=== PATIENT | male | born 1950 | race Caucasian/White ===

== ENCOUNTER 2022-02-13 08:52 | Outpatient (CLI) | payer MEDICARE, BC, SELFPAY | END 2022-02-13 08:53 | disposition home or self-care (01) | LOC: AMB 02-24 11:06 | PROVIDERS: PCP Family Medicine; Visit Provider Family Medicine | DX: R41.82 Altered mental status, unspecified (principal); M54.9 Dorsalgia, unspecified | CPT/HCPCS: A0425; A0429 ==

== ENCOUNTER 2022-02-13 09:06 | Emergency (ER) | payer MEDICARE, BC, SELFPAY ==
[2022-02-13] VITALS (11 sets, daily range): BP systolic 119–158; BP diastolic 59–94; PULSE 72–82; RESP 16; TEMP 37; O2SAT 97–100; BMI 25.1
--- NOTE | 2022-02-13 09:38 | ED_ITS ---
HPI - General Adult General Time Seen by Provider: 09:38 Date Seen: 02/13/22 Chief complaint: Fall/Minor Trauma Stated complaint: Fall Time Seen by Provider: 02/13/22 09:37 Source: patient, EMS and RN notes reviewed Mode of arrival: EMS Limitations: no limitations (Phonation difficult for patient at this time) History of Present Illness HPI narrative: Ho is a 71-year-old male brought in by ambulance from [facility] for decreased mentation and complaint of low back pain. He had a fall unwitnessed at 3:30 a.m. yesterday afternoon. He does have underlying Parkinson's disease and dementia with Lewy body disorder. He fell unwitnessed but after that was up around to doing things. This morning they found him to be altered in his mentation, not himself and was complaining of low back pain. When asked him if he remembers the fall he states yes but then will not give me further details. His phonation is quite weak, he keeps his eyes closed the whole time while talking to me. He is alert however and answering questions basically in yes or no statements. He is following commands when I ask him such things as to wiggle his feet. He is localizing his pain to his low back. He has a a neurostimulator and is unable to tell us how to turn it off so that we can get an EKG. There is no noted fevers, denies any numbness tingling, denies pain elsewhere but he is not very conversive or forthcoming with his own information. He basically is answering yes or no whenever I ask him something. Again, I note his phonation is quite weak. He does not appear to be on any blood thinners. At 9:53 a.m., nursing staff did report to me that they talk to [facility] nursing staff. This actually is patient's portion of his baseline mental stat us. They report that he will wax and wane to being responsive with yes and no, slumped over in a chair. To being conversive. This is not new for him to changes mental status. He reportedly will go in and out of times like this. Their main issue was his complaint of low back pain. They are also concerned about his inability to transfer but that has not been new when he enters into 1 of these periods of diminished mental status. complaint: Low back pain after fall yesterday, staff noticed change in mentation Related Data Home Medications Medication Instructions Recorded Confirmed acetaminophen 500 mg tablet mg PO PRN 01/02/22 01/29/22 carbidopa 25 mg-levodopa 100 mg 0.5 tab PO PRN 01/02/22 01/29/22 tablet donepezil 10 mg tablet 10 mg PO DAILY 01/02/22 01/29/22 polyvinyl alcohol 1.4 % eye drops 2 drp ophthalmic (eye) BID 01/02/22 01/29/22 ropinirole 2 mg tablet 2 mg PO .Bedtime 01/02/22 01/29/22 sennosides 8.6 mg tablet 1 mg PO DAILY 01/02/22 01/29/22 Previous Rx's Medication Instructions Recorded cefdinir 300 mg capsule 300 mg PO Q12H #14 caps 02/13/22 Allergies Allergy/AdvReac Type Severity Reaction Status Date / Time amantadine Allergy Severe Anxiety Verified 01/29/22 10:59 and tightness in throat pramipexole Allergy Mild Hives Verified 01/29/22 10:59 Review of Systems Status of ROS: Reports: 10 or more systems reviewed and unremarkable except as noted in History and below [facility] Medical History (Updated 02/13/22 @ 12:21 by Zohreh Quezada MD) Colon polyp Encounter for counseling regarding advance directives (02/26/19) Surgical History (Updated 01/29/22 @ 11:02 by Trena Dowell CMA) History of colonoscopy S/P deep brain stimulator placement (~2006) Status post tonsillectomy and adenoidectomy Social History (Updated 01/29/22 @ 11:02 by Trena Dowell CMA) Smoking Status: Never smoker Do you use any of these nicotine containing products: None Second hand tobacco smoke exposure: No How often do you have a drink containing alcohol: never How often do you have six or more drinks on one occasion: Never AUDIT-C Alcohol total score: 0 Non-prescribed substance use: denies use service: No Exam Const: Vital Signs, click to edit/add: Vital Signs - 24 hr 02/13/22 09:13 02/13/22 09:09 02/13/22 09:12 Temperature 98.6 F Pulse Rate 76 72 Pulse Rate [Left P ulse Oximeter] 73 Respiratory Rate 16 Blood Pressure 158/71 H Blood Pressure [Ri ght Upper Arm] 158/71 H Pulse Oximetry 98 97 100 Oxygen Delivery Me thod Room Air 02/13/22 09:32 02/13/22 10:02 02/13/22 10:31 Temperature Pulse Rate Pulse Rate [Left P ulse Oximeter] Respiratory Rate Blood Pressure 139/73 138/74 119/94 H Blood Pressure [Ri ght Upper Arm] Pulse Oximetry Oxygen Delivery Mi thod 02/13/22 11:02 02/13/22 11:32 02/13/22 11:38 Temperature Pulse Rate 82 Pulse Rate [Left P ulse Oximeter] Respiratory Rate Blood Pressure 130/70 139/75 Blood Pressure [Ri ght Upper Arm] Pulse Oximetry 99 Oxygen Delivery Mi thod 02/13/22 12:07 Temperature Pulse Rate Pulse Rate [Left P ulse Oximeter] Respiratory Rate Blood Pressure 142/73 H Blood Pressure [Ri ght Upper Arm] Pulse Oximetry Oxygen Delivery Mi thod Documenting provider has reviewed patient's vital signs: yes Common normals: no apparent distress General appearance: cooperative, disheveled (Shirt is dirty, food stains), frail appearing and other (Keeps eyes closed during the whole interaction) Nutritional appearance: cachectic Orientation/consciousness: Yes awake HENMT: Common normals: normocephalic, head/scalp atraumatic, hearing grossly normal bilaterally, external ears normal and nasal mucous membranes and turbinates normal Head and scalp: normocephalic and atraumatic Nose: nasal mucous membranes and turbinates normal External ear: external ears normal Mouth: moist mucous membranes abnormal (Dry mucous membranes, teeth look dry as well) and dysphonia (Very soft phonation) Eye: Common normals: PERRL, EOMs intact bilaterally, conjunctivae normal and no scleral icterus Conjunctiva: conjunctiva(e) normal Pupil: PERRL Neck & C-Spine: Common normals: no lymphadenopathy, supple (Can turn his head a bit, no midline or paraspinal tenderness of his neck), no meningeal signs, no JVD and thyroid normal General: normal visual inspection, trachea midline and JVD Thyroid: thyroid normal Chest: Common normals: inspection of chest normal and palpation of chest normal Resp: Common normals: normal respiratory effort, no retractions, no use of accessory muscles and clear to auscultation bilaterally Auscultation: clear to auscultation bilaterally Cardio: Common normals: no JVD, regular rate, regular rhythm (With occasional ectopy), S1 normal heart sound, S2 normal heart sound, no gallops, no clicks and no murmurs Jugular venous distention: JVD Rate: regular rate Rhythm: regular rhythm (With occasional ectopy) Heart sounds: S1 normal and S2 normal GI: Common normals: Normal to inspection, nondistended, normoactive bowel sounds present, soft to palpation, non-tender, no hepatosplenomegaly and no masses Palpation: soft and no hepatosplenomegaly : Common normals: no CVA tenderness Bladder/kidney exam: no CVA tenderness Back & Pelvis: Common normals: no CVA tenderness, thoracic and lumbar spine normal to inspection and no thoracic nor lumbar tenderness Neuro: Kashif Coma Scale: document GCS findings Sensorium/orientation: awake Meningeal signs: no meningeal signs Other: Keeps eyes closed but will open them with prompting. Has significant rigidity. Is able to move extremities with prompting, can wiggle toes and ankles, can feel his feet. When I lift leg sirs negative straight leg raising. Course Course Hospital Course: We will obtain portable chest x-ray, head CT, lumbar CT is patient is not going to be able to position himself for any x-rays. He has not had any of his morning medicines and thus his Parkinson's obviously may be causing more rigidity, decreased mental status changes with that. We will get some baseline labs attempt to get a urinalysis if we can not rule out any infectious etiology. Reevaluation(s) Reevaluation #1: Have reviewed his labs, imaging. It would. He has a UTI. He is requesting to go home at this time. He is widely awake, alert at this time. Did review his prior urine culture in October of 2021. IA have chosen to use Rocephin and higher level cephalosporin as the urine culture from October looked to be responsive to these medications. Time: 12:15 Vital Signs Vital signs: Initial Vital Signs Pulse Rate 76 02/13/22 09:09 Pulse Oximetry 97 02/13/22 09:09 Vital Signs Pulse Rate 76 02/13/22 09:09 Pulse Oximetry 97 02/13/22 09:09 Temperature 98.6 F 02/13/22 09:13 Pulse Rate 82 02/13/22 11:38 Respiratory Rate 16 02/13/22 09:13 Blood Pressure 142/73 H 02/13/22 12:07 Pulse Oximetry 99 02/13/22 11:38 Oxygen Delivery Method 02/13/22 09:13 Medical Decision Making Lab Data Lab results reviewed: Yes I reviewed the patient's lab results Labs: Lab Results 02/13/22 02/13/22 02/13/22 Range/Units 10:48 10:48 11:05 WBC 15.20 H (4.50-11.00) K/uL RBC 4.44 (4.30-5.90) m/uL Hgb 13.6 (13.5-17.5) gm/dL Hct 40.4 (37.0-53.0) % MCV 91 (80-100) fL MCH 31 (26-34) pg MCHC 34 (32-36) gm/dL RDW Coeff of Lasha 13.2 (11.5-15.5) % Plt Count 166 (140-440) K/uL Neut % (Auto) 81.8 H (42.0-72.0) % Lymph % (Auto) 10.4 L (20-44) % Stanton % (Auto) 6.6 (0.0-11.0) % Eos % (Auto) 0.3 (0.0-7.0) % Baso % (Auto) 0.1 (0.0-3.0) % Neut # (Auto) 12.40 H (1.7-7.0) K/uL Lymph # (Auto) 1.60 (0.90-2.90) K/uL Stanton # (Auto) 1.00 H (0.00-0.90) K/UL Eos # (Auto) 0.00 (0.00-0.50) K/uL Baso # (Auto) 0.00 (0.00-0.30) K/uL Abs Immat Gran (auto) 0.12 (0.00-0.30) K/uL Sodium 141 (135-149) mmol/L Potassium 3.9 (3.6-5.1) mmol/L Chloride 105 (96-114) mmol/L Carbon Dioxide 26 (20-32) mmol/L BUN 30 (7-30) mg/dL Creatinine 0.6 (0.5-1.5) mg/dL Estimated Creat Clear 68.94 Estimated GFR 103 ml/min Glucose 106 (60-115) mg/dL Calcium 8.8 (8.4-10.6) mg/dL Total Bilirubin 0.7 (0.1-1.5) mg/dL AST 67 H (12-35) U/L ALT 87 H (4-50) U/L Alkaline Phosphatase 128 (40-150) U/L Total Protein 7.4 (6.0-8.3) g/dL Albumin 4.0 (3.3-5.0) g/dL Urine Color (Yellow) Urine Appearance (Clear) Urine pH (5.0-8.5) Ur Specific [place] (1.000-1.030) Urine Protein (Negative) Urine Glucose (UA) (Negative) Urine Ketones (Negative) Urine Blood (Negative) Urine Nitrite (Negative) Urine Bilirubin (Negative) Urine Urobilinogen (0.2-1.0) Ur Leukocyte Esterase (Negative) Urine RBC (0-2) Urine WBC (0-5) Ur Squamous Epith Cells (None-Few) Urine Bacteria (None) SARS-CoV-2 (PCR) Negative SARS-CoV-2 (Negative) 02/13/22 Range/Units 11:47 WBC (4.50-11.00) K/uL RBC (4.30-5.90) m/uL Hgb (13.5-17.5) gm/dL Hct (37.0-53.0) % MCV (80-100) fL MCH (26-34) pg MCHC (32-36) gm/dL RDW Coeff of Lasha (11.5-15.5) % Plt Count (140-440) K/uL Neut % (Auto) (42.0-72.0) % Lymph % (Auto) (20-44) % Stanton % (Auto) (0.0-11.0) % Eos % (Auto) (0.0-7.0) % Baso % (Auto) (0.0-3.0) % Neut # (Auto) (1.7-7.0) K/uL Lymph # (Auto) (0.90-2.90) K/uL Stanton # (Auto) (0.00-0.90) K/UL Eos # (Auto) (0.00-0.50) K/uL Baso # (Auto) (0.00-0.30) K/uL Abs Immat Gran (auto) (0.00-0.30) K/uL Sodium (135-149) mmol/L Potassium (3.6-5.1) mmol/L Chloride (96-114) mmol/L Carbon Dioxide (20-32) mmol/L BUN (7-30) mg/dL Creatinine (0.5-1.5) mg/dL Estimated Creat Clear Estimated GFR ml/min Glucose (60-115) mg/dL Calcium (8.4-10.6) mg/dL Total Bilirubin (0.1-1.5) mg/dL AST (12-35) U/L ALT (4-50) U/L Alkaline Phosphatase (40-150) U/L Total Protein (6.0-8.3) g/dL Albumin (3.3-5.0) g/dL Urine Color Yellow (Yellow) Urine Appearance Cloudy A (Clear) Urine pH 7.0 (5.0-8.5) Ur Specific [place] 1.025 (1.000-1.030) Urine Protein Negative (Negative) Urine Glucose (UA) Negative (Negative) Urine Ketones Negative (Negative) Urine Blood Negative (Negative) Urine Nitrite Positive A (Negative) Urine Bilirubin Negative (Negative) Urine Urobilinogen 1.0 (0.2-1.0) Ur Leukocyte Esterase Trace A (Negative) Urine RBC 0-2 (0-2) Urine WBC 10-25 A (0-5) Ur Squamous Epith Cells Few (None-Few) Urine Bacteria Many A (None) SARS-CoV-2 (PCR) (Negative) Imaging Data CT scan - head: Attestation: I have reviewed the pertinent imaging results. Radiologist's impression: [facility] Patient ID:?[id number] Site Patient ID:?[id number]. Site :?1950 Study:?CT Head W/O-02/13/2022 10:53:09 AM Ordering Physician:?Pilar Bruner Final Report: INDICATION: Fall. TECHNIQUE: CT head without contrast. COMPARISON: None. FINDINGS: CSF spaces: Stable size and configuration of the ventricles. Brain parenchyma and extra-axial spaces: No change in the appearance of the bilateral deep brain stimulators. The kinney-white differentiation is normal. No change in nonspecific hypodensity in the subcortical and deep white matter unchanged compared to prior exam. No sign of mass, hemorrhage, or midline shift. No extra-axial fluid collection. Skull base and calvarium: Paranasal sinus mucosal disease with polyp or mucous retention cyst in right maxillary sinus print. No air-fluid levels. The visualized orbits are grossly unremarkable. No skull fractures. Debris in the external auditory canal spread IMPRESSION: 1. No intracranial hemorrhage or evidence of other acute intracranial abnormality. 2. No change in the position of the bilateral deep brain stimulator leads. 3. Cerebral atrophy with stable nonspecific hypodensity in the subcortical and deep white matter likely chronic microvascular ischemic change. Please note that all CT scans at this facility use dose modulation, iterative reconstruction, and/or weight-based dosing when appropriate to reduce radiation dose to as low as reasonably achievable. Dictated by Bhaskar Loza MD @ 02/13/2022 11:11:43 AM (Electronic Signature) CT- Other: Attestation: I have reviewed the pertinent imaging results. Radiologist's impression: [facility]:?[facility] Patient ID:?[id number] Site Patient ID:?[id number]. Site :?1950 Study:?CT Spine Lumbar W/O-02/13/2022 10:54:23 AM Ordering Physician:?Pilar Bruner Final Report: INDICATION: Fall. TECHNIQUE: CT lumbar spine without contrast. COMPARISON: None. FINDINGS: Vertebrae: Mild S shaped lumbar scoliotic curvature. Grade 1 anterolisthesis of L5 on S1. Bilateral chronic L5 pars defects. Mild retrolisthesis of L2 on L3. No evidence of acute fracture. Discs and facet joints: Degenerative disc disease at L2-L3. Mild disc height loss at L5-S1 and L3-L4. Mild degenerative change in the lower lumbar facets. Bone islands in the L1 and L2 vertebral bodies. Extraspinal findings: Prevertebral soft tissues and visualized retroperitoneum are unremarkable. IMPRESSION: 1. No evidence of acute fracture or traumatic malalignment. 2. Grade 1 anterolisthesis of L5 on S1 due to bilateral chronic pars defects. Minimal retrolisthesis of L2 on L3 due to degenerative disc disease. 3. Mild degenerative disc and facet disease. Please note that all CT scans at this facility use dose modulation, iterative reconstruction, and/or weight-based dosing when appropriate to reduce radiation dose to as low as reasonably achievable. Dictated by Bhaskar Loza MD @ 02/13/2022 11:17:47 AM (Electronic Signature) Chest x-ray: Attestation: I have reviewed the pertinent imaging results. Radiologist's impression: Patient: [facility] Facility:?[facility] Patient ID:?[id number] Site Patient ID:?[id number]. Site :?1950 Study:?XRay Chest PORTABLEa-02/13/2022 11:01:30 AM Ordering Physician:Letty Bruner Final Report: INDICATION: Fall. TECHNIQUE: Chest 1 views. COMPARISON: 11/04/2021. FINDINGS: Cardiovascular and mediastinum: Heart size and vasculature are normal in caliber and appearance. Lungs and pleural spaces: Lungs are clear. No sign of infiltrate or mass. No sign of pleural effusion. No pneumothorax. Bones and soft tissues: No significant findings. IMPRESSION: No acute or significant findings. Dictated by Bhaskar Loza MD @ 02/13/2022 11:12:52 AM (Electronic Signature) Discharge Plan Discharge Clinical Impression: Fall, Urinary tract infection, Low back pain Condition: Stable Instructions: Urinary Tract Infection in Men (ED), Fall Prevention for Older Adults (ED) Additional Instructions: Start oral antibiotics tomorrow morning and take as prescribed. If you are unable to take the oral antibiotic, have progressive symptoms despite taking oral antibiotic, please seek re-evaluation. Urine culture will be done, we will contact to after 48 hours if there is any need for antibiotic change. Prescriptions: New cefdinir 300 mg capsule 300 mg PO Q12H Qty: 14 0RF No Action carbidopa-levodopa 25-100 mg tablet 0.5 tab PO PRN acetaminophen 500 mg tablet PO PRN polyvinyl alcohol 1.4 % drops 2 drp ophthalmic (eye) BID Rx Instructions: AND NEEDED ropinirole 2 mg tablet 2 mg PO .Bedtime donepezil 10 mg tablet 10 mg PO DAILY sennosides 8.6 mg tablet 1 mg PO DAILY Rx Instructions: AND NEEDED Follow Up/Referrals: Bayron Aquino MD [Primary Care Provider] - Stand Alone Forms: [employer] Info Instructions
--- NOTE | 2022-02-13 09:56 | CRLHL7_ITS ---
For Patients: As a result of the Century Cures Act, medical imaging exams and procedure reports are released immediately into your electronic medical record. You may view this report before your referring provider. If you have questions, please contact your health care provider. INDICATION: Fall. TECHNIQUE: CT head without contrast. COMPARISON: None. FINDINGS: CSF spaces: Stable size and configuration of the ventricles. Brain parenchyma and extra-axial spaces: No change in the appearance of the bilateral deep brain stimulators. The kinney-white differentiation is normal. No change in nonspecific hypodensity in the subcortical and deep white matter unchanged compared to prior exam. No sign of mass, hemorrhage, or midline shift. No extra-axial fluid collection. Skull base and calvarium: Paranasal sinus mucosal disease with polyp or mucous retention cyst in right maxillary sinus print. No air-fluid levels. The visualized orbits are grossly unremarkable. No skull fractures. Debris in the external auditory canal spread IMPRESSION: 1. No intracranial hemorrhage or evidence of other acute intracranial abnormality. 2. No change in the position of the bilateral deep brain stimulator leads. 3. Cerebral atrophy with stable nonspecific hypodensity in the subcortical and deep white matter likely chronic microvascular ischemic change. Please note that all CT scans at this facility use dose modulation, iterative reconstruction, and/or weight-based dosing when appropriate to reduce radiation dose to as low as reasonably achievable. Dictated by Bhaskar Loza MD @ 02/13/2022 11:11:43 AM (Electronically Signed)
--- NOTE | 2022-02-13 09:56 | CRLHL7_ITS ---
For Patients: As a result of the Century Cures Act, medical imaging exams and procedure reports are released immediately into your electronic medical record. You may view this report before your referring provider. If you have questions, please contact your health care provider. INDICATION: Fall. TECHNIQUE: CT lumbar spine without contrast. COMPARISON: None. FINDINGS: Vertebrae: Mild S shaped lumbar scoliotic curvature. Grade 1 anterolisthesis of L5 on S1. Bilateral chronic L5 pars defects. Mild retrolisthesis of L2 on L3. No evidence of acute fracture. Discs and facet joints: Degenerative disc disease at L2-L3. Mild disc height loss at L5-S1 and L3-L4. Mild degenerative change in the lower lumbar facets. Bone islands in the L1 and L2 vertebral bodies. Extraspinal findings: Prevertebral soft tissues and visualized retroperitoneum are unremarkable. IMPRESSION: 1. No evidence of acute fracture or traumatic malalignment. 2. Grade 1 anterolisthesis of L5 on S1 due to bilateral chronic pars defects. Minimal retrolisthesis of L2 on L3 due to degenerative disc disease. 3. Mild degenerative disc and facet disease. Please note that all CT scans at this facility use dose modulation, iterative reconstruction, and/or weight-based dosing when appropriate to reduce radiation dose to as low as reasonably achievable. Dictated by Bhaskar Loza MD @ 02/13/2022 11:17:47 AM (Electronically Signed)
--- NOTE | 2022-02-13 09:57 | CRLHL7_ITS ---
For Patients: As a result of the Cures Act, medical imaging exams and procedure reports are released immediately into your electronic medical record. You may view this report before your referring provider. If you have questions, please contact your health care provider. INDICATION: Fall. TECHNIQUE: Chest 1 views. COMPARISON: 11/04/2021. FINDINGS: Cardiovascular and mediastinum: Heart size and vasculature are normal in caliber and appearance. Lungs and pleural spaces: Lungs are clear. No sign of infiltrate or mass. No sign of pleural effusion. No pneumothorax. Bones and soft tissues: No significant findings. IMPRESSION: No acute or significant findings. Dictated by Bhaskar Loza MD @ 02/13/2022 11:12:52 AM (Electronically Signed)
[2022-02-13 10:43] LABS: Basophils Percent Auto 0.1 % (0.0-3.0); Eosinophils Percent Auto 0.3 % (0.0-7.0); Hematocrit 40.4 % (37.0-53.0); Hemoglobin* 13.6 gm/dL (13.5-17.5); Immature Granulocytes Abs Auto 0.12 K/uL (0.00-0.30); Lymphocytes Percent Auto 10.4 % (20-44); Mean Corpuscular HGB Conc 34 gm/dL (32-36); Mean Corpuscular Hemoglobin 31 pg (26-34); Mean Corpuscular Volume 91 fL (80-100); Monocytes Percent Auto 6.6 % (0.0-11.0); Neutrophils Percent Auto 81.8 % (42.0-72.0); Platelet Count* 166 K/uL (140-440); RDW Coefficient of Variation % 13.2 % (11.5-15.5); Red Blood Count 4.44 m/uL (4.30-5.90)
[2022-02-13 10:52] LABS: Slide Review Reflex No
[2022-02-13 10:54] LABS: Chloride* 105 mmol/L (96-114)
[2022-02-13 10:55] LABS: Potassium* 3.9 mmol/L (3.6-5.1); Sodium* 141 mmol/L (135-149)
[2022-02-13 10:57] LABS: Aspartate Amino Transferase* 67 U/L (12-35); Bilirubin Total* 0.7 mg/dL (0.1-1.5); Carbon Dioxide* 26 mmol/L (20-32); Creatinine* 0.6 mg/dL (0.5-1.5); Est. Creatinine Clearance* 68.94; Estimated Glomerular Filt Rate 103 ml/min
[2022-02-13 10:58] LABS: Alanine Aminotransferase* 87 U/L (4-50); Alkaline Phosphatase* 128 U/L (40-150); Blood Urea Nitrogen* 30 mg/dL (7-30); Calcium* 8.8 mg/dL (8.4-10.6); Glucose* 106 mg/dL (60-115); Total Protein* 7.4 g/dL (6.0-8.3)
[2022-02-13 11:49] LABS: Appearance Urine Cloudy (Clear); Bilirubin Urine Negative (Negative); Blood Urine Negative (Negative); Glucose Urine Negative (Negative); Ketones Urine Negative (Negative); Leukocyte Esterase Urine Trace (Negative); Nitrite Urine Positive (Negative); Protein Urine Negative (Negative); Specific Gravity Urine 1.025 (1.000-1.030)
[2022-02-13 11:59] LABS: Bacteria Urine Many; RBC Urine 0-2 (0-2); Squamous Epithelial Cell Urine Few (None-Few)
[2022-02-13 12:02] LABS: SARS PCR* Negative SARS-CoV-2 (Negative)
[2022-02-13] MEDS: cefTRIAXone 1 GM VIAL IM (12:41)
[2022-02-13] MEDS: LIDOCAINE 1% 5 ml (pf) 5 ML VIAL 2.1 ML IM (12:42)
--- NOTE | 2022-02-13 12:58 | ED.NURSE ---
Report given to RN at facility.
[2022-02-13 13:10] LABS: Color Urine Yellow (Yellow)
== END 2022-02-13 12:58 | disposition home or self-care (01) ==
PROVIDERS: Emergency Provider Family Medicine; PCP Family Medicine
DX: N39.0 Urinary tract infection, site not specified (principal); M54.50 Low back pain, unspecified; Z91.81 History of falling
CPT/HCPCS: 36415; 70450; 71045; 72131; 80053; 81001; 85025; 87086; 87186; 87635; 96372; 99284; J0696

== ENCOUNTER 2022-02-13 12:49 | Outpatient (CLI) | payer MEDICARE, BC, SELFPAY | END 2022-02-13 12:50 | disposition home or self-care (01) | LOC: AMB 02-24 12:04 | PROVIDERS: PCP Family Medicine; Visit Provider Family Medicine | DX: R53.1 Weakness (principal) | CPT/HCPCS: A0425; A0428; A0429 ==

== ENCOUNTER 2022-02-17 14:18 | Inpatient (IN) | payer MEDICARE, BC, SELFPAY ==
[2022-02-17 14:24] VITALS: BP 143/83; PULSE 71; RESP 16; TEMP 37.3; O2SAT 96
--- NOTE | 2022-02-17 14:44 | CRLHL7_ITS ---
For Patients: As a result of the Cures Act, medical imaging exams and procedure reports are released immediately into your electronic medical record. You may view this report before your referring provider. If you have questions, please contact your health care provider. Indication: Somnolent Technique: Portable chest Comparison: No comparison Findings: Normal cardiac mediastinal silhouette. Lungs are clear. No effusion. No pneumothorax. Left chest wall device. Dictated by Elizabet Pearce MD @ 02/17/2022 4:35:58 PM (Electronically Signed)
--- NOTE | 2022-02-17 14:45 | CRLHL7_ITS ---
For Patients: As a result of the Cures Act, medical imaging exams and procedure reports are released immediately into your electronic medical record. You may view this report before your referring provider. If you have questions, please contact your health care provider. INDICATION: Somnolence. TECHNIQUE: Axial images. Sagittal and coronal reconstructions. COMPARISON: 02/13/2022. FINDINGS: Stable position of bilateral deep brain stimulators. No abnormal intracranial mass effect or midline shift. No acute endocrine hemorrhage. Periventricular white matter changes are again noted, likely related to chronic small vessel disease. Stable prominence of the lateral ventricle. Overall, no new findings. IMPRESSION: No CT evidence of an acute intracranial abnormality. Please note that all CT scans at this facility use dose modulation, iterative reconstruction, and/or weight-based dosing when appropriate to reduce radiation dose to as low as reasonably achievable. Dictated by Byron Chiang MD @ 02/17/2022 5:27:54 PM (Electronically Signed)
--- NOTE | 2022-02-17 14:47 | CRLHL7_ITS ---
For Patients: As a result of the Century Cures Act, medical imaging exams and procedure reports are released immediately into your electronic medical record. You may view this report before your referring provider. If you have questions, please contact your health care provider. INDICATION: Pain. TECHNIQUE: CT abdomen and pelvis without contrast. COMPARISON: None. FINDINGS: Lower chest: Dependent atelectasis. Mild pericardial fluid. Liver: Liver cysts. Gallbladder and bile ducts: No stones or inflammation. No biliary dilatation. Pancreas: Unremarkable. No mass or inflammation. Spleen: Normal in size. No masses. Adrenal glands: Normal in size. No nodules. Kidneys: Normal in size. No suspicious masses, stones, or hydronephrosis. GI tract: Unremarkable. Normal in caliber. No sign of mass or inflammation. Normal appendix. Vasculature: Unremarkable. Lymph nodes: No lymphadenopathy. Abdominal wall/Omentum/Peritoneum: Unremarkable. No sign of mass or infiltration. No free air or significant free fluid. Pelvis: Unremarkable. No pelvic masses. Bones: Grade 1 anterolisthesis of L5 on S1 due to chronic bilateral pars defects. Acute to subacute appearing T9 compression fracture which involves primarily the anterior column. No significant retropulsion of posterosuperior endplate of there is some sclerosis in the vertebral body. Subacute healing fracture of the right 11th rib at the costovertebral junction. Comminuted moderately displaced impacted fracture of the left femoral neck. No other fractures identified. IMPRESSION: 1. Acute mildly displaced impacted left femoral neck fracture. 2. Age-indeterminate T9 fracture possibly subacute. Fracture appears to be single column compression fracture. 3. Subacute right 11th rib fracture at the costovertebral junction. Finding was conveyed to Dr. Dasilva at 5:40 p.m. on 02/17/2022. Please note that all CT scans at this facility use dose modulation, iterative reconstruction, and/or weight-based dosing when appropriate to reduce radiation dose to as low as reasonably achievable. Dictated by Bhaskar Loza MD @ 02/17/2022 5:43:34 PM (Electronically Signed)
--- NOTE | 2022-02-17 14:51 | ED.GENADULT ---
HPI - General Adult General Time Seen by Provider: 14:50 Date Seen: 02/17/22 Chief complaint: Weakness Stated complaint: Pain Time Seen by Provider: 02/17/22 14:20 Source: EMS Mode of arrival: other Limitations: altered mental status and physical limitation History of Present Illness HPI narrative: Patient is a 69 year white male with significant Parkinson's disease, currently residing at the [facility], has had a recent urinary tract infection. The patient has been somnolent today, responding only to deep stimulation and pain, the staff at the [place] [phone] think he is in pain and sent him to the hospital. Family has wanted does some diagnostic studies done and treatment there of, he is apparently full code at this point. He is unable to really say what is bothering him, but he does smile and hold his eyes shut lie tried open his eyes. He does not respond to questioning. He is flexed in a type position. No obvious skin rashes or traumatic issues noted Related Data Home Medications Medication Instructions Recorded Confirmed carbidopa 25 mg-levodopa 100 mg 2 tab PO DAILY PRN 01/02/22 02/17/22 tablet donepezil 10 mg tablet 10 mg PO DAILY 01/02/22 02/17/22 polyvinyl alcohol 1.4 % eye drops 2 drp ophthalmic (eye) BID PRN dry 01/02/22 02/17/22 eyes ropinirole 2 mg tablet 2 mg PO HS 01/02/22 02/17/22 sennosides 8.6 mg tablet 1 mg PO DAILY 01/02/22 02/17/22 Previous Rx's Medication Instructions Recorded cefdinir 300 mg capsule 300 mg PO Q12H #14 caps 02/13/22 Allergies Allergy/AdvReac Type Severity Reaction Status Date / Time amantadine Allergy Severe Anxiety Verified 02/17/22 14:33 and tightness in throat pramipexole Allergy Mild Hives Verified 02/17/22 14:33 Review of Systems Status of ROS: Reports: unobtainable due to medical condition [facility] Medical History Colon polyp Encounter for counseling regarding advance directives (02/26/19) Surgical History History of colonoscopy S/P deep brain stimulator placement (~2006) Status post tonsillectomy and adenoidectomy Social History Smoking Status: Never smoker Do you use any of these nicotine containing products: None Second hand tobacco smoke exposure: No How often do you have a drink containing alcohol: never How often do you have six or more drinks on one occasion: Never AUDIT-C Alcohol total score: 0 Non-prescribed substance use: denies use service: No Exam Narrative: Exam Narrative: Objective: The patient is in a type position flexed hips and knees, he keeps his eyes shot, but will let me open his eyes, when I do ask him how he is doing or if he has pain he will move his mouth slightly but does not respond. He has no other specific findings his vital signs show to be afebrile otherwise unremarkable O2 sat is 96% on room air. Staff reports that he has not had any urinary symptoms or cough. HEENT patient hold his eyes closed when I try an open them open them even manually, his mouth is dry neck nontender lungs diminished air exchange bilaterally but no obvious rales or wheezing Heart rate and rhythm regular 2/6 systolic murmur Abdomen benign soft nontender no CVA apparent tenderness Extremities show good peripheral perfusion no swelling of the legs The patient does withdraw to discomfort. Const: Vital Signs, click to edit/add: Vital Signs - 24 hr 02/17/22 14:24 Temperature 99.2 F Pulse Rate [Left P ulse Oximeter] 71 Respiratory Rate 16 Blood Pressure [Ri ght Upper Arm] 143/83 H Pulse Oximetry 96 Oxygen Delivery Me thod Room Air Course Vital Signs Vital signs: Initial Vital Signs Temperature 99.2 F 02/17/22 14:24 Temperature Source Temporal Artery Scan 02/17/22 14:24 Pulse Rate 71 02/17/22 14:24 Respiratory Rate 16 02/17/22 14:24 Blood Pressure 143/83 H 02/17/22 14:24 Blood Pressure Mean 103 02/17/22 14:24 Blood Pressure Position Left Lateral 02/17/22 14:24 Pulse Oximetry 96 02/17/22 14:24 Oxygen Delivery Method 02/17/22 14:24 Vital Signs Temperature 99.2 F 02/17/22 14:24 Pulse Rate 71 02/17/22 14:24 Respiratory Rate 16 02/17/22 14:24 Blood Pressure 143/83 H 02/17/22 14:24 Pulse Oximetry 96 02/17/22 14:24 Oxygen Delivery Method 02/17/22 14:24 Temperature 99.2 F 02/17/22 14:24 Pulse Rate 71 02/17/22 14:24 Respiratory Rate 16 02/17/22 14:24 Blood Pressure 143/83 H 02/17/22 14:24 Pulse Oximetry 96 02/17/22 14:24 Oxygen Delivery Method 02/17/22 14:24 Medical Decision Making MDM Narrative Medical decision making narrative: The patient has a very significant Parkinson's issue, as well as general debility. Think at this point we can do fairly complete workup with a head CT, abdominal pelvic CT, chest x-ray, urinalysis from a in and out cath specimen, blood cultures, laboratory electrolytes. Patient I believe should not go back to assisted living and will admit to the hospital for disposition planning and further assessment and possibly workup. Maybe were social service consultation as well to discuss hospice or service as needed. Addendum: I had a discussion with daughter lives was the power of bankruptcy attorney [phone] who lives in [facility]. Discussed Ho situation, at this point I would wish to try IV fluids IV antibiotics, but would also like a hospice consultation through social service and we can arrange this through inpatient care. I do not think the patient can safely go back to assisted living at this point. Dr. Onofre kindly will follow in hospital. Addendum: Radiology called back with his CT reports, his head CT looks unremarkable, but his abdomen pelvis CT show a impacted femoral neck fracture on the left, and subacute T9 compression fracture and a right I believe 11th rib fracture. Patient will be assessed in the hospital I think admitting him makes sense will discuss with Dr. Onofre. Lab Data Labs: Lab Results 02/17/22 02/17/22 02/17/22 Range/Units 14:27 14:46 15:12 WBC 12.33 H (4.50-11.00) K/uL RBC 5.02 (4.30-5.90) m/uL Hgb 15.2 (13.5-17.5) gm/dL Hct 46.0 (37.0-53.0) % MCV 92 (80-100) fL MCH 30 (26-34) pg MCHC 33 (32-36) gm/dL RDW Coeff of Lasha 13.1 (11.5-15.5) % Plt Count 244 (140-440) K/uL Neut % (Auto) 78.3 H (42.0-72.0) % Lymph % (Auto) 13.0 L (20-44) % [place] % (Auto) 7.5 (0.0-11.0) % Eos % (Auto) 0.8 (0.0-7.0) % Baso % (Auto) 0.2 (0.0-3.0) % Neut # (Auto) 9.70 H (1.7-7.0) K/uL Lymph # (Auto) 1.60 (0.90-2.90) K/uL [place] # (Auto) 0.90 (0.00-0.90) K/UL Eos # (Auto) 0.10 (0.00-0.50) K/uL Baso # (Auto) 0.00 (0.00-0.30) K/uL Abs Immat Gran (auto) 0.03 (0.00-0.30) K/uL INR (0.91-1.10) Sodium (135-149) mmol/L Potassium (3.6-5.1) mmol/L Chloride (96-114) mmol/L Carbon Dioxide (20-32) mmol/L BUN (7-30) mg/dL Creatinine (0.5-1.5) mg/dL Estimated GFR ml/min Glucose (60-115) mg/dL Venous Lactic Acid (Serial Order) Calcium (8.4-10.6) mg/dL Troponin I (0.01-0.04) ng/mL C-Reactive Protein (0.5-1.0) mg/dL NT-Pro-B Natriuret Pep (0-125) PG/mL Amylase (18-89) U/L Urine Color Yellow (Yellow) Urine Appearance Clear (Clear) Urine pH 5.0 (5.0-8.5) Ur Specific [place] >= 1.030 (1.000-1.030) Urine Protein 1+ A (Negative) Urine Glucose (UA) Negative (Negative) Urine Ketones 1+ A (Negative) Urine Blood Trace-intact A (Negative) Urine Nitrite Negative (Negative) Urine Bilirubin 1+ A (Negative) Urine Urobilinogen 0.2 (0.2-1.0) Ur Leukocyte Esterase Negative (Negative) Urine RBC 0-2 (0-2) Urine WBC 2-5 (0-5) Ur Squamous Epith Cells None (None-Few) Urine Bacteria Moderate A (None) SARS-CoV-2 (PCR) Negative SARS-CoV-2 (Negative) 02/17/22 02/17/22 02/17/22 Range/Units 15:12 15:12 15:12 WBC (4.50-11.00) K/uL RBC (4.30-5.90) m/uL Hgb (13.5-17.5) gm/dL Hct (37.0-53.0) % MCV (80-100) fL MCH (26-34) pg MCHC (32-36) gm/dL RDW Coeff of Lasha (11.5-15.5) % Plt Count (140-440) K/uL Neut % (Auto) (42.0-72.0) % Lymph % (Auto) (20-44) % [place] % (Auto) (0.0-11.0) % Eos % (Auto) (0.0-7.0) % Baso % (Auto) (0.0-3.0) % Neut # (Auto) (1.7-7.0) K/uL Lymph # (Auto) (0.90-2.90) K/uL [place] # (Auto) (0.00-0.90) K/UL Eos # (Auto) (0.00-0.50) K/uL Baso # (Auto) (0.00-0.30) K/uL Abs Immat Gran (auto) (0.00-0.30) K/uL INR 1.11 H (0.91-1.10) Sodium 143 (135-149) mmol/L Potassium 3.6 (3.6-5.1) mmol/L Chloride 102 (96-114) mmol/L Carbon Dioxide 30 (20-32) mmol/L BUN 44 H (7-30) mg/dL Creatinine 0.8 (0.5-1.5) mg/dL Estimated GFR 94 ml/min Glucose 122 H (60-115) mg/dL Venous Lactic Acid (Serial Order) Calcium 9.4 (8.4-10.6) mg/dL Troponin I < 0.01 L (0.01-0.04) ng/mL C-Reactive Protein 16.3 H (0.5-1.0) mg/dL NT-Pro-B Natriuret Pep 98 (0-125) PG/mL Amylase 85 (18-89) U/L Urine Color (Yellow) Urine Appearance (Clear) Urine pH (5.0-8.5) Ur Specific [place] (1.000-1.030) Urine Protein (Negative) Urine Glucose (UA) (Negative) Urine Ketones (Negative) Urine Blood (Negative) Urine Nitrite (Negative) Urine Bilirubin (Negative) Urine Urobilinogen (0.2-1.0) Ur Leukocyte Esterase (Negative) Urine RBC (0-2) Urine WBC (0-5) Ur Squamous Epith Cells (None-Few) Urine Bacteria (None) SARS-CoV-2 (PCR) (Negative) Discharge Plan Discharge Clinical Impression: Altered mental status Patient Disposition: Admitted As Inpatient
[2022-02-17 15:44] LABS: SARS PCR* Negative SARS-CoV-2 (Negative)
[2022-02-17 15:46] LABS: Basophils Percent Auto 0.2 % (0.0-3.0); Eosinophils Percent Auto 0.8 % (0.0-7.0); Hemoglobin* 15.2 gm/dL (13.5-17.5); Immature Granulocytes Abs Auto 0.03 K/uL (0.00-0.30); Mean Corpuscular HGB Conc 33 gm/dL (32-36); Mean Corpuscular Hemoglobin 30 pg (26-34); Mean Corpuscular Volume 92 fL (80-100); Monocytes Percent Auto 7.5 % (0.0-11.0); Neutrophils Percent Auto 78.3 % (42.0-72.0); Platelet Count* 244 K/uL (140-440); RDW Coefficient of Variation % 13.1 % (11.5-15.5); Red Blood Count 5.02 m/uL (4.30-5.90); White Blood Count* 12.33 K/uL (4.50-11.00)
[2022-02-17 15:54] LABS: Slide Review Reflex No
[2022-02-17 15:58] LABS: Chloride* 102 mmol/L (96-114); Potassium* 3.6 mmol/L (3.6-5.1); Sodium* 143 mmol/L (135-149)
[2022-02-17 16:00] LABS: INR 1.11 (0.91-1.10); Prothrombin Time 14.7 Seconds
[2022-02-17 16:01] LABS: Amylase* 85 U/L (18-89); Creatinine* 0.8 mg/dL (0.5-1.5); Estimated Glomerular Filt Rate 94 ml/min
[2022-02-17 16:02] LABS: Blood Urea Nitrogen* 44 mg/dL (7-30); Calcium* 9.4 mg/dL (8.4-10.6); Carbon Dioxide* 30 mmol/L (20-32); Glucose* 122 mg/dL (60-115)
[2022-02-17 16:09] LABS: NT Pro B Type NatriureticPept* 98 PG/mL (0-125)
[2022-02-17 16:13] LABS: Troponin I* < 0.01 ng/mL (0.01-0.04)
[2022-02-17 16:17] LABS: C Reactive Protein* 16.3 mg/dL (0.5-1.0)
[2022-02-17 16:30] LABS: Appearance Urine Clear (Clear); Bilirubin Urine 1+ (Negative); Blood Urine Trace-intact (Negative); Color Urine Yellow (Yellow); Glucose Urine Negative (Negative); Ketones Urine 1+ (Negative); Leukocyte Esterase Urine Negative (Negative); Nitrite Urine Negative (Negative); Protein Urine 1+ (Negative); Specific Gravity Urine >= 1.030 (1.000-1.030); Urobilinogen Urine 0.2 (0.2-1.0)
[2022-02-17] MEDS: 0.9 % SODIUM CHLORIDE 500 ML 500 ML IV (16:30)
[2022-02-17 16:41] LABS: Bacteria Urine Moderate; RBC Urine 0-2 (0-2)
[2022-02-17 16:50] VITALS: BP 150/111; PULSE 74; RESP 14; O2SAT 97
--- NOTE | 2022-02-17 17:02 | W.PC.EDHO ---
Primary Language: Preferred Language: Orientation Status: alert to pain [] Alert & Oriented [] Slight Confusion [] Known Dx Dementia Transfers By: [] Assist of 1 [] Assist of 2 [x] Lift Description of Symptoms ED Triage Present Problem Pt from [facility]. was here for Description uti earlier in the week. is full code. [facility] RN reports pt only responsive to painful stimuli, appears in excruciating pain, has deep brain stimulator, parkinsons, low oral intake, pt family wants all diagnostics possible for current condition. [facility] requests rx for pain if he is to return in this condition. Female History Patient Oxygen Administration Pulse Oximetry 96 Oxygen Delivery Method Room Air
--- NOTE | 2022-02-17 17:38 | ED.NURSE ---
Call to Mack and pt's daughter, Marian, to give update.
[2022-02-17 17:56] VITALS: BP 126/66; PULSE 72; RESP 16; TEMP 36.5; O2SAT 97; BMI 19.0
--- NOTE | 2022-02-17 20:14 | CRLHL7_ITS ---
For Patients: As a result of the Cures Act, medical imaging exams and procedure reports are released immediately into your electronic medical record. You may view this report before your referring provider. If you have questions, please contact your health care provider. Indication: Fracture Technique: AP pelvis Comparison: CT 02/17/2022 Findings: Displaced left femoral neck fracture with some impaction and rotation. Intact pubic rami and sacrum. Impression: Displaced fracture of the mid left femoral neck. Dictated by Manuel Mckeon MD @ 02/18/2022 8:20:43 AM (Electronically Signed)
--- NOTE | 2022-02-17 20:14 | CRLHL7_ITS ---
For Patients: As a result of the Cures Act, medical imaging exams and procedure reports are released immediately into your electronic medical record. You may view this report before your referring provider. If you have questions, please contact your health care provider. Indication: Fracture Technique: Lateral view left hip views Comparison: CT 02/17/2022 Findings: Displaced left femoral neck fracture. Impression: Left femoral neck fracture. Dictated by Manuel Mckeon MD @ 02/18/2022 8:21:38 AM (Electronically Signed)
[2022-02-17] MEDS: MORPHINE 2 MG/ML inj IVP (20:51)
--- NOTE | 2022-02-17 21:08 | PC.NURSE ---
He wouldn't speak but would nod yes and no
--- NOTE | 2022-02-17 22:45 | P.IMHP_ITS ---
Hospitalist- H&P: HPI History of Present Illness Time Seen by Provider: 17:50 Date Seen: 02/17/22 Chief complaint: Pain Narrative: Wai Araya is a 71 year old male with significant Parkinson's disease and Lewy body dementia who has had a change in behavior today. At [facility] where he resides, he was somnolent, responding only to deep stimulation and pain, and staff their believed that he was very painful. His family was made aware and wanted diagnostic studies for which he was sent to the hospital. On 02/13/2022 he had an unwitnessed fall and then was noted to be up and doing things, then later having altered mentation and complaining of low back pain. He was sent to the emergency department where he had a CT head and a CT lumbar spine and was found having urinary tract infection and started on cefdinir. I spoke to his daughter, Nohemi who is POA, who told me that he has not been eating much or moving around much since then. Before that he was ambulatory on his own. She also mentioned that she and her family had recently been thinking about hospice for him because of the advanced dementia and parkinsonism. In the ER today he was found to have a left mildly displaced impacted femoral neck fracture. I spoke with his daughter about the hip fracture. We discussed surgery in the option of not doing surgery in just going to hospice. She had questions about surgery and wished to speak with the orthopedic surgeon tomorrow. We discussed his risk for cardiopulmonary events in the perioperative period as well as his risk for wound infections or other problems healing. She was going to talk with the rest of her family and then also speak with the orthopedic surgeon tomorrow before making decision. Review of Systems Status of ROS: Reports: unobtainable due to mental status [facility] Medical History (Updated 02/17/22 @ 23:22 by Shira Onofre MD) Closed fracture of multiple sites of metacarpal bone of left hand Colon polyp Constipation Dementia Encounter for counseling regarding advance directives (02/26/19) Fracture of metacarpal bone Health care directive on file (02/26/19) Lewy body dementia without behavioral disturbance Low back pain Orthostatic hypotension Osteopenia (03/03/13) Parkinson's disease with use of electrical brain stimulation (07/31/10) Scoliosis Seborrhea of face Tubular adenoma of colon Vitamin D deficiency Surgical History (Updated 02/17/22 @ 23:10 by Shira Onofre MD) History of colonoscopy S/P deep brain stimulator placement (~2006) Status post tonsillectomy and adenoidectomy Family History Father High blood pressure Hyperlipidemia Alcoholism Mother Leukemia Brother Parkinson disease Social History (Updated 02/17/22 @ 23:13 by Shira Onofre MD) Narrative: , had stroke. He lives in memory care at [facility], lifelong nonsmoker, no alcohol use or recreational drug use. He has been full code, although I spoke with his daughter today at length about it and she wishes him to be DNR/DNI. Highest level of school completed/degree received: don't know Smoking Status: Never smoker Do you use any of these nicotine containing products: None Second hand tobacco smoke exposure: No How often do you have a drink containing alcohol: never How often do you have six or more drinks on one occasion: Never AUDIT-C Alcohol total score: 0 Non-prescribed substance use: denies use service: No Meds Home Medications and Allergies Home Medications Medication Instructions Recorded Confirmed Type carbidopa 25 mg-levodopa 100 mg 2 tab PO DAILY PRN 01/02/22 02/17/22 History tablet donepezil 10 mg tablet 10 mg PO DAILY 01/02/22 02/17/22 History polyvinyl alcohol 1.4 % eye drops 2 drp ophthalmic (eye) BID PRN dry 01/02/22 02/17/22 History eyes ropinirole 2 mg tablet 2 mg PO HS 01/02/22 02/17/22 History sennosides 8.6 mg tablet 1 mg PO DAILY 01/02/22 02/17/22 History Allergies Allergy/AdvReac Type Severity Reaction Status Date / Time amantadine Allergy Severe Anxiety Verified 02/17/22 14:33 and tightness in throat pramipexole Allergy Mild Hives Verified 02/17/22 14:33 Exam Narrative: Exam Narrative: General: Contracted, laying in bed with legs and arms bent, leaning to the left. Awake, sleepy, oriented to self. He whispers so quietly that I cannot stand him, and is more that he is trying to mouth words. He does nod yes or no appropriately. Denies pain at this time. HEENT: Normocephalic atraumatic, pupils equally round and reactive to light and accommodation. Oropharynx clear. Mucous membranes are moist. No cervical lymphadenopathy, thyromegaly or carotid bruits. No JVD. Cardiovascular: Regular rate and rhythm. No murmurs, gallops, or rubs. Chest: No increased work of breathing. Clear to auscultation bilaterally. No crackles or wheezes. Abdomen: Bowel sounds present. Soft, nondistended, nontender. No hepatosplenomegaly or masses. Extremities: No edema, no cyanosis or clubbing. Left forearm and hand is in a splint. Skin: No jaundice, no pallor, no rashes. No erythema or ulcers noted. Neuro: As above, contractures of arms and legs. Const: Vital Signs, click to edit/add: Vital Signs - 24 hr 02/17/22 14:24 02/17/22 17:56 02/17/22 16:50 Temperature 99.2 F 97.7 F Pulse Rate [Left P ulse Oximeter] 71 74 Pulse Rate [Pulse Oximeter] 72 Respiratory Rate 16 16 14 Blood Pressure [Ri ght Arm] 126/66 Blood Pressure [Ri ght Upper Arm] 143/83 H 150/111 H Pulse Oximetry 96 97 97 Oxygen Delivery Me thod Room Air Room Air Room Air Documenting provider has reviewed patient's vital signs: yes Hospitalist - H&P: Result Labs Labs: Short CBC 02/17/22 Range/Units 15:12 WBC 12.33 H (4.50-11.00) K/uL Hgb 15.2 (13.5-17.5) gm/dL Hct 46.0 (37.0-53.0) % Plt Count 244 (140-440) K/uL BMP 02/17/22 15:12 Sodium 143 Potassium 3.6 Chloride 102 Carbon Dioxide 30 BUN 44 H Creatinine 0.8 Glucose 122 H Calcium 9.4 Cardiac Enzymes 02/17/22 Range/Units 15:12 Troponin I < 0.01 L (0.01-0.04) ng/mL Urine 02/17/22 Range/Units 14:46 Urine Color Yellow (Yellow) Urine Appearance Clear (Clear) Urine pH 5.0 (5.0-8.5) Ur Specific [place] >= 1.030 (1.000-1.030) Urine Protein 1+ A (Negative) Urine Glucose (UA) Negative (Negative) Ordering Physician: John Dasilva M.D. Date of Service: 02/17/22 Procedure(s): XR chest 1V Accession Number(s): [id number] cc: John Dasilva M.D.; Bayron Aquino M.D.~ For Patients: As a result of the Cures Act, medical imaging exams and procedure reports are released immediately into your electronic medical record. You may view this report before your referring provider. If you have questions, please contact your health care provider. Indication: Somnolent Technique: Portable chest Comparison: No comparison Findings: Normal cardiac mediastinal silhouette. Lungs are clear. No effusion. No pneumothorax. Left chest wall device. Dictated by Elizabet Pearce MD @ 02/17/2022 4:35:58 PM (Electronically Signed) Ordering Physician: John Dasilva M.D. Date of Service: 02/17/22 Procedure(s): CT head/brain wo con Accession Number(s): [id number] cc: John Dasilva M.D.; Bayron Aquino M.D.~ For Patients: As a result of the Cures Act, medical imaging exams and procedure reports are released immediately into your electronic medical record. You may view this report before your referring provider. If you have questions, please contact your health care provider. INDICATION: Somnolence. TECHNIQUE: Axial images. Sagittal and coronal reconstructions. COMPARISON: 02/13/2022. FINDINGS: Stable position of bilateral deep brain stimulators. No abnormal intracranial mass effect or midline shift. No acute endocrine hemorrhage. Periventricular white matter changes are again noted, likely related to chronic small vessel disease. Stable prominence of the lateral ventricle. Overall, no new findings. IMPRESSION: No CT evidence of an acute intracranial abnormality. Please note that all CT scans at this facility use dose modulation, iterative reconstruction, and/or weight-based dosing when appropriate to reduce radiation dose to as low as reasonably achievable. Dictated by Byron Chiang MD @ 02/17/2022 5:27:54 PM (Electronically Signed) Ordering Physician: John Dasilva M.D. Date of Service: 02/17/22 Procedure(s): CT abdomen pelvis wo con Accession Number(s): [id number] cc: John Dasilva M.D.; Bayron Aquino M.D.~ For Patients: As a result of the Century Cures Act, medical imaging exams and procedure reports are released immediately into your electronic medical record. You may view this report before your referring provider. If you have questions, please contact your health care provider. INDICATION: Pain. TECHNIQUE: CT abdomen and pelvis without contrast. COMPARISON: None. FINDINGS: Lower chest: Dependent atelectasis. Mild pericardial fluid. Liver: Liver cysts. Gallbladder and bile ducts: No stones or inflammation. No biliary dilatation. Pancreas: Unremarkable. No mass or inflammation. Spleen: Normal in size. No masses. Adrenal glands: Normal in size. No nodules. Kidneys: Normal in size. No suspicious masses, stones, or hydronephrosis. GI tract: Unremarkable. Normal in caliber. No sign of mass or inflammation. Normal appendix. Vasculature: Unremarkable. Lymph nodes: No lymphadenopathy. Abdominal wall/Omentum/Peritoneum: Unremarkable. No sign of mass or infiltration. No free air or significant free fluid. Pelvis: Unremarkable. No pelvic masses. Bones: Grade 1 anterolisthesis of L5 on S1 due to chronic bilateral pars defects. Acute to subacute appearing T9 compression fracture which involves primarily the anterior column. No significant retropulsion of posterosuperior endplate of there is some sclerosis in the vertebral body. Subacute healing fracture of the right 11th rib at the costovertebral junction. Comminuted moderately displaced impacted fracture of the left femoral neck. No other fractures identified. IMPRESSION: 1. Acute mildly displaced impacted left femoral neck fracture. 2. Age-indeterminate T9 fracture possibly subacute. Fracture appears to be single column compression fracture. 3. Subacute right 11th rib fracture at the costovertebral junction. Finding was conveyed to Dr. Dasilva at 5:40 p.m. on 02/17/2022. Please note that all CT scans at this facility use dose modulation, iterative reconstruction, and/or weight-based dosing when appropriate to reduce radiation dose to as low as reasonably achievable. Dictated by Bhaskar Loza MD @ 02/17/2022 5:43:34 PM (Electronically Signed) Assessment and Plan Assessment and plan (1) Left displaced femoral neck fracture: Status: Acute Assessment and Plan: I spoke with Yeyo from Ortho and Dr. Dean will consult on this patient tomorrow. Have ordered an EKG for preop evaluation. If this is okay, then he needs no further workup prior to surgery. Family is still deciding whether not they want him to have surgery. Will admit for cares and treatment of this. Oral oxycodone for pain control. Bed rest. (2) Right rib fracture: Problem comment: Status: Acute Assessment and Plan: Oxycodone for pain. (3) Compression fracture of T9 vertebra: Status: Acute Assessment and Plan: Oxycodone for pain. (4) Urinary tract infection: Status: Acute Assessment and Plan: Continue 3rd generation cephalosporin for 2 and half more days. (5) Dementia: Problem comment: presumed Lewy body type verses Alzheimer's. He has had intermittent visual hallucinations interspersed with episodes of acute confusion and clear cognition. Status: Acute Assessment and Plan: Continue home medication. (6) Parkinson's disease with use of electrical brain stimulation: Problem comment: diagnosed about 23 years ago. Treated with medications and an implantable electrical brain stimulation. Status: Acute Assessment and Plan: Continue home medication. (7) Altered mental status: Status: Acute Assessment and Plan: Likely secondary to pain. Patient has spells like this sometimes. Monitor (8) Fall: Problem comment: frequent falls, most recent was 02/13/22 Status: Acute (9) Lewy body dementia without behavioral disturbance: Status: Acute (10) Osteopenia: Status: Acute Assessment and Plan: He is not currently on any treatment for this. May need to discuss with patien t's family if he does not go to hospice. (11) Dehydration: Status: Acute Assessment and Plan: He was given IV saline bolus in the ER. Encourage oral fluids, NPO after midnight in case he goes to surgery.
[2022-02-17] MEDS: ACETAMINOPHEN 500 MG TABLET PO (22:53)
[2022-02-17] MEDS: CARBIDOPA-LEVODOPA 25-100 TABLET 0.5 TAB PO (22:53)
[2022-02-17] MEDS: OXYCODONE 5 MG TABLET PO (22:53)
[2022-02-17] MEDS: DONEPEZIL 10 MG TABLET PO (22:54)
[2022-02-17] MEDS: CEFPODOXIME PROXETIL 200 MG TABLET PO (22:55)
[2022-02-17 23:15] VITALS: BP 149/79; PULSE 79; RESP 16; TEMP 36.6; O2SAT 98
[2022-02-17 23:17] VITALS: PULSE 79; RESP 16
[2022-02-17 23:33] VITALS: RESP 16; O2SAT 98
--- NOTE | 2022-02-17 23:35 | PC.NURSE ---
Patient on bedrest this shift. Pt turned and repositioned in bed frequently - tolerated poorly. Pt in an almost like position on his left side - winces in pain when turned on his back or right side. Staff from [facility] stated that the patient has been stuck in this position for the last couple days and doesn't move. Staff also stated that the patient takes pills crushed with food and has been eating poorly overall.
[2022-02-18] VITALS (25 sets, daily range): BP systolic 107–137; BP diastolic 57–90; PULSE 53–85; RESP 12–20; TEMP 36.1–37; O2SAT 93–100
--- NOTE | 2022-02-18 03:50 | PC.NURSE ---
Pt rested comfortably this night. Only pain with movement. Unable to communicate. Incontinent.
[2022-02-18] MEDS: MORPHINE 2 MG/ML inj IVP ×2 (09:01→11:40)
[2022-02-18] MEDS: LACTATED RINGERS 1000 ML 1,000 ML 125 ML IV (09:02)
--- NOTE | 2022-02-18 14:00 | CRLHL7_ITS ---
For Patients: As a result of the Cures Act, medical imaging exams and procedure reports are released immediately into your electronic medical record. You may view this report before your referring provider. If you have questions, please contact your health care provider. Indication: Hip replacement surgery Technique: AP hip fluoroscopic image. Fluoroscopy time 27.1 seconds. Findings/Impression: Hardware from a left total hip arthroplasty is in satisfactory position. Dictated by Manuel Mckeon MD @ 02/18/2022 3:57:29 PM (Electronically Signed)
--- NOTE | 2022-02-18 14:20 | P.NB_ITS ---
Nerve Block Nerve Block Time Seen by Provider: 14:05 Date Seen: 02/18/22 Type of block requested by surgeon for post-operative analgesia: JONATHON/LFCN Side: left Time out performed: Yes Verification of patient name: Yes Verification of date of : Yes Site marking: site marked Name of person performing procedure: Codey Continuous monitoring Was continuous monitoring of O2 sat, B/P, outside salesperson, recorded every 15 minutes?: Yes Procedure Checklist: sterile prep, needles and gloves Ultrasound guided. Images saved: Yes Medications given in 5ml increments after negative aspiration: Ropivicaine %: 0.5 mL: 30 Needle gauge: 20 Decadron (mg): 10 Precedex (mcg): 25 Patient tolerated procedure well: Yes Additional comments: Needle noted adjacent to nerve Block Charges Block Charge (with Pro Fee): Other Periph Nerve Block Use of Ultrasound Machine for Block: Yes- US Guidance/pain block
--- NOTE | 2022-02-18 14:20 | PC.NURSE ---
Pt NPO for surgery this shift for Left hip fracture with Dr. Dean. Permit signed by pt's dtr Marian. Sister in law Pablo Head is present in room with pt. Pt's Mildred Head came to visit from [facility] in her wheelchair. Morphine 2mg IV given twice for discomfort. Repositioned q2 hours and pt had 3 wet diapers. Strict bedrest, non wt bearing on left hip pre-op. Pt has Parkinson's disease and is non-verbal. Preop check list and SBAR completed per protocol. Pre-0p teaching with family at bedside. IV site #22 to left f/a, #20 gauge site on right forearm was leaking. Maintenance fluid LR @ 125 cc/hr. Pt taken via hospital bed to OR just prior to 2PM this afternoon.
[2022-02-18] MEDS: LACTATED RINGERS 1000 ML 1,000 ML 200 ML IV (14:25)
--- NOTE | 2022-02-18 15:43 | CRLHL7_ITS ---
For Patients: As a result of the Cures Act, medical imaging exams and procedure reports are released immediately into your electronic medical record. You may view this report before your referring provider. If you have questions, please contact your health care provider. Indication: POST-OP LEFT HIP Technique: AP hip centered pelvis and lateral view left hip Findings/Impression: Hardware from a left bipolar arthroplasty is in satisfactory position. Bone alignment is normal. No sign of acute fracture. Postop changes are within normal limits. Dictated by Manuel Mckeon MD @ 02/19/2022 10:45:49 AM (Electronically Signed)
--- NOTE | 2022-02-18 15:50 | PM.ORPRC ---
Procedure Note Date of procedure: 02/18/22 Procedure: SURGEON: Joaquin Dean MD RAG SORTER AND CUTTER: Christianne Hallman PA-C, ANSELMO Lopez PREOPERATIVE DIAGNOSIS: Displaced Left femoral neck fracture POSTOPERATIVE DIAGNOSIS: Displaced Left femoral neck fracture NAME OF OPERATION: Cemented Left hip bipolar hemiarthroplasty IMPLANTS: 1. J&J cemented # 3 standard collared stem 2. 28 + 5 cobalt chrome femoral head 3. 47 mm bipolar component ANESTHESIA: General ESTIMATED BLOOD LOSS: 100 cc COMPLICATIONS: None SPECIMENS: None DRAINS: None PREOPERATIVE ANTIBIOTICS: Ancef 1 g INDICATIONS: The patient is a 71-year-old male who fell recently sustaining a left hip femoral neck fracture. They were admitted for workup and management. They have been medically cleared for surgery. Operative intervention was recommended. The risks, benefits and expected outcomes were discussed with his daughter by phone in detail. These included but were not limited to: Infection, bleeding, injury to blood vessel or nerve, venous thromboembolism. All questions were answered to their satisfaction. Use of an executive personal assistant was necessary throughout the case for patient positioning and safety, soft tissue retraction and closure. PROCEDURE: The patient was placed supine on the [place] table. General anesthesia was administered. The executive personal assistant made sure the patient was properly positioned. The left hip was prepped and draped in the usual sterile fashion. The image intensifier was brought in for a perfect AP pelvis and a perfect double tear drop AP view of each hip which were used for intraoperative templating with our fluoroscopic guide. An oblique incision was made 3 cm distal and 3 cm lateral to the anterior superior iliac spine. The executive personal assistant retracted the soft tissues to protect them. Subcutaneous dissection was taken with electrocautery to the superficial fascia. The fascia was divided in line with the incision. Blunt dissection was carried medially to the tensor fascia minerva and sartorius interval. Deep dissection was carried with electrocautery. The circumflex vessels were cauterized and divided. The capsule was exposed and then divided in a T-fashion, tagged with #1 Ethibond sutures. Retractors were placed in the joint, held by the executive personal assistant. The corkscrew was placed in the femoral head. The neck cut was made in the subcapital region. We made a second neck cut more distal. The napkin ring of bone was removed. The femoral head was removed intact and measured 47 mm in diameter. The acetabulum was inspected and was found to be normal. Attention was then turned to the proximal femur. The limb was placed in 140 degrees of external rotation, maximum extension and adduction. Retractors were held by the executive personal assistant throughout the femoral preparation. The icebox man and canal finder were used. Broaches were used to a stable size. The calcar reamer was used. Trial components were placed. The hip was reduced and was found to be stable with appropriate soft tissue tension. Length and offset had been nicely restored using the image intensifier and our fluoroscopic guide. The cement restrictor was placed. The canal was irrigated with pulse lavage then thoroughly dried. Cement was placed with the gun and hand pressurized. The stem was placed in the cement mantle in an appropriate amount of anteversion and held in place until the cement hardened. We placed the femoral head and bipolar component. Again, the hip was reduced and was found to be stable with appropriate soft tissue tension. Length and offset had been nicely restored. The executive personal assistant irrigated the wound with 3 liters of normal saline via pulse lavage. The executive personal assistant repaired the anterior capsule with a #1 Vicryl and our previously placed Ethibond sutures. The executive personal assistant closed the fascia over the tensor fascia minerva with a #1 PDO Stratafix, subcutaneous tissues with 2-0 Vicryl, skin with a running 3-0 Stratafix and glue. A dry dressing was applied by the executive personal assistant. Sponge and needle counts were correct x 2. The patient tolerated the procedure well; there were no apparent complications. They were awakened and extubated in the operating room, sent to the Post-Anesthesia Care Unit in satisfactory condition. PLAN: 1. The patient will be mobilized with physical therapy, weight-bearing as tolerates 2. Xarelto x 5 days then aspirin x 30 days will be used for DVT prophylaxis 3. The patient will be discharged once medically appropriate
--- NOTE | 2022-02-18 15:51 | PM.ORCN ---
History of Present Illness HPI Date Seen: 02/18/22 Requesting physician: Shira Onofre Chief complaint: Pain Narrative: The patient is a community ambulator. He is demented, but was noted to have a change in behavior. He was worked up and was diagnosed with a left hip fracture. He has never injured this hip or had surgery on it previously. I spoke with his daughter lives by phone and explained the situation to her. [facility] Medical History (Updated 02/17/22 @ 23:22 by Shira Onofre MD) Closed fracture of multiple sites of metacarpal bone of left hand Colon polyp Constipation Dementia Encounter for counseling regarding advance directives (02/26/19) Fracture of metacarpal bone Health care directive on file (02/26/19) Lewy body dementia without behavioral disturbance Low back pain Orthostatic hypotension Osteopenia (03/03/13) Parkinson's disease with use of electrical brain stimulation (07/31/10) Scoliosis Seborrhea of face Tubular adenoma of colon Vitamin D deficiency Surgical History (Updated 02/17/22 @ 23:10 by Shira Onofre MD) History of colonoscopy S/P deep brain stimulator placement (~2006) Status post tonsillectomy and adenoidectomy Family History Father High blood pressure Hyperlipidemia Alcoholism Mother Leukemia Brother Parkinson disease Social History (Updated 02/17/22 @ 23:13 by Shira Onofre MD) Narrative: , had stroke. He lives in memory care at [facility], lifelong nonsmoker, no alcohol use or recreational drug use. He has been full code, although I spoke with his daughter today at length about it and she wishes him to be DNR/DNI. Highest level of school completed/degree received: don't know Smoking Status: Never smoker Do you use any of these nicotine containing products: None Second hand tobacco smoke exposure: No How often do you have a drink containing alcohol: never How often do you have six or more drinks on one occasion: Never AUDIT-C Alcohol total score: 0 Non-prescribed substance use: denies use service: No Meds Home Medications and Allergies Home Medications Medication Instructions Recorded Confirmed Type carbidopa 25 mg-levodopa 100 mg 2 tab PO DAILY PRN 01/02/22 02/17/22 History tablet donepezil 10 mg tablet 10 mg PO DAILY 01/02/22 02/17/22 History polyvinyl alcohol 1.4 % eye drops 2 drp ophthalmic (eye) BID PRN dry 01/02/22 02/17/22 History eyes ropinirole 2 mg tablet 2 mg PO HS 01/02/22 02/17/22 History sennosides 8.6 mg tablet 1 mg PO DAILY 01/02/22 02/17/22 History Allergies Allergy/AdvReac Type Severity Reaction Status Date / Time amantadine Allergy Severe Anxiety Verified 02/17/22 14:33 and tightness in throat pramipexole Allergy Mild Hives Verified 02/17/22 14:33 Ortho Exam Narrative Exam Narrative: Somnolent in the hospital bed, not interactive. Lying in the position on the right side. The skin about the left hip is intact, without surgical scars. Const Vital Signs, click to edit/add: Vital Signs - 24 hr 02/17/22 17:56 02/17/22 16:50 02/17/22 23:15 Temperature 97.7 F 98 F Pulse Rate [Left Pulse Oximeter] 74 Pulse Rate [Pulse Oximeter] 72 79 Respiratory Rate 16 14 16 Blood Pressure [Right Arm] 126/66 149/79 H Blood Pressure [Right Upper Arm] 150/111 H Pulse Oximetry 97 97 98 Oxygen Delivery Method Room Air Room Air Room Air 02/17/22 23:17 02/17/22 23:33 02/18/22 02:33 Temperature 98.5 F Pulse Rate [Left Pulse Oximeter] Pulse Rate [Pulse Oximeter] 79 74 Respiratory Rate 16 16 16 Blood Pressure [Right Arm] 125/59 L Blood Pressure [Right Upper Arm] Pulse Oximetry 98 94 Oxygen Delivery Method Room Air Room Air 02/18/22 07:45 02/18/22 12:22 Temperature 97.1 F L 98.6 F Pulse Rate [Left Pulse Oximeter] Pulse Rate [Pulse Oximeter] 85 72 Respiratory Rate 18 20 Blood Pressure [Right Arm] 135/74 133/90 H Blood Pressure [Right Upper Arm] Pulse Oximetry 96 95 Oxygen Delivery Method Room Air Room Air Results Labs Labs: Laboratory Results - last 48 hr 02/17/22 02/17/22 02/17/22 14:27 14:46 15:12 WBC 12.33 H RBC 5.02 Hgb 15.2 Hct 46.0 MCV 92 MCH 30 MCHC 33 RDW Coeff of Lasha 13.1 Plt Count 244 Neut % (Auto) 78.3 H Lymph % (Auto) 13.0 L [place] % (Auto) 7.5 Eos % (Auto) 0.8 Baso % (Auto) 0.2 Neut # (Auto) 9.70 H Lymph # (Auto) 1.60 [place] # (Auto) 0.90 Eos # (Auto) 0.10 Baso # (Auto) 0.00 Abs Immat Gran (auto) 0.03 INR Sodium Potassium Chloride Carbon Dioxide BUN Creatinine Estimated GFR Glucose Venous Lactic Acid (Serial Order) Calcium Troponin I C-Reactive Protein NT-Pro-B Natriuret Pep Amylase Urine Color Yellow Urine Appearance Clear Urine pH 5.0 Ur Specific [place] >= 1.030 Urine Protein 1+ A Urine Glucose (UA) Negative Urine Ketones 1+ A Urine Blood Trace-intact A Urine Nitrite Negative Urine Bilirubin 1+ A Urine Urobilinogen 0.2 Ur Leukocyte Esterase Negative Urine RBC 0-2 Urine WBC 2-5 Ur Squamous Epith Cells None Urine Bacteria Moderate A SARS-CoV-2 (PCR) Negative SARS-CoV-2 02/17/22 02/17/22 02/17/22 15:12 15:12 15:12 WBC RBC Hgb Hct MCV MCH MCHC RDW Coeff of Lasha Plt Count Neut % (Auto) Lymph % (Auto) [place] % (Auto) Eos % (Auto) Baso % (Auto) Neut # (Auto) Lymph # (Auto) [place] # (Auto) Eos # (Auto) Baso # (Auto) Abs Immat Gran (auto) INR 1.11 H Sodium 143 Potassium 3.6 Chloride 102 Carbon Dioxide 30 BUN 44 H Creatinine 0.8 Estimated GFR 94 Glucose 122 H Venous Lactic Acid (Serial Order) Calcium 9.4 Troponin I < 0.01 L C-Reactive Protein 16.3 H NT-Pro-B Natriuret Pep 98 Amylase 85 Urine Color Urine Appearance Urine pH Ur Specific [place] Urine Protein Urine Glucose (UA) Urine Ketones Urine Blood Urine Nitrite Urine Bilirubin Urine Urobilinogen Ur Leukocyte Esterase Urine RBC Urine WBC Ur Squamous Epith Cells Urine Bacteria SARS-CoV-2 (PCR) Diagnostic results Additional Comments: AP pelvis and cross-table lateral views of the left hip as well as a CT scan of the pelvis show a displaced left femoral neck fracture. There is no pre-existing left hip joint osteoarthritis. There is no obvious pathologic lesion. Assessment and Plan Assessment and plan (1) Left displaced femoral neck fracture: Status: Acute Total time spent: Total time spent is greater than 50% in coordination of care (as documented) at patient's floor/unit and/or counseling patient: (2) Right rib fracture: Problem comment: 11th Status: Acute Total time spent: Total time spent is greater than 50% in coordination of care (as documented) at patient's floor/unit and/or counseling patient: (3) Compression fracture of T9 vertebra: Status: Acute Total time spent: Total time spent is greater than 50% in coordination of care (as documented) at patient's floor/unit and/or counseling patient: (4) Urinary tract infection: Status: Acute Total time spent: Total time spent is greater than 50% in coordination of care (as documented) at patient's floor/unit and/or counseling patient: (5) Dementia: Problem comment: presumed Lewy body type verses Alzheimer's. He has had intermittent visual hallucinations interspersed with episodes of acute confusion and clear cognition. Status: Acute Total time spent: Total time spent is greater than 50% in coordination of care (as documented) at patient's floor/unit and/or counseling patient: (6) Parkinson's disease with use of electrical brain stimulation: Problem comment: diagnosed about 23 years ago. Treated with medications and an implantable electrical brain stimulation. Status: Acute Total time spent: Total time spent is greater than 50% in coordination of care (as documented) at patient's floor/unit and/or counseling patient: (7) Altered mental status: Status: Acute Total time spent: Total time spent is greater than 50% in coordination of care (as documented) at patient's floor/unit and/or counseling patient: (8) Fall: Problem comment: frequent falls, most recent was 02/13/22 Status: Acute Total time spent: Total time spent is greater than 50% in coordination of care (as documented) at patient's floor/unit and/or counseling patient: (9) Lewy body dementia without behavioral disturbance: Status: Acute Total time spent: Total time spent is greater than 50% in coordination of care (as documented) at patient's floor/unit and/or counseling patient: (10) Osteopenia: Status: Acute Total time spent: Total time spent is greater than 50% in coordination of care (as documented) at patient's floor/unit and/or counseling patient: (11) Dehydration: Status: Acute Total time spent: Total time spent is greater than 50% in coordination of care (as documented) at patient's floor/unit and/or counseling patient: Plan I discussed the patient's hip fracture and treatment options with his wroau-pm-iolcvoxu Marian by phone. She wishes to have his hip fixed to make him more comfortable. He has been medically cleared for surgery, therefore we will plan to take him to the operating room today for left hip cemented bipolar hemiarthroplasty. For
--- NOTE | 2022-02-18 16:56 | PM.IMPN1 ---
Progress Note: A&P Assessment and plan (1) Left displaced femoral neck fracture: Status: Acute (2) Compression fracture of T9 vertebra: Status: Acute (3) Lewy body dementia without behavioral disturbance: Problem details: Likely to cause postoperative problems, delirium, difficulty to arouse and feed. Status: Acute (4) Parkinson's disease with use of electrical brain stimulation: Problem details: diagnosed about 23 years ago. Treated with medications and an implantable electrical brain stimulation. Status: Acute (5) Fall: Problem details: frequent falls, most recent was 02/13/22. Likely to struggle to return to independent ambulation. Probable need for a lot of assistance, long-term placement. Status: Acute Plan Admit for surgery and postop management of expected complications and slow recovery Time Spent With Patient Total time spent: Total time spent today is 50 minutes, 40 minutes in coordination of care and discussing with family and other providers decisions about surgery Subjective Date Seen: 02/18/22 Interval history: 71-year-old male seen in followup of hip fracture. Patient fell at home about 6 days ago. He was seen in our emergency room with left hip pain about 5 days ago. X-rays at that time did not show an obvious fracture. Pain got much worse over the weekend any came back and was identified with a displaced femoral neck fracture. He is admitted for pain control and decision about surgery. This morning I go to see him and he is difficult to arouse. Any attempt at moving him however causes quite a bit of discomfort. He is here with his rhnkvf-cp-nho who is the primary family member for communication today. I speak with her and his daughter Marian on the phone about decisions around surgery. The [id number] and daughter both feel that he would like to proceed to surgery. I noted that we could provide pain relief with or without surgery. If they elected not to do surgery it would be in anticipation that he would fairly soon from complications of his hip fracture, Parkinson's and dementia. If he did undergo surgery his pain would get better and his hip would heal. Given his unsteady gait and poor mobility prior to surgery it is unclear that he will ever ambulate independently again after surgery. He likely will need long-term placement possibly long-term. After discussion of these options potential complications and probable outcomes his daughter and nuhbiz-lo-prn both feel that he would want have the surgery. Exam Narrative: Exam Narrative: He is sleeping and difficult to arouse. When I do arouse him he is in obvious pain. Respirations are unlabored. Breathing is clear to auscultation except for a few basilar crackles. Cardiovascular: S1, S2, regular rate and rhythm. Abdomen is soft without tenderness or mass. He poorly tolerates any repositioning in bed. He has intact peripheral pulses. No significant edema Const: Vital Signs, click to edit/add: Vital Signs - 24 hr 02/17/22 17:56 02/17/22 23:15 02/17/22 23:17 Temperature 97.7 F 98 F Pulse Rate [Pulse Oximeter] 72 79 79 Respiratory Rate 16 16 16 Blood Pressure [Ri ght Arm] 126/66 149/79 H Pulse Oximetry 97 98 Oxygen Delivery Me thod Room Air Room Air 02/17/22 23:33 02/18/22 02:33 02/18/22 07:45 Temperature 98.5 F 97.1 F L Pulse Rate [Pulse Oximeter] 74 85 Respiratory Rate 16 16 18 Blood Pressure [Ri ght Arm] 125/59 L 135/74 Pulse Oximetry 98 94 96 Oxygen Delivery Me thod Room Air Room Air Room Air 02/18/22 12:22 02/18/22 16:42 Temperature 98.6 F 97.4 F L Pulse Rate [Pulse Oximeter] 72 Respiratory Rate 20 Blood Pressure [Ri ght Arm] 133/90 H Pulse Oximetry 95 Oxygen Delivery Me thod Room Air Documenting provider has reviewed patient's vital signs: yes
--- NOTE | 2022-02-18 17:03 | W.ANESCHARGE ---
Anesthesia Charges Start Date/Time Anesthesia Start Date: 02/18/22 Anesthesia Start Time: 13:54 Stop Date/Time Anesthesia Stop Date: 02/18/22 Anesthesia Stop Time: 16:30 Summary Emergency: Yes Extremes of Age: Over 69-CPT 22985
--- NOTE | 2022-02-18 17:23 | W.ANESCHARGE ---
Anesthesia Charges Start Date/Time Anesthesia Start Date: 02/18/22 Anesthesia Start Time: 13:54 Stop Date/Time Anesthesia Stop Date: 02/18/22 Anesthesia Stop Time: 16:30 Summary Emergency: Yes Extremes of Age: Over 69-CPT 01928
--- NOTE | 2022-02-18 17:30 | SUR.PHASEI ---
PATIENT MEETS PACU DISCHARGE CRITERIA. PATIENT BASELINE NON-RESPONSIVE TO COMMANDS D/T EXISTING HEALTH CONDITIONS. VITAL SIGNS STABLE
[2022-02-18] MEDS: LACTATED RINGERS 1000 ML 1,000 ML 75 ML IV (19:05)
[2022-02-18] MEDS: CEFAZOLIN 1 GM in 0.9 % SODIUM CHLORIDE Mini-bag 100 ML IVPB (19:31)
[2022-02-18] MEDS: ROPINIROLE HCL 1 MG TABLET 2 MG PO (20:43)
[2022-02-18] MEDS: CARBIDOPA-LEVODOPA 25-100 TABLET 0.5 TAB PO (20:43)
[2022-02-18] MEDS: SENNOSIDES 1 TAB TABLET 2 TAB PO (20:43)
[2022-02-18] MEDS: OXYCODONE 5 MG TABLET PO (20:44)
[2022-02-18] MEDS: DONEPEZIL 10 MG TABLET PO (20:45)
[2022-02-18] MEDS: POLYVINYL ALCOHOL DROPS 2 DROP EYE-BOTH (21:34)
[2022-02-18] MEDS: ACETAMINOPHEN 325 MG TABLET 650 MG PO (23:40)
[2022-02-19] MEDS: HYDROmorphone 0.5 mg/0.5 ml inj IVP (02:11)
[2022-02-19 02:26] VITALS: BP 121/80; PULSE 72; RESP 16; TEMP 36.4; O2SAT 96
[2022-02-19] MEDS: CEFAZOLIN 1 GM in 0.9 % SODIUM CHLORIDE Mini-bag 100 ML IVPB ×2 (03:30→11:27)
--- NOTE | 2022-02-19 04:12 | PC.NURSE ---
Pt rested well after surgery. Opens eyes but has remained non-verbal. VSS. Wound CDI. Difficulty taking in pills even if crushed and given with apple sauce. Would not swallow or open mouth for this RN. IV Dilaudid given for pain control. Appears to be comfortable.
[2022-02-19] MEDS: ACETAMINOPHEN 325 MG TABLET 650 MG PO ×3 (05:52→17:26)
[2022-02-19 06:57] LABS: Hematocrit 37.1 % (37.0-53.0); Hemoglobin* 12.6 gm/dL (13.5-17.5); Mean Corpuscular HGB Conc 34 gm/dL (32-36); Mean Corpuscular Hemoglobin 31 pg (26-34); Mean Corpuscular Volume 92 fL (80-100); Platelet Count* 290 K/uL (140-440); Red Blood Count 4.03 m/uL (4.30-5.90); White Blood Count* 13.39 K/uL (4.50-11.00)
[2022-02-19 06:59] LABS: Slide Review Reflex No
[2022-02-19 07:01] LABS: Sodium* 138 mmol/L (135-149)
[2022-02-19 07:02] LABS: Potassium* 4.2 mmol/L (3.6-5.1)
[2022-02-19 07:05] LABS: Blood Urea Nitrogen* 35 mg/dL (7-30); Creatinine* 0.7 mg/dL (0.5-1.5); Est. Creatinine Clearance* 56.85; Estimated Glomerular Filt Rate 98 ml/min
[2022-02-19 07:25] VITALS: BP 146/74; PULSE 77; RESP 18; TEMP 36.6; O2SAT 95
[2022-02-19] MEDS: RIVAROXABAN 10 MG TABLET PO ×2 (08:48→08:51)
[2022-02-19] MEDS: CARBIDOPA-LEVODOPA 25-100 TABLET 0.5 TAB PO ×4 (08:48→20:58)
[2022-02-19] MEDS: SENNOSIDES 1 TAB TABLET 2 TAB PO ×2 (08:50→20:58)
[2022-02-19] MEDS: OXYCODONE 5 MG TABLET PO ×3 (08:52→19:39)
--- NOTE | 2022-02-19 09:59 | PM.ORPN ---
Subjective Subjective Time Seen by Provider: 07:15 Date Seen: 02/19/22 Principal diagnosis: Status post left femoral neck fracture and bipolar prosthesis. Interval history: Wai appears comfortable this morning. No family members are with him this morning. He is curled up in a position. Ortho Exam Narrative Exam Narrative: Wai is difficult to arouse. He does follow commands when I ask him to flex his ankle and his big toe on the left he is able to do this, however slightly. Bilateral calves are soft. Does not flinch in pain with squeezing his calves. Dressing is intact. Const Vital Signs, click to edit/add: Vital Signs - 24 hr 02/18/22 12:22 02/18/22 16:28 02/18/22 16:55 Temperature 98.6 F 97.4 F L Pulse Rate 56 L 61 Pulse Rate [Pulse Oximeter] 72 Respiratory Rate 20 14 12 Blood Pressure 112/71 136/73 Blood Pressure [Right Arm] 133/90 H Pulse Oximetry 95 94 97 Oxygen Delivery Method Room Air Non Rebreather Mask Oxygen Flow Rate 10 02/18/22 16:35 02/18/22 16:40 02/18/22 16:45 Temperature 97.6 F Pulse Rate 53 L 54 L 55 L Pulse Rate [Pulse Oximeter] Respiratory Rate 12 12 12 Blood Pressure 134/78 137/78 133/83 Blood Pressure [Right Arm] Pulse Oximetry 100 97 96 Oxygen Delivery Method Room Air Oxygen Flow Rate 02/18/22 16:50 02/18/22 17:00 02/18/22 17:05 Temperature Pulse Rate 59 L 62 61 Pulse Rate [Pulse Oximeter] Respiratory Rate 12 12 13 Blood Pressure 137/79 126/76 133/80 Blood Pressure [Right Arm] Pulse Oximetry 98 96 98 Oxygen Delivery Method Oxygen Flow Rate 02/18/22 17:10 02/18/22 15:00 02/18/22 19:13 Temperature 97 F L Pulse Rate 64 Pulse Rate [Pulse Oximeter] 60 Respiratory Rate 12 16 16 Blood Pressure 119/71 Blood Pressure [Right Arm] 108/61 Pulse Oximetry 96 97 Oxygen Delivery Method Room Air Oxygen Flow Rate 02/18/22 17:20 02/18/22 17:30 02/18/22 17:45 Temperature 97 F L 97 F L Pulse Rate Pulse Rate [Pulse Oximeter] 57 L 58 L 55 L Respiratory Rate 14 16 16 Blood Pressure Blood Pressure [Right Arm] 136/78 122/63 111/66 Pulse Oximetry 95 95 93 Oxygen Delivery Method Room Air Room Air Room Air Oxygen Flow Rate 02/18/22 18:00 02/18/22 18:15 02/18/22 18:30 Temperature 97 F L 97 F L 97 F L Pulse Rate Pulse Rate [Pulse Oximeter] 57 L 58 L 57 L Respiratory Rate 16 16 16 Blood Pressure Blood Pressure [Right Arm] 110/62 111/57 L 107/58 L Pulse Oximetry 96 94 95 Oxygen Delivery Method Room Air Room Air Room Air Oxygen Flow Rate 02/18/22 19:47 02/18/22 20:31 02/18/22 21:54 Temperature 97 F L 97 F L 97.8 F Pulse Rate Pulse Rate [Pulse Oximeter] 60 62 62 Respiratory Rate 16 16 16 Blood Pressure Blood Pressure [Right Arm] 108/61 116/62 123/65 Pulse Oximetry 97 96 96 Oxygen Delivery Method Room Air Room Air Room Air Oxygen Flow Rate 10 02/18/22 23:00 02/18/22 23:16 02/19/22 02:26 Temperature 98 F 97.5 F L Pulse Rate Pulse Rate [Pulse Oximeter] 68 68 72 Respiratory Rate 16 16 16 Blood Pressure Blood Pressure [Right Arm] 125/68 121/80 Pulse Oximetry 95 96 Oxygen Delivery Method Room Air Room Air Oxygen Flow Rate Assessment and Plan Assessment and plan (1) Left displaced femoral neck fracture: Problem details: Wai underwent bipolar prosthesis of the left hip yesterday via anterior approach. Surgery went well. He is able to weightbear as tolerated left lower extremity. Plan for discharge is to a snf facility when appropriate. DVT prophylaxis includes Xarelto 10 mg daily for total of 5 days, then aspirin 81 mg twice daily for 30 days, Eber stockings x1 month may remove for 1 hr per day, frequent ambulation if he is able. I briefly discussed DVT prophylaxis with Dr. Zhang. The patient will be here for couple days, DVT prophylaxis may change. Remove dressing 2 weeks. Observe wound and phone Orthopedics with any questions or concerns Use Ice on operative hip unrestricted. Return to clinic in [address] Dean Minimize narcotic use. Wean off and discontinue soon as possible. Attend OT and PT at snf facility. Status: Acute (2) Compression fracture of T9 vertebra: Status: Acute (3) Lewy body dementia without behavioral disturbance: Problem details: Likely to cause postoperative problems, delirium, difficulty to arouse and feed. Status: Acute (4) Parkinson's disease with use of electrical brain stimulation: Problem details: diagnosed about 23 years ago. Treated with medications and an implantable electrical brain stimulation. Status: Acute (5) Fall: Problem details: frequent falls, most recent was 02/13/22. Likely to struggle to return to independent ambulation. Probable need for a lot of assistance, group home placement. Status: Acute
[2022-02-19 11:16] VITALS: BP 121/71; PULSE 63; RESP 18; TEMP 36.8; O2SAT 94
--- NOTE | 2022-02-19 12:02 | PC.SOCIAL ---
Spoke with pt.'s daughter Marian via email and she prefers her dad be placed at the [facility], [facility], or with [facility] at [phone], as pt. and his have beeon on a waiting list to both move there when there is an opening. A message was left with [facility] on avialability and the [facility] has a bed and is assessing.
--- NOTE | 2022-02-19 12:55 | P.IMPN_ITS ---
Progress Note: A&P Assessment and plan (1) Left displaced femoral neck fracture: Problem details: Wai underwent bipolar prosthesis of the left hip yesterday via anterior approach. Surgery went well. He is able to weightbear as tolerated left lower extremity. Plan for discharge is to a senior care facility when appropriate. DVT prophylaxis includes Xarelto 10 mg daily for total of 5 days, then aspirin 81 mg twice daily for 30 days, Eber stockings x1 month may remove for 1 hr per d ay, frequent ambulation if he is able. I briefly discussed DVT prophylaxis with Dr. Zhang. The patient will be here for couple days, DVT prophylaxis may change. Remove dressing 2 weeks. Observe wound and phone Orthopedics with any questions or concerns Use Ice on operative hip unrestricted. Return to clinic in [address] Dean Minimize narcotic use. Wean off and discontinue soon as possible. Attend OT and PT at senior care facility. Status: Acute (2) Compression fracture of T9 vertebra: Status: Acute (3) Lewy body dementia without behavioral disturbance: Problem details: Likely to cause postoperative problems, delirium, difficulty to arouse and feed. Status: Acute (4) Parkinson's disease with use of electrical brain stimulation: Problem details: diagnosed about 23 years ago. Treated with medications and an implantable electrical brain stimulation. Status: Acute (5) Fall: Problem details: frequent falls, most recent was 02/13/22. Likely to struggle to return to independent ambulation. Probable need for a lot of assistance, detention placement. Status: Acute Plan Continue IV fluids until taking p.o. well. Anticipate slow progress with therapy and eating. At risk for delirium. Time Spent With Patient Total time spent: Total time spent today is 35 minutes, 20 minutes in coordination of care and discussing with other providers management of postoperative care Subjective Date Seen: 02/19/22 Interval history: 71-year-old male seen in followup of hip fracture and hip fracture surgery yesterday. He has been fairly stable overnight. Mostly sleeping. Exam Narrative: Exam Narrative: This morning he arouses to voice. I am unable to understand his speech due to a combination of his speech being very soft and possibly confused. Respirations are clear to auscultation except for a rare basilar crackle. Cardiovascular: S1, S2, regular rate and rhythm. Abdomen: Bowel sounds active. Abdomen is soft without tenderness or mass. Hip incision without obvious bleeding or bruising. He is unable to follow any simple commands for movement of his extremities. He does have a intact sensation and good capillary refill in all 4 extremities. 1+ edema in his ankles. Const: Vital Signs, click to edit/add: Vital Signs - 24 hr 02/18/22 16:28 02/18/22 16:55 02/18/22 16:35 Temperature 97.4 F L Pulse Rate 56 L 61 53 L Pulse Rate [Pulse Oximeter] Respiratory Rate 14 12 12 Blood Pressure 112/71 136/73 134/78 Blood Pressure [Ri ght Arm] Pulse Oximetry 94 97 100 Oxygen Delivery Me thod Non Rebreather Mas k Oxygen Flow Rate 10 02/18/22 16:40 02/18/22 16:45 02/18/22 16:50 Temperature 97.6 F Pulse Rate 54 L 55 L 59 L Pulse Rate [Pulse Oximeter] Respiratory Rate 12 12 12 Blood Pressure 137/78 133/83 137/79 Blood Pressure [Ri ght Arm] Pulse Oximetry 97 96 98 Oxygen Delivery Me thod Room Air Oxygen Flow Rate 02/18/22 17:00 02/18/22 17:05 02/18/22 17:10 Temperature Pulse Rate 62 61 64 Pulse Rate [Pulse Oximeter] Respiratory Rate 12 13 12 Blood Pressure 126/76 133/80 119/71 Blood Pressure [Ri ght Arm] Pulse Oximetry 96 98 96 Oxygen Delivery Me thod Oxygen Flow Rate 02/18/22 15:00 02/18/22 19:13 02/18/22 17:20 Temperature 97 F L 97 F L Pulse Rate Pulse Rate [Pulse Oximeter] 60 57 L Respiratory Rate 16 16 14 Blood Pressure Blood Pressure [Ri ght Arm] 108/61 136/78 Pulse Oximetry 97 95 Oxygen Delivery Me thod Room Air Room Air Oxygen Flow Rate 02/18/22 17:30 02/18/22 17:45 02/18/22 18:00 Temperature 97 F L 97 F L Pulse Rate Pulse Rate [Pulse Oximeter] 58 L 55 L 57 L Respiratory Rate 16 16 16 Blood Pressure Blood Pressure [Ri ght Arm] 122/63 111/66 110/62 Pulse Oximetry 95 93 96 Oxygen Delivery Me thod Room Air Room Air Room Air Oxygen Flow Rate 02/18/22 18:15 02/18/22 18:30 02/18/22 19:47 Temperature 97 F L 97 F L 97 F L Pulse Rate Pulse Rate [Pulse Oximeter] 58 L 57 L 60 Respiratory Rate 16 16 16 Blood Pressure Blood Pressure [Ri ght Arm] 111/57 L 107/58 L 108/61 Pulse Oximetry 94 95 97 Oxygen Delivery Me thod Room Air Room Air Room Air Oxygen Flow Rate 10 02/18/22 20:31 02/18/22 21:54 02/18/22 23:00 Temperature 97 F L 97.8 F 98 F Pulse Rate Pulse Rate [Pulse Oximeter] 62 62 68 Respiratory Rate 16 16 16 Blood Pressure Blood Pressure [Ri ght Arm] 116/62 123/65 125/68 Pulse Oximetry 96 96 95 Oxygen Delivery Me thod Room Air Room Air Room Air Oxygen Flow Rate 02/18/22 23:16 02/19/22 02:26 02/19/22 07:25 Temperature 97.5 F L 97.9 F Pulse Rate Pulse Rate [Pulse Oximeter] 68 72 77 Respiratory Rate 16 16 18 Blood Pressure Blood Pressure [Ri ght Arm] 121/80 146/74 H Pulse Oximetry 96 95 Oxygen Delivery Me thod Room Air Room Air Oxygen Flow Rate 02/19/22 11:16 Temperature 98.2 F Pulse Rate Pulse Rate [Pulse Oximeter] 63 Respiratory Rate 18 Blood Pressure Blood Pressure [Ri ght Arm] 121/71 Pulse Oximetry 94 Oxygen Delivery Me thod Room Air Oxygen Flow Rate Documenting provider has reviewed patient's vital signs: yes Labs Labs: Laboratory Results - last 24 hr 02/19/22 02/19/22 05:54 05:54 WBC 13.39 H RBC 4.03 L Hgb 12.6 L Hct 37.1 MCV 92 MCH 31 MCHC 34 Plt Count 290 Sodium 138 Potassium 4.2 BUN 35 H Creatinine 0.7 Estimated Creat Clear 56.85 Estimated GFR 98
--- NOTE | 2022-02-19 12:56 | PC.SOCIAL ---
Spoke with Jared at [facility] admissions at [phone], fax# [phone] requested pt.'s information be sent to assess. They are not sure they will have availability immediately for pt. but are willing to assess.
[2022-02-19 15:00] VITALS: BP 120/65; PULSE 76; RESP 12; TEMP 36.6; O2SAT 97
--- NOTE | 2022-02-19 15:34 | PC.NURSE ---
Pt eval by Dr. Zhang and Christianne dodson PA. Pt sat on edge of bed with assist of PT & OT. He was leaning backwards during this procedure and unable to stand, ceiling lift to recliner with assist of 3. Final dose of IV ATB completed. Pt advanced from soft diet to regular diet for lunch. Up to recliner for meals, needs assist with feeding. Pt had a visitor Jamie this morning. Pt awake for majority of nursing interventions, slept at intervals. Pt is mostly non verbal, he can respond yes, no or thumbs up. Incontinent of urine twice and pericares provided. Bed and chair alarms engaged per fall prevention protocol. Report to Yolanda ROGERS for evening shift.
[2022-02-19 19:00] VITALS: BP 121/71; PULSE 71; RESP 15; O2SAT 97
[2022-02-19] MEDS: DONEPEZIL 10 MG TABLET PO (20:59)
[2022-02-19] MEDS: CEFPODOXIME PROXETIL 200 MG TABLET PO (20:59)
[2022-02-19] MEDS: ROPINIROLE HCL 1 MG TABLET 2 MG PO (20:59)
[2022-02-19 23:00] VITALS: BP 103/56; PULSE 67; RESP 16; TEMP 36.3; O2SAT 94
--- NOTE | 2022-02-19 23:20 | PC.NURSE ---
Addendum entered by Nely Villagomez RN 02/19/22 23:45: cont. moderate amount of drooling of pudding out of mouth. Next medication administration, pills crushed, mixed with small amount of Ensure and taken through a straw successfully. 50% of dinner eaten with total assist. SL order put in, IV fluids dc'd. Oxycodone 5mg for pain. Original Note: shift [id number] Pt this shift in bed upon arrival, responding with one to two word answers. Began crying during the beginning of a brief change. Unable to determine the cause but began crying more when daughter was mentioned. Bulk Plant Agent consoled pt at bedside and pt calm and content after brief change. no redness or open areas noted. Yomi lift into chair for meals and medications. Attempt to crush pills and add to pudding. Pt took first spoonful but the rest were met resistence d/t pt keeping mouth closed even after swallowing. Moderate amount of
[2022-02-20] VITALS (22 sets, daily range): BP systolic 66–125; BP diastolic 34–99; PULSE 63–147; RESP 12–18; TEMP 36.3–36.9; O2SAT 93–100
[2022-02-20] MEDS: ACETAMINOPHEN 325 MG TABLET 650 MG PO ×3 (00:10→18:05)
[2022-02-20] MEDS: OXYCODONE 5 MG TABLET PO ×2 (06:05→11:12)
[2022-02-20 07:26] LABS: Hematocrit 34.8 % (37.0-53.0); Hemoglobin* 11.6 gm/dL (13.5-17.5); Mean Corpuscular HGB Conc 33 gm/dL (32-36); Mean Corpuscular Hemoglobin 31 pg (26-34); Mean Corpuscular Volume 92 fL (80-100); Platelet Count* 294 K/uL (140-440); Red Blood Count 3.77 m/uL (4.30-5.90); White Blood Count* 11.78 K/uL (4.50-11.00)
--- NOTE | 2022-02-20 07:30 | PC.NURSE ---
[id number]: Patient cooperative with cares. Mostly non-verbal. Somewhat able to answer yes-no questions. Lays with eyes closed. Incontinent. T&R frequently. Remained on bedrest during shift. Dressing to L. hip C/D/I. Active ice applied to L. hip.
[2022-02-20 07:31] LABS: Slide Review Reflex No
[2022-02-20 07:46] LABS: Potassium* 3.8 mmol/L (3.6-5.1); Sodium* 139 mmol/L (135-149)
[2022-02-20 07:49] LABS: Blood Urea Nitrogen* 38 mg/dL (7-30); Creatinine* 0.6 mg/dL (0.5-1.5); Est. Creatinine Clearance* 56.85; Estimated Glomerular Filt Rate 103 ml/min
[2022-02-20] MEDS: LACTATED RINGERS 1000 ML 500 ML IV (08:27)
--- NOTE | 2022-02-20 08:32 | PC.NURSE ---
Bed weight obtained. Included sheets/blankets/dandy, 4 pillows.
--- NOTE | 2022-02-20 10:04 | PM.ORPN ---
Subjective Subjective Time Seen by Provider: 10:00 Date Seen: 02/20/22 Principal diagnosis: Status post left femoral neck fracture and bipolar prosthesis. Interval history: 71-year-old male seen in followup of hip fracture and hip fracture surgery Thursday. Ortho Exam Narrative Exam Narrative: Wai follows commands when I asked him to flex his ankles. He is curled up in position. Const Vital Signs, click to edit/add: Vital Signs - 24 hr 02/19/22 11:16 02/19/22 15:00 02/19/22 15:00 Temperature 98.2 F 97.8 F Pulse Rate [Pulse Oximeter] 63 76 76 Respiratory Rate 18 12 12 Blood Pressure [Right Arm] 121/71 120/65 Pulse Oximetry 94 97 Oxygen Delivery Method Room Air Room Air 02/19/22 19:00 02/19/22 23:00 02/20/22 03:00 Temperature 97.3 F L 98.1 F Pulse Rate [Pulse Oximeter] 71 67 65 Respiratory Rate 15 16 14 Blood Pressure [Right Arm] 121/71 103/56 L 102/53 L Pulse Oximetry 97 94 93 Oxygen Delivery Method Room Air Room Air Room Air 02/20/22 08:11 Temperature 97.6 F Pulse Rate [Pulse Oximeter] 63 Respiratory Rate 12 Blood Pressure [Right Arm] 87/44 L Pulse Oximetry 98 Oxygen Delivery Method Room Air Documenting provider has reviewed patient's vital signs: yes Assessment and Plan Assessment and plan (1) Left displaced femoral neck fracture: Problem details: Wai underwent bipolar prosthesis of the left hip Thursday via anterior approach. Surgery went well. He is able to weightbear as tolerated left lower extremity. Plan for discharge is to a senior living facility when appropriate. DVT prophylaxis includes Xarelto 10 mg daily for total of 5 days, then aspirin 81 mg twice daily for 30 days, Eber stockings x1 month may remove for 1 hr per day, frequent ambulation if he is able. Remove dressing 2 weeks. Observe wound and phone Orthopedics with any questions or concerns Use Ice on operative hip unrestricted. Return to clinic in [address] Dean Minimize narcotic use. Wean off and discontinue soon as possible. Attend OT and PT at senior living facility. Status: Acute (2) Compression fracture of T9 vertebra: Status: Acute (3) Lewy body dementia without behavioral disturbance: Problem details: Likely to cause postoperative problems, delirium, difficulty to arouse and feed. Status: Acute (4) Parkinson's disease with use of electrical brain stimulation: Problem details: diagnosed about 23 years ago. Treated with medications and an implantable electrical brain stimulation. Status: Acute (5) Fall: Problem details: frequent falls, most recent was 02/13/22. Likely to struggle to return to independent ambulation. Probable need for a lot of assistance, [facility] placement. Status: Acute
--- NOTE | 2022-02-20 10:34 | PC.SOCIAL ---
Provided an update to Carie NOLAND, on Pt potentially admitting to [facility] tomorrow or Thursday.
[2022-02-20] MEDS: SENNOSIDES 1 TAB TABLET 2 TAB PO ×2 (11:11→22:05)
[2022-02-20] MEDS: CEFPODOXIME PROXETIL 200 MG TABLET PO ×2 (11:12→22:08)
[2022-02-20] MEDS: CARBIDOPA-LEVODOPA 25-100 TABLET 0.5 TAB PO ×4 (11:14→22:06)
[2022-02-20] MEDS: LACTATED RINGERS 1000 ML 1,000 ML 125 ML IV (11:24)
--- NOTE | 2022-02-20 11:49 | CRLHL7_ITS ---
For Patients: As a result of the Century Cures Act, medical imaging exams and procedure reports are released immediately into your electronic medical record. You may view this report before your referring provider. If you have questions, please contact your health care provider. INDICATION: Hypotension, postop AFib. TECHNIQUE: CT chest PE was acquired with 95 cc Isovue 370 IV contrast. COMPARISON: Chest CT October 2021 FINDINGS: Pulmonary Arteries: No CT evidence of pulmonary thromboembolic disease. No pulmonary hypertension or right ventricular strain. Heart and Mediastinum: Atrophic thyroid. No axillary or supraclavicular lymphadenopathy. No mediastinal, hilar or retrocrural lymphadenopathy. Borderline cardiomegaly. Normal caliber aorta. Left pectoral ICD/pacer. Lungs and Airways: Respiratory motion degrades fine detail evaluation throughout the lungs. Bibasilar subsegmental atelectasis. No mass or consolidation. No endoluminal lesion. Pleura: The pleural spaces are normal. Abdomen: Simple fluid attenuation hypodensity is an segment 8 and 4A, statistically represent cysts. Bones and soft tissues: Old posterior right-sided rib fracture. Old left-sided rib fractures. Old midthoracic vertebral body compression fracture with approximately 20 percent height loss. IMPRESSION: 1. No CT evidence of pulmonary thromboembolic disease. 2. No intrathoracic mass or consolidation. Please note that all CT scans at this facility use dose modulation, iterative reconstruction, and/or weight-based dosing when appropriate to reduce radiation dose to as low as reasonably achievable. Dictated by Manuel Berry MD @ 02/20/2022 2:34:00 PM (Electronically Signed)
[2022-02-20] MEDS: LACTATED RINGERS 1000 ML 500 ML 250 ML IV (12:16)
[2022-02-20] MEDS: DIGOXIN 250 MCG/ML inj 500 MCG IV (12:37)
[2022-02-20] MEDS: METOPROLOL TARTRATE 1 MG/ML inj 5 MG IVP ×2 (12:59→16:37)
[2022-02-20] MEDS: METOPROLOL TARTRATE 1 MG/ML inj 2.5 MG IVP (14:45)
[2022-02-20] MEDS: RIVAROXABAN 10 MG TABLET PO (14:45)
--- NOTE | 2022-02-20 15:12 | PC.NURSE ---
07 shift: Pt. minimally responsive periodically through shift. Moved [id number] w/ceiling lift. Notes pain, but unable to rate w/number. Dressing to left hip c/d/i. HR in 60s, noted regular. Pressures 80s/40s this morning, Resp. rate 12/min. Updated Dr. Zhang. 500ml LR bolus administered, maintenance fluids initiated. Pressures largely unchanged after bolus, second bolus ordered as well as EKG d/t new irregular HR. Verified a-fib w/RVR, HR 140s-150s. Tele placed, orders received. IV digoxin and metoprolol administered. New IV placed to R upper arm near AC, for PE study. Transferred to CCU1, unit status. Report given to KEN Loera. Pt. to have ECHO this afternoon.
[2022-02-20 15:22] LABS: Troponin I* < 0.01 ng/mL (0.01-0.04)
--- NOTE | 2022-02-20 15:35 | PM.IMPN1 ---
Progress Note: A&P Assessment and plan (1) Atrial fibrillation with rapid ventricular response: Problem details: New AFib. Will increase anticoagulation to full dose. Initiate rate control. Will use beta-juliann and digoxin as his blood pressure is relatively low. Echocardiogram pending. If he becomes unstable consider cardioversion. I did leave a message for [facility] to call me about his deep brain stimulator regarding cardioversion. Status: Acute (2) Left displaced femoral neck fracture: Problem details: Wai underwent bipolar prosthesis of the left hip Rissa via anterior approach. Surgery went well. He is able to weightbear as tolerated left lower extremity. Plan for [facility] is to a [facility] when appropriate. DVT prophylaxis includes Xarelto 10 mg daily for total of 5 days, then aspirin 81 mg twice daily for 30 days, Eber stockings x1 month may remove for 1 hr per day, frequent ambulation if he is able. Remove dressing 2 weeks. Observe wound and phone Orthopedics with any questions or concerns Use Ice on operative hip unrestricted. Return to clinic in [address] Dean Minimize narcotic use. Wean off and discontinue soon as possible. Attend OT and PT at [facility] facility. Status: Acute (3) Compression fracture of T9 vertebra: Status: Acute (4) Lewy body dementia without behavioral disturbance: Problem details: Now appears to have postoperative delirium. This appears to be more apathetic delirium. Poorly arousable and poor feeding. Status: Acute (5) Parkinson's disease with use of electrical brain stimulation: Problem details: diagnosed about 23 years ago. Treated with medications and an implantable electrical brain stimulation. Status: Acute (6) Fall: Problem details: frequent falls, most recent was 02/13/22. Likely to struggle to return to independent ambulation. Probable need for a lot of assistance, group home placement. Status: Acute Plan Patient is moved CCU for management of cardiac complications, AFib with RVR, hypotension. Continue IV fluids as he is taking in poor p.o. fluids. Anticipate difficult recovery from hip fracture surgery due to Parkinson's and dementia and now delirium Time Spent With Patient Total time spent: Total critical care time spent today is 70 minutes Subjective Date Seen: 02/20/22 Interval history: 71-year-old male seen in followup of hip fracture with arthroplasty 2 days ago, dementia, delirium, Parkinson's. Patient has been taking poor p.o. food and fluid. He has had relatively low blood pressure today. It sounds like urine output might be somewhat marginal. He is mostly sleeping. Weeks up a little bit to eat. Attempts to talk but voice is quite weak and communication is quite difficult. After I saw him initially he went into atrial fibrillation with rapid ventricular response. No previous history of atrial fibrillation. Blood pressures has been subsequently relatively low. He was moved to the CCU for closer monitoring and more careful management of his atrial fibrillation with RVR and hypotension. Exam Narrative: Exam Narrative: He is initially sleeping but arouses to touch. He appears in no obvious distress initially but then later is exhibiting somewhat increased work of breathing, appears somewhat anxious with his atrial fibrillation. He attempts to speak but his voice is quite weak and I am unable to make out words. Respirations are clear to auscultation. Cardiovascular: S1, S2, irregular tachycardia. No murmur gallop or rub. Abdomen is soft without tenderness or mass. Lower extremities without significant edema. He minimally cooperates with examination by wiggling his toes. Const: Vital Signs, click to edit/add: Vital Signs - 24 hr 02/19/22 19:00 02/19/22 23:00 02/20/22 03:00 Temperature 97.3 F L 98.1 F Pulse Rate Pulse Rate [Pulse Oximeter] 71 67 65 Respiratory Rate 15 16 14 Blood Pressure [Le ft Arm] Blood Pressure [Ri ght Arm] 121/71 103/56 L 102/53 L Blood Pressure [Ri ght forearm] Pulse Oximetry 97 [address] [facility] Room [facility] 02/20/22 08:11 02/20/22 12:00 02/20/22 12:37 Temperature 97.6 F 97.4 F L Pulse Rate 108 H Pulse Rate [Pulse Oximeter] 63 102 H Respiratory Rate 12 18 Blood Pressure [Le ft Arm] Blood Pressure [Ri ght Arm] 87/44 L 81/63 L Blood Pressure [Ri ght forearm] Pulse Oximetry [address] [facility] 02/20/22 12:48 02/20/22 13:53 02/20/22 14:38 Temperature 97.9 F Pulse Rate Pulse Rate [Pulse Oximeter] 108 H 134 H 128 H Respiratory Rate 12 Blood Pressure [Le ft Arm] 106/43 L Blood Pressure [Ri ght Arm] 95/74 97/68 Blood Pressure [Ri ght forearm] Pulse Oximetry 96 Oxygen Delivery Me thod Room Air 02/20/22 11:26 02/20/22 08:05 02/20/22 12:02 Temperature Pulse Rate Pulse Rate [Pulse Oximeter] 145 H 63 129 H Respiratory Rate 14 12 Blood Pressure [Le ft Arm] 96/64 Blood Pressure [Ri ght Arm] 66/58 L Blood Pressure [Ri ght forearm] Pulse Oximetry 95 Oxygen Delivery Me thod Room Air 02/20/22 12:20 02/20/22 13:05 02/20/22 11:06 Temperature Pulse Rate 147 H Pulse Rate [Pulse Oximeter] 101 H 133 H Respiratory Rate 12 Blood Pressure [Le ft Arm] 95/46 L Blood Pressure [Ri ght Arm] Blood Pressure [Ri ght forearm] 101/70 Pulse Oximetry 96 Oxygen Delivery Me thod Room Air 02/20/22 15:16 Temperature 97.8 F Pulse Rate Pulse Rate [Pulse Oximeter] 115 H Respiratory Rate 18 Blood Pressure [Le ft Arm] 125/84 Blood Pressure [Ri ght Arm] Blood Pressure [Ri ght forearm] Pulse Oximetry 98 Oxygen Delivery Me thod Room Air Documenting provider has reviewed patient's vital signs: yes Labs Labs: Laboratory Results - last 24 hr 02/17/22 02/20/22 02/20/22 15:12 05:36 05:36 WBC 11.78 H RBC 3.77 L Hgb 11.6 L Hct 34.8 L MCV 92 MCH 31 MCHC 33 Plt Count 294 Sodium 139 Potassium 3.8 BUN 38 H Creatinine 0.6 Estimated Creat Clear 56.85 Estimated GFR 103 Venous Lactic Acid (Serial Order) Cancelled Troponin I 02/20/22 14:22 WBC RBC Hgb Hct MCV MCH MCHC Plt Count Sodium Potassium BUN Creatinine Estimated Creat Clear Estimated GFR Venous Lactic Acid (Serial Order) Troponin I < 0.[address] scan - chest: Radiologist's impression: Chest CT shows no PE. ECG Attestation: I personally reviewed and interpreted this ECG as follows: (Electrocardiogram shows atrial fibrillation. Large amount of artifact due to Parkinson's.)
[2022-02-20 17:46] LABS: Magnesium* 2.3 mg/dL (1.5-2.6)
--- NOTE | 2022-02-20 18:17 | PC.NURSE ---
Pt. had PE Study completed and was then moved to CCU room, at approximately 1330. HR 110s-150s. BP 90s-100s.40s-60s. Metoprolol administered x 1. At approximately 1715 pt's HR decreased to 60s-70s. BP 110s-120s/70s-90s. EKG obtained and given to Dr. Zhang.
[2022-02-20] MEDS: ROPINIROLE HCL 1 MG TABLET 2 MG PO (22:04)
[2022-02-20] MEDS: DONEPEZIL 10 MG TABLET PO (22:05)
[2022-02-20] MEDS: LACTATED RINGERS 1000 ML 1,000 ML 75 ML IV (22:53)
--- NOTE | 2022-02-20 23:09 | PC.NURSE ---
Pt nonverbal will moan to some questioning. T&R q2hrs. VSS BP on the lower side. HR 74. Metoprolol that was ordered for 2030 was held per . IV patent. Luzma with 100cc . MD notified. 500cc bolus started at 250cc/hr per MD order.
[2022-02-21] VITALS (11 sets, daily range): BP systolic 96–131; BP diastolic 52–94; PULSE 62–76; RESP 12–16; TEMP 36.1–36.8; O2SAT 97–100
[2022-02-21] MEDS: ACETAMINOPHEN 325 MG TABLET 650 MG PO ×4 (00:11→17:53)
--- NOTE | 2022-02-21 03:38 | PC.NURSE ---
Addendum entered by Ángel Cook RN 02/21/22 05:09: 20beat spontaneous run of SVT at 0504 and then back to SR 73 strip to chart Addendum entered by Ángel Cook RN 02/21/22 04:17: BP 101/52 MAP 66 0430 Lopressor IVP held. Original Note: BP at 0330 91/44. Manual Recheck 96/60. HR 67 Tele irregular sinus rhythm best seen in lead III and possible brain stimulator interference noted when pacemaker sensing is turned on so that was left off and strip to chart. 0030 Lopressor was held d/t VS parameters. UOP at 0330 was 150mls via Segal catheter draining marvin urine. Has tolerated very limited water intake and holds it in his mouth. 500mls LR bolus finished up about 0100 w/maintenance IVF of LR at 75mls/hr. Scheduled Tylenol given crushed and liquified w/oral syringe. Pt does not seem to be having pain. Surgical dressing CDI. T+R w/A2. Patient is non-verbal and a little resistive w/cares.
[2022-02-21] MEDS: LACTATED RINGERS 1000 ML 1,000 ML 75 ML IV ×2 (06:26→20:22)
[2022-02-21 07:34] LABS: Chloride* 102 mmol/L (96-114)
[2022-02-21 07:35] LABS: Potassium* 3.6 mmol/L (3.6-5.1); Sodium* 136 mmol/L (135-149)
[2022-02-21 07:37] LABS: Carbon Dioxide* 30 mmol/L (20-32); Creatinine* 0.6 mg/dL (0.5-1.5); Est. Creatinine Clearance* 50.68; Estimated Glomerular Filt Rate 103 ml/min
[2022-02-21 07:38] LABS: Blood Urea Nitrogen* 24 mg/dL (7-30); Calcium* 7.9 mg/dL (8.4-10.6); Glucose* 101 mg/dL (60-115)
[2022-02-21] MEDS: CARBIDOPA-LEVODOPA 25-100 TABLET 0.5 TAB PO ×4 (09:12→20:23)
[2022-02-21] MEDS: METOPROLOL SUCCINATE (XL) 25 MG TAB PO (09:13)
[2022-02-21] MEDS: OXYCODONE 5 MG TABLET 2.5 MG PO (09:14)
[2022-02-21] MEDS: RIVAROXABAN 10 MG TABLET PO (09:14)
[2022-02-21] MEDS: SENNOSIDES 1 TAB TABLET 2 TAB PO ×2 (09:14→20:23)
--- NOTE | 2022-02-21 11:33 | P.IMPN_ITS ---
Progress Note: A&P Assessment and plan (1) Atrial fibrillation with rapid ventricular response: Problem details: New AFib, now resolved. Relatively normal echo. Continue to monitor heart rhythm for now. If he goes back into atrial fibrillation and becomes unstable consider cardioversion. In an emergency this can be done without dealing with the deep brain stimulator. I did speak with a physician at [place] regarding his deep brain stimulator and cardioversion. Optimally it is recommended that the control for his deep brain stimulator be interrogated to find the settings that he is currently on. These are to be written down than the deep stimulator can be shut off. Cardioversion can occur and then the deep brain stimulator can be turned on again. Once it is turned on the settings should be re-entered if they are not correct. The primary risk for cardioversion with a deep brain stimulator is damage to the generator. If that occurs it would need to be replaced. Status: Acute (2) Left displaced femoral neck fracture: Problem details: Wai underwent bipolar prosthesis of the left hip Rissa via anterior approach. Surgery went well. He is able to weightbear as tolerated left lower extremity. Plan for discharge is to a custodial facility when appropriate. DVT prophylaxis includes Xarelto 10 mg daily for total of 5 days, then aspirin 81 mg twice daily for 30 days, Eber stockings x1 month may remove for 1 hr per day, frequent ambulation if he is able. Remove dressing 2 weeks. Observe wound and phone Orthopedics with any questions or concerns Use Ice on operative hip unrestricted. Return to clinic in [address] Dean Minimize narcotic use. Wean off and discontinue soon as possible. Attend OT and PT at custodial facility. Status: Acute (3) Compression fracture of T9 vertebra: Status: Acute (4) Lewy body dementia without behavioral disturbance: Problem details: Now appears to have postoperative delirium. This appears to be more apathetic delirium. Poorly arousable and poor feeding continues. Status: Acute (5) Parkinson's disease with use of electrical brain stimulation: Problem details: diagnosed about 23 years ago. Treated with medications and an implantable electrical brain stimulation. See notes above about deep brain stimulator and cardioversion Status: Acute (6) Fall: Problem details: frequent falls, most recent was 02/13/22. Likely to struggle to return to independent ambulation. Probable need for a lot of assistance, senior care placement. Status: Acute Plan Continue in-hospital to manage his altered mental status with Parkinson's and dementia and monitor his cardiovascular status. For now he still needing IV fluids as his oral intake is poor. Anticipate transitioning to oral food and fluid over the next couple days and discharged to a custodial facility in 2-3 days. Time Spent With Patient Total time spent: Total time spent today is 40 minutes, 30 minutes in coordination of care and discussing with other providers management of fracture, disability, disposition Subjective Date Seen: 02/21/22 Interval history: 71-year-old male seen in followup of hip fracture surgery day 3, altered mental status, AFib with RVR and associated hypotension. Yesterday he went into AFib with RVR. Heart rate was around 140. The this was relatively difficult to control initially in particular because of hypotension. He was transferred to the CCU for evaluation and treatment. Last evening he converted back into a sinus rhythm. Heart rhythm and vital signs been relatively stable overnight. Patient continues to be relatively sleepy. Requires total printing assistant with all cares including feedings. Exam Narrative: Exam Narrative: He is lying in bed with hips and knees tightly flexed. He arouses to voice. He does not attempt to respond to questions are speak to me today. Respirations are clear to auscultation. Cardiovascular: S1, S2, regular rate and rhythm. Abdomen is soft without tenderness. Hip without obvious deformity swelling or redness or bruising. Distal extremities with intact pulses and sensation. He does not cooperate with movement and strength testing Const: Vital Signs, click to edit/add: Vital Signs - 24 hr 02/20/22 12:00 02/20/22 12:37 02/20/22 12:48 Temperature 97.4 F L 97.9 F Pulse Rate 108 H Pulse Rate [Pulse Oximeter] 102 H 108 H Respiratory Rate 18 12 Blood Pressure [Le ft Arm] Blood Pressure [Ri ght Arm] 81/63 L 95/74 Blood Pressure [Ri ght forearm] Pulse Oximetry 97 96 Oxygen Delivery Me thod Room Air 02/20/22 13:53 02/20/22 14:38 02/20/22 12:02 Temperature Pulse Rate Pulse Rate [Pulse Oximeter] 134 H 128 H 129 H Respiratory Rate Blood Pressure [Le ft Arm] 106/43 L Blood Pressure [Ri ght Arm] 97/68 66/58 L Blood Pressure [Ri ght forearm] Pulse Oximetry Oxygen Delivery Me thod 02/20/22 12:20 02/20/22 13:05 02/20/22 15:16 Temperature 97.8 F Pulse Rate Pulse Rate [Pulse Oximeter] 101 H 133 H 115 H Respiratory Rate 12 18 Blood Pressure [Le ft Arm] 95/46 L 125/84 Blood Pressure [Ri ght Arm] Blood Pressure [Ri ght forearm] 101/70 Pulse Oximetry 96 98 [facility] Room Air 02/20/22 15:48 02/20/22 16:53 02/20/22 17:18 Temperature Pulse Rate 133 H Pulse Rate [Pulse Oximeter] 126 H 69 Respiratory Rate Blood Pressure [Le ft Arm] 104/90 H 119/74 Blood Pressure [Ri ght Arm] Blood Pressure [Ri ght forearm] Pulse Oximetry [facility] 02/20/22 18:04 02/20/22 21:47 02/20/22 22:03 Temperature 98 F 98 F Pulse Rate Pulse Rate [Pulse Oximeter] 77 74 Respiratory Rate Blood Pressure [Le ft Arm] 123/99 H 111/97 H Blood Pressure [Ri ght Arm] Blood Pressure [Ri ght forearm] 111/97 H Pulse Oximetry 100 [facility]xygen Delivery [facility] Room Air 02/20/22 23:42 02/20/22 23:55 02/21/22 03:37 Temperature 98.4 F 98.0 F Pulse Rate 67 Pulse Rate [Pulse Oximeter] 68 65 Respiratory Rate 12 12 Blood Pressure [Le ft Arm] 106/34 L 96/60 Blood Pressure [Ri ght Arm] Blood Pressure [Ri ght forearm] Pulse Oximetry 99 99 Oxygen Delivery [facility] Room Air Room Air 02/21/22 04:15 02/21/22 07:00 02/21/22 08:00 Temperature 98.3 F Pulse Rate Pulse Rate [Pulse Oximeter] 76 64 64 Respiratory Rate 16 16 Blood Pressure [Le ft Arm] 101/52 L 117/66 Blood Pressure [Ri ght Arm] Blood Pressure [Ri ght forearm] Pulse Oximetry 99 99 Oxygen Delivery [facility] Room Air Room Air Documenting provider has reviewed patient's vital signs: yes Labs Labs: Laboratory Results - last 24 hr 02/20/22 02/20/22 02/20/22 05:36 14:22 14:22 Sodium Potassium Chloride Carbon Dioxide BUN Creatinine Estimated Creat Clear Estimated GFR Glucose Calcium Magnesium 2.3 Troponin I < 0.01 L TSH 2.590 02/21/22 06:48 Sodium 136 Potassium 3.6 Chloride 102 Carbon Dioxide 30 BUN 24 Creatinine 0.6 Estimated Creat Clear 50.68 Estimated GFR 103 Glucose 101 Calcium 7.9 L Magnesium Troponin I TSH
--- NOTE | 2022-02-21 12:04 | PC.SOCIAL ---
Discharge plans: Spoke with in room regarding d/c plans. is pleased with plan for pt to go to LTCC if he requires halfway care at discharge. brought up that she is also considering hospice care and is planning to talk with the nurse at [facility] about whether he could return there with hospice if he does not qualify for a stay in the LTCC and needs hospice care. lives at [facility] with and would like to have him there if hospice is needed. requested social service liaison call dtr with an update on the LTCC plan. Called dtr, Marian, who is pleased with discharge plan to LTCC when able. Dtr asked about Medicare coverage of LTCC. Shared that pt will meet initial criteria for Medicare coverage and be re-evaluated as needed. She is aware there is not a guarantee of how long pt will be covered under Medicare for LTCC stay. Answered dtr's questions about [place] coverage if pt runs out of money to pay privately if this is needed in the future. Dtr was appreciative of information provided. beet worker to update dtr and on Thursday with discharge plans.
--- NOTE | 2022-02-21 18:51 | PC.NURSE ---
Shift Note [id number]: Pt very somnolent today, waking very briefly with repositioning/cares before again falling asleep. Appears comfortable and VS WNL. LS COA. Afebrile. Tele= NSR. Pt has had little interest in PO intake most of the day and would occasionally sip water but let it sit in his mouth rather than swallowing. Pills crushed in applesauce, pt also seemed to let sit in his mouth with a good portion dribbling out of the corner of his mouth. Pt was up to chair via ceiling lift this morning and again late afternoon. He became much more alert during the dinner hour and per MICHELLE he ate 100% of his meal tray. He is a total assist with all cares. No BM. Segal patent and draining. Surgical dressing C,D,&I with active ice in place. updated this morning at bedside.
[2022-02-21] MEDS: ROPINIROLE HCL 1 MG TABLET 2 MG PO (20:23)
[2022-02-21] MEDS: DONEPEZIL 10 MG TABLET PO (20:23)
[2022-02-22] VITALS (11 sets, daily range): BP systolic 112–141; BP diastolic 55–87; PULSE 58–81; RESP 16–18; TEMP 36.4–36.9; O2SAT 97–100
--- NOTE | 2022-02-22 05:55 | PC.NURSE ---
[id number] Pt in recliner at beginning of shift, back to bed with ceiling lift, tolerated transfer. pt then slept remainder of shift, repo q2h, tightly flexed but able to straighten out his extremities once pt asleep. Segal intact and patent, dressing to L hip C/D/I, ice to site throughout shift.
[2022-02-22] MEDS: ACETAMINOPHEN 325 MG TABLET 650 MG PO ×4 (05:59→23:24)
[2022-02-22 07:25] LABS: Chloride* 103 mmol/L (96-114); Potassium* 3.6 mmol/L (3.6-5.1); Sodium* 137 mmol/L (135-149)
[2022-02-22 07:28] LABS: Blood Urea Nitrogen* 19 mg/dL (7-30); Carbon Dioxide* 29 mmol/L (20-32); Creatinine* 0.6 mg/dL (0.5-1.5); Est. Creatinine Clearance* 51.01; Estimated Glomerular Filt Rate 103 ml/min
[2022-02-22 07:29] LABS: Calcium* 8.4 mg/dL (8.4-10.6); Glucose* 99 mg/dL (60-115)
[2022-02-22] MEDS: RIVAROXABAN 10 MG TABLET PO (08:57)
[2022-02-22] MEDS: SENNOSIDES 1 TAB TABLET 2 TAB PO ×2 (08:57→21:11)
[2022-02-22] MEDS: METOPROLOL SUCCINATE (XL) 25 MG TAB PO (08:57)
[2022-02-22] MEDS: CARBIDOPA-LEVODOPA 25-100 TABLET 0.5 TAB PO ×4 (08:57→20:52)
[2022-02-22] MEDS: OXYCODONE 5 MG TABLET 2.5 MG PO (08:59)
[2022-02-22] MEDS: LACTATED RINGERS 1000 ML 1,000 ML 75 ML IV (11:03)
--- NOTE | 2022-02-22 13:13 | PM.IMPN1 ---
Progress Note: A&P Assessment and plan (1) History of hemiarthroplasty of left hip: Problem details: cemented after fall/fracture. 02/18/22. Dr. Dean. Status: Acute Assessment and Plan: Stable from an orthopedic standpoint. Will need placement in halfway. (2) Lewy body dementia without behavioral disturbance: Status: Acute Assessment and Plan: Improving postop delirium. Baseline dementia. Nonverbal. But he is feeding himself and smiled today. (3) Parkinson's disease with use of electrical brain stimulation: Problem details: diagnosed about 23 years ago. Treated with medications and an implantable electrical brain stimulation. See notes above about deep brain stimulator and cardioversion Status: Acute (4) Atrial fibrillation: Status: Acute Assessment and Plan: Rate stable. On Xarelto and metoprolol. Subjective Date Seen: 02/22/22 Interval history: Daily Progress Note - Hospital Medicine Day #: 6 s/p Cemented Left hip bipolar hemiarthroplasty; POD #4 CC: left hip fracture; dementia, afib OVERNIGHT UPDATES FROM STAFF & MED, LAB, IMAGING UPDATES overnight; stable from a HR perspective. Actually aware I was in the room and smiled today. Starting to feed himself with help from NA. Vital signs reviewed. All unremarkable including a pulse of 76. CBC, stable. Slow drift on hemoglobin 11.6 today. Electrolytes and renal functional normal today. EKG is difficult to interpret with all of the background noise. Likely from his deep brain stimulator. Rate control today. Review of Systems: See subjective Cardiac: No new chest pain/pressure/palpitations. Respiratory: no new dyspnea. GI: No abdominal bloating Objective: Lying on his left side curled up. Minimally interactive. He does look at me when asked and does smile. Does not answer any questions. Vitals: see above Lungs: Clear. Cardiac: S1S2. Disposition/Potential discharge - as soon as a bed is available in halfway. No stable postoperatively, looking for halfway placement. Total time is 35 minutes with greater than 50% spent in counseling and coordination of care. Exam Const: Vital Signs, click to edit/add: Vital Signs - 24 hr 02/21/22 15:00 02/21/22 15:00 02/21/22 16:00 Temperature 97.8 F Pulse Rate 65 Pulse Rate [Pulse Oximeter] 64 64 Respiratory Rate 16 16 Blood Pressure [Le ft Arm] 115/60 Pulse Oximetry 97 Oxygen Delivery Me thod Room Air Oxygen Flow Rate 02/21/22 19:49 02/21/22 22:47 02/21/22 22:47 Temperature 98.2 F Pulse Rate 62 Pulse Rate [Pulse Oximeter] 70 62 Respiratory Rate 16 16 Blood Pressure [Le ft Arm] 131/94 H Pulse Oximetry 100 Oxygen Delivery Me thod Room Air Oxygen Flow Rate 02/21/22 22:54 02/22/22 03:23 02/22/22 03:22 Temperature 97.5 F L 97.7 F 97.7 F Pulse Rate Pulse Rate [Pulse Oximeter] 62 61 61 Respiratory Rate 16 16 16 Blood Pressure [Le ft Arm] 122/68 112/55 L 112/55 L Pulse Oximetry 99 97 97 Oxygen Delivery Me thod Room Air Room Air Room Air Oxygen Flow Rate 02/22/22 07:00 02/22/22 08:00 02/22/22 07:00 Temperature 97.7 F Pulse Rate 58 L Pulse Rate [Pulse Oximeter] 69 69 Respiratory Rate 16 16 Blood Pressure [Le ft Arm] 141/62 H Pulse Oximetry 99 Oxygen Delivery Me thod Room Air Oxygen Flow Rate 02/22/22 11:33 Temperature 97.6 F Pulse Rate Pulse Rate [Pulse Oximeter] 76 Respiratory Rate 18 Blood Pressure [Le ft Arm] 136/76 Pulse Oximetry 100 Oxygen Delivery Me thod Room Air Oxygen Flow Rate Labs Labs: Laboratory Results - last 24 hr 02/22/22 06:37 Sodium 137 Potassium 3.6 Chloride 103 Carbon Dioxide 29 BUN 19 Creatinine 0.6 Estimated Creat Clear 51.01 Estimated GFR 103 Glucose 99 Calcium 8.4
--- NOTE | 2022-02-22 18:53 | PC.NURSE ---
End of shift-- Pt has been pleasant and cooperative. Primarily non-verbal, but occasionally speaks a few words softly. VSS and pt is afebrile. SPO2 >90% on RA. Pain appears well managed with scheduled Tylenol. Dressing to left hip is C/D/I. Difficult to adequately assess CMS, but cap refill <3sec. Telemetry shows NSR. LS CTA. BS+ x4. Pt ate 50-100% of 3 meals with assistance. He was able to feed himself finger foods with minimal assistance. Pt had a large, formed BM x1. Segal is patent and drained adequate amounts of clear, straw colored urine. was at bedside this evening and appears loving and supportive. Report to oncoming shift.
[2022-02-22] MEDS: DONEPEZIL 10 MG TABLET PO (20:52)
[2022-02-22] MEDS: ROPINIROLE HCL 1 MG TABLET 2 MG PO (20:54)
[2022-02-23 03:00] VITALS: BP 121/60; PULSE 64; RESP 16; TEMP 36.7; O2SAT 98
[2022-02-23] MEDS: ACETAMINOPHEN 325 MG TABLET 650 MG PO ×3 (05:06→17:47)
[2022-02-23 07:00] VITALS: BP 108/68; PULSE 71; RESP 16; TEMP 36.6; O2SAT 99
[2022-02-23] MEDS: CARBIDOPA-LEVODOPA 25-100 TABLET 0.5 TAB PO ×4 (08:13→20:14)
[2022-02-23] MEDS: OXYCODONE 5 MG TABLET 2.5 MG PO (08:14)
[2022-02-23] MEDS: RIVAROXABAN 10 MG TABLET PO (08:14)
[2022-02-23] MEDS: METOPROLOL SUCCINATE (XL) 25 MG TAB PO (08:16)
[2022-02-23 11:00] VITALS: BP 107/57; PULSE 82; RESP 16; TEMP 36.6; O2SAT 98
--- NOTE | 2022-02-23 11:23 | PM.IMPN1 ---
Progress Note: A&P Assessment and plan (1) History of hemiarthroplasty of left hip: Problem details: cemented after fall/fracture. 02/18/22. Dr. Dean. Status: Acute (2) Lewy body dementia without behavioral disturbance: Status: Acute (3) Parkinson's disease with use of electrical brain stimulation: Problem details: diagnosed about 23 years ago. Treated with medications and an implantable electrical brain stimulation. See notes above about deep brain stimulator and cardioversion Status: Acute (4) Atrial fibrillation: Status: Acute Subjective Date Seen: 02/23/22 Interval history: Daily Progress Note - Hospital Medicine Day #: 7 s/p Cemented Left hip bipolar hemiarthroplasty; POD #5 CC: left hip fracture; dementia, afib OVERNIGHT UPDATES FROM STAFF & MED, LAB, IMAGING UPDATES overnight; stable from a HR perspective. seems more alert today; says yes, no and nods when I ask if he likes to hear the news on. Vital signs reviewed. All unremarkable including a pulse of 64. CBC, stable. Slow drift on hemoglobin 11.6 today. Electrolytes and renal functional normal today. EKG is difficult to interpret with all of the background noise. Likely from his deep brain stimulator. Rate control today. Review of Systems: See subjective Cardiac: No new chest pain/pressure/palpitations. Respiratory: no new dyspnea. GI: No abdominal bloating Objective: in the chair. Minimally interactive. He does look at me when asked and does smile. Vitals: see above Lungs: Clear. Cardiac: S1S2. no edema. Disposition/Potential discharge - as soon as a bed is available in long term. Stable postoperatively, looking for long term placement. Total time is 35 minutes with greater than 50% spent in counseling and coordination of care. Exam Const: Vital Signs, click to edit/add: Vital Signs - 24 hr 02/22/22 11:33 02/22/22 15:05 02/22/22 15:18 Temperature 97.6 F 97.8 F Pulse Rate 76 Pulse Rate [Pulse Oximeter] 76 70 Respiratory Rate 18 16 Blood Pressure [Le ft Arm] 136/76 139/87 Pulse Oximetry 100 97 Oxygen Delivery Me thod Room Air Room Air 02/22/22 15:00 02/22/22 19:00 02/22/22 22:36 Temperature 98.4 F Pulse Rate Pulse Rate [Pulse Oximeter] 70 81 67 Respiratory Rate 16 16 16 Blood Pressure [Le ft Arm] 137/63 Pulse Oximetry 98 Oxygen Delivery Me thod Room Air 02/22/22 23:00 02/22/22 23:00 02/23/22 03:00 Temperature 97.9 F 98.1 F Pulse Rate 66 Pulse Rate [Pulse Oximeter] 67 64 Respiratory Rate 16 16 Blood Pressure [Le ft Arm] 123/68 121/60 Pulse Oximetry 99 98 Oxygen Delivery Me thod Room Air Room Air
[2022-02-23 15:00] VITALS: BP 127/70; PULSE 54; PULSE 71; RESP 16; TEMP 36.8; O2SAT 97
[2022-02-23 19:00] VITALS: BP 133/64; PULSE 74; RESP 16; TEMP 36.7; O2SAT 98
--- NOTE | 2022-02-23 20:09 | PC.NURSE ---
Shift Note [id number]: Shift unremarkable. VS WNL and LS COA. Pt appears comfortable, up to chair via ceiling lift for meals. Good appetite with total assistance. Active ice to surgical site. Surgical dressing C,D,&I.
[2022-02-23] MEDS: SENNOSIDES 1 TAB TABLET 2 TAB PO (20:14)
[2022-02-23] MEDS: ROPINIROLE HCL 1 MG TABLET 2 MG PO (20:14)
[2022-02-23] MEDS: DONEPEZIL 10 MG TABLET PO (20:14)
[2022-02-23 22:39] VITALS: BP 128/74; PULSE 69; RESP 16; TEMP 36.8; O2SAT 97
[2022-02-24 02:56] VITALS: BP 158/108; PULSE 67; RESP 16; TEMP 36.8; O2SAT 98
[2022-02-24] MEDS: ACETAMINOPHEN 325 MG TABLET 650 MG PO (05:11)
--- NOTE | 2022-02-24 05:25 | PC.NURSE ---
Shift 7p-7a: Pt. non-verbal, not following simple commands, but responds to verbal stimuli by opening eyes and tracking. VSS on RA, pt. resistive to cares during the night, attempting to pull IV and BP cuff off during vital sign check. Pt. had 1 small, formed BM, Segal catheter patent and draining adequate urine. LT hip dressing C/D/I. Plan for SNF or LTCC placement
[2022-02-24] MEDS: OXYCODONE 5 MG TABLET 2.5 MG PO (06:23)
[2022-02-24 07:00] VITALS: BP 116/65; PULSE 74; PULSE 82; RESP 16; TEMP 36.6; O2SAT 96
[2022-02-24] MEDS: RIVAROXABAN 10 MG TABLET PO (09:39)
[2022-02-24] MEDS: CARBIDOPA-LEVODOPA 25-100 TABLET 0.5 TAB PO (09:39)
[2022-02-24] MEDS: SENNOSIDES 1 TAB TABLET 2 TAB PO (09:39)
[2022-02-24] MEDS: METOPROLOL SUCCINATE (XL) 25 MG TAB PO (09:40)
--- NOTE | 2022-02-24 11:16 | PC.NURSE ---
PATIENT ALERT TO SELF, ATE 100% OF BREAKFAST BEING FED, APPEARED COMFORTABLE IN BED, UP TO CHAIR WITH CEILING LIFT TOLERATED WELL, ROMERO PATENT AND DRAINING, TELE SHOWING NSR, DRESSING CDI, REPORT GIVEN TO MERRICK IN LTCC ALL QUESTIONS ANSWERED, PATIENTS IV REMOVED, ALL BELONGINGS SENT WITH PATIENT,
--- NOTE | 2022-02-24 12:57 | P.DS_ITS ---
DS: Providers Provider Date Seen: 02/24/22 Date of admission: 02/17/22 18:59 Primary care physician: Bayron Aquino MD Admitting Clinician: Shira Onofre MD Consults: 02/18/22 17:45 Consult to Occupational Therapy [CONS] Routine Comment: Reason(s) for OT Consult:: Evaluate and Treat Any Restrictions?:: See Comment Comment: evaluate and treat Consult to Physical Therapy [CONS] Routine Comment: Reason(s) for PT Consult:: Evaluate and Treat Any Restrictions?:: See Comment Consult to Blood Bank Assistant [CONS] Routine Comment: Reason for Consult:: Discharge Planning Needs 02/19/22 07:16 Consult to Physician [CONS] Routine Comment: Consulting Provider: Joaquin Dean Has provider been notified: Yes Attending Physician on discharge: Shira Onofre MD Date of Discharge: 02/24/22 DS: Diagnosis Discharge Diagnosis (1) History of hemiarthroplasty of left hip: Status: Acute Problem details: cemented after fall/fracture. 02/18/22. Dr. Dean. (2) Atrial fibrillation with rapid ventricular response: Status: Acute Problem details: New AFib, now resolved. Relatively normal echo. Continue to monitor heart rhythm for now. If he goes back into atrial fibrillation and becomes unstable consider cardioversion. In an emergency this can be done without dealing with the deep brain stimulator. I did speak with a physician at [facility] regarding his deep brain stimulator and cardioversion. Optimally it is recommended that the control for his deep brain stimulator be interrogated to find the settings that he is currently on. These are to be written down than the deep stimulator can be shut off. Cardioversion can occur and then the deep brain stimulator can be turned on again. Once it is turned on the settings should be re-entered if they are not correct. The primary risk for cardioversion with a deep brain stimulator is damage to the generator. If that occurs it would need to be replaced. (3) Compression fracture of T9 vertebra: Status: Acute (4) Lewy body dementia without behavioral disturbance: Status: Acute (5) Parkinson's disease with use of electrical brain stimulation: Status: Acute Problem details: diagnosed about 23 years ago. Treated with medications and an implantable electrical brain stimulation. See notes above about deep brain stimulator and cardioversion (6) Altered mental status: Status: Acute DS: Summary Hospital Course Hospital Course: HOSPITALIST DISCHARGE SUMMARY ATTENDING PHYSICIAN: Carolin Crooks MD FINAL DIAGNOSIS: Fall with left hip fracture Status post left hemiarthroplasty Lewy body dementia, severe Parkinson's, severe HOSPITAL FOLLOWUP ISSUES: Continue chronic care as previous before fall REFERRALS WHILE ADMITTED: PT, OT, orthopedic REFERRALS AFTER DISCHARGE: OT and PT per senior care protocol BRIEF HOSPITAL COURSE: VITAL SIGN, MEDICATION, LAB/MICRO, IMAGING SUMMARY (full details available in account tabs or by records request) DISCHARGE MEDICATIONS: See Reconciled list REVIEW OF SYSTEMS No new chest pain or dyspnea Pain controlled No voiding difficulties Tolerating diet challenge PHYSICAL EXAM: CONSTITUTIONAL: VITAL SIGNS: see record. HEENT: Normocephalic, atraumatic. PERRL, EOMI, conjunctivae pink, no scleral icterus. Ears and nose externally normal. Pharynx normal. NECK: No JVD. No carotid bruit, no thyromegaly, no adenopathy. CHEST: Clear to auscultation bilaterally. HEART: S1 and S2 normal. Edema ABDOMEN: Soft, nontender. Normal bowel sounds. MUSCULOSKELETAL: No gross joint deformity or swelling. NEURO: Cranial nerves intact. Grossly intact. No asymmetric findings. SKIN: No rashes, petechiae, concerning changes PSYCHIATRIC: Mood euthymic. DISPOSITION: Time spent on discharge 37 minutes. Time Spent with Patient Time attestation: Total time spent providing and/or coordinating discharge services: Exam Const: Vital Signs, click to edit/add: Vital Signs - 24 hr 02/23/22 15:00 02/23/22 15:00 02/23/22 15:00 Temperature 98.2 F Pulse Rate 54 L Pulse Rate [Pulse Oximeter] 71 71 Respiratory Rate 16 16 Blood Pressure [Le ft Arm] 127/70 Pulse Oximetry 97 Oxygen Delivery Me thod Room Air 02/23/22 19:00 02/23/22 22:39 02/23/22 22:39 Temperature 98.1 F Pulse Rate 69 Pulse Rate [Pulse Oximeter] 74 69 Respiratory Rate 16 16 Blood Pressure [Le ft Arm] 133/64 Pulse Oximetry 98 Oxygen Delivery Me thod Room Air 02/23/22 22:39 02/24/22 02:56 02/24/22 07:00 Temperature 98.3 F 98.2 F Pulse Rate 74 Pulse Rate [Pulse Oximeter] 69 67 Respiratory Rate 16 16 Blood Pressure [Le ft Arm] 128/74 158/108 H Pulse Oximetry 97 98 Oxygen Delivery Me thod Room Air Room Air 02/24/22 07:00 Temperature 97.9 F Pulse Rate Pulse Rate [Pulse Oximeter] 82 Respiratory Rate 16 Blood Pressure [Le ft Arm] 116/65 Pulse Oximetry 96 Oxygen Delivery Me thod Room Air Discharge Plan Discharge Disposition: [facility] Date of Admission: 02/17/22 18:59 Attending Provider on Discharge: Carolin Crooks Consulting Providers: Joaquin Dean Primary Care Provider: Bayron Aquino Discharge Medications: New sennosides [Senna Lax] 8.6 mg Tablet 17.2 mg PO BID PRN (Reason: constipation) Qty: 100 0RF acetaminophen 325 mg Tablet 325 - 650 mg PO Q6H MDD 4000 mg per day PRN (Reason: pain) Qty: 100 0RF aspirin [Aspirin Childrens] 81 mg tablet,chewable 81 mg PO BID 30 Days Qty: 60 0RF bisacodyl 10 mg Suppository 10 mg UT DAILY PRN (Reason: Constipation) Qty: 12 0RF donepezil 10 mg Tablet 10 mg PO HS Qty: 30 0RF alum-mag hydroxide-simeth [Mag-Al Plus] 200-200-20 mg/5 mL Suspension 15 - 30 ml PO Q2H PRN (Reason: Indigestion) Qty: 1000 0RF carbidopa-levodopa 25-100 mg Tablet 0.5 tab PO QID Qty: 60 0RF metoprolol succinate 25 mg Tablet Extended Release 24 Hr 25 mg PO DAILY Qty: 30 0RF oxycodone 5 mg Tablet 2.5 mg PO Q2H PRN (Reason: Pain) Qty: 60 0RF Systane (propylene glycol) 0.4-0.3 % Drops 1 drp ophthalmic (eye) BID Qty: 15 0RF ropinirole 1 mg Tablet 2 mg PO HS Qty: 60 0RF Xarelto 10 mg Tablet 10 mg PO DAILY Qty: 30 0RF Discontinued carbidopa-levodopa 25-100 mg tablet 0.5 tab PO QID Rx Instructions: PLUS, 0.5 TABLET Q2H PRN ropinirole 2 mg tablet 2 mg PO HS donepezil 10 mg tablet 10 mg PO HS sennosides 8.6 mg tablet 8.6 mg PO DAILY Rx Instructions: AND NEEDED acetaminophen [Tylenol Extra Strength] 500 mg tablet 1,000 mg PO HS Label Comments: PLUS BID PRN Artificial Tears([id number]) Drops 2 drp ophthalmic (eye) BID Label Comments: PLUS, BID PRN oxycodone 5 mg tablet 5 mg PO Q6H PRN cefdinir 300 mg capsule 300 mg PO Q12H Qty: 14 0RF Discharge Orders: Discharge Order (Routine); Ordered 02/24/22 Ordered By: Carolin Crooks Activity Level: Weight Bearing as Tolerated and Use Walker Activity Detail: Keep dressing on for 2 weeks. Dressing is waterproof. Change if dressing becomes soiled. May shower. Surgical glue covers the wound. Attend physical therapy and occupational therapy at senior care facility. Weightbear as tolerated left lower extremity. Use assistive device, walker, wheelchair. Ice operative extremity without restriction. Wear compression stockings for 1 month post surgery. May remove for 1 hour per day. Notify Orthopedics with any questions or concerns. ([phone]) Follow Up Appointments: Bayron Aquino MD [Primary Care Provider] - Discharge Comments: Return appointment with Dr. Dean in 6 weeks at [facility] OT and PT at [facility]. Weightbear as tolerated left lower extremity.
== END 2022-02-24 11:00 | DRG 522 ==
LOC: ED 14:55 → MEDSURG 16:23
PROVIDERS: Family Medicine; Orthopaedic Surgery; Admitting Provider Family Medicine; Emergency Provider Family Medicine; PCP Family Medicine; Visit Provider Family Medicine
PROC: 0SRS0J9 Replacement of Left Hip Joint, Femoral Surface with Synthetic Substitute, Cemented, Open Approach (ICD-10-PCS; principal; 2022-02-18 14:00)
DX: S72.002A Fracture of unspecified part of neck of left femur, initial encounter for closed fracture (principal); S22.31XA Fracture of one rib, right side, initial encounter for closed fracture; S22.070A Wedge compression fracture of T9-T10 vertebra, initial encounter for closed fracture; N39.0 Urinary tract infection, site not specified; I48.91 Unspecified atrial fibrillation; E86.0 Dehydration; G31.83 Neurocognitive disorder with Lewy bodies; F02.80 Dementia in other diseases classified elsewhere, unspecified severity, without behavioral disturbance, psychotic disturbance, mood disturbance, and anxiety; W19.XXXA Unspecified fall, initial encounter; Y92.129 Unspecified place in nursing home as the place of occurrence of the external cause; M85.80 Other specified disorders of bone density and structure, unspecified site
CPT/HCPCS: 1210; 1214; 36415; 64450; 70450; 71045; 71260; 72170; 73501; 74176; 76942; 80048; 81001; 82150; 82565; 83735; 83880; 84132; 84295; 84443; 84484; 84520; 85025; 85027; 85610; 86140; 87040; 87086; 87635; 93005; 93306; 97110; 97162; 97165; 97530; 97535; 99100; 99140; 99285; A9270; C1776; J0330; J0690; J1160; J1170; J2270; J2370; J2704; J3010; J3475; J3490; J7120; Q9967

== ENCOUNTER 2022-02-24 10:43 | Inpatient (IN) | payer MEDICARE, SELFPAY, BC ==
[2022-02-24 11:08] VITALS: BP 96/58; PULSE 65; RESP 20; TEMP 36.9; O2SAT 99
--- NOTE | 2022-02-24 11:15 | PC.NURSE ---
MEDICARE ADMISSION: Resident admitted from [facility] with diagnosis of L hip fracture. Resident underwent hemiarthroplasty of fx hip on 02/18/22. Resident was brought down to LTCC via wheelchair. Resident had a 4+ night qualifying stay 02/17/22-02/24/22. Resident admission orders include PT/OT to evaluate and treat. Today will be his first day of Medicare coverage. Resident/family updated on coverage.
[2022-02-24] MEDS: CARBIDOPA-LEVODOPA 25-100 TABLET 0.5 TAB PO ×2 (14:02→20:04)
[2022-02-24 15:08] VITALS: BP 138/76; PULSE 77; RESP 18; TEMP 36.6; O2SAT 93
[2022-02-24 16:08] LABS: SARS PCR* Negative SARS-CoV-2 (Negative)
[2022-02-24 19:08] VITALS: BP 131/76; PULSE 78; RESP 18; TEMP 36.6; O2SAT 94
[2022-02-24] MEDS: ROPINIROLE HCL 1 MG TABLET 2 MG PO (20:04)
[2022-02-24] MEDS: DONEPEZIL 10 MG TABLET PO (20:04)
[2022-02-24 23:00] VITALS: BP 130/60; PULSE 61; RESP 16; TEMP 36.4; O2SAT 97
--- NOTE | 2022-02-24 23:00 | PC.NURSE ---
Admit f/u 2300: Resident in bed watching TV, was repositioned onto right side and, an ice pack placed to the left hip. VS within normal limits. No complaints of pain.
[2022-02-25] MEDS: OXYCODONE 5 MG TABLET 2.5 MG PO (02:52)
[2022-02-25 03:08] VITALS: BP 130/55; PULSE 63; RESP 16; TEMP 36.5; O2SAT 95
--- NOTE | 2022-02-25 03:25 | PC.NURSE ---
Addendum entered by Georgie Salgado 02/25/22 04:09: Resident refusing to turn onto right side, skin looks good so allowed to stay on left side. Original Note: Admit f/u: Resident in bed sleeping. Woke up for vital signs and repositioning. Showed non-verbal signs of pain, was given an Oxycodone 2.5mg PRN at 0252.
[2022-02-25] MEDS: ACETAMINOPHEN 500 MG TABLET PO (06:49)
[2022-02-25] MEDS: METOPROLOL SUCCINATE (XL) 25 MG TAB PO (07:06)
[2022-02-25] MEDS: CARBIDOPA-LEVODOPA 25-100 TABLET 0.5 TAB PO ×4 (07:06→19:31)
[2022-02-25] MEDS: ASPIRIN 81 MG TAB.CHEW PO ×2 (07:06→16:48)
[2022-02-25 07:08] VITALS: BP 135/65; PULSE 96; RESP 14; TEMP 36.7; O2SAT 96
[2022-02-25 08:00] VITALS: RESP 12; O2SAT 96
[2022-02-25 09:33] VITALS: TEMP 36.7; O2SAT 96
--- NOTE | 2022-02-25 13:11 | PC.NURSE ---
Order: Rohit PRICE here. Tylenol 325-650mg Q6H PRN discontinued, Tylenol 1000mg TID.
--- NOTE | 2022-02-25 13:45 | PC.NURSE ---
Medicare charting. 1. Admit diagnosis: Fracture of L hip 2. Daily vital signs: BP-135/65, HR-67, RR-14, T-98.0, O-96 3. Pain management - scheduled tylenol, PRN oxycodone, pain assessment using FLACC scale, CMS assessment 4. Incision site assessment (signs and sx of infection), dressing change if applicable - Site covered by mepilex - instructions not to change dressing for 14 days. 5. Skilled therapy - OT and PT 6. Transfers, bed mobility, and ambulation - total assistance, randy lift 7. Goals for discharge - no plans for discharge currently
[2022-02-25 13:52] VITALS: BP 130/50; PULSE 70; RESP 12; TEMP 37.1; O2SAT 98
[2022-02-25 15:14] VITALS: BMI 19.5
[2022-02-25] MEDS: ACETAMINOPHEN 500 MG TABLET 1000 MG PO (19:30)
[2022-02-25] MEDS: DONEPEZIL 10 MG TABLET PO (19:31)
[2022-02-25] MEDS: ROPINIROLE HCL 1 MG TABLET 2 MG PO (19:31)
[2022-02-25] MEDS: OXYCODONE 5 MG TABLET PO (19:32)
[2022-02-26 01:07] VITALS: TEMP 36.6; O2SAT 99
[2022-02-26] MEDS: OXYCODONE 5 MG TABLET PO ×4 (03:09→13:49)
[2022-02-26 07:00] VITALS: BMI 19.6
[2022-02-26 08:00] VITALS: RESP 12; O2SAT 99
[2022-02-26] MEDS: METOPROLOL SUCCINATE (XL) 25 MG TAB PO (08:15)
[2022-02-26] MEDS: ACETAMINOPHEN 500 MG TABLET 1000 MG PO ×3 (08:15→19:18)
[2022-02-26] MEDS: ASPIRIN 81 MG TAB.CHEW PO ×2 (08:15→16:50)
[2022-02-26] MEDS: CARBIDOPA-LEVODOPA 25-100 TABLET 0.5 TAB PO ×4 (08:15→19:18)
[2022-02-26 09:46] VITALS: TEMP 36.3; O2SAT 99
--- NOTE | 2022-02-26 13:59 | PC.NURSE ---
Medicare charting. 1. Admit diagnosis: Fracture of L hip 2. Daily vital signs: BP-140/80, HR-72, RR-12, T-97.4, O-99 3. Pain management - scheduled tylenol, PRN oxycodone, pain assessment using FLACC scale, CMS assessment 4. Incision site assessment (signs and sx of infection), dressing change if applicable - Site covered by mepilex - instructions not to change dressing for 14 days. 5. Skilled therapy - OT and PT 6. Transfers, bed mobility, and ambulation - total assistance, randy lift 7. Goals for discharge - no plans for discharge currently
--- NOTE | 2022-02-26 14:54 | PC.SOCIAL ---
Emailed resident's daughter, Marian, about the initial care conference. Marian stated 03/05/22 at 1:00 pm works for her. Marian asked that this worker call resident's and let her know also. Phone call to Resident's , Mildred Head. Discussed initial care conference date for next Thursday03/05/22 at 1:00 pm. Pat stated the date/time works for her. Informed Pat that social work will send an invitation with a call in phone number if she prefers to call into the meeting. Completed MDS Mood and routine & daily preference questionnaires with Pat for resident. Informed Pat that Resident is in need of more pants. Pat stated she has pants at her place and she will bring some over for resident when she visits tomorrow. Sent an email to resident's daughter, Marian, and informed her about resident needing pants. Informed Marian that this worker relayed the information to Pat also.
--- NOTE | 2022-02-26 16:27 | PC.NURSE ---
DBS CHECK: Spoke to daughter regarding implanted deep brain stimulation (DBS) which is located behind residents L ear. This is to be checked Q30 days. Will be performed by DIRECTOR WHOLESALE each month on the first. This nurse performed check per manual instructions, stim therapy was turned on and the battery life said that it was good (less than 8mo left). Updated daughter via email. Per daughter, this DBS does not have a rechargeable battery, so when the battery is low it would have to be surgically replaced. She notes that [facility] manages this machine and can answer any questions and let us know when the battery needs to be replaced. The phone number we call to reach the [facility] nurses is [phone].?
[2022-02-26] MEDS: DONEPEZIL 10 MG TABLET PO (19:18)
[2022-02-26] MEDS: ROPINIROLE HCL 1 MG TABLET 2 MG PO (19:18)
[2022-02-27 06:42] VITALS: BMI 19.6
[2022-02-27] MEDS: ASPIRIN 81 MG TAB.CHEW PO (08:41)
[2022-02-27] MEDS: ACETAMINOPHEN 500 MG TABLET 1000 MG PO ×3 (08:41→19:36)
[2022-02-27] MEDS: METOPROLOL SUCCINATE (XL) 25 MG TAB PO (08:41)
[2022-02-27] MEDS: CARBIDOPA-LEVODOPA 25-100 TABLET 0.5 TAB PO ×4 (08:41→19:37)
[2022-02-27 10:26] VITALS: TEMP 36.3; O2SAT 97
--- NOTE | 2022-02-27 10:33 | PC.NURSE ---
1. Admit diagnosis: Fracture of L hip 2. Daily vital signs: Within normal limits 3. Pain management, CMS assessment: Pain tolerable with scheduled tylenol and PRN oxy. CMS within normal limits 4. Incision site assessment (signs and sx of infection), dressing change if applicable: Dressing clean dry and intact. 5. Skilled therapy: PT/OT 6. Transfers, bed mobility, and ambulation: [facility] 7. Goals for discharge: return to baseline
[2022-02-27] MEDS: bisacodyL 10 MG SUPP.RECT PR (11:10)
--- NOTE | 2022-02-27 11:10 | PC.NURSE ---
Right Arm Mass: Notified CAT SCAN TECHNOLOGIST Renetta Bee of right arm lump. CAT SCAN TECHNOLOGIST reassured that this is something resident has had for a long time and it is just a lipoma. No concerns at this time and does not seem to bother resident./
--- NOTE | 2022-02-27 11:40 | PC.NURSE ---
Addendum entered by Niki Edwards RN 02/27/22 13:23: Order: Discontinue Aspirin 81mg BID. Addendum entered by Niki Edwards RN 02/27/22 12:21: Order: Check BP QD X 1 week, Acetaminophen liquid 160mg/5ml - give 15ml (480mg) PO TID , D/C Tylenol tablets when liquid supply arrives, Patient to remain on isolation precautions until up-to-date with Covid vaccinations or 10 days from admission. On Thursday03/03/22 okay to discontinue catheter. Begin QS PVR bladder scans x 3 days. If 350+ urinary retention, okay to straight cath. If straight cath x 3, okay to reinset michel catheter. Original Note: Order: Rohit PRICE here. Decrease Metoprolol 25mg t0 12.5mg daily.
[2022-02-27 18:41] VITALS: BP 118/62
[2022-02-27] MEDS: DONEPEZIL 10 MG TABLET PO (19:37)
[2022-02-27] MEDS: ROPINIROLE HCL 1 MG TABLET 2 MG PO (19:37)
[2022-02-28] MEDS: ACETAMINOPHEN 160 MG/5 ML CUP PO ×2 (09:30→11:16)
[2022-02-28] MEDS: METOPROLOL SUCCINATE (XL) 25 MG TAB 12.5 MG PO (09:31)
[2022-02-28] MEDS: CARBIDOPA-LEVODOPA 25-100 TABLET 0.5 TAB PO ×4 (09:31→20:24)
[2022-02-28] MEDS: OXYCODONE 5 MG TABLET PO (10:19)
[2022-02-28 12:52] VITALS: TEMP 36.2; O2SAT 95
[2022-02-28 12:53] VITALS: BMI 19.5
[2022-02-28] MEDS: ROPINIROLE HCL 1 MG TABLET 2 MG PO (20:24)
[2022-02-28] MEDS: DONEPEZIL 10 MG TABLET PO (20:24)
[2022-02-28] MEDS: ACETAMINOPHEN 160 MG/5 ML CUP 480 MG PO (20:24)
[2022-02-28 21:56] VITALS: BP 128/52
--- NOTE | 2022-02-28 21:58 | PC.NURSE ---
1600 Carbidopa/Levodopa and Systane given on time at 1545. Charted late.
--- NOTE | 2022-02-28 22:33 | PC.NURSE ---
1. Admit diagnosis: Fracture of L hip 2. Daily vital signs: Within normal limits 3. Pain management, CMS assessment: Pain tolerable with scheduled tylenol and PRN oxy. CMS within normal limits 4. Incision site assessment (signs and sx of infection), dressing change if applicable: Dressing clean dry and intact. 5. Skilled therapy: PT/OT 6. Transfers, bed mobility, and ambulation: Yomi lift 7. Goals for discharge: return to baseline
[2022-03-01] MEDS: OXYCODONE 5 MG TABLET PO (03:37)
[2022-03-01] MEDS: ACETAMINOPHEN 160 MG/5 ML CUP 480 MG PO ×3 (08:41→19:41)
[2022-03-01] MEDS: METOPROLOL SUCCINATE (XL) 25 MG TAB 12.5 MG PO (08:42)
[2022-03-01] MEDS: CARBIDOPA-LEVODOPA 25-100 TABLET 0.5 TAB PO ×4 (08:42→19:41)
[2022-03-01 10:00] VITALS: TEMP 36.6; O2SAT 98
[2022-03-01 10:27] LABS: SARS PCR* Negative SARS-CoV-2 (Negative)
--- NOTE | 2022-03-01 13:48 | PC.NURSE ---
SARS-CoV-2 (PCR) status. Specimen sent to [facility] approximately, 0930. Result is negative at this time.
[2022-03-01] MEDS: DONEPEZIL 10 MG TABLET PO (19:41)
[2022-03-01] MEDS: ROPINIROLE HCL 1 MG TABLET 2 MG PO (19:41)
[2022-03-01 21:33] VITALS: BP 134/68
[2022-03-02] MEDS: CARBIDOPA-LEVODOPA 25-100 TABLET 0.5 TAB PO ×4 (07:14→19:09)
[2022-03-02] MEDS: ACETAMINOPHEN 160 MG/5 ML CUP 480 MG PO ×3 (07:14→19:09)
[2022-03-02] MEDS: METOPROLOL SUCCINATE (XL) 25 MG TAB 12.5 MG PO (07:14)
[2022-03-02] MEDS: OXYCODONE 5 MG TABLET PO (07:15)
[2022-03-02] MEDS: bisacodyL 10 MG SUPP.RECT PR (07:20)
[2022-03-02 09:25] VITALS: TEMP 36.8; O2SAT 94
--- NOTE | 2022-03-02 14:16 | PC.NURSE ---
Bowel Status: PRN bisacodyl suppository administered for constipation at 0720. Intervention was effective - a large size bowel movement.
--- NOTE | 2022-03-02 14:27 | PC.NURSE ---
Pain: Resident complained of pain to L-hip - rated on FLACC scale at 9/10. Positioning performed as tolerated, ice pack applied, and received Oxycodone 5 mg at 0720. Intervention was effective.
[2022-03-02] MEDS: DONEPEZIL 10 MG TABLET PO (19:09)
[2022-03-02] MEDS: ROPINIROLE HCL 1 MG TABLET 2 MG PO (19:09)
[2022-03-02 21:09] VITALS: BP 130/65
--- NOTE | 2022-03-03 02:06 | PC.NURSE ---
Week #3: Skin: Has incisions on the left hip from surgery, are covered by mepilex. Temporary care plan reviewed, no change. Care plan reviewed, no change. Bathroom: Resident has a catheter that is to be removed today. Is incontinent of bowel, wears brief.
[2022-03-03] MEDS: ACETAMINOPHEN 160 MG/5 ML CUP 480 MG PO ×3 (07:12→19:22)
[2022-03-03] MEDS: CARBIDOPA-LEVODOPA 25-100 TABLET 0.5 TAB PO ×4 (07:13→19:22)
[2022-03-03] MEDS: METOPROLOL SUCCINATE (XL) 25 MG TAB 12.5 MG PO (07:13)
[2022-03-03 09:33] VITALS: TEMP 37.2; O2SAT 99
[2022-03-03 09:35] VITALS: BP 112/71; PULSE 68; RESP 12; TEMP 37.2; O2SAT 99
--- NOTE | 2022-03-03 11:30 | PC.NURSE ---
MICHEL REMOVAL: michel catheter was removed, intact. Brief changed. Resident to be bladder scanned Qshift x 3 days to check for urinary retention.
[2022-03-03 16:00] VITALS: BP 121/78
[2022-03-03] MEDS: ROPINIROLE HCL 1 MG TABLET 2 MG PO (19:22)
[2022-03-03] MEDS: DONEPEZIL 10 MG TABLET PO (19:22)
[2022-03-04] MEDS: OXYCODONE 5 MG TABLET PO ×3 (02:26→15:44)
[2022-03-04] MEDS: CARBIDOPA-LEVODOPA 25-100 TABLET 0.5 TAB PO ×4 (07:00→19:03)
[2022-03-04] MEDS: ACETAMINOPHEN 160 MG/5 ML CUP 480 MG PO ×3 (07:00→19:05)
[2022-03-04] MEDS: METOPROLOL SUCCINATE (XL) 25 MG TAB 12.5 MG PO (07:00)
[2022-03-04 09:41] VITALS: TEMP 36.4; O2SAT 95
--- NOTE | 2022-03-04 14:14 | PC.NURSE ---
Week 3 charting - No noted skin issues. L hip surgical incision covered by mepilex. Pt does not complain of pain at site. No changes to temporary care plan. Resident currently has catheter, will be removed 03/03. Residual urine bladder scans ordered for three days post cath removal. If urine is more than 300 mL order to straight cath. If 3 straight caths required in a row then insert new michel catheter. Incontinent of bowel. Resident wears brief. Brief change/check Q2.
--- NOTE | 2022-03-04 14:19 | PC.NURSE ---
Medicare charting - 1. Admit diagnosis: Fracture of L hip 2. Daily vital signs: T: 97.6, O: 97 3. Pain management, [facility] assessment - pt experiences pain some mornings - PRN pain medications available. Acetaminophen ordered TID scheduled. 4. Incision site assessment (signs and sx of infection), dressing change if applicable - mepilex dressing still in place, no visual 5. Skilled therapy - OT and PT 6. Transfers, bed mobility, and ambulation - Yomi lift 7. 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
[2022-03-04] MEDS: DONEPEZIL 10 MG TABLET PO (19:03)
[2022-03-04] MEDS: ROPINIROLE HCL 1 MG TABLET 2 MG PO (19:03)
[2022-03-04 21:03] VITALS: TEMP 37.2; O2SAT 99
[2022-03-05 00:24] VITALS: TEMP 36.7; O2SAT 98
[2022-03-05] MEDS: OXYCODONE 5 MG TABLET PO (00:28)
[2022-03-05 07:00] VITALS: TEMP 36.9; O2SAT 96
[2022-03-05] MEDS: ACETAMINOPHEN 160 MG/5 ML CUP 480 MG PO ×3 (07:04→19:15)
[2022-03-05] MEDS: METOPROLOL SUCCINATE (XL) 25 MG TAB 12.5 MG PO (07:04)
[2022-03-05] MEDS: CARBIDOPA-LEVODOPA 25-100 TABLET 0.5 TAB PO ×4 (07:04→19:15)
--- NOTE | 2022-03-05 09:53 | PC.NURSE ---
Medicare Charting - 1. Admit diagnosis: Fracture of L hip 2. Daily vital signs: BP-102/60, HR-66, RR-12, T-98.5, O-96 3. Pain management, [facility] assessment - Daily tylenol scheduled. No pt complaints of pain. 4. Incision site assessment (signs and sx of infection), dressing change if applicable - dressing still clean and intact, orders to keep in place for 14 days 5. Skilled therapy - OT, PT 6. Transfers, bed mobility, and ambulation- lift 7. 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
--- NOTE | 2022-03-05 11:58 | REH.OT ---
Addendum entered by Consuelo Henry RN 04/18/22 10:17: Added: needs to use adaptive cup. Original Note: Patient requires having a hot liquid at a table with staff assist due to both cognitive and physical deficits.
[2022-03-05 13:06] VITALS: BP 102/60
[2022-03-05 15:00] VITALS: TEMP 36.9; O2SAT 96
--- NOTE | 2022-03-05 15:31 | PC.NURSE ---
Addendum entered by Carie Mendoza RN 05/01/22 10:00: 2 half side rails up to assist with repositioning. Original Note: CARE CONFERENCE: Care conference meeting held with all members of care team present as well as . Nursing reviewed that resident continues to need 1-2 assist with ADLs, transfers, and mobility. Resident is able to use EZstand if he is following commands and keeping his feet on the ground. Does still need Yomi lift when he is weak, unable to tolerate standing, or unable to follow directions. Therapy comments that they will continue to work with him on standing tolerance. Resident is able to participate in ROM and seated exercises with staff assistance. Is currently unable to self-propel himself in wheelchair, but therapy continues to work on this. He is a high fall risk and uses a bed alarm. Has been using call light appropriately during the day per staff report. Has episodes of intermittent confusion. Is very soft spoken, therapy may seek out ST suggestions for improving communication. Care plan reviewed and updated. POLST reviewed. DNR/DNI. Uses no restraints. Does use 2 side rails up to assist with positioning. Resident is given medications by staff. Vulnerable due to mobility limitations and ability to be understood/understand. Resident needs total staff assistance with meals, is very shaky. Family would like him to be in the dining room for all meals if possible. Activities was unable to attend CC, but daughter speaks on residents likes which includes music/dancing, popcorn, and anything that has to do with going outside, and animals. SALES DEPARTMENT MANAGER to perform brain stim check on the 1st of each month. Resident will be [facility] care.?His mood is stable. No further questions/concerns.
--- NOTE | 2022-03-05 15:44 | PC.SOCIAL ---
Resident's care conference was held today. Resident's daughter Marian attended via Webex and all members of the team were present. Resident continues to make progress with therapy and they plan to continue for the time being. Marian was pleased he is making some progress and that he is eating. Resident responds to simple yes/no questions or thumbs up or down. There is no discharge planned as resident would need to be a stable 1 assist for all transfers to return to [facility] with his spouse. Family is supportive and resident's mood appears stable from staff interactions and observations.
--- NOTE | 2022-03-05 15:54 | PC.SPIRITC ---
Creative Perfumer provided visit for support and connection.
[2022-03-05 16:00] VITALS: BP 102/60
--- NOTE | 2022-03-05 16:00 | PC.NURSE ---
Left hip incision healed. TX no longer needed.
[2022-03-05] MEDS: DONEPEZIL 10 MG TABLET PO (19:15)
[2022-03-05] MEDS: ROPINIROLE HCL 1 MG TABLET 2 MG PO (19:15)
[2022-03-06] VITALS (8 sets, daily range): BP systolic 110–139; BP diastolic 66–70; PULSE 54–84; RESP 16–18; TEMP 36.2–36.9; O2SAT 92–99
--- NOTE | 2022-03-06 06:44 | PC.NURSE ---
Week #3: Care plan problems 30-39 and temporary care plan reviewed. No changes made. Nothing added to temporary care plan. Resident has a michel catheter, bag emptied q shift by staff. Is check & change in bed for BM's. Refuses bedpan. Portia cares, pads, clothing adjustment managed by staff. Skin: No issues at this time. Skin is checked during cares and on bath days.
--- NOTE | 2022-03-06 07:19 | LTC.FALL ---
[facility] Fall Note: o Fall Date: 03/06/22 o Fall Time: 0610 o What happened? Fall from bed o Who found the resident and who responded? RECRUITING AND SELECTION CONSULTANT's & RN o What was the resident doing? Trying to get out of bed. o How the resident was found (knees, left side, arm under them), any hazards (cords, objects, nonskid slippers) brakes on? Proper equipment? Bed alarm sounded. Staff found him with his (R) knee on the floor, rest of body in bed. o Did you assess for head trauma, spinal injuries, skeletal injuries, neurological changes and status, and head and neck pain? What did you find? Yes. No injuries noted. o Did you assess ROM in shoulders, elbows, hips, knees, any other affected areas, unless there is suspected spinal injury. Yes. ROM within his range. o Did you Assess for pain or discomfort? Yes. None noted. o What are the injuries and how are they being treated? Check VS Q4H X 48H o How was the resident transferred from the floor? Lifted with 2 assists back to bed. o Did you call the MD or put a note in the [facility] MAGISTRATE book? Note on [facility] MAGISTRATE book. o Enter vital signs. T-97.9 P-54 RR-16 BP-136/69 02 SAT 99% o Did you notify family? Will notify o What was the root cause of the fall? Why did it happen? Trying to get out of bed. o Create an IMMEDIATE INTERVENTION to ensure that this won't immediately happen again. (Put in temporary care plan too) Hourly checks. o Complete Safety report and huddle (now one form) o If resident is seen in ED or fractured something, note that you started a [facility] Report process. Instructions are at the East nurse's desk in a red binder labeled [facility] report.
[2022-03-06] MEDS: METOPROLOL SUCCINATE (XL) 25 MG TAB 12.5 MG PO (08:39)
[2022-03-06] MEDS: ACETAMINOPHEN 160 MG/5 ML CUP 480 MG PO ×3 (08:43→19:01)
[2022-03-06] MEDS: CARBIDOPA-LEVODOPA 25-100 TABLET 0.5 TAB PO ×4 (08:43→19:01)
--- NOTE | 2022-03-06 09:12 | PC.NURSE ---
Family Update: DaughterNohemi updated of fall.
--- NOTE | 2022-03-06 09:34 | PC.NURSE ---
COVID OUTBREAK TESTING: Residents daughter provided verbal consent for outbreak COVID testing. Resident is currently asymptomatic. Resident/family will be notified only if resident is positive.
[2022-03-06 14:15] LABS: SARS PCR* Negative SARS-CoV-2 (Negative)
--- NOTE | 2022-03-06 16:00 | PC.NURSE ---
TX DC'd: Surgical wound to left hip healed. TX of Mepilex no longer needed. Left STANTON.
[2022-03-06] MEDS: DONEPEZIL 10 MG TABLET PO (19:01)
[2022-03-06] MEDS: ROPINIROLE HCL 1 MG TABLET 2 MG PO (19:01)
--- NOTE | 2022-03-06 21:55 | PC.NURSE ---
Fall F/U : Resident is alert, able to understand simple instruction.Vitals and Neuro check stable Temp 97.2,P 78,B/P 110/70, O2 96% (RA) No c/o pain
--- NOTE | 2022-03-06 22:10 | PC.NURSE ---
Fall f/u: Resident in bed, wakes up for vital signs and Neuro checks. Denies pain.
[2022-03-07] VITALS (8 sets, daily range): BP systolic 96–125; BP diastolic 58–77; PULSE 60–89; RESP 14–18; TEMP 36.1–37; O2SAT 93–98
--- NOTE | 2022-03-07 02:10 | PC.NURSE ---
Fall f/u: Resident sleeping in bed, vital signs and Neuro checks okay. Denies pain.
[2022-03-07] MEDS: ACETAMINOPHEN 160 MG/5 ML CUP 480 MG PO ×3 (07:37→19:02)
[2022-03-07] MEDS: METOPROLOL SUCCINATE (XL) 25 MG TAB 12.5 MG PO (07:37)
[2022-03-07] MEDS: CARBIDOPA-LEVODOPA 25-100 TABLET 0.5 TAB PO ×4 (07:37→19:02)
[2022-03-07] MEDS: bisacodyL 10 MG SUPP.RECT PR (13:23)
--- NOTE | 2022-03-07 16:00 | PC.NURSE ---
Fall F/u: Resident sitting up in wheelchair. Denies pain. Neuro at residents baseline. VSS.
[2022-03-07] MEDS: DONEPEZIL 10 MG TABLET PO (19:02)
[2022-03-07] MEDS: ROPINIROLE HCL 1 MG TABLET 2 MG PO (19:02)
--- NOTE | 2022-03-07 21:52 | PC.NURSE ---
Fall F/U: Resident resting in bed. VSS and neuro at baseline. Denies pain. No bruising noted.
[2022-03-08 01:20] VITALS: TEMP 36.4; O2SAT 96
[2022-03-08 01:22] VITALS: BP 120/70; PULSE 76; RESP 20; TEMP 36.4; O2SAT 96
--- NOTE | 2022-03-08 04:17 | PC.NURSE ---
Fall F/U : Vital and neuro sign at baseline. Resident is alert, pupils are reactive, hand medication care manager good No c/o pain. Vital as follows : T97.6, P 76, O2 96 and B/P 120/70
[2022-03-08 05:00] VITALS: BP 112/66; PULSE 64; RESP 24; TEMP 36.8; O2SAT 98
[2022-03-08 07:00] VITALS: TEMP 36.8; O2SAT 98
[2022-03-08] MEDS: ACETAMINOPHEN 160 MG/5 ML CUP 480 MG PO ×3 (07:11→19:12)
[2022-03-08] MEDS: METOPROLOL SUCCINATE (XL) 25 MG TAB 12.5 MG PO (07:12)
[2022-03-08] MEDS: CARBIDOPA-LEVODOPA 25-100 TABLET 0.5 TAB PO ×4 (07:12→19:12)
--- NOTE | 2022-03-08 09:50 | PC.NURSE ---
Medicare Charting 1. Admit diagnosis: Fracture of L hip 2. Daily vital signs: BP-112/66, HR-64, RR-24, T-98.3, O-98 3. Pain management, [facility] assessment - Scheduled tylenol, PRN oxycodone. No complaints of pt pain during shift. 4. Incision site assessment (signs and sx of infection), dressing change if applicable - covered with mepilex, mepilex changed 03/06 5. Skilled therapy - OT, PT 6. Transfers, bed mobility, and ambulation - Ax1 with Medistand 7. Goals for discharge - prison care
--- NOTE | 2022-03-08 10:48 | PC.NURSE ---
Medistand incident - MICHELLE transferring pt into wheelchair using medistand with assist of 1. Pt fully strapped into medistand and MICHELLE using equipment properly. While transfer pt curled (pulled feet up and tucked chin to chest). This is common behavior for this pt and is a side effect of his Lewey Body dementia diagnosis. MICHELLE positioned herself behind pt to support pt from the bottom. MICHELLE prevented pt from experiencing shoulder/arm strain. Pt unable to uncurl legs. MICHELLE called for help. Nurse and 2 other MICHELLE came to room. Nurse positioned wheelchair behind/underneath pt. Michelle moved from behind pt. Pt successfully lowered into wheelchair. Pt assessed. Pt denied pain/discomfort. Incident was passed along in report. Staff informed that pt is a medistand with assist of 2. Addendum: PT/OT notified on 03/11/22. Therapies changed pt transfer status changed to EZlift with assist of 2.
[2022-03-08 16:41] VITALS: TEMP 36.6; O2SAT 96
[2022-03-08] MEDS: ROPINIROLE HCL 1 MG TABLET 2 MG PO (19:12)
[2022-03-08] MEDS: DONEPEZIL 10 MG TABLET PO (19:12)
[2022-03-09 02:40] VITALS: TEMP 36.4; O2SAT 97
[2022-03-09 07:00] VITALS: TEMP 36.6; O2SAT 92
[2022-03-09] MEDS: METOPROLOL SUCCINATE (XL) 25 MG TAB 12.5 MG PO (08:02)
[2022-03-09] MEDS: ACETAMINOPHEN 160 MG/5 ML CUP 480 MG PO ×3 (08:02→19:15)
[2022-03-09] MEDS: CARBIDOPA-LEVODOPA 25-100 TABLET 0.5 TAB PO ×4 (08:02→19:15)
--- NOTE | 2022-03-09 09:51 | PC.NURSE ---
Medicare Charting 1. Admit diagnosis: Fracture of L hip 2. Daily vital signs: BP-71/43, HR-58, RR-22, T-97.8, O-92 3. Pain management, CMS assessment - Scheduled tylenol, PRN oxycodone, pt able to use call light for medication 4. Incision site assessment (signs and sx of infection), dressing change if applicable - meilex in place 5. Skilled therapy - OT, PT 6. Transfers, bed mobility, and ambulation - Lift w/ Ax2 OR Medistand w/ Ax2 7. Goals for discharge - LTC
[2022-03-09 16:55] VITALS: TEMP 36.6; O2SAT 96
[2022-03-09 16:56] VITALS: BP 112/68
[2022-03-09] MEDS: ROPINIROLE HCL 1 MG TABLET 2 MG PO (19:16)
[2022-03-09] MEDS: DONEPEZIL 10 MG TABLET PO (19:16)
[2022-03-09 23:00] VITALS: TEMP 36.6; O2SAT 96
[2022-03-09] MEDS: OXYCODONE 5 MG TABLET PO (23:41)
--- NOTE | 2022-03-10 01:27 | PC.NURSE ---
Week #4: Care Plan problems #40-119, Temporary Care Plan, and vital signs reviewed - no changes made, and nothing added.? Vital signs are within resident's normal ranges. No changes in hearing, vision, and orientation noted at this time.?Overnight staff anticipates resident's needs and provide them accordingly. Resident is unable to self administer his medications, staff performs this task. Resident's Metoprolol has been decreased from 25 mg to 12.5 mg. Mood/behavior. Resident is habitual of self transferring out of bed during nights. Not on psychotropics, currently.
[2022-03-10 07:00] VITALS: TEMP 36.3; O2SAT 99
[2022-03-10] MEDS: METOPROLOL SUCCINATE (XL) 25 MG TAB 12.5 MG PO (08:21)
[2022-03-10] MEDS: ACETAMINOPHEN 160 MG/5 ML CUP 480 MG PO ×3 (08:21→19:24)
[2022-03-10] MEDS: CARBIDOPA-LEVODOPA 25-100 TABLET 0.5 TAB PO ×4 (08:21→19:24)
--- NOTE | 2022-03-10 10:26 | PC.NURSE ---
COVID OUTBREAK TESTING: Residents daughter provided verbal consent for outbreak COVID testing. Resident is currently asymptomatic. Resident/family will be notified only if resident is positive.
--- NOTE | 2022-03-10 12:28 | PC.NURSE ---
Medicare Charting - 1. Admit diagnosis: Fracture of L hip 2. Daily vital signs: BP-95/67, HR-50, RR-16, T-97.5, O-99 3. Pain management, [facility] assessment - Scheduled tylenol, PRN oxycodone. No complaints of pt pain within last 3 days. 4. Incision site assessment (signs and sx of infection), dressing change if applicable - Wound covered by mepilex 5. Skilled therapy - PT, OT 6. Transfers, bed mobility, and ambulation - Medistand w/ Ax2 or Lift w/ Ax2 7. Goals for discharge - LTC
[2022-03-10 13:04] LABS: SARS PCR* Negative SARS-CoV-2 (Negative)
[2022-03-10 15:00] VITALS: TEMP 36.6; O2SAT 98
[2022-03-10 16:00] VITALS: BP 112/68; PULSE 64; RESP 24; TEMP 36.6; O2SAT 98
[2022-03-10] MEDS: DONEPEZIL 10 MG TABLET PO (19:24)
[2022-03-10] MEDS: ROPINIROLE HCL 1 MG TABLET 2 MG PO (19:24)
[2022-03-11 03:46] VITALS: TEMP 36.6; O2SAT 98
[2022-03-11 07:00] VITALS: TEMP 36.6; O2SAT 98
[2022-03-11] MEDS: METOPROLOL SUCCINATE (XL) 25 MG TAB 12.5 MG PO (08:03)
[2022-03-11] MEDS: ACETAMINOPHEN 160 MG/5 ML CUP 480 MG PO ×3 (08:03→19:02)
[2022-03-11] MEDS: CARBIDOPA-LEVODOPA 25-100 TABLET 0.5 TAB PO ×4 (08:03→19:02)
--- NOTE | 2022-03-11 09:54 | PC.NURSE ---
Medicare Charting 1. Admit diagnosis: Fracture of L hip 2. Daily vital signs: BP-102/67, HR-63, RR-24, T-97.8, O-98 3. Pain management, CMS assessment - No reports of pt pain. Tylenol POLO TID, Oxy PRN 4. Incision site assessment (signs and sx of infection), dressing change if applicable - mepilex in place 5. Skilled therapy - PT, OT 6. Transfers, bed mobility, and ambulation - Medistand w/ Ax2 OR Yomi w/ Ax2 7. Goals for discharge - LTC
[2022-03-11 17:01] VITALS: TEMP 36.6; O2SAT 97
[2022-03-11] MEDS: DONEPEZIL 10 MG TABLET PO (19:02)
[2022-03-11] MEDS: ROPINIROLE HCL 1 MG TABLET 2 MG PO (19:02)
[2022-03-11 22:40] VITALS: BP 113/70; PULSE 85; RESP 16; TEMP 36.2; O2SAT 98
--- NOTE | 2022-03-11 22:40 | LTC.FALL ---
Addendum entered by Georgie Salgado 03/12/22 03:58: Immediate intervention: Have gripper socks on while in bed. Original Note: [facility] Fall Note: o Fall Date: 03/11/22 o Fall Time:2239 o What happened? resident found on knees next to bed o Who found the resident and who responded? Sherry ross What was the resident doing? attempting to self transfer o How the resident was found (knees, left side, arm under them), any hazards (cords, objects, nonskid slippers) brakes on? Proper equipment? found on knees facing bed o Did you assess for head trauma, spinal injuries, skeletal injuries, neurological changes and status, and head and neck pain? What did you find? in injury/ denies pain o Did you assess ROM in shoulders, elbows, hips, knees, any other affected areas, unless there is suspected spinal injury. ROM within normal limits o Did you Assess for pain or discomfort? denies pain o What are the injuries and how are they being treated? no injury noted o How was the resident transferred from the floor? two assist o Did you call the MD or put a note in the CELLOPHANER book? no o Enter vital signs. T:97.1, 113/70, R:16, 98%, HR 85 o Did you notify family? no, due to time of fall family not notified at this time. o What was the root cause of the fall? Why did it happen? Resident attempting to self transfer. o Create an IMMEDIATE INTERVENTION to ensure that this won't immediately happen again. (Put in temporary care plan too) o Complete Safety report and huddle (now one form) o If resident is seen in ED or fractured something, note that you started a [facility] Report process. Instructions are at the East nurse's desk in a red binder labeled [facility] report.
[2022-03-12] VITALS (10 sets, daily range): BP systolic 87–181; BP diastolic 52–64; PULSE 59–74; RESP 14–20; TEMP 36.3–37; O2SAT 97–99
--- NOTE | 2022-03-12 02:40 | PC.NURSE ---
Fall f/u: Resident sleeping in bed, VS and neuro checks okay. Resident denies pain. Slip proof socks on, bed alarm on, and doing hourly checks. Resident denies pain.
--- NOTE | 2022-03-12 06:00 | PC.NURSE ---
Neuro/Vital - A&Ox4 - self, place, time, situation, PERRLA, [facility], BLLE at baseline Vitals - BP-87/52, HR-64, RR-20, T-98.6, O-99
[2022-03-12] MEDS: ACETAMINOPHEN 160 MG/5 ML CUP 480 MG PO ×3 (08:45→19:21)
[2022-03-12] MEDS: CARBIDOPA-LEVODOPA 25-100 TABLET 0.5 TAB PO ×4 (08:45→19:21)
[2022-03-12] MEDS: METOPROLOL SUCCINATE (XL) 25 MG TAB 12.5 MG PO (08:45)
--- NOTE | 2022-03-12 09:58 | PC.NURSE ---
Medicare Charting. - 1. Admit diagnosis: Fracture of L hip 2. Daily vital signs: BP-87/52, HR-64, RR-20, T-98.6, O-99 3. Pain management, [facility] assessment - Tylenol POLO TID, Oxy PRN - no complaints of pt pain 4. Incision site assessment (signs and sx of infection), dressing change if applicable - site covered with mepilex. mepilex clean 5. Skilled therapy - PT, OT 6. Transfers, bed mobility, and ambulation - Lift w/ Ax2 7. Goals for discharge - LTC
--- NOTE | 2022-03-12 12:58 | PC.NURSE ---
Family Update - Spoke with daughter Nohemi Araya on phone. Informed her of pt being found kneeling beside bed during the night of 03/11. Told her we are doing Q4 Neuro/Vital checks. All checks have been normal. Daughter said she had no further questions or concerns.
--- NOTE | 2022-03-12 13:42 | PC.NURSE ---
Neuro check - A&Ox4, PERRLA, BLUE strength/ROM at baseline, BLLE strength/ROM at baseline.
--- NOTE | 2022-03-12 16:06 | PC.NURSE ---
NOMNC: Resident was admitted from [facility] with fracture to left hip, hemiarthroplasty, lewy body dementia, parkinsons. Resident on readmission had orders for OT/PT. Resident did receive these skilled inpatient services. It was determined by the IDT that therapies will end 03/14/22. Explained to resident that the residents last day of coverage will 03/14/22. Starting on 03/15/22 residents coverage at this facility will be private pay. Spoke to mason Fonseca over the phone daughter Marian disagrees with this determination and will have until noon on 03/12/22 to call [employer] [facility] to appeal this decision. Updated UR department and Therapy. Emailed daughter advertising copywriter and original was placed in paper chart. Resident has used 19 days of coverage.
[2022-03-12] MEDS: ROPINIROLE HCL 1 MG TABLET 2 MG PO (19:21)
[2022-03-12] MEDS: DONEPEZIL 10 MG TABLET PO (19:21)
--- NOTE | 2022-03-12 21:49 | PC.NURSE ---
Fall follow-up: Resident unable to participate in PERRLA assessment due to disease; thus, cognition status remains at baseline. All vital signs are within resident's normal ranges - no new concerns as related to fall incident. Will continue to monitor.
--- NOTE | 2022-03-12 22:40 | PC.NURSE ---
Fall f/u: Resident sleeping in bed, wakes for VS and Neuro checks, denies pain.
[2022-03-13] VITALS (9 sets, daily range): BP systolic 102–127; BP diastolic 58–73; PULSE 64–74; RESP 16; TEMP 36.2–37.2; O2SAT 96–100
--- NOTE | 2022-03-13 02:40 | PC.NURSE ---
Fall f/u: Resident sleeping in bed VS and neuro checks within normal limits. Denies pain.
--- NOTE | 2022-03-13 06:45 | PC.NURSE ---
Fall f/u: Resident resting in bed. VS and neuro checks within normal limits for resident. Resident denies pain. Slip proof socks on, bed alarm on, and doing hourly checks.
[2022-03-13] MEDS: ACETAMINOPHEN 160 MG/5 ML CUP 480 MG PO ×3 (08:41→19:02)
[2022-03-13] MEDS: METOPROLOL SUCCINATE (XL) 25 MG TAB 12.5 MG PO (08:42)
[2022-03-13] MEDS: CARBIDOPA-LEVODOPA 25-100 TABLET 0.5 TAB PO ×4 (08:42→19:03)
[2022-03-13] MEDS: bisacodyL 10 MG SUPP.RECT PR (10:12)
--- NOTE | 2022-03-13 10:25 | PC.NURSE ---
1. Admit diagnosis: Fracture of L hip 2. Daily vital signs: within normal limits 3. Pain management, CMS assessment: Denies pain, CWMS within normal limits 4. 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 Skilled therapy - PT/OT 6. Transfers, bed mobility, and ambulation- Yomi lift 7. Goals for discharge- Stand and pivot for transfers
--- NOTE | 2022-03-13 10:39 | PC.NURSE ---
Fall f/u: Resident resting in recliner chair. VS and neuro checks within normal limits for resident. Resident denies pain. Slip proof socks on, chair alarm on, and doing hourly checks.
--- NOTE | 2022-03-13 15:00 | PC.NURSE ---
Fall F/U: Resident resting in bed watching TV. Denies pain. Neuro at baseline and VSS.
--- NOTE | 2022-03-13 18:20 | PC.NURSE ---
Fall F/U: Resident up in . Ate well for dinner. Denies pain. Neuro at baseline and VSS.
[2022-03-13] MEDS: ROPINIROLE HCL 1 MG TABLET 2 MG PO (19:03)
[2022-03-13] MEDS: DONEPEZIL 10 MG TABLET PO (19:03)
--- NOTE | 2022-03-13 22:38 | PC.NURSE ---
Fall follow-up: Resident is fast asleep at this time. Vitals signs are WNL. Will continue to monitor.
[2022-03-14 02:00] VITALS: BP 113/63; PULSE 64; RESP 16; TEMP 36.8; O2SAT 99
--- NOTE | 2022-03-14 02:00 | PC.NURSE ---
Fall follow-up: Resident has been sleeping comfortable through the night. Vital signs are within WNL. No new concerns as related to fall incident noted at this time. Will continue to monitor.
[2022-03-14 07:00] VITALS: TEMP 36.8; BMI 19.2
[2022-03-14] MEDS: ACETAMINOPHEN 160 MG/5 ML CUP 480 MG PO ×2 (08:14→11:54)
[2022-03-14] MEDS: METOPROLOL SUCCINATE (XL) 25 MG TAB 12.5 MG PO (08:14)
[2022-03-14] MEDS: CARBIDOPA-LEVODOPA 25-100 TABLET 0.5 TAB PO ×4 (08:14→19:47)
--- NOTE | 2022-03-14 12:54 | PC.NURSE ---
Addendum entered by Awa Wick RN 03/14/22 13:16: Initial Intake MD TCU visit. Original Note: Order change - Tylenol 400mg TID discontinued. Tylenol 1000mg TID ordered. Order changed in orders.
--- NOTE | 2022-03-14 12:55 | PC.NURSE ---
Skin check - No skin issues noted. Skin dry, intact, no areas of redness, appropriate color.
--- NOTE | 2022-03-14 12:56 | PC.NURSE ---
Medicare Charting 1. Admit diagnosis: Fracture of L hip 2. Daily vital signs: BP-97/64, HR-68, RR-20, T-98.2, O-97 3. Pain management, CMS assessment - Tylenol order changed from 400mg TID to 1,000mg TID. Oxy ordered PRN. 4. Incision site assessment (signs and sx of infection), dressing change if applicable - mepilex in clean, dry, intact, and in place. 5. Skilled therapy - OT, PT 6. Transfers, bed mobility, and ambulation - Yomi lift w/ Ax2 7. Goals for discharge - LTC
[2022-03-14 16:53] VITALS: TEMP 36.8; O2SAT 99
[2022-03-14] MEDS: DONEPEZIL 10 MG TABLET PO (19:47)
[2022-03-14] MEDS: ACETAMINOPHEN 500 MG TABLET 1000 MG PO (19:47)
[2022-03-14] MEDS: ROPINIROLE HCL 1 MG TABLET 2 MG PO (19:47)
--- NOTE | 2022-03-14 19:59 | PC.NURSE ---
MDS clarification: Reviewed MDS ADL charting for FRANCIA 03/03, noted to have inconsistent charting. Interviewed NARs and determined that errors were made. Reviewed with staff. Resident uses randy lift for transfers. Resident attempted EZ stand with thearpy department during FRANCIA. Bed mobility total 2 assist. Transfers randy with 2 assist. Resident does not ambulate. Resident needing total assist of 1 with w/c locomotion. W/C is mode of locomtion. Dressing needing 2 assist due to contractures. Eating Extensive assist of 1. Resident does not use toilet. Check and change done be staff in bed with 2 total assist. Resident needing 1 total assist with hygiene. Coded as such in MDS.
--- NOTE | 2022-03-14 20:34 | PC.NURSE ---
Family request: Ho's told one of the MICHELLE's that she wants Ho fed something every hour.
[2022-03-15 03:46] VITALS: TEMP 36.8; O2SAT 95
[2022-03-15 07:00] VITALS: TEMP 36.6; O2SAT 95
[2022-03-15] MEDS: CARBIDOPA-LEVODOPA 25-100 TABLET 0.5 TAB PO ×4 (07:48→19:11)
[2022-03-15] MEDS: ACETAMINOPHEN 500 MG TABLET 1000 MG PO ×3 (07:48→19:11)
[2022-03-15] MEDS: METOPROLOL SUCCINATE (XL) 25 MG TAB 12.5 MG PO (07:48)
[2022-03-15 15:00] VITALS: TEMP 36.8; O2SAT 97
[2022-03-15] MEDS: ROPINIROLE HCL 1 MG TABLET 2 MG PO (19:11)
[2022-03-15] MEDS: DONEPEZIL 10 MG TABLET PO (19:11)
--- NOTE | 2022-03-15 21:24 | PC.NURSE ---
Medicare Charting 1. Admit diagnosis: Left hip fracture. 2. Daily vital signs: BP-118/64, HR-64, RR-18, T-98.3, O-97 3. Pain management, CMS assessment - Receiving scheduled Tylenol 1,000mg TID, and Oxycodone 0.5 to 5 mg Q2H as needed. 4. Incision site assessment (signs and sx of infection), dressing change when applicable. Mepilex dressing is intact. No redness, foul odor, or drainage noted at incision site. 5. Skilled therapy - OT, PT 6. Transfers, bed mobility, and ambulation - Assist of 2 with Yomi Lift when not active, or assist of 2 with Medi-Stand when alert for transfers. Extensive assist of 2 with bed mobility. Resident is non-ambulatory at this time. 7. Goals for discharge - LTC
[2022-03-15 23:00] VITALS: TEMP 36.1; O2SAT 98
[2022-03-16] MEDS: METOPROLOL SUCCINATE (XL) 25 MG TAB 12.5 MG PO (08:22)
[2022-03-16] MEDS: ACETAMINOPHEN 500 MG TABLET 1000 MG PO ×3 (08:22→19:24)
[2022-03-16] MEDS: CARBIDOPA-LEVODOPA 25-100 TABLET 0.5 TAB PO ×4 (08:22→19:25)
[2022-03-16 12:49] VITALS: TEMP 36.8; O2SAT 97
[2022-03-16 17:04] VITALS: TEMP 36.4; O2SAT 98
--- NOTE | 2022-03-16 17:05 | PC.NURSE ---
Medicare Charting 1. Admit diagnosis: Left hip fracture. 2. Daily vital signs: BP-128/68, Pulse 64, RR-20, T-98.2, O-97 3. Pain management, [facility] assessment - Receiving scheduled Tylenol 1,000mg TID, and Oxycodone 0.5 to 5 mg Q2H as needed. 4. Incision site assessment : No signs and sx of infection, wound dry and clean. No redness, foul odor, or drainage noted at incision site. 5. Skilled therapy - OT, PT 6. Transfers, bed mobility, and ambulation - Assist of 2 with Yomi Lift when not active, or assist of 2 with Medi-Stand when alert for transfers. Extensive assist of 2 with bed mobility. Resident is non-ambulatory at this time. He likes to curled up in bed . 7. Goals for discharge - LTC
[2022-03-16] MEDS: ROPINIROLE HCL 1 MG TABLET 2 MG PO (19:25)
[2022-03-16] MEDS: DONEPEZIL 10 MG TABLET PO (19:25)
--- NOTE | 2022-03-17 02:33 | PC.NURSE ---
Week #1: Resident has non-verbal signs of pain, is on Acetaminophen 1000mg PO TID and, Oxycodone 2.5-5mg PO Q2H. Has received the PRN medication six times in the past month with relief. Temporary care plan reviewed, no change. Care plan 1-19 reviewed, no change. Resident needs extensive assistance with all ADLs, No change in nutrition, eats better independently if it is finger food.
[2022-03-17 02:44] VITALS: TEMP 36.3; O2SAT 97
[2022-03-17 07:00] VITALS: TEMP 36.8; O2SAT 99
[2022-03-17] MEDS: CARBIDOPA-LEVODOPA 25-100 TABLET 0.5 TAB PO ×4 (07:05→19:08)
[2022-03-17] MEDS: ACETAMINOPHEN 500 MG TABLET 1000 MG PO ×3 (07:05→19:08)
[2022-03-17] MEDS: OXYCODONE 5 MG TABLET PO (07:06)
[2022-03-17] MEDS: METOPROLOL SUCCINATE (XL) 25 MG TAB 12.5 MG PO (07:06)
--- NOTE | 2022-03-17 11:15 | PC.NURSE ---
Medicare Charting Week #1 - Pt complains of pain through non-verbal cues. Order for Acetaminophen 1000mg PO TID and Oxycodone 2.5-5mg PO Q2H PRN. Pt received PRN pain medication six times within the past 30 days. PRN medications relieved pt pain. No changes to temporary care plan. Care plan #2 - Pt requires extensive Ax1 or Ax2 for all ADLs. Total assistance for bathing, dressing, grooming, oral cares, shaving. Care plan #6 - Pt has own teeth. Extensive Ax1 for oral cares. Staff encourages independence as possible. Care plan #11 - Regular diet. Total staff Ax1 for feeding. Can eat some finger foods independently.
[2022-03-17 14:50] LABS: SARS PCR* Negative SARS-CoV-2 (Negative)
[2022-03-17 15:00] VITALS: TEMP 36.8; O2SAT 98
[2022-03-17] MEDS: DONEPEZIL 10 MG TABLET PO (19:08)
[2022-03-17] MEDS: ROPINIROLE HCL 1 MG TABLET 2 MG PO (19:08)
[2022-03-18 04:10] VITALS: TEMP 36.4; O2SAT 97
[2022-03-18 07:00] VITALS: TEMP 36.6; O2SAT 99
[2022-03-18] MEDS: ACETAMINOPHEN 500 MG TABLET 1000 MG PO ×3 (08:39→19:04)
[2022-03-18] MEDS: METOPROLOL SUCCINATE (XL) 25 MG TAB 12.5 MG PO (08:39)
[2022-03-18] MEDS: CARBIDOPA-LEVODOPA 25-100 TABLET 0.5 TAB PO ×4 (08:39→19:04)
--- NOTE | 2022-03-18 09:57 | PC.NURSE ---
BRAIN STIM CHECK: monthly battery check performed--battery life indicated OK. Therapy turned on. Will continue to check monthly.
--- NOTE | 2022-03-18 11:14 | PC.SPIRITC ---
provided visit for connection and support.
[2022-03-18 18:14] VITALS: TEMP 37.2; O2SAT 96
[2022-03-18] MEDS: ROPINIROLE HCL 1 MG TABLET 2 MG PO (19:04)
[2022-03-18] MEDS: DONEPEZIL 10 MG TABLET PO (19:04)
[2022-03-19 02:20] VITALS: TEMP 36.4; O2SAT 95
[2022-03-19] MEDS: CARBIDOPA-LEVODOPA 25-100 TABLET 0.5 TAB PO ×4 (08:49→19:14)
[2022-03-19] MEDS: ACETAMINOPHEN 500 MG TABLET 1000 MG PO ×3 (08:49→19:14)
[2022-03-19] MEDS: METOPROLOL SUCCINATE (XL) 25 MG TAB 12.5 MG PO (08:49)
[2022-03-19 11:05] VITALS: TEMP 36.4; O2SAT 98
[2022-03-19 14:27] VITALS: BMI 19.2
[2022-03-19 15:00] VITALS: TEMP 36.7; O2SAT 98
[2022-03-19] MEDS: ROPINIROLE HCL 1 MG TABLET 2 MG PO (19:14)
[2022-03-19] MEDS: DONEPEZIL 10 MG TABLET PO (19:14)
[2022-03-20 02:26] VITALS: TEMP 36.6; O2SAT 95
[2022-03-20] MEDS: ACETAMINOPHEN 500 MG TABLET 1000 MG PO ×3 (08:34→19:07)
[2022-03-20] MEDS: CARBIDOPA-LEVODOPA 25-100 TABLET 0.5 TAB PO ×4 (08:34→19:07)
[2022-03-20] MEDS: METOPROLOL SUCCINATE (XL) 25 MG TAB 12.5 MG PO (08:34)
[2022-03-20 10:50] VITALS: TEMP 36.3; O2SAT 98
[2022-03-20 17:19] VITALS: TEMP 36.8; O2SAT 97
[2022-03-20] MEDS: DONEPEZIL 10 MG TABLET PO (19:07)
[2022-03-20] MEDS: ROPINIROLE HCL 1 MG TABLET 2 MG PO (19:07)
[2022-03-21 02:16] VITALS: TEMP 36.6; O2SAT 90
[2022-03-21] MEDS: ACETAMINOPHEN 500 MG TABLET 1000 MG PO ×3 (08:25→19:11)
[2022-03-21] MEDS: CARBIDOPA-LEVODOPA 25-100 TABLET 0.5 TAB PO ×4 (08:25→19:11)
[2022-03-21] MEDS: METOPROLOL SUCCINATE (XL) 25 MG TAB 12.5 MG PO (08:25)
[2022-03-21 15:03] VITALS: TEMP 36.2; O2SAT 98
[2022-03-21 15:04] VITALS: BP 100/60; PULSE 60; RESP 20; TEMP 36.2; O2SAT 98; BMI 19.2
[2022-03-21] MEDS: ROPINIROLE HCL 1 MG TABLET 2 MG PO (19:11)
[2022-03-21] MEDS: DONEPEZIL 10 MG TABLET PO (19:11)
[2022-03-21 21:21] VITALS: TEMP 36.9; O2SAT 94
[2022-03-22 02:07] VITALS: TEMP 36.4; O2SAT 96
[2022-03-22] MEDS: ACETAMINOPHEN 500 MG TABLET 1000 MG PO ×3 (08:43→19:00)
[2022-03-22] MEDS: METOPROLOL SUCCINATE (XL) 25 MG TAB 12.5 MG PO (08:44)
[2022-03-22] MEDS: CARBIDOPA-LEVODOPA 25-100 TABLET 0.5 TAB PO ×4 (08:44→19:01)
[2022-03-22 10:13] VITALS: TEMP 36.2; O2SAT 98
[2022-03-22 16:51] VITALS: TEMP 36.7; O2SAT 98
[2022-03-22] MEDS: DONEPEZIL 10 MG TABLET PO (19:01)
[2022-03-22] MEDS: ROPINIROLE HCL 1 MG TABLET 2 MG PO (19:01)
[2022-03-22 23:00] VITALS: TEMP 36.6; O2SAT 94
[2022-03-23] MEDS: CARBIDOPA-LEVODOPA 25-100 TABLET 0.5 TAB PO ×4 (08:30→19:12)
[2022-03-23] MEDS: METOPROLOL SUCCINATE (XL) 25 MG TAB 12.5 MG PO (08:30)
[2022-03-23] MEDS: ACETAMINOPHEN 500 MG TABLET 1000 MG PO ×3 (08:30→19:12)
[2022-03-23 10:43] VITALS: TEMP 36.6; O2SAT 95
[2022-03-23 16:53] VITALS: TEMP 36.9; O2SAT 97
[2022-03-23] MEDS: DONEPEZIL 10 MG TABLET PO (19:12)
[2022-03-23] MEDS: ROPINIROLE HCL 1 MG TABLET 2 MG PO (19:13)
[2022-03-23 23:00] VITALS: TEMP 36.8; O2SAT 98
--- NOTE | 2022-03-24 03:58 | PC.NURSE ---
Week #2 nurse note: Temporary care plan reviewed. No changes made. Residents needs asst of 1 w/ bed mobility, able to to asst w/ top rails. Stays in bed during night, uses a randy lift. Fall occurred 03/06....interventions of hourly visual checks and bed alarm initiated. Fall risk assessment dated 03/03 rates pt @ a 14, high fall risk.
[2022-03-24] MEDS: ACETAMINOPHEN 500 MG TABLET 1000 MG PO ×3 (09:08→22:44)
[2022-03-24] MEDS: METOPROLOL SUCCINATE (XL) 25 MG TAB 12.5 MG PO (09:08)
[2022-03-24] MEDS: CARBIDOPA-LEVODOPA 25-100 TABLET 0.5 TAB PO ×4 (09:08→22:44)
[2022-03-24 10:36] VITALS: TEMP 36.9; O2SAT 96
[2022-03-24 12:51] LABS: SARS PCR* Negative SARS-CoV-2 (Negative)
[2022-03-24 15:00] VITALS: TEMP 36.7; O2SAT 93
--- NOTE | 2022-03-24 15:58 | PC.NURSE ---
COVID OUTBREAK TESTING: Residents daughter provided verbal consent for outbreak COVID testing. Resident is currently asymptomatic. Resident/family will be notified only if resident is positive.
--- NOTE | 2022-03-24 21:30 | PC.NURSE ---
Week #2: Temporary/Care plan problems #20-29, vital signs reviewed.? Changes made on fall status rating after 03/03/22 assessment.? Resident is total assist of two using Yomi to transfer him in/out of bed, recliner, and wheel chair. Top side rails up. Resident has alarms in wheel chair, bed, and recliner. Extensive assist of two with bed mobility, and repositioning. Resident is non-ambulatory at this time. Fall Status: Resident had a fall on 03/11/22. Remains High Fall Risk based on assessment done on 03/03/22
[2022-03-24] MEDS: DONEPEZIL 10 MG TABLET PO (22:44)
[2022-03-24] MEDS: ROPINIROLE HCL 1 MG TABLET 2 MG PO (22:44)
[2022-03-25 02:13] VITALS: TEMP 36.3; O2SAT 100
[2022-03-25] MEDS: CARBIDOPA-LEVODOPA 25-100 TABLET 0.5 TAB PO ×4 (08:16→19:09)
[2022-03-25] MEDS: ACETAMINOPHEN 500 MG TABLET 1000 MG PO ×3 (08:16→19:09)
[2022-03-25] MEDS: METOPROLOL SUCCINATE (XL) 25 MG TAB 12.5 MG PO (08:16)
[2022-03-25 10:12] VITALS: TEMP 36.6; O2SAT 96
--- NOTE | 2022-03-25 10:18 | PC.NURSE ---
ORTHO F/U appts: Spoke to nurse at ortho clinic. Appt cancelled for 03/26, they are working on getting f/u xray orders sent over so that resident does not have to go to ortho clinic due to limited mobility.
--- NOTE | 2022-03-25 11:12 | PC.SPIRITC ---
provided brief check.
--- NOTE | 2022-03-25 13:20 | PC.NURSE ---
Order: BOILER OPERATOR HELPER, Rohit here. Discontinue Bopygajivk04.5mg daily, Oxycodone 2.5-5mg Q2HPRN. Okay to crush Tylenol and Senna.
[2022-03-25 16:59] VITALS: TEMP 36.6; O2SAT 100
[2022-03-25] MEDS: DONEPEZIL 10 MG TABLET PO (19:09)
[2022-03-25] MEDS: ROPINIROLE HCL 1 MG TABLET 2 MG PO (19:09)
[2022-03-26 02:18] VITALS: TEMP 36.9; O2SAT 97
[2022-03-26] MEDS: ACETAMINOPHEN 500 MG TABLET 1000 MG PO ×3 (08:02→19:28)
[2022-03-26] MEDS: CARBIDOPA-LEVODOPA 25-100 TABLET 0.5 TAB PO ×4 (08:02→19:28)
[2022-03-26 10:45] VITALS: TEMP 36.8; O2SAT 95
[2022-03-26 15:00] VITALS: TEMP 36.4; O2SAT 98
[2022-03-26] MEDS: ROPINIROLE HCL 1 MG TABLET 2 MG PO (19:28)
[2022-03-26] MEDS: DONEPEZIL 10 MG TABLET PO (19:28)
[2022-03-27 02:31] VITALS: TEMP 36.7; O2SAT 98
[2022-03-27] MEDS: ACETAMINOPHEN 500 MG TABLET 1000 MG PO ×3 (07:46→19:03)
[2022-03-27] MEDS: CARBIDOPA-LEVODOPA 25-100 TABLET 0.5 TAB PO ×4 (07:47→19:04)
[2022-03-27 09:58] VITALS: TEMP 36.8; O2SAT 96
[2022-03-27 18:36] VITALS: TEMP 36.6; O2SAT 100
[2022-03-27] MEDS: ROPINIROLE HCL 1 MG TABLET 2 MG PO (19:04)
[2022-03-27] MEDS: DONEPEZIL 10 MG TABLET PO (19:04)
[2022-03-27 23:00] VITALS: TEMP 36.6; O2SAT 99
[2022-03-28] MEDS: ACETAMINOPHEN 500 MG TABLET 1000 MG PO ×3 (08:37→19:21)
[2022-03-28] MEDS: CARBIDOPA-LEVODOPA 25-100 TABLET 0.5 TAB PO ×4 (08:37→19:23)
[2022-03-28 10:25] VITALS: TEMP 36.6; O2SAT 98
[2022-03-28 10:26] VITALS: BP 116/68; PULSE 60; RESP 16; TEMP 36.6; O2SAT 98
[2022-03-28 13:45] VITALS: BMI 19.6
[2022-03-28 18:27] VITALS: TEMP 36.4; O2SAT 94
[2022-03-28] MEDS: DONEPEZIL 10 MG TABLET PO (19:22)
[2022-03-28] MEDS: ROPINIROLE HCL 1 MG TABLET 2 MG PO (19:23)
[2022-03-29 01:21] VITALS: TEMP 36.8; O2SAT 97
[2022-03-29] MEDS: ACETAMINOPHEN 500 MG TABLET 1000 MG PO ×3 (08:29→19:16)
[2022-03-29] MEDS: CARBIDOPA-LEVODOPA 25-100 TABLET 0.5 TAB PO ×4 (08:29→19:16)
[2022-03-29 10:26] VITALS: TEMP 36.3; O2SAT 95
[2022-03-29] MEDS: DONEPEZIL 10 MG TABLET PO (19:16)
[2022-03-29] MEDS: ROPINIROLE HCL 1 MG TABLET 2 MG PO (19:16)
[2022-03-29 21:04] VITALS: TEMP 37.3; O2SAT 98
[2022-03-30 01:12] VITALS: TEMP 36.4; O2SAT 93
[2022-03-30] MEDS: ACETAMINOPHEN 500 MG TABLET 1000 MG PO ×3 (08:04→19:31)
[2022-03-30] MEDS: CARBIDOPA-LEVODOPA 25-100 TABLET 0.5 TAB PO ×4 (08:04→19:31)
[2022-03-30 10:33] VITALS: TEMP 36.3; O2SAT 95
[2022-03-30] MEDS: bisacodyL 10 MG SUPP.RECT PR (14:01)
[2022-03-30] MEDS: ROPINIROLE HCL 1 MG TABLET 2 MG PO (19:32)
[2022-03-30] MEDS: DONEPEZIL 10 MG TABLET PO (19:32)
[2022-03-30 20:44] VITALS: TEMP 36.6; O2SAT 99
[2022-03-30 23:19] VITALS: TEMP 36.6; O2SAT 94
--- NOTE | 2022-03-30 23:55 | PC.NURSE ---
Week #3: No skin concerns at this time. Temporary care plan reviewed, no change. Resident is incontinent of bowel and bladder. Is on a toileting schedule. Wears briefs and, is changed in bed.
[2022-03-31] MEDS: ACETAMINOPHEN 500 MG TABLET 1000 MG PO ×3 (07:18→19:05)
[2022-03-31] MEDS: CARBIDOPA-LEVODOPA 25-100 TABLET 0.5 TAB PO ×4 (08:32→19:05)
--- NOTE | 2022-03-31 09:53 | PC.NURSE ---
Week #3: Baseline care plan reviewed & updated. Resident is incontinent of bowel and bladder. Segal catheter has been discontinued. Is checked and changed in bed every 2 hours in bed. Wears incontinent briefs managed by staff along with juancarlos cares 7 clothing adjustment. Skin: No issues at this time. Skin is checked during cares & on bath day.
[2022-03-31 10:36] VITALS: TEMP 36.6; O2SAT 99
--- NOTE | 2022-03-31 13:47 | PC.NURSE ---
COVID OUTBREAK TESTING: Residents daughter provided verbal consent for outbreak COVID testing. Resident is currently asymptomatic. Resident/family will be notified only if resident is positive.
[2022-03-31 16:43] LABS: SARS PCR* Negative SARS-CoV-2 (Negative)
[2022-03-31] MEDS: ROPINIROLE HCL 1 MG TABLET 2 MG PO (19:05)
[2022-03-31] MEDS: DONEPEZIL 10 MG TABLET PO (19:05)
[2022-04-01 00:06] VITALS: TEMP 36.4; O2SAT 98
[2022-04-01] MEDS: ACETAMINOPHEN 500 MG TABLET 1000 MG PO ×3 (07:02→19:08)
[2022-04-01] MEDS: CARBIDOPA-LEVODOPA 25-100 TABLET 0.5 TAB PO ×4 (07:03→19:09)
--- NOTE | 2022-04-01 09:29 | PC.NURSE ---
POST OP FOLLOW UP IMAGING: Orders placed for imaging per orders from orthopedics. To be done 05/19/22.
[2022-04-01 10:31] VITALS: TEMP 36.8; O2SAT 98
--- NOTE | 2022-04-01 15:00 | PC.NURSE ---
MDS clarification: Reviewed MDS ADL charting for FRANCIA 03/25/22, noted to have inconsistent charting. Interviewed NARs and determined that errors were made. Changes reviewed and coded as such in MDS.
[2022-04-01 18:44] VITALS: TEMP 36.6; O2SAT 97
[2022-04-01] MEDS: DONEPEZIL 10 MG TABLET PO (19:09)
[2022-04-01] MEDS: ROPINIROLE HCL 1 MG TABLET 2 MG PO (19:09)
--- NOTE | 2022-04-01 21:14 | PC.NURSE ---
Status: Resident pocketed and spit out some of HS medication. Appears to only have included crushed Tylenol, no other whole medications noted.
[2022-04-02 05:39] VITALS: TEMP 36.3; O2SAT 95
[2022-04-02] MEDS: ACETAMINOPHEN 500 MG TABLET 1000 MG PO ×3 (07:59→19:18)
[2022-04-02] MEDS: CARBIDOPA-LEVODOPA 25-100 TABLET 0.5 TAB PO ×4 (07:59→19:18)
[2022-04-02 10:46] VITALS: TEMP 36.4; O2SAT 97
--- NOTE | 2022-04-02 12:55 | PC.PHA ---
Pharmacy Review ~ Patient recently admitted with history of parkinson disease. Donepezil for dementia in addition to Sinemet and ropinirole for parkinsons. Metoprolol 12.5 mg daily is keeping vitals stable to low. No prn pain orders just acetaminophen tid scheduled. Renal Dosing of Oseltamivir: Treatment:30 mg po BID for 5 days Prophylaxis:30 mg po daily for 14 days or longer (see policy).
[2022-04-02] MEDS: ROPINIROLE HCL 1 MG TABLET 2 MG PO (19:18)
[2022-04-02] MEDS: DONEPEZIL 10 MG TABLET PO (19:18)
[2022-04-03] MEDS: CARBIDOPA-LEVODOPA 25-100 TABLET 0.5 TAB PO ×4 (08:33→19:10)
[2022-04-03] MEDS: ACETAMINOPHEN 500 MG TABLET 1000 MG PO ×3 (08:33→19:09)
--- NOTE | 2022-04-03 11:05 | PC.SPIRITC ---
Automatic Head Sawyer provided visit for support and connection.
[2022-04-03] MEDS: ROPINIROLE HCL 1 MG TABLET 2 MG PO (19:10)
[2022-04-03] MEDS: DONEPEZIL 10 MG TABLET PO (19:10)
[2022-04-04] MEDS: CARBIDOPA-LEVODOPA 25-100 TABLET 0.5 TAB PO ×4 (08:20→19:04)
[2022-04-04] MEDS: ACETAMINOPHEN 500 MG TABLET 1000 MG PO ×3 (08:20→19:03)
[2022-04-04 10:18] VITALS: BP 100/60; PULSE 60; RESP 20; TEMP 36.2; O2SAT 97; BMI 19.5
--- NOTE | 2022-04-04 10:55 | PC.NURSE ---
Recert Visit: Resident seen by Dr. Calhoun. Orders reviewed and renewed for 45 days with changes. Order: PT, OT to re-evaluate next week & treat if appropriate.
[2022-04-04] MEDS: ROPINIROLE HCL 1 MG TABLET 2 MG PO (19:04)
[2022-04-04] MEDS: DONEPEZIL 10 MG TABLET PO (19:04)
[2022-04-05] MEDS: CARBIDOPA-LEVODOPA 25-100 TABLET 0.5 TAB PO ×4 (08:38→19:19)
[2022-04-05] MEDS: ACETAMINOPHEN 500 MG TABLET 1000 MG PO ×3 (08:38→19:18)
[2022-04-05] MEDS: DONEPEZIL 10 MG TABLET PO (19:19)
[2022-04-05] MEDS: ROPINIROLE HCL 1 MG TABLET 2 MG PO (19:20)
[2022-04-06] MEDS: CARBIDOPA-LEVODOPA 25-100 TABLET 0.5 TAB PO ×4 (08:29→19:01)
[2022-04-06] MEDS: ACETAMINOPHEN 500 MG TABLET 1000 MG PO ×3 (08:29→19:01)
[2022-04-06] MEDS: ROPINIROLE HCL 1 MG TABLET 2 MG PO (19:01)
[2022-04-06] MEDS: DONEPEZIL 10 MG TABLET PO (19:01)
--- NOTE | 2022-04-06 21:03 | PC.NURSE ---
Status: Resident pocketed HS medication and later spit out pudding with crushed Tylenol.
--- NOTE | 2022-04-07 03:01 | PC.NURSE ---
Week #4: Care plan problems #40-119 and temporary care plan reviewed with no changes. Vital signs reviewed with no concerns noted. No changes to hearing, vision, or orientation. Staff anticipate needs as resident is unable to make needs known. No psychotropic medications. No changes to behavior. Sleeps well between toileting/repositioning. Attempts to self-transfer at times. Bed alarm in place.
[2022-04-07] MEDS: CARBIDOPA-LEVODOPA 25-100 TABLET 0.5 TAB PO ×4 (07:09→19:28)
[2022-04-07] MEDS: ACETAMINOPHEN 500 MG TABLET 1000 MG PO ×3 (07:09→19:28)
--- NOTE | 2022-04-07 09:04 | PC.NURSE ---
Week #4: Baseline care plan reviewed. No changes made. Nothing added to temporary care plan. Resident needs are anticipated as he always doesn't communicate his needs. Wears glasses. Hearing is fine. Alert, confused. Has Lowie body dementia. Health condition stable. Is not able to self administer medications. VS reviewed, no concerns. Mood/Behavior: Attempts to get out of bed at times. Is on no psychotropic medications.
[2022-04-07] MEDS: ROPINIROLE HCL 1 MG TABLET 2 MG PO (19:28)
[2022-04-07] MEDS: DONEPEZIL 10 MG TABLET PO (19:28)
[2022-04-08] MEDS: CARBIDOPA-LEVODOPA 25-100 TABLET 0.5 TAB PO ×4 (08:46→19:11)
[2022-04-08] MEDS: ACETAMINOPHEN 500 MG TABLET 1000 MG PO ×2 (08:46→11:23)
--- NOTE | 2022-04-08 11:46 | PC.NURSE ---
Status/Order: Rohit PRICE here. Updated resident pocketing medications then spits out. Order: Change Tylenol 1000mg TID to TID PRN, Oxycodone 2.5mg BID @ 08,16.
[2022-04-08] MEDS: DONEPEZIL 10 MG TABLET PO (19:11)
[2022-04-08] MEDS: ROPINIROLE HCL 1 MG TABLET 2 MG PO (19:11)
[2022-04-08] MEDS: OXYCODONE 5 MG TABLET 2.5 MG PO (19:22)
[2022-04-09] MEDS: CARBIDOPA-LEVODOPA 25-100 TABLET 0.5 TAB PO ×4 (08:52→19:18)
[2022-04-09] MEDS: OXYCODONE 5 MG TABLET 2.5 MG PO ×2 (08:54→16:15)
[2022-04-09] MEDS: DONEPEZIL 10 MG TABLET PO (19:18)
[2022-04-09] MEDS: ROPINIROLE HCL 1 MG TABLET 2 MG PO (19:18)
[2022-04-10] MEDS: CARBIDOPA-LEVODOPA 25-100 TABLET 0.5 TAB PO ×4 (07:35→19:00)
[2022-04-10] MEDS: OXYCODONE 5 MG TABLET 2.5 MG PO ×2 (07:35→15:50)
[2022-04-10] MEDS: ROPINIROLE HCL 1 MG TABLET 2 MG PO (19:03)
[2022-04-10] MEDS: DONEPEZIL 10 MG TABLET PO (19:03)
[2022-04-11] MEDS: OXYCODONE 5 MG TABLET 2.5 MG PO ×2 (08:23→15:22)
[2022-04-11] MEDS: CARBIDOPA-LEVODOPA 25-100 TABLET 0.5 TAB PO ×4 (08:26→19:02)
[2022-04-11 10:29] VITALS: BP 109/62; PULSE 60; RESP 20; TEMP 36.8; O2SAT 98
[2022-04-11] MEDS: ROPINIROLE HCL 1 MG TABLET 2 MG PO (19:02)
[2022-04-11] MEDS: DONEPEZIL 10 MG TABLET PO (19:02)
[2022-04-12] MEDS: CARBIDOPA-LEVODOPA 25-100 TABLET 0.5 TAB PO ×4 (08:34→19:04)
[2022-04-12] MEDS: OXYCODONE 5 MG TABLET 2.5 MG PO ×2 (08:34→16:37)
[2022-04-12] MEDS: ROPINIROLE HCL 1 MG TABLET 2 MG PO (19:04)
[2022-04-12] MEDS: DONEPEZIL 10 MG TABLET PO (19:04)
--- NOTE | 2022-04-12 21:46 | PC.NURSE ---
Status: Resident sleeping/not responding for most of the PM shift. Ate 50% of dinner and, took medication with eyes closed.
[2022-04-13] MEDS: OXYCODONE 5 MG TABLET 2.5 MG PO ×2 (08:26→15:20)
[2022-04-13] MEDS: CARBIDOPA-LEVODOPA 25-100 TABLET 0.5 TAB PO ×4 (08:26→19:06)
[2022-04-13] MEDS: DONEPEZIL 10 MG TABLET PO (19:06)
[2022-04-13] MEDS: ROPINIROLE HCL 1 MG TABLET 2 MG PO (19:06)
[2022-04-14] MEDS: CARBIDOPA-LEVODOPA 25-100 TABLET 0.5 TAB PO ×4 (07:25→19:10)
[2022-04-14] MEDS: OXYCODONE 5 MG TABLET 2.5 MG PO ×2 (07:25→16:03)
--- NOTE | 2022-04-14 12:08 | PC.NURSE ---
Week # 4 Mood/Behavior - No noted concerns with mood/behavior in last 30 days Temporary care plan - no changes No changes in vision/hearing/orientation Dx of lewey body parkinson disease - no plans for discharge.
[2022-04-14] MEDS: DONEPEZIL 10 MG TABLET PO (19:10)
[2022-04-14] MEDS: ROPINIROLE HCL 1 MG TABLET 2 MG PO (19:10)
[2022-04-15] MEDS: CARBIDOPA-LEVODOPA 25-100 TABLET 0.5 TAB PO ×4 (08:23→18:59)
[2022-04-15] MEDS: OXYCODONE 5 MG TABLET 2.5 MG PO ×2 (08:24→15:08)
[2022-04-15] MEDS: bisacodyL 10 MG SUPP.RECT PR (12:40)
[2022-04-15] MEDS: DONEPEZIL 10 MG TABLET PO (18:59)
[2022-04-15] MEDS: ROPINIROLE HCL 1 MG TABLET 2 MG PO (18:59)
[2022-04-16] MEDS: CARBIDOPA-LEVODOPA 25-100 TABLET 0.5 TAB PO ×4 (08:02→19:08)
[2022-04-16] MEDS: OXYCODONE 5 MG TABLET 2.5 MG PO ×2 (08:02→16:13)
--- NOTE | 2022-04-16 12:13 | REH.PT ---
PT note: PT was asked to assess transfers, pt using medium randy sling which appears appropriate at this time. Nsg can try small randy sling if pt is in position, but today medium sling is indicated. Roxana Koroma, PT, DPT [id number]
[2022-04-16] MEDS: DONEPEZIL 10 MG TABLET PO (19:08)
[2022-04-16] MEDS: ROPINIROLE HCL 1 MG TABLET 2 MG PO (19:08)
[2022-04-17] MEDS: CARBIDOPA-LEVODOPA 25-100 TABLET 0.5 TAB PO ×4 (08:53→19:00)
[2022-04-17] MEDS: OXYCODONE 5 MG TABLET 2.5 MG PO ×2 (08:53→16:06)
--- NOTE | 2022-04-17 16:12 | PC.NURSE ---
BRAIN STIM CHECK: monthly battery check performed--battery life indicated OK. Therapy turned on. Will continue to check monthly and update family as needed.
[2022-04-17] MEDS: DONEPEZIL 10 MG TABLET PO (19:00)
[2022-04-17] MEDS: ROPINIROLE HCL 1 MG TABLET 2 MG PO (19:01)
[2022-04-18 07:00] VITALS: BP 110/70; PULSE 77; RESP 18; TEMP 36.4; O2SAT 100
[2022-04-18] MEDS: OXYCODONE 5 MG TABLET 2.5 MG PO ×2 (08:15→15:13)
[2022-04-18] MEDS: CARBIDOPA-LEVODOPA 25-100 TABLET 0.5 TAB PO ×4 (08:15→19:05)
[2022-04-18] MEDS: bisacodyL 10 MG SUPP.RECT PR (08:34)
[2022-04-18] MEDS: ROPINIROLE HCL 1 MG TABLET 2 MG PO (19:05)
[2022-04-18] MEDS: DONEPEZIL 10 MG TABLET PO (19:05)
[2022-04-19] MEDS: CARBIDOPA-LEVODOPA 25-100 TABLET 0.5 TAB PO ×4 (08:27→19:04)
[2022-04-19] MEDS: OXYCODONE 5 MG TABLET 2.5 MG PO ×2 (08:27→15:13)
[2022-04-19] MEDS: ROPINIROLE HCL 1 MG TABLET 2 MG PO (19:04)
[2022-04-19] MEDS: DONEPEZIL 10 MG TABLET PO (19:04)
[2022-04-20] MEDS: OXYCODONE 5 MG TABLET 2.5 MG PO ×2 (08:47→15:16)
[2022-04-20] MEDS: CARBIDOPA-LEVODOPA 25-100 TABLET 0.5 TAB PO ×4 (08:47→19:21)
[2022-04-20] MEDS: ROPINIROLE HCL 1 MG TABLET 2 MG PO (19:21)
[2022-04-20] MEDS: DONEPEZIL 10 MG TABLET PO (19:21)
--- NOTE | 2022-04-20 21:16 | PC.NURSE ---
Week #1:Care plan 1-19 reviewed, no change.Temporary care plan reviewed, no change. Resident is on schedule dose of Oxycodone 2.5-5mg PO BID and Acetaminophen 1000mg PO TID PRN.Resident is able to verbalize the needs of pain medication Resident is on 2 assist with all ADLs and only able to feed himself with finger foods and need assistance with feeding with other foods. Appetite is usually good and usually sleeps well at night.
[2022-04-21] MEDS: OXYCODONE 5 MG TABLET 2.5 MG PO ×2 (08:12→15:14)
[2022-04-21] MEDS: CARBIDOPA-LEVODOPA 25-100 TABLET 0.5 TAB PO ×4 (08:12→19:04)
--- NOTE | 2022-04-21 10:26 | PC.NURSE ---
Week #2: Mobility: Care plan problems & temporary care plan reviewed. No changes made. Nothing added to temporary care plan. Resident is non ambulatory. Transfers with 2 assists using the randy lift. Staff wheel to all destinations. Needs 1-2 assists with turning & repositioning in bed every 2 hours. Top side rails up to aid for positioning. Has a bed exit and chair alarm. Fall: Had a fall on 03/11/22, attempted to self transfer from bed. Immediate intervention: hourly checks, bed exit & chair alarm on. Is a high fall risk according to assessment done on 03/25/22.
[2022-04-21] MEDS: ROPINIROLE HCL 1 MG TABLET 2 MG PO (19:04)
[2022-04-21] MEDS: DONEPEZIL 10 MG TABLET PO (19:04)
[2022-04-22] MEDS: OXYCODONE 5 MG TABLET 2.5 MG PO ×2 (08:49→15:14)
[2022-04-22] MEDS: CARBIDOPA-LEVODOPA 25-100 TABLET 0.5 TAB PO ×4 (08:49→19:14)
[2022-04-22] MEDS: ROPINIROLE HCL 1 MG TABLET 2 MG PO (19:14)
[2022-04-22] MEDS: DONEPEZIL 10 MG TABLET PO (19:14)
[2022-04-23] MEDS: CARBIDOPA-LEVODOPA 25-100 TABLET 0.5 TAB PO ×4 (08:11→19:40)
[2022-04-23] MEDS: OXYCODONE 5 MG TABLET 2.5 MG PO ×2 (08:13→15:32)
[2022-04-23] MEDS: bisacodyL 10 MG SUPP.RECT PR (13:08)
[2022-04-23] MEDS: DONEPEZIL 10 MG TABLET PO (19:40)
[2022-04-23] MEDS: ROPINIROLE HCL 1 MG TABLET 2 MG PO (19:40)
[2022-04-24] MEDS: OXYCODONE 5 MG TABLET 2.5 MG PO ×2 (07:47→15:19)
[2022-04-24] MEDS: CARBIDOPA-LEVODOPA 25-100 TABLET 0.5 TAB PO ×4 (07:47→19:00)
--- NOTE | 2022-04-24 12:18 | PC.NURSE ---
Recert Visit: Resident seen by STAKER SURVEYINGRohit. Orders reviewed and renewed of 75 days with no changes.
--- NOTE | 2022-04-24 16:37 | REH.OT ---
W/C positioning assessed for Ho. He is in his own wheelchair which is new within the last year. The w/c has a standard sli8ng backrest on it which stretches and does not provide sufficient back support. He also lists to his left at time and need improved lateral support. OT will contact DME provider to determine if changes can be made to his chair through them. If not, OT will trial lateral supports on current w/c. F/U next week.
[2022-04-24] MEDS: ROPINIROLE HCL 1 MG TABLET 2 MG PO (19:00)
[2022-04-24] MEDS: DONEPEZIL 10 MG TABLET PO (19:00)
[2022-04-25] MEDS: OXYCODONE 5 MG TABLET 2.5 MG PO ×2 (07:14→15:56)
[2022-04-25] MEDS: CARBIDOPA-LEVODOPA 25-100 TABLET 0.5 TAB PO ×4 (07:14→19:04)
[2022-04-25 09:48] VITALS: BP 136/74; PULSE 55; RESP 16; TEMP 36.4; O2SAT 98
[2022-04-25 10:19] VITALS: BMI 20.4
[2022-04-25] MEDS: DONEPEZIL 10 MG TABLET PO (19:04)
[2022-04-25] MEDS: ROPINIROLE HCL 1 MG TABLET 2 MG PO (19:04)
[2022-04-26] MEDS: CARBIDOPA-LEVODOPA 25-100 TABLET 0.5 TAB PO ×4 (08:24→19:19)
[2022-04-26] MEDS: OXYCODONE 5 MG TABLET 2.5 MG PO ×2 (08:24→15:53)
[2022-04-26] MEDS: DONEPEZIL 10 MG TABLET PO (19:19)
[2022-04-26] MEDS: ROPINIROLE HCL 1 MG TABLET 2 MG PO (19:19)
[2022-04-27] MEDS: CARBIDOPA-LEVODOPA 25-100 TABLET 0.5 TAB PO ×4 (08:27→19:04)
[2022-04-27] MEDS: OXYCODONE 5 MG TABLET 2.5 MG PO ×2 (08:27→16:28)
[2022-04-27] MEDS: ROPINIROLE HCL 1 MG TABLET 2 MG PO (19:04)
[2022-04-27] MEDS: DONEPEZIL 10 MG TABLET PO (19:04)
--- NOTE | 2022-04-28 02:21 | PC.NURSE ---
Addendum entered by Codie Lee RN 09/29/22 21:04: Week #3 - Toileting: Comprehensive care plan reviewed. No changes made. Nothing added to temporary care plan. Resident is incontinent of bowel and bladder. Is checked and changed in bed every 2 hours and PRN. Wears blue wing briefs. Pads, juancarlos cares, clothing management done by staff. Vital signs reviewed, no concerns. Skin: No issues at this time. Skin is checked routinely during cares and on bath day. Weekly Charting - Week 3: Care Plan, and vital signs reviewed. No changes made or nothing added to care plan at this time. Resident has no skin concerns noted or reported at this time. Bowel and Bladder: Resident is incontinent of bladder and bowel. Wears medium Quilted Adult Brief which is managed by staff. Staff anticipates resident toileting needs at night as briefs are changes during rounds (3x). ? Original Note: Weekly Charting - Week 3: Care Plan, and vital signs reviewed. No changes made or nothing added to care plan at this time. Resident has no skin concerns noted or reported at this time. Bowel and Bladder: Resident is incontinent of bladder and bowel. Wears medium Quilted Adult Brief which is managed by staff. Staff anticipates resident toileting needs at night as briefs are changes during rounds (3x).
[2022-04-28] MEDS: CARBIDOPA-LEVODOPA 25-100 TABLET 0.5 TAB PO ×4 (08:10→19:15)
[2022-04-28] MEDS: OXYCODONE 5 MG TABLET 2.5 MG PO ×2 (08:10→15:21)
--- NOTE | 2022-04-28 12:14 | PC.NURSE ---
WEEKLY CHARTING - WEEK 3: VS reviewed - WNL No changes to temporary care plan No skin concerns noted. Mild risk for skin breakdown d/t immobility Incontinent of bowel and bladder. Pt wears brief. Total Ax1or2. Check/change pt Q2hr. Pericare. Keep call light within reach. Monitor for S/S UTI.
--- NOTE | 2022-04-28 13:04 | REH.OT ---
Lateral support trial recommended on w/c. Resident is up in w/c until after lunch. Will install when he is not in w/c since he is unable to lean forward in his w/c to place supports.
[2022-04-28] MEDS: DONEPEZIL 10 MG TABLET PO (19:15)
[2022-04-28] MEDS: ROPINIROLE HCL 1 MG TABLET 2 MG PO (19:15)
[2022-04-29] MEDS: CARBIDOPA-LEVODOPA 25-100 TABLET 0.5 TAB PO ×4 (08:10→19:02)
[2022-04-29] MEDS: OXYCODONE 5 MG TABLET 2.5 MG PO ×2 (08:10→15:58)
[2022-04-29] MEDS: ROPINIROLE HCL 1 MG TABLET 2 MG PO (19:02)
[2022-04-29] MEDS: DONEPEZIL 10 MG TABLET PO (19:02)
[2022-04-30] MEDS: CARBIDOPA-LEVODOPA 25-100 TABLET 0.5 TAB PO ×4 (08:30→20:10)
[2022-04-30] MEDS: OXYCODONE 5 MG TABLET 2.5 MG PO ×2 (08:33→15:59)
--- NOTE | 2022-04-30 09:26 | REH.OT ---
MICHELLE reports that resident has improved upright posture in w/c w/ lateral supports on w/c. MICHELLE was instructed on proper positioning of lateral supports. OT will follow up again next week.
[2022-04-30] MEDS: ROPINIROLE HCL 1 MG TABLET 2 MG PO (20:10)
[2022-04-30] MEDS: DONEPEZIL 10 MG TABLET PO (20:10)
[2022-05-01] MEDS: CARBIDOPA-LEVODOPA 25-100 TABLET 0.5 TAB PO ×4 (07:31→19:52)
[2022-05-01] MEDS: OXYCODONE 5 MG TABLET 2.5 MG PO ×2 (07:31→16:22)
[2022-05-01] MEDS: MAGNESIUM HYDROXIDE 30 ML ORAL.SUSP PO (13:53)
[2022-05-01] MEDS: ROPINIROLE HCL 1 MG TABLET 2 MG PO (19:52)
[2022-05-01] MEDS: DONEPEZIL 10 MG TABLET PO (19:52)
[2022-05-02] MEDS: OXYCODONE 5 MG TABLET 2.5 MG PO ×2 (08:35→15:10)
[2022-05-02] MEDS: CARBIDOPA-LEVODOPA 25-100 TABLET 0.5 TAB PO ×4 (08:35→19:03)
[2022-05-02 09:51] VITALS: BP 105/73; PULSE 62; RESP 16; TEMP 35.9; O2SAT 98
[2022-05-02 10:53] VITALS: BMI 20.7
[2022-05-02] MEDS: bisacodyL 10 MG SUPP.RECT PR (12:56)
[2022-05-02] MEDS: DONEPEZIL 10 MG TABLET PO (19:03)
[2022-05-02] MEDS: ROPINIROLE HCL 1 MG TABLET 2 MG PO (19:03)
[2022-05-03] MEDS: CARBIDOPA-LEVODOPA 25-100 TABLET 0.5 TAB PO ×4 (07:17→19:05)
[2022-05-03] MEDS: OXYCODONE 5 MG TABLET 2.5 MG PO ×2 (07:17→15:02)
[2022-05-03] MEDS: ROPINIROLE HCL 1 MG TABLET 2 MG PO (19:05)
[2022-05-03] MEDS: DONEPEZIL 10 MG TABLET PO (19:05)
[2022-05-04] MEDS: CARBIDOPA-LEVODOPA 25-100 TABLET 0.5 TAB PO ×4 (08:24→19:03)
[2022-05-04] MEDS: OXYCODONE 5 MG TABLET 2.5 MG PO ×2 (08:24→15:09)
[2022-05-04] MEDS: ROPINIROLE HCL 1 MG TABLET 2 MG PO (19:03)
[2022-05-04] MEDS: DONEPEZIL 10 MG TABLET PO (19:03)
--- NOTE | 2022-05-05 03:35 | PC.NURSE ---
WEEKLY CHARTING - WEEK 4: Vital signs reviewed and WNL. Temporary and comprehensive care plan reviewed- no changes. No documented behaviors in the last month. Not currently on any psychotropic medications. Is severely cognitively impaired a/e/b BIMS score of 7. Impaired communication r/t Lewy Body Dementia. Hearing adequate at level of conversation. No medication changes in the last month. All medications administered by licensed nurse.
--- NOTE | 2022-05-05 07:08 | PC.NURSE ---
Week #4: Care plan reviewed. No changes made. Nothing added to temporary care plan. No noted changes in hearing, communication,vision, orientation. He moyer s hear fine without a device. Has a reading glass. Cognition is impaired r/t Lewy body dementia. Staff anticipates needs. Will answer yes/no and at times does talk. Chronic health condition stable. Is not able to self administer medications. Vital signs reviewed, no concerns. Mood/Behavior: No issues . Is on no psychotropic medications.
[2022-05-05] MEDS: CARBIDOPA-LEVODOPA 25-100 TABLET 0.5 TAB PO ×4 (08:54→19:18)
[2022-05-05] MEDS: OXYCODONE 5 MG TABLET 2.5 MG PO ×2 (08:55→15:33)
[2022-05-05] MEDS: ROPINIROLE HCL 1 MG TABLET 2 MG PO (19:18)
[2022-05-05] MEDS: DONEPEZIL 10 MG TABLET PO (19:18)
[2022-05-06] MEDS: CARBIDOPA-LEVODOPA 25-100 TABLET 0.5 TAB PO ×4 (08:04→19:04)
[2022-05-06] MEDS: OXYCODONE 5 MG TABLET 2.5 MG PO ×2 (08:05→15:17)
--- NOTE | 2022-05-06 09:19 | PC.NURSE ---
Order: Change Systane eye drop from BID to BID PRN per MARINE [employer] TECHNICIAN, Rohit.
[2022-05-06] MEDS: ROPINIROLE HCL 1 MG TABLET 2 MG PO (19:04)
[2022-05-06] MEDS: DONEPEZIL 10 MG TABLET PO (19:04)
[2022-05-07] MEDS: CARBIDOPA-LEVODOPA 25-100 TABLET 0.5 TAB PO ×4 (08:25→20:00)
[2022-05-07] MEDS: OXYCODONE 5 MG TABLET 2.5 MG PO ×2 (08:25→15:16)
[2022-05-07] MEDS: ROPINIROLE HCL 1 MG TABLET 2 MG PO (20:00)
[2022-05-07] MEDS: DONEPEZIL 10 MG TABLET PO (20:00)
[2022-05-08] MEDS: CARBIDOPA-LEVODOPA 25-100 TABLET 0.5 TAB PO ×4 (07:48→19:30)
[2022-05-08] MEDS: OXYCODONE 5 MG TABLET 2.5 MG PO ×2 (07:48→15:50)
[2022-05-08] MEDS: DONEPEZIL 10 MG TABLET PO (19:30)
[2022-05-08] MEDS: ROPINIROLE HCL 1 MG TABLET 2 MG PO (19:30)
[2022-05-09] MEDS: CARBIDOPA-LEVODOPA 25-100 TABLET 0.5 TAB PO ×4 (08:02→19:10)
[2022-05-09] MEDS: OXYCODONE 5 MG TABLET 2.5 MG PO ×2 (08:02→15:19)
[2022-05-09 10:14] VITALS: BMI 21.1
[2022-05-09 10:16] VITALS: BP 100/62; PULSE 78; RESP 20; TEMP 36.2; O2SAT 98
[2022-05-09] MEDS: DONEPEZIL 10 MG TABLET PO (19:10)
[2022-05-09] MEDS: ROPINIROLE HCL 1 MG TABLET 2 MG PO (19:10)
[2022-05-10] MEDS: CARBIDOPA-LEVODOPA 25-100 TABLET 0.5 TAB PO ×4 (07:51→19:08)
[2022-05-10] MEDS: OXYCODONE 5 MG TABLET 2.5 MG PO ×2 (07:51→15:33)
[2022-05-10] MEDS: ROPINIROLE HCL 1 MG TABLET 2 MG PO (19:08)
[2022-05-10] MEDS: DONEPEZIL 10 MG TABLET PO (19:08)
[2022-05-11] MEDS: CARBIDOPA-LEVODOPA 25-100 TABLET 0.5 TAB PO ×4 (07:35→19:06)
[2022-05-11] MEDS: OXYCODONE 5 MG TABLET 2.5 MG PO ×2 (07:35→15:30)
[2022-05-11] MEDS: DONEPEZIL 10 MG TABLET PO (19:06)
[2022-05-11] MEDS: ROPINIROLE HCL 1 MG TABLET 2 MG PO (19:06)
[2022-05-12] MEDS: CARBIDOPA-LEVODOPA 25-100 TABLET 0.5 TAB PO ×4 (08:04→19:07)
[2022-05-12] MEDS: OXYCODONE 5 MG TABLET 2.5 MG PO ×2 (08:06→15:25)
--- NOTE | 2022-05-12 10:16 | PC.NURSE ---
WEEKLY CHARTING - WEEK 1: VS reviewed - WNL Temporary care plan: No changes Pain: No pt reports of pain within last 30 days. POLO 0.5mg Oycodone BID. ADLs: Total Ax1 or Ax2 for all ADLs d/t impaired mobility r/t severe Parkinson's. Staff assist oral care. Bed bath only. T&R Q2hr. Check/Change brief Q2hr. Nutrition: Total Ax1 with feeding. Regular diet per MD order. Offer snacks daily at 1500. Hx of difficulty swallowing, pocketing food, drooling.
--- NOTE | 2022-05-12 10:30 | PC.PHA ---
Medication Review~ Medication Monitoring: Sinemet and Requip for Parkinson management Comments/Irregularities: Patient is new to facility and has had to manage Parkinson disease state for past 15 plus years. Suggested Course:Patient doing well, no medication interventions recommended at this time. A GDR of any medications to manage Parkinson disease at this time would be clinically contraindicated.
[2022-05-12] MEDS: DONEPEZIL 10 MG TABLET PO (19:07)
[2022-05-12] MEDS: ROPINIROLE HCL 1 MG TABLET 2 MG PO (19:08)
[2022-05-13] MEDS: CARBIDOPA-LEVODOPA 25-100 TABLET 0.5 TAB PO ×4 (08:05→19:36)
[2022-05-13] MEDS: OXYCODONE 5 MG TABLET 2.5 MG PO ×2 (08:05→16:03)
[2022-05-13] MEDS: ROPINIROLE HCL 1 MG TABLET 2 MG PO (19:36)
[2022-05-13] MEDS: DONEPEZIL 10 MG TABLET PO (19:36)
[2022-05-14] MEDS: OXYCODONE 5 MG TABLET 2.5 MG PO ×2 (08:08→16:13)
[2022-05-14] MEDS: CARBIDOPA-LEVODOPA 25-100 TABLET 0.5 TAB PO ×4 (08:08→19:02)
[2022-05-14] MEDS: DONEPEZIL 10 MG TABLET PO (19:02)
[2022-05-14] MEDS: ROPINIROLE HCL 1 MG TABLET 2 MG PO (19:02)
[2022-05-15] MEDS: OXYCODONE 5 MG TABLET 2.5 MG PO ×2 (07:46→15:57)
[2022-05-15] MEDS: CARBIDOPA-LEVODOPA 25-100 TABLET 0.5 TAB PO ×4 (07:46→19:14)
--- NOTE | 2022-05-15 15:54 | PC.NURSE ---
BRAIN STIM CHECK: monthly battery check performed--battery life indicated OK. Therapy turned on. Will continue to check monthly and update family as needed.
[2022-05-15] MEDS: ROPINIROLE HCL 1 MG TABLET 2 MG PO (19:15)
[2022-05-15] MEDS: DONEPEZIL 10 MG TABLET PO (19:15)
[2022-05-16] MEDS: CARBIDOPA-LEVODOPA 25-100 TABLET 0.5 TAB PO ×4 (07:50→19:05)
[2022-05-16] MEDS: OXYCODONE 5 MG TABLET 2.5 MG PO ×2 (07:50→15:26)
[2022-05-16 10:23] VITALS: BP 117/70; PULSE 62; RESP 20; TEMP 36.4; O2SAT 99; BMI 21.8
[2022-05-16] MEDS: MAGNESIUM HYDROXIDE 30 ML ORAL.SUSP PO (13:12)
[2022-05-16] MEDS: DONEPEZIL 10 MG TABLET PO (19:05)
[2022-05-16] MEDS: ROPINIROLE HCL 1 MG TABLET 2 MG PO (19:05)
[2022-05-17] MEDS: OXYCODONE 5 MG TABLET 2.5 MG PO ×2 (08:00→15:06)
[2022-05-17] MEDS: CARBIDOPA-LEVODOPA 25-100 TABLET 0.5 TAB PO ×4 (08:00→19:19)
[2022-05-17] MEDS: DONEPEZIL 10 MG TABLET PO (19:19)
[2022-05-17] MEDS: ROPINIROLE HCL 1 MG TABLET 2 MG PO (19:19)
[2022-05-18] MEDS: OXYCODONE 5 MG TABLET 2.5 MG PO ×2 (06:44→15:11)
[2022-05-18] MEDS: CARBIDOPA-LEVODOPA 25-100 TABLET 0.5 TAB PO ×4 (06:44→19:03)
[2022-05-18] MEDS: DONEPEZIL 10 MG TABLET PO (19:03)
[2022-05-18] MEDS: ROPINIROLE HCL 1 MG TABLET 2 MG PO (19:03)
--- NOTE | 2022-05-19 03:54 | PC.NURSE ---
WEEKLY CHARTING - WEEK 1: Vital signs reviewed with no concern. Temporary and comprehensive care plan reviewed with no change. Hx of lower back, L hip, R rib, and generalized pain. Currently receives oxycodone 2.5mg BID and acetaminophen 1000mg TID PRN for pain management. Requires total assist of 1 with dressing, grooming, bathing, and oral cares. Receives a regular diet, regular texture with thin liquids. Total assist at meals. Hx of difficulty swallowing with no recent documented concerns. Weight has steadily increased since admission.
[2022-05-19] MEDS: OXYCODONE 5 MG TABLET 2.5 MG PO ×2 (07:13→15:24)
[2022-05-19] MEDS: CARBIDOPA-LEVODOPA 25-100 TABLET 0.5 TAB PO ×4 (07:13→19:06)
--- NOTE | 2022-05-19 10:00 | CRLHL7_ITS ---
For Patients: As a result of the Cures Act, medical imaging exams and procedure reports are released immediately into your electronic medical record. You may view this report before your referring provider. If you have questions, please contact your health care provider. Indication: Joint arthroplasty followup Technique: AP hip centered pelvic film and two views left hip, three views total Comparison: 02/18/2022 Findings/Impression: Hardware from a joint arthroplasty is in satisfactory position without evidence of loosening or infection. Alignment is normal. No sign of acute fracture. Heterotopic ossification adjacent to the lesser trochanter with associated chronic appearing fracture deformity. Stable benign bone island in the right iliac bone. Dictated by Manuel Mckeon MD @ 05/20/2022 9:44:04 AM (Electronically Signed)
--- NOTE | 2022-05-19 10:00 | CRLHL7_ITS ---
For Patients: As a result of the Cures Act, medical imaging exams and procedure reports are released immediately into your electronic medical record. You may view this report before your referring provider. If you have questions, please contact your health care provider. Indication: LEFT HAND METACARPAL FRACTURES Technique: Three views left hand Comparison: 01/02/2022 Findings: Mature callus formation is present about the fracture deformities involving the 2nd, 3rd and 4th metacarpal diaphyses with near anatomic alignment. Severe degenerative joint disease at the 1st carpometacarpal joint. 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 Impression: Mature callus about the metacarpal fracture deformities. Dictated by Manuel Mcekon MD @ 05/20/2022 9:42:31 AM (Electronically Signed)
--- NOTE | 2022-05-19 12:30 | PC.NURSE ---
Week #1; Care plan reviewed, no changes made. Nothing added to temporary care plan. Resident needs 1-2 assists with bathing. Bed bath only. Extensive assist of 1 with dressing, grooming and oral cares. Encourage participation as able. Staff assist with feeding. Able to feed finger foods. Is on regular diet, thin liquids. Diet and thin liquid tolerated well. Vital signs reviewed, no concerns. Pain: Has history of low back pain, (L) hip, (R) rib & generalized pain.Pain is managed with Oxycodone 2.5 mg BID. And also has an order for Tylenol 1000mg TID PRN. Needs anticipated by staff.
[2022-05-19] MEDS: DONEPEZIL 10 MG TABLET PO (19:06)
[2022-05-19] MEDS: ROPINIROLE HCL 1 MG TABLET 2 MG PO (19:06)
[2022-05-20] MEDS: OXYCODONE 5 MG TABLET 2.5 MG PO ×2 (08:26→15:07)
[2022-05-20] MEDS: CARBIDOPA-LEVODOPA 25-100 TABLET 0.5 TAB PO ×4 (08:26→19:08)
--- NOTE | 2022-05-20 13:13 | PC.NURSE ---
Status: Contacted [facility] Nurse to update X-Ray of hip done yesterday, Dr. Dean to review.
[2022-05-20] MEDS: bisacodyL 10 MG SUPP.RECT PR (19:09)
[2022-05-20] MEDS: DONEPEZIL 10 MG TABLET PO (19:09)
[2022-05-20] MEDS: ROPINIROLE HCL 1 MG TABLET 2 MG PO (19:09)
[2022-05-21] MEDS: CARBIDOPA-LEVODOPA 25-100 TABLET 0.5 TAB PO ×3 (08:12→15:11)
[2022-05-21] MEDS: OXYCODONE 5 MG TABLET 2.5 MG PO ×2 (08:12→15:11)
[2022-05-22] MEDS: OXYCODONE 5 MG TABLET 2.5 MG PO ×2 (07:26→15:24)
[2022-05-22] MEDS: ROPINIROLE HCL 1 MG TABLET 2 MG PO ×2 (07:26→19:05)
[2022-05-22] MEDS: DONEPEZIL 10 MG TABLET PO ×2 (07:26→19:05)
[2022-05-22] MEDS: CARBIDOPA-LEVODOPA 25-100 TABLET 0.5 TAB PO ×5 (07:26→19:05)
[2022-05-23] MEDS: CARBIDOPA-LEVODOPA 25-100 TABLET 0.5 TAB PO ×4 (08:04→19:09)
[2022-05-23] MEDS: OXYCODONE 5 MG TABLET 2.5 MG PO ×2 (08:04→19:09)
[2022-05-23 10:04] VITALS: BMI 21.8
[2022-05-23 10:08] VITALS: BP 115/62; PULSE 64; RESP 20; TEMP 36.6; O2SAT 99
--- NOTE | 2022-05-23 10:38 | NUTR.NU ---
RDN with significant weight gain note: Resident with significant weight gain noted within 90 days (11% weight gain). 02/26/22 137 lbs; Current weight 152 lbs. BMI is currently normal at 21.8 kg/m2. BMI on 03/01/22 was normal at 19.6 kg/m2. Suspect weight gain is due to consistent adequate meal and snack intakes. Weight gain is beneficial. Current diet is Regular, No current meal intakes to assess. Per family request, resident is receiving snacks in afternoon which mainly consists of oreos and ice cream recently. RDN has had conversation with resident's family regarding snacks, and they are not concerned about his nutrition due to them feeling he is getting enough nutrients at meals (noted in nutrition assessment 03/19/22). No nutrition interventions at this time. RDN will continue to monitor and follow-up prn.
--- NOTE | 2022-05-23 13:12 | PC.NURSE ---
Recert Visit: Resident seen by Dr. Calhoun. Orders reviewed and renewed of 75 days with changes. Order: D/C Tylenol PRN, Tylenol 1000mg TID, Change Oxycodone to: 2.5mg Q6H PRN & QHS X 6 days then D/C.
[2022-05-23] MEDS: ACETAMINOPHEN 500 MG TABLET 1000 MG PO (19:00)
[2022-05-23] MEDS: DONEPEZIL 10 MG TABLET PO (19:09)
[2022-05-23] MEDS: ROPINIROLE HCL 1 MG TABLET 2 MG PO (19:09)
[2022-05-24] MEDS: ACETAMINOPHEN 500 MG TABLET 1000 MG PO ×3 (07:36→20:40)
[2022-05-24] MEDS: CARBIDOPA-LEVODOPA 25-100 TABLET 0.5 TAB PO ×4 (07:36→20:40)
[2022-05-24] MEDS: DONEPEZIL 10 MG TABLET PO (20:40)
[2022-05-24] MEDS: OXYCODONE 5 MG TABLET 2.5 MG PO (20:40)
[2022-05-24] MEDS: ROPINIROLE HCL 1 MG TABLET 2 MG PO (20:40)
[2022-05-25] MEDS: ACETAMINOPHEN 500 MG TABLET 1000 MG PO ×3 (07:31→20:39)
[2022-05-25] MEDS: CARBIDOPA-LEVODOPA 25-100 TABLET 0.5 TAB PO ×4 (07:31→20:40)
[2022-05-25] MEDS: bisacodyL 10 MG SUPP.RECT PR (13:22)
[2022-05-25] MEDS: ROPINIROLE HCL 1 MG TABLET 2 MG PO (20:40)
[2022-05-25] MEDS: OXYCODONE 5 MG TABLET 2.5 MG PO (20:40)
[2022-05-25] MEDS: DONEPEZIL 10 MG TABLET PO (20:40)
[2022-05-26] MEDS: ACETAMINOPHEN 500 MG TABLET 1000 MG PO ×3 (07:32→19:00)
[2022-05-26] MEDS: CARBIDOPA-LEVODOPA 25-100 TABLET 0.5 TAB PO ×4 (07:32→19:00)
--- NOTE | 2022-05-26 14:56 | PC.NURSE ---
Week #3: Temporary and Comprehensive Care plan reviewed with no changes added at this time.. Resident is check and change in bed every 2 hours and as needed, incontinent of bowel and bladder. Extensive assist of one to managing incontinent product and juancarlos care,Wears t briefs. No skin concerns noted at this time. Skin is checked during bath day on bath day.
[2022-05-26] MEDS: DONEPEZIL 10 MG TABLET PO (19:00)
[2022-05-26] MEDS: OXYCODONE 5 MG TABLET 2.5 MG PO (19:00)
[2022-05-26] MEDS: ROPINIROLE HCL 1 MG TABLET 2 MG PO (19:00)
--- NOTE | 2022-05-27 07:36 | PC.NURSE ---
Week #2: Comprehensive care plan reviewed, no changes made. Nothing added to temporary care plan. Resident is non ambulatory. Is a randy lift with 2 assists for all transfers. Wheel by staff to all destinations. Needs 1-2 assist with turning and repositioning every 2 hours. Top side rails up to aid with bed mobility. Vital signs reviewed, no concerns. Fall: No falls the past month. Remains a high fall risk according to assessment done on03/25/22.
[2022-05-27] MEDS: ACETAMINOPHEN 500 MG TABLET 1000 MG PO ×3 (08:21→19:26)
[2022-05-27] MEDS: CARBIDOPA-LEVODOPA 25-100 TABLET 0.5 TAB PO ×4 (08:21→19:26)
[2022-05-27] MEDS: MAGNESIUM HYDROXIDE 30 ML ORAL.SUSP PO (15:54)
[2022-05-27] MEDS: ROPINIROLE HCL 1 MG TABLET 2 MG PO (19:26)
[2022-05-27] MEDS: OXYCODONE 5 MG TABLET 2.5 MG PO (19:26)
[2022-05-27] MEDS: DONEPEZIL 10 MG TABLET PO (19:26)
[2022-05-28] MEDS: CARBIDOPA-LEVODOPA 25-100 TABLET 0.5 TAB PO ×4 (07:54→19:49)
[2022-05-28] MEDS: ACETAMINOPHEN 500 MG TABLET 1000 MG PO ×3 (07:54→19:49)
--- NOTE | 2022-05-28 15:01 | PC.PHA ---
MEDICATION REVIEW: MEDICATION MONITORING: Current medications of Requip and Sinemet are for neurological indications and not for psychiatric related indications. Donepezil 10 mg po hs appropriate Acetaminophen and oxycodone scheduled for pain with prn oxycodone ordered 05/23/22 and no doses needed thus far. IRREGULARITY OR COMMENTS: Provider reviewed pain medication regimen early May. SUGGESTED COURSE OF ACTION: No medication recommendations for May.
[2022-05-28] MEDS: ROPINIROLE HCL 1 MG TABLET 2 MG PO (19:49)
[2022-05-28] MEDS: OXYCODONE 5 MG TABLET 2.5 MG PO (19:49)
[2022-05-28] MEDS: DONEPEZIL 10 MG TABLET PO (19:49)
[2022-05-29] MEDS: CARBIDOPA-LEVODOPA 25-100 TABLET 0.5 TAB PO ×4 (07:52→19:38)
[2022-05-29] MEDS: ACETAMINOPHEN 500 MG TABLET 1000 MG PO ×3 (07:52→19:38)
--- NOTE | 2022-05-29 14:49 | REH.OT ---
OT assessed w/c positioning today. Staff report that resident extends his trunk so there is no lower back supprt when sitting in w/c. Lateral supports were moved from down by his hips to up near axilla to provide increased trunk support. NARs and NSG were instructed on best positioning for this. Staff will observe positioning and inform OT if there are continued concerns.
[2022-05-29] MEDS: ROPINIROLE HCL 1 MG TABLET 2 MG PO (19:38)
[2022-05-29] MEDS: DONEPEZIL 10 MG TABLET PO (19:38)
[2022-05-29] MEDS: OXYCODONE 5 MG TABLET 2.5 MG PO (19:38)
[2022-05-30] MEDS: CARBIDOPA-LEVODOPA 25-100 TABLET 0.5 TAB PO ×4 (07:49→19:03)
[2022-05-30] MEDS: ACETAMINOPHEN 500 MG TABLET 1000 MG PO ×3 (07:49→19:00)
[2022-05-30 10:34] VITALS: BP 94/51; PULSE 63; RESP 18; TEMP 36.4; O2SAT 100
[2022-05-30 13:28] VITALS: BMI 21.8
--- NOTE | 2022-05-30 16:06 | REH.OT ---
OT was contacted by nursing about w/c positioning and pt seen during meal, noting lateral supports were positioned by pt's hips again with pt having rigidity and leaning into posterior pelvic tilt. Supports and pt's back on w/c were adjusted with pt able to sit more upright in w/c for meal. 2 NARs report pt has difficulty sitting upright in w/c. Also spoke with life enrichment staff who report pt does continue to participate in activities at times and when is positioned upright in w/c, has been able to participate in seated ex groups. Pt fluctuates in level of alertness and active participation in activities, meals and movement. Pt may benefit from trial of adjustable vs solid contoured back with lateral trunk support attached and will talk with interdisicplinary team as to options for a trial of DME. Question of trial of Broda chair came up due to pt's tendency to sit in flexed posture, however trial of adjustable back vs solid contoured back which is taller may accommodate pt's fluctuating status better to encourage upright posture to aid in participation in self cares, meals and activities as well as to reduce aspiration risk during meals. Pt has chair alarm in place. At present, recommending prior to transferring pt into w/c, lateral support be adjusted to appropriate position, pt's hips be positioned back in the chair, legrests be adjusted to keep pt's feet supported to avoid sliding in chair and sling out from under pt's thighs.
[2022-05-30] MEDS: DONEPEZIL 10 MG TABLET PO (19:04)
[2022-05-30] MEDS: ROPINIROLE HCL 1 MG TABLET 2 MG PO (19:04)
[2022-05-31] MEDS: CARBIDOPA-LEVODOPA 25-100 TABLET 0.5 TAB PO ×4 (08:24→19:06)
[2022-05-31] MEDS: ACETAMINOPHEN 500 MG TABLET 1000 MG PO ×3 (08:24→19:06)
[2022-05-31] MEDS: DONEPEZIL 10 MG TABLET PO (19:06)
[2022-05-31] MEDS: ROPINIROLE HCL 1 MG TABLET 2 MG PO (19:06)
[2022-05-31] MEDS: bisacodyL 10 MG SUPP.RECT PR (19:26)
--- NOTE | 2022-05-31 20:50 | PC.NURSE ---
Resident pocketed HS meds. Appears to have split out 1/2 tablet and some of crushed Tylenol.
[2022-06-01] MEDS: CARBIDOPA-LEVODOPA 25-100 TABLET 0.5 TAB PO ×2 (08:45→15:03)
[2022-06-01] MEDS: ACETAMINOPHEN 500 MG TABLET 1000 MG PO (08:45)
--- NOTE | 2022-06-01 21:03 | PC.NURSE ---
Resident pocketed HS meds and spit out. Does not tolerate crushed or whole Tylenol.
[2022-06-02] MEDS: CARBIDOPA-LEVODOPA 25-100 TABLET 0.5 TAB PO ×4 (08:16→19:16)
[2022-06-02] MEDS: ACETAMINOPHEN 500 MG TABLET 1000 MG PO ×2 (08:16→19:16)
--- NOTE | 2022-06-02 10:24 | PC.NURSE ---
Week #3 - Toileting: Comprehensive care plan reviewed. No changes made. Nothing added to temporary care plan. Resident is incontinent of bowel and bladder. Is checked and changed in bed every 2 hours and PRN. Pads, juancarlos cares, clothing management done by staff. Vital signs reviewed, no concerns. Skin: No issues at this time. Skin is checked routinely during cares and on bath day.
[2022-06-02] MEDS: DONEPEZIL 10 MG TABLET PO (19:16)
[2022-06-02] MEDS: ROPINIROLE HCL 1 MG TABLET 2 MG PO (19:16)
[2022-06-03] MEDS: CARBIDOPA-LEVODOPA 25-100 TABLET 0.5 TAB PO ×4 (08:09→19:15)
[2022-06-03] MEDS: ACETAMINOPHEN 500 MG TABLET 1000 MG PO ×2 (08:23→11:46)
[2022-06-03] MEDS: MAGNESIUM HYDROXIDE 30 ML ORAL.SUSP PO (08:41)
[2022-06-03] MEDS: DONEPEZIL 10 MG TABLET PO (19:15)
[2022-06-03] MEDS: ROPINIROLE HCL 1 MG TABLET 2 MG PO (19:15)
[2022-06-04] MEDS: CARBIDOPA-LEVODOPA 25-100 TABLET 0.5 TAB PO ×4 (08:16→19:35)
[2022-06-04] MEDS: ACETAMINOPHEN 500 MG TABLET 1000 MG PO ×3 (08:16→19:35)
--- NOTE | 2022-06-04 12:05 | PC.SPIRITC ---
provided visit for connection and support.
--- NOTE | 2022-06-04 17:07 | REH.OT ---
OT: Pt is trialing solid Homer contour back on w/c. Pt able to sit upright in w/c after modifications made to back, calf support, armrests and additional dycem added to seat. OT posted pic of set up of chair, working with NARs for positioning. Pt was more alert today and had trialed x 1 hour this afternoon and able to sit upright at countertop and feed self snack sitting upright after nsg provided set up. Will continue to monitor as pt's level of alertness and rigidity fluctuates. Will make further modifications as needed. Nsg to contact OT at [phone] with questions and concerns.
[2022-06-04] MEDS: ROPINIROLE HCL 1 MG TABLET 2 MG PO (19:35)
[2022-06-04] MEDS: DONEPEZIL 10 MG TABLET PO (19:35)
[2022-06-05] MEDS: ACETAMINOPHEN 500 MG TABLET 1000 MG PO ×2 (07:42→12:01)
[2022-06-05] MEDS: CARBIDOPA-LEVODOPA 25-100 TABLET 0.5 TAB PO ×4 (07:42→19:00)
--- NOTE | 2022-06-05 08:46 | PC.NURSE ---
Completed side rail utilization assessment that indicated he does not need side rails. Will continue with interventions call light in reach, frequent checks, bed alarm, and bed in low position.
[2022-06-05] MEDS: DONEPEZIL 10 MG TABLET PO (19:00)
[2022-06-05] MEDS: ROPINIROLE HCL 1 MG TABLET 2 MG PO (19:00)
[2022-06-06] MEDS: ACETAMINOPHEN 500 MG TABLET 1000 MG PO ×3 (07:48→19:15)
[2022-06-06] MEDS: CARBIDOPA-LEVODOPA 25-100 TABLET 0.5 TAB PO ×4 (07:48→19:27)
[2022-06-06 10:02] VITALS: BP 117/75; PULSE 64; RESP 16; TEMP 36.3; O2SAT 98; BMI 20.8
[2022-06-06] MEDS: DONEPEZIL 10 MG TABLET PO (19:27)
[2022-06-06] MEDS: ROPINIROLE HCL 1 MG TABLET 2 MG PO (19:27)
[2022-06-07] MEDS: ACETAMINOPHEN 500 MG TABLET 1000 MG PO ×3 (07:11→19:50)
[2022-06-07] MEDS: CARBIDOPA-LEVODOPA 25-100 TABLET 0.5 TAB PO ×4 (07:11→19:50)
--- NOTE | 2022-06-07 10:46 | PC.SPIRITC ---
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 Ho was tearful at times. Rubber Splicer provided visit for grief support and connection.
[2022-06-07] MEDS: bisacodyL 10 MG SUPP.RECT PR (12:58)
[2022-06-07] MEDS: ROPINIROLE HCL 1 MG TABLET 2 MG PO (19:50)
[2022-06-07] MEDS: DONEPEZIL 10 MG TABLET PO (19:50)
[2022-06-08] MEDS: CARBIDOPA-LEVODOPA 25-100 TABLET 0.5 TAB PO ×4 (08:31→19:24)
[2022-06-08] MEDS: ACETAMINOPHEN 500 MG TABLET 1000 MG PO ×3 (08:31→19:24)
[2022-06-08] MEDS: DONEPEZIL 10 MG TABLET PO (19:24)
[2022-06-08] MEDS: ROPINIROLE HCL 1 MG TABLET 2 MG PO (19:24)
[2022-06-09] MEDS: OXYCODONE 5 MG TABLET 2.5 MG PO ×2 (00:21→19:44)
--- NOTE | 2022-06-09 01:04 | PC.NURSE ---
Pain: Resident c/o generalized pain at 0020 and PRN dose of Oxycodone 2.5mg was given with good results.
--- NOTE | 2022-06-09 01:28 | PC.NURSE ---
WEEKLY CHARTING - WEEK 4: Vital signs reviewed and WNL. Temporary and comprehensive care plan reviewed- no changes. No documented behaviors in the last month. Not currently on any psychotropic medications. Is severely cognitively impaired a/e/b BIMS score of 7. Impaired communication r/t Lewy Body Dementia but most of time able to address his needs. Hearing adequate at level of conversation. No medication changes in the last month. All medications administered by licensed nurse.
[2022-06-09] MEDS: CARBIDOPA-LEVODOPA 25-100 TABLET 0.5 TAB PO ×4 (08:12→19:47)
[2022-06-09] MEDS: ACETAMINOPHEN 500 MG TABLET 1000 MG PO ×3 (08:12→19:47)
--- NOTE | 2022-06-09 09:13 | PC.NURSE ---
Week #4: Comprehensive care plan reviewed, no changes made. Nothing added to temporary care plan. No changes noted in communication, hearing, vision or orientation. Speech is sometimes understood. Needs anticipated by staff. Hears fine. Wears reading glasses. 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 Is forgetful. Chronic health condition stable. Is not able to self administer medications. Vital signs reviewed, no concerns. Mood/Behavior: No issues the past month. Is on no psychotropic medications.
[2022-06-09] MEDS: ROPINIROLE HCL 1 MG TABLET 2 MG PO (19:47)
[2022-06-09] MEDS: DONEPEZIL 10 MG TABLET PO (19:47)
--- NOTE | 2022-06-09 21:37 | PC.NURSE ---
Transferring: Resident was difficult to transfer. He was balled up and leaning forward in sling. Resident needed to be held in place while Yomi transferring to be safe.
[2022-06-10] MEDS: CARBIDOPA-LEVODOPA 25-100 TABLET 0.5 TAB PO ×4 (08:40→19:04)
[2022-06-10] MEDS: ACETAMINOPHEN 500 MG TABLET 1000 MG PO ×2 (08:40→11:23)
[2022-06-10] MEDS: bisacodyL 10 MG SUPP.RECT PR (18:46)
[2022-06-10] MEDS: ROPINIROLE HCL 1 MG TABLET 2 MG PO (19:04)
[2022-06-10] MEDS: DONEPEZIL 10 MG TABLET PO (19:04)
[2022-06-11] MEDS: ACETAMINOPHEN 500 MG TABLET 1000 MG PO ×3 (07:57→19:12)
[2022-06-11] MEDS: CARBIDOPA-LEVODOPA 25-100 TABLET 0.5 TAB PO ×4 (07:57→19:12)
[2022-06-11 14:47] VITALS: BMI 20.7
[2022-06-11] MEDS: DONEPEZIL 10 MG TABLET PO (19:12)
[2022-06-11] MEDS: ROPINIROLE HCL 1 MG TABLET 2 MG PO (19:12)
[2022-06-12] MEDS: CARBIDOPA-LEVODOPA 25-100 TABLET 0.5 TAB PO ×4 (07:26→19:03)
[2022-06-12] MEDS: ACETAMINOPHEN 500 MG TABLET 1000 MG PO (07:26)
--- NOTE | 2022-06-12 10:49 | PC.NURSE ---
Order: TABLEMAN here. Change Tylenol 1000mg TID to TID PRN.
[2022-06-12] MEDS: ROPINIROLE HCL 1 MG TABLET 2 MG PO (19:03)
[2022-06-12] MEDS: DONEPEZIL 10 MG TABLET PO (19:03)
[2022-06-13 07:00] VITALS: BP 102/61; RESP 18; TEMP 36.9; O2SAT 98
[2022-06-13] MEDS: CARBIDOPA-LEVODOPA 25-100 TABLET 0.5 TAB PO ×4 (07:16→19:14)
[2022-06-13] MEDS: bisacodyL 10 MG SUPP.RECT PR (13:18)
[2022-06-13] MEDS: ROPINIROLE HCL 1 MG TABLET 2 MG PO (19:14)
[2022-06-13] MEDS: DONEPEZIL 10 MG TABLET PO (19:14)
[2022-06-14] MEDS: CARBIDOPA-LEVODOPA 25-100 TABLET 0.5 TAB PO ×4 (07:34→19:15)
--- NOTE | 2022-06-14 09:15 | PC.NURSE ---
Skin check - Red area on buttocks - workplace intervention in place - provide pericare and barrier cream with each change. No other areas of concern.
[2022-06-14] MEDS: ROPINIROLE HCL 1 MG TABLET 2 MG PO (19:15)
[2022-06-14] MEDS: DONEPEZIL 10 MG TABLET PO (19:15)
[2022-06-15] MEDS: CARBIDOPA-LEVODOPA 25-100 TABLET 0.5 TAB PO ×4 (07:33→19:16)
[2022-06-15] MEDS: ROPINIROLE HCL 1 MG TABLET 2 MG PO (19:16)
[2022-06-15] MEDS: DONEPEZIL 10 MG TABLET PO (19:16)
--- NOTE | 2022-06-16 04:10 | PC.NURSE ---
WEEKLY CHARTING - WEEK 1: Vital signs reviewed. Temporary and comprehensive care plan reviewed - no change. Resident occasionally reports pain. Currently receives oxycodone 2.5mg Q6 hours PRN and acetaminophen 1000mg TID PRN for pain management. Requires total assist of 1 for dressing, grooming, bathing, and oral cares. Total assist for meals. Meal intake adequate. Regular diet with regular texture.
[2022-06-16 07:00] VITALS: TEMP 36.4
[2022-06-16] MEDS: CARBIDOPA-LEVODOPA 25-100 TABLET 0.5 TAB PO ×4 (07:50→19:48)
[2022-06-16 09:24] VITALS: TEMP 36.4; O2SAT 98
--- NOTE | 2022-06-16 10:05 | PC.NURSE ---
BRAIN STIM CHECK: monthly battery check performed--battery life indicated OK. Full battery life. Therapy turned on. Will continue to check monthly. Daughter Marian updated via email.
[2022-06-16] MEDS: ACETAMINOPHEN 500 MG TABLET 1000 MG PO (11:39)
[2022-06-16] MEDS: OXYCODONE 5 MG TABLET 2.5 MG PO (12:18)
--- NOTE | 2022-06-16 13:19 | PC.NURSE ---
Addendum entered by Consuelo Henry RN 06/16/22 19:09: 06/14/22: Residents daughter Marian gave consent for COVID testing until outbreak status is complete. Original Note: COVID OUTBREAK TESTING: Resident provided verbal consent for outbreak COVID testing. Resident is currently asymptomatic. Resident/family will be notified only if resident is positive.
--- NOTE | 2022-06-16 14:24 | PC.NURSE ---
Week #1; Care plan reviewed, no changes made. Nothing added to temporary care plan. Resident needs 1-2 assists with bathing. Bed bath only. Extensive assist of 1 with dressing, grooming and oral cares. Encourage participation as able.? Staff assist with feeding. Able to feed finger foods. Is on regular diet, thin liquids and is tolerated. Vital signs reviewed, no concerns. Pain: Has history of low back pain, (L) hip, (R) rib & generalized pain.Pain is managed with Oxycodone 2.5 mg BID PRN, Tylenol 1000mg TID PRN. 06/12 Tylenol 1000mg TID changed to PRN. Needs anticipated by staff.
[2022-06-16 16:41] VITALS: TEMP 37.1; O2SAT 98
[2022-06-16 16:43] LABS: SARS PCR* Negative SARS-CoV-2 (Negative)
[2022-06-16] MEDS: DONEPEZIL 10 MG TABLET PO (19:48)
[2022-06-16] MEDS: ROPINIROLE HCL 1 MG TABLET 2 MG PO (19:48)
[2022-06-16 23:00] VITALS: TEMP 36.4; O2SAT 98
[2022-06-17 07:00] VITALS: TEMP 36.6; O2SAT 100
[2022-06-17] MEDS: CARBIDOPA-LEVODOPA 25-100 TABLET 0.5 TAB PO ×4 (08:14→19:00)
[2022-06-17] MEDS: OXYCODONE 5 MG TABLET 2.5 MG PO (12:33)
[2022-06-17 17:23] VITALS: TEMP 37.1; O2SAT 96
[2022-06-17] MEDS: ROPINIROLE HCL 1 MG TABLET 2 MG PO (19:00)
[2022-06-17] MEDS: DONEPEZIL 10 MG TABLET PO (19:00)
--- NOTE | 2022-06-17 19:36 | PC.NURSE ---
CARE CONFERENCE: Care conference meeting held with all members of care team present. Daughter Marian over the phone. Nursing reviewed that resident continues to needing 2 assist with ADLs, transfers, and mobility. Resident uses randy for transfers. Resident is able to participate in ROM and seated exercises with staff assistance and goes to exercise regularly. He is a high fall risk and uses a bed alarm. Has been using call light appropriately during the day per staff report. Has episodes of intermittent confusion. Is very soft spoken.. Care plan reviewed and updated. POLST reviewed. DNR/DNI. Uses no restraints. Resident is given medications by staff. Vulnerable due to mobility limitations and ability to be understood/understand. Resident needs total staff assistance with meals, is shaky and weak at times. RIVER BOAT CAPTAIN to perform brain stim check on the 1st of each month. 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 Family asked that resident be reviewed by therapy again due to attempting to get out of bed more frequently and daughter feels he maybe stronger at this time. Will updated therapy for review. Daughter is going to make a neuro appointment and provide staff with information. Will email daughter medication list. No further questions/concerns. 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
[2022-06-17 23:00] VITALS: TEMP 36.5; O2SAT 95
[2022-06-18 07:00] VITALS: TEMP 36.6; O2SAT 99
[2022-06-18] MEDS: CARBIDOPA-LEVODOPA 25-100 TABLET 0.5 TAB PO ×4 (08:25→19:40)
--- NOTE | 2022-06-18 09:53 | PC.SOCIAL ---
Resident's care conference was held yesterday with his daughter Marian via [employer]. Resident has adjusted well to placement here and seems to enjoy staff and 1:1 activities. No s/s of depression noted or observed by staff. Marian asked about a PT eval again for resident as he occasionally wants to stand up. Nursing will discuss this with therapies again and get their feedback. Family is supportive and visits when she can get rides in. Resident will have a follow-up neurology appointment. Family will set this up and meet resident there. Social work will set up transportation once appointment is made.
[2022-06-18] MEDS: OXYCODONE 5 MG TABLET 2.5 MG PO (11:38)
[2022-06-18] MEDS: bisacodyL 10 MG SUPP.RECT PR (13:59)
[2022-06-18 15:00] VITALS: TEMP 36.5; O2SAT 100
[2022-06-18] MEDS: ROPINIROLE HCL 1 MG TABLET 2 MG PO (19:41)
[2022-06-18] MEDS: DONEPEZIL 10 MG TABLET PO (19:41)
[2022-06-18 23:00] VITALS: TEMP 36.3; O2SAT 94
[2022-06-19] VITALS (7 sets, daily range): BP systolic 105–137; BP diastolic 66–70; PULSE 67–80; RESP 16–18; TEMP 36.3–36.7; O2SAT 95–99
[2022-06-19] MEDS: CARBIDOPA-LEVODOPA 25-100 TABLET 0.5 TAB PO ×4 (08:27→19:16)
--- NOTE | 2022-06-19 09:15 | LTC.FALL ---
[facility] Fall Note: o Fall Date: 06/15/2022 o Fall Time:0630 o What happened? Staff found Resident on the floor next to his bed. o Who found the resident and who responded? This content writer ( nurse [facility]) o What was the resident doing? He was moving with his legs on the floor at the time. o How the resident was found (knees, left side, arm under them), any hazards (cords, objects, nonskid slippers) brakes on? Proper equipment? Resident found laying on his left side. o Did you assess for head trauma, spinal injuries, skeletal injuries, neurological changes and status, and head and neck pain? What did you find? Yes. No injury's noted at this time. Neuro intact per base line o Did you assess ROM in shoulders, elbows, hips, knees, any other affected areas, unless there is suspected spinal injury. Resident able to all 4 extremity per base line. o Did you Assess for pain or discomfort? No pain o What are the injuries and how are they being treated? o How was the resident transferred from the floor? Mechanical lift with assist of 2 o Did you call the MD or put a note in the BABBITTER book? Yes o Enter vital signs. BP 137/70, P 67, R 18, 98% on room air, Temp 97.4 o Did you notify family? Will update the family. o What was the root cause of the fall? Why did it happen?Resident rollout of bed. o Create an IMMEDIATE INTERVENTION to ensure that this won't immediately happen again. (Put in temporary care plan too). To making sure that supported with 2 pillow under each arm when he is in bed. o Complete Safety report and huddle (now one form), Crhistianne RN, Jaz- RN, Reg- Nursing assist , Alice-nursing assist. o If resident is seen in ED or fractured something, note that you started a [facility] Report process. Instructions are at the [facility] nurse's desk in a red binder labeled [facility] report.
--- NOTE | 2022-06-19 11:00 | PC.NURSE ---
Family Update: Daughter contacted and updated of fall, no injury.
--- NOTE | 2022-06-19 11:04 | PC.NURSE ---
Fall F/U : Vital and neuro sign at baseline. Resident is alert, pupils are reactive, hand bus or truck garage mechanic good?per his base line. No c/o pain and no nonverbal indication of pain/discomfort noted or reported at this time. Vital as follows : T98, P 80,, O2 98, 18, and B/P 105/66.
--- NOTE | 2022-06-19 12:07 | PC.SPIRITC ---
I provided visit for support and connection.
--- NOTE | 2022-06-19 15:00 | PC.NURSE ---
MDS clarification: Reviewed MDS ADL charting for FRANCIA 06/12/22, noted to have inconsistent charting. Interviewed NARs and determined that errors were made. Changes reviewed and coded as such in MDS.
[2022-06-19] MEDS: ROPINIROLE HCL 1 MG TABLET 2 MG PO (19:16)
[2022-06-19] MEDS: DONEPEZIL 10 MG TABLET PO (19:16)
[2022-06-20] VITALS (8 sets, daily range): BP systolic 101–128; BP diastolic 62–74; PULSE 61–74; RESP 16–20; TEMP 36.4–36.8; O2SAT 95–98; BMI 21.9
--- NOTE | 2022-06-20 01:55 | PC.NURSE ---
FALL FOLLOW-UP: Vital signs obtained and noted WNL. Neuros intact. Hand grasps and ROM at baseline. No noted verbal or non-verbal s/sx of pain. LOC at baseline.
--- NOTE | 2022-06-20 04:50 | PC.NURSE ---
FALL FOLLOW-UP: Neuros intact. Pupils equal and reactive. Hand grasps strong and equal. ROM at baseline with no s/sx of pain. Vital signs WNL.
[2022-06-20] MEDS: CARBIDOPA-LEVODOPA 25-100 TABLET 0.5 TAB PO ×4 (07:30→19:10)
--- NOTE | 2022-06-20 10:18 | PC.NURSE ---
Fall F/U : Resident was alert and responsive . Ate 100% of his breakfast. No vomiting or c/o pain. Vital and neuro sign are WNL. No injury noted
[2022-06-20] MEDS: ROPINIROLE HCL 1 MG TABLET 2 MG PO (19:10)
[2022-06-20] MEDS: DONEPEZIL 10 MG TABLET PO (19:10)
--- NOTE | 2022-06-20 21:11 | PC.NURSE ---
Fall f/u: Resident in wheel chair after dinner is very sleepy. vs and neuro checks are okay, resident does not report pain.
--- NOTE | 2022-06-20 21:13 | PC.NURSE ---
Fall f/u: Resident is in bed sleeping, woke up for fall assessment. Vs and neuro checks are with in normal limits no complaints of pain at this time.
[2022-06-21 02:00] VITALS: BP 130/72; PULSE 97; RESP 18; TEMP 36.8; O2SAT 97
--- NOTE | 2022-06-21 02:41 | PC.NURSE ---
Follow up fall Resident was in bed when vitals were checking, was not too cooperative but was done. Neuro intact, did not try to self transfer. will keep monitoring.
[2022-06-21 05:40] VITALS: BP 108/69; PULSE 70; RESP 16; TEMP 36.2; O2SAT 96
--- NOTE | 2022-06-21 05:41 | PC.NURSE ---
Fall follow up Resident night went fine , vitals are normal,neuro intact, will keep monitoring.
[2022-06-21] MEDS: CARBIDOPA-LEVODOPA 25-100 TABLET 0.5 TAB PO ×4 (08:34→19:00)
[2022-06-21 09:42] VITALS: TEMP 36.6; O2SAT 98
[2022-06-21 10:37] VITALS: BP 110/70; PULSE 72; RESP 20; TEMP 36.3; O2SAT 95
[2022-06-21] MEDS: ROPINIROLE HCL 1 MG TABLET 2 MG PO (19:00)
[2022-06-21] MEDS: DONEPEZIL 10 MG TABLET PO (19:00)
[2022-06-21 20:50] VITALS: TEMP 36.8; O2SAT 98
[2022-06-21 23:00] VITALS: TEMP 36.9; O2SAT 94
[2022-06-22] MEDS: CARBIDOPA-LEVODOPA 25-100 TABLET 0.5 TAB PO ×4 (07:40→19:00)
[2022-06-22 09:53] VITALS: TEMP 36.4; O2SAT 95
[2022-06-22] MEDS: DONEPEZIL 10 MG TABLET PO (19:00)
[2022-06-22] MEDS: ROPINIROLE HCL 1 MG TABLET 2 MG PO (19:00)
[2022-06-22 21:08] VITALS: TEMP 36.6; O2SAT 99
[2022-06-22 23:00] VITALS: TEMP 36.8; O2SAT 94
[2022-06-23] MEDS: CARBIDOPA-LEVODOPA 25-100 TABLET 0.5 TAB PO ×4 (07:36→19:11)
[2022-06-23] MEDS: OXYCODONE 5 MG TABLET 2.5 MG PO (07:38)
[2022-06-23 14:09] VITALS: TEMP 36.4; O2SAT 99
[2022-06-23 15:00] VITALS: TEMP 36.8; O2SAT 99
[2022-06-23] MEDS: DONEPEZIL 10 MG TABLET PO (19:11)
[2022-06-23] MEDS: ROPINIROLE HCL 1 MG TABLET 2 MG PO (19:11)
[2022-06-23 22:02] LABS: SARS PCR* Negative SARS-CoV-2 (Negative)
[2022-06-23 23:00] VITALS: TEMP 36.7; O2SAT 96
--- NOTE | 2022-06-24 03:23 | PC.NURSE ---
WEEKLY CHARTING : WEEK 2 Resident vitals are within normal range, care plan will remains the same. Resident is able to roll left to right with extensive to total 1-2 staff assistance, transfer with Yomi lift. No side rails for repositioning as of 06/11/22, staff assist resident in proper body alignment
[2022-06-24 07:00] VITALS: TEMP 36.8; O2SAT 99
[2022-06-24] MEDS: CARBIDOPA-LEVODOPA 25-100 TABLET 0.5 TAB PO ×4 (08:33→19:17)
[2022-06-24] MEDS: OXYCODONE 5 MG TABLET 2.5 MG PO (08:40)
[2022-06-24] MEDS: MAG HYDROX/ALUMINUM HYD/SIMETH 30 ML ORAL.SUSP PO (09:55)
--- NOTE | 2022-06-24 11:06 | PC.NURSE ---
Order: Oxycodone 2.5mg QAM by INTERVENTION MANAGERRohit. Resident noted having increase pain in the morning, doing AM cares difficult.
[2022-06-24] MEDS: ROPINIROLE HCL 1 MG TABLET 2 MG PO (19:17)
[2022-06-24] MEDS: DONEPEZIL 10 MG TABLET PO (19:17)
[2022-06-24 21:35] VITALS: TEMP 36.6; O2SAT 97
[2022-06-24 23:00] VITALS: TEMP 36.7; O2SAT 93
[2022-06-25] MEDS: CARBIDOPA-LEVODOPA 25-100 TABLET 0.5 TAB PO ×4 (07:31→19:22)
[2022-06-25] MEDS: OXYCODONE 5 MG TABLET 2.5 MG PO (07:31)
[2022-06-25 10:04] VITALS: TEMP 36.6; O2SAT 96
[2022-06-25] MEDS: bisacodyL 10 MG SUPP.RECT PR (13:20)
[2022-06-25 15:00] VITALS: TEMP 36.9; O2SAT 96
[2022-06-25] MEDS: DONEPEZIL 10 MG TABLET PO (19:22)
[2022-06-25] MEDS: ROPINIROLE HCL 1 MG TABLET 2 MG PO (19:22)
[2022-06-25 23:00] VITALS: TEMP 36.4; O2SAT 97
[2022-06-26] MEDS: OXYCODONE 5 MG TABLET 2.5 MG PO (07:38)
[2022-06-26] MEDS: CARBIDOPA-LEVODOPA 25-100 TABLET 0.5 TAB PO ×4 (07:38→18:30)
[2022-06-26 10:21] VITALS: TEMP 36.2; O2SAT 97
[2022-06-26] MEDS: ROPINIROLE HCL 1 MG TABLET 2 MG PO (18:30)
[2022-06-26] MEDS: DONEPEZIL 10 MG TABLET PO (18:30)
[2022-06-26 21:19] VITALS: TEMP 36.4; O2SAT 96
[2022-06-26 23:00] VITALS: TEMP 36.7; O2SAT 95
[2022-06-27] MEDS: OXYCODONE 5 MG TABLET 2.5 MG PO ×2 (02:10→07:21)
[2022-06-27] MEDS: CARBIDOPA-LEVODOPA 25-100 TABLET 0.5 TAB PO ×4 (07:21→19:00)
[2022-06-27 10:28] VITALS: TEMP 36.3; O2SAT 96
[2022-06-27 13:03] VITALS: BP 103/63; PULSE 63; RESP 20; TEMP 36.4; O2SAT 98
[2022-06-27 16:50] VITALS: TEMP 36.9; O2SAT 98
[2022-06-27] MEDS: ROPINIROLE HCL 1 MG TABLET 2 MG PO (19:00)
[2022-06-27] MEDS: DONEPEZIL 10 MG TABLET PO (19:00)
[2022-06-27 23:00] VITALS: TEMP 37.2; O2SAT 96
[2022-06-28 07:00] VITALS: TEMP 36.6; O2SAT 98
[2022-06-28] MEDS: CARBIDOPA-LEVODOPA 25-100 TABLET 0.5 TAB PO ×4 (07:09→19:23)
[2022-06-28] MEDS: OXYCODONE 5 MG TABLET 2.5 MG PO (07:09)
--- NOTE | 2022-06-28 15:23 | PC.SPIRITC ---
Ocean Biologist provided spiritual and emotional support to resident.
[2022-06-28 16:45] VITALS: TEMP 36.6; O2SAT 98
[2022-06-28] MEDS: ROPINIROLE HCL 1 MG TABLET 2 MG PO (19:23)
[2022-06-28] MEDS: DONEPEZIL 10 MG TABLET PO (19:23)
[2022-06-28 23:00] VITALS: TEMP 36.8; O2SAT 95
[2022-06-29] MEDS: OXYCODONE 5 MG TABLET 2.5 MG PO (06:52)
[2022-06-29 07:00] VITALS: TEMP 37; O2SAT 97
[2022-06-29] MEDS: MAG HYDROX/ALUMINUM HYD/SIMETH 30 ML ORAL.SUSP PO (07:00)
[2022-06-29] MEDS: CARBIDOPA-LEVODOPA 25-100 TABLET 0.5 TAB PO ×4 (08:50→19:04)
[2022-06-29 16:47] VITALS: TEMP 37.1; O2SAT 97
[2022-06-29] MEDS: ROPINIROLE HCL 1 MG TABLET 2 MG PO (19:04)
[2022-06-29] MEDS: DONEPEZIL 10 MG TABLET PO (19:04)
[2022-06-29 23:00] VITALS: TEMP 36.9; O2SAT 96
--- NOTE | 2022-06-30 04:26 | PC.NURSE ---
WEEKLY CHARTING - WEEK 3: Vital signs reviewed. Temporary and comprehensive care plan reviewed - no change. No documented skin integrity concerns at this time. Is incontinent of bowel and bladder. Wears brief. Is checked and changed in bed with total assist of 1-2 for pad management, clothing adjustment, and juancarlos-cares.
--- NOTE | 2022-06-30 06:51 | PC.NURSE ---
Week #3 - Toileting: Comprehensive care plan reviewed. No changes made. Nothing added to temporary care plan. Resident is incontinent of bowel and bladder. Is checked and changed in bed every 2 hours and PRN. Wears blue wing briefs. Pads, juancarlos cares, clothing management done by staff. Vital signs reviewed, no concerns. Skin: No issues at this time. Skin is checked routinely during cares and on bath day.
[2022-06-30 07:00] VITALS: TEMP 36.6; O2SAT 100
[2022-06-30] MEDS: OXYCODONE 5 MG TABLET 2.5 MG PO ×2 (07:06→13:27)
[2022-06-30] MEDS: CARBIDOPA-LEVODOPA 25-100 TABLET 0.5 TAB PO ×4 (07:06→19:31)
--- NOTE | 2022-06-30 11:23 | NUTR.NU ---
RDN with significant weight gain note: Resident with significant weight gain noted within 90 days (13.4% weight gain). 03/21/22 134 lbs; Current weight 153 lbs. BMI is currently normal at 22.0 kg/m2. Suspect weight gain is due to consistent adequate meal and snack intakes. Weight gain is beneficial with BMI now higher in normal range. Current diet is Regular, No current meal intakes to assess. Per family request, resident is receiving snacks in afternoon which mainly consists of oreos and ice cream recently. RDN has had conversation with resident's family regarding snacks, and they are not concerned about his nutrition due to them feeling he is getting enough nutrients at meals (noted in nutrition assessment 03/19/22). No nutrition interventions at this time. RDN will continue to monitor and follow-up prn.
--- NOTE | 2022-06-30 11:49 | PC.NURSE ---
COVID OUTBREAK TESTING: Resident provided verbal consent for outbreak COVID testing. Resident is currently asymptomatic. Resident/family will be notified only if resident is positive.
[2022-06-30 12:59] LABS: SARS PCR* Negative SARS-CoV-2 (Negative)
[2022-06-30 15:00] VITALS: TEMP 36.9; O2SAT 97
[2022-06-30] MEDS: DONEPEZIL 10 MG TABLET PO (19:31)
[2022-06-30] MEDS: ROPINIROLE HCL 1 MG TABLET 2 MG PO (19:31)
[2022-06-30 23:00] VITALS: TEMP 37.2; O2SAT 96
[2022-07-01 07:00] VITALS: TEMP 36.7; O2SAT 100
[2022-07-01] MEDS: CARBIDOPA-LEVODOPA 25-100 TABLET 0.5 TAB PO ×4 (07:10→19:06)
[2022-07-01] MEDS: OXYCODONE 5 MG TABLET 2.5 MG PO (07:10)
--- NOTE | 2022-07-01 11:48 | PC.NURSE ---
Medication time change: Oxycodone @ 07 changed to 0500, Sinemet 08,12,16,20 adjusted to 05,11,16,20. Resident noted having increase rigidity/pain with morning cares that is difficult for staff to do cares. TAILING HAND here and okay time adjusted.
[2022-07-01] MEDS: bisacodyL 10 MG SUPP.RECT PR (12:55)
[2022-07-01 17:03] VITALS: TEMP 37.2; O2SAT 99
[2022-07-01] MEDS: ROPINIROLE HCL 1 MG TABLET 2 MG PO (19:06)
[2022-07-01] MEDS: DONEPEZIL 10 MG TABLET PO (19:06)
[2022-07-01 23:00] VITALS: TEMP 36.6; O2SAT 94
[2022-07-02] MEDS: CARBIDOPA-LEVODOPA 25-100 TABLET 0.5 TAB PO ×4 (05:16→19:41)
[2022-07-02] MEDS: OXYCODONE 5 MG TABLET 2.5 MG PO (05:16)
[2022-07-02 07:00] VITALS: TEMP 37; O2SAT 100
--- NOTE | 2022-07-02 13:17 | PC.PHA ---
MEDICATION REVIEW MEDICATION MONITORING: No pharmacotherapeutics to monitor. IRREGULARITY/COMMENTS:Patient had recent time adjustments to Sinemet regimen and pain medication. He will continue to see neurologist per note review from recent care conference. Medication regimen reviewed, need for prn oxycodone 2.5 mg minimal. SUGGESTED COURSE OF ACTION: No medication recommendations for June.
[2022-07-02 15:00] VITALS: TEMP 36.7; O2SAT 98
[2022-07-02] MEDS: ROPINIROLE HCL 1 MG TABLET 2 MG PO (19:41)
[2022-07-02] MEDS: DONEPEZIL 10 MG TABLET PO (19:41)
[2022-07-02 23:00] VITALS: TEMP 36.7; O2SAT 95
[2022-07-03] MEDS: OXYCODONE 5 MG TABLET 2.5 MG PO ×2 (05:07→17:45)
[2022-07-03] MEDS: CARBIDOPA-LEVODOPA 25-100 TABLET 0.5 TAB PO ×4 (05:07→19:19)
[2022-07-03 10:31] VITALS: TEMP 36.8; O2SAT 98
[2022-07-03 16:39] VITALS: TEMP 37.4; O2SAT 98
[2022-07-03] MEDS: ROPINIROLE HCL 1 MG TABLET 2 MG PO (19:19)
[2022-07-03] MEDS: DONEPEZIL 10 MG TABLET PO (19:19)
[2022-07-03 23:00] VITALS: TEMP 36.8; O2SAT 95
[2022-07-04] MEDS: OXYCODONE 5 MG TABLET 2.5 MG PO (04:55)
[2022-07-04] MEDS: CARBIDOPA-LEVODOPA 25-100 TABLET 0.5 TAB PO ×4 (04:55→19:04)
[2022-07-04] MEDS: SENNOSIDES 1 TAB TABLET 2 TAB PO (09:02)
[2022-07-04 09:57] VITALS: BP 123/76; PULSE 65; RESP 20; TEMP 36.8; O2SAT 99; BMI 21.6
--- NOTE | 2022-07-04 10:46 | PC.NURSE ---
Order: Polyethylene 17gm daily by Rohit PRICE.
--- NOTE | 2022-07-04 13:48 | PC.SOCIAL ---
Phone call to resident's daughter, Nohemi Araya, regarding upcoming appointment and transportation. Asked if family would ride along and Nohemi stated family (Lanette) will meet resident at the appointment. Confirmed that Nohemi will make the payment for transportation. Phone call to [facility] in [place] at [phone]. Set transportation to resident's appointment on 07/11/22 at 9:45 am at [facility] in [place] (Dept. of Neurology, [facility]. 8th floor, desk [address] South). Requested larger van for transport. Resident's family (Lanette) will meet resident at appointment. [employer] informed that they drop resident off at [facility] doors and they do not take resident to appointment. [facility] will arrive at [facility] at 8:30 am. Phone call to Resident's daughter, Nohemi Araya, left voicemail informing that [employer] is transporting and will be calling her for payment. Also informed that the family that is meeting resident at the appointment should wait outside the [facility] doors to retrieve resident from [employer]. Informed Nohemi that she can call social work with any questions.
[2022-07-04] MEDS: DONEPEZIL 10 MG TABLET PO (19:04)
[2022-07-04] MEDS: ROPINIROLE HCL 1 MG TABLET 2 MG PO (19:04)
[2022-07-04 20:52] VITALS: TEMP 36.8; O2SAT 96
[2022-07-04 23:00] VITALS: TEMP 36.7; O2SAT 95
[2022-07-05] MEDS: CARBIDOPA-LEVODOPA 25-100 TABLET 0.5 TAB PO ×4 (04:25→19:00)
[2022-07-05] MEDS: OXYCODONE 5 MG TABLET 2.5 MG PO (04:25)
[2022-07-05] MEDS: polyethylene glycoL 3350 17 GM PACK PO (07:58)
[2022-07-05 09:26] VITALS: TEMP 37; O2SAT 97
[2022-07-05] MEDS: DONEPEZIL 10 MG TABLET PO (19:00)
[2022-07-05] MEDS: ROPINIROLE HCL 1 MG TABLET 2 MG PO (19:00)
[2022-07-05 21:10] VITALS: TEMP 36.8; O2SAT 95
--- NOTE | 2022-07-05 21:29 | PC.NURSE ---
Status: Resident puts both feet on the ground and stands multiple times on PM shift. Cobbler Upper repositioned feet back on foot rests, but resident would bring feet off of foot rest and attempt to stand again.
[2022-07-05 23:00] VITALS: TEMP 36.9; O2SAT 100
[2022-07-06] MEDS: OXYCODONE 5 MG TABLET 2.5 MG PO (04:43)
[2022-07-06] MEDS: CARBIDOPA-LEVODOPA 25-100 TABLET 0.5 TAB PO ×4 (04:43→19:02)
[2022-07-06] MEDS: polyethylene glycoL 3350 17 GM PACK PO (08:02)
[2022-07-06 10:21] VITALS: TEMP 36.6; O2SAT 98
[2022-07-06 16:46] VITALS: TEMP 36.8; O2SAT 98
[2022-07-06] MEDS: DONEPEZIL 10 MG TABLET PO (19:02)
[2022-07-06] MEDS: ROPINIROLE HCL 1 MG TABLET 2 MG PO (19:02)
[2022-07-06 23:00] VITALS: TEMP 36.3; O2SAT 96
[2022-07-07] VITALS (7 sets, daily range): BP systolic 100–148; BP diastolic 60–77; PULSE 60–85; RESP 16–20; TEMP 36.6–37; O2SAT 96–100
[2022-07-07] MEDS: CARBIDOPA-LEVODOPA 25-100 TABLET 0.5 TAB PO ×4 (04:52→19:08)
[2022-07-07] MEDS: OXYCODONE 5 MG TABLET 2.5 MG PO (04:52)
--- NOTE | 2022-07-07 05:43 | LTC.FALL ---
[facility] Fall Note: o Fall Date: 07/07/2022 o Fall Time: 0450 o What happened? Resident was found kneeled down near his bed. o Who found the resident and who responded? MICHELLE after the alarm sounded o What was the resident doing? Was out of his bed . o How the resident was found (knees, left side, arm under them), any hazards (cords, objects, nonskid slippers) brakes on? Proper equipment? both knees on the floor, holding on to the bed. o Did you assess for head trauma, spinal injuries, skeletal injuries, neurological changes and status, and head and neck pain? What did you find? yes , no injuries except little scratch between the two last right hand fingers. o Did you assess ROM in shoulders, elbows, hips, knees, any other affected areas, unless there is suspected spinal injury. yes, no injuries. o Did you Assess for pain or discomfort? yes , discomfort on knees, he got his scheduled Oxycodone 2.5 mg after the fall assessment o What are the injuries and how are they being treated? cleaned and left opened to air. o How was the resident transferred from the floor? EZ lift to bed o Did you call the MD or put a note in the TEACHER OF FAMILY AND CONSUMER SCIENCE book? yes o Enter vital signs. 97.9 18 66 130//74 98% RA o Did you notify family? Notify the morning Nurse to call. o What was the root cause of the fall? Why did it happen? was incontinent of bowel . o Create an IMMEDIATE INTERVENTION to ensure that this won't immediately happen again. (Put in temporary care plan too) o Complete Safety report and huddle (now one form) will do. o If resident is seen in ED or fractured something, note that you started a [facility] Report process. Instructions are at the East nurse's desk in a red binder labeled VA report. no fracture.
--- NOTE | 2022-07-07 07:26 | PC.NURSE ---
Week #4: Care plan and Temporary care plan reviewed with no changes. Vital signs reviewed with no concerns noted at this time. No changes to hearing, vision, or orientation. Staff anticipate needs, during NOC, as resident is unable to make needs known. Resident is not on any psychotropic medications at this time. Behaviors: No changes to behavior. Sleeps well between toileting/repositioning. New fall this morning : found resident kneeled down near his bed, no injuries.
[2022-07-07] MEDS: polyethylene glycoL 3350 17 GM PACK PO (07:47)
--- NOTE | 2022-07-07 08:02 | PC.NURSE ---
WEEKLY CHARTING - WEEK 4: VS reviewed - WNL Temporary care plan - no changes Comprehensive care plan - no changes Behavior/mood concerns - pt occasionally attempts to stand up or get out of bed independently - staff reminds pt to use call light. It pt has soiled brief pt does not wait for staff - pt attempts to get up independently. Pt fall 07/07 - Neuro/VS Q4 x 48hrs. No psychotropic medications No changes to vision, hearing, orientation No changes in medication No changes to chronic health conditions
--- NOTE | 2022-07-07 12:12 | PC.NURSE ---
informed: Resident`s was informed about the fall, that he did not have any injury, ate his breakfast 100% and all vitals are WNL. The wants resident to be referred to PT/OT since she notice resident is more active during her previous visits.
[2022-07-07 13:57] LABS: SARS PCR* Negative SARS-CoV-2 (Negative)
[2022-07-07] MEDS: ROPINIROLE HCL 1 MG TABLET 2 MG PO (19:08)
[2022-07-07] MEDS: DONEPEZIL 10 MG TABLET PO (19:08)
[2022-07-08] VITALS (8 sets, daily range): BP systolic 101–121; BP diastolic 65–80; PULSE 66–96; RESP 16–20; TEMP 36.7–37.6; O2SAT 95–99
[2022-07-08] MEDS: OXYCODONE 5 MG TABLET 2.5 MG PO (04:36)
[2022-07-08] MEDS: CARBIDOPA-LEVODOPA 25-100 TABLET 0.5 TAB PO ×4 (04:36→19:29)
--- NOTE | 2022-07-08 05:27 | PC.NURSE ---
FALL FOLLOW UP Resident slept throughout the night, he did not self transfer or tried to move out of the bed. Vitals were normal.
[2022-07-08] MEDS: polyethylene glycoL 3350 17 GM PACK PO (08:07)
--- NOTE | 2022-07-08 09:38 | PC.NURSE ---
Fall F/U - Neuros 07/07 0600 Mark XIE&Ox4, DOMO transporter driver strength 10/17,
--- NOTE | 2022-07-08 11:27 | PC.SPIRITC ---
I provided visit for connection and companionship.
[2022-07-08] MEDS: DONEPEZIL 10 MG TABLET PO (19:29)
[2022-07-08] MEDS: ROPINIROLE HCL 1 MG TABLET 2 MG PO (19:29)
[2022-07-09] VITALS (9 sets, daily range): BP systolic 97–134; BP diastolic 64–73; PULSE 60–78; RESP 16–20; TEMP 36.4–36.9; O2SAT 95–98
[2022-07-09] MEDS: OXYCODONE 5 MG TABLET 2.5 MG PO (04:58)
[2022-07-09] MEDS: CARBIDOPA-LEVODOPA 25-100 TABLET 0.5 TAB PO ×4 (04:58→19:01)
--- NOTE | 2022-07-09 05:38 | PC.NURSE ---
FALL FOLLOW-UP: No latent injuries noted from fall. Vital signs WNL. ROM to all extremities at baseline.
[2022-07-09] MEDS: polyethylene glycoL 3350 17 GM PACK PO (08:04)
--- NOTE | 2022-07-09 09:41 | PC.NURSE ---
FAll F/U - Neuros ROJAS, Mark&Ox4, BUE strength equal 5/5,
--- NOTE | 2022-07-09 13:46 | LTC.FALL ---
[facility] Fall Note: o Fall Date: 07/09/22 o Fall Time: 1330 o What happened? Found on the floor o Who found the resident and who responded? Christianne Edwards & Lawanda Hidalgo o What was the resident doing? Standing o How the resident was found (knees, left side, arm under them), any hazards (cords, objects, nonskid slippers) brakes on? Proper equipment? Found kneeling on the floor on both knees on (L) side of bed. o Did you assess for head trauma, spinal injuries, skeletal injuries, neurological changes and status, and head and neck pain? What did you find? Yes, no injury noted. Alert, wide awake. o Did you assess ROM in shoulders, elbows, hips, knees, any other affected areas, unless there is suspected spinal injury. ROM within his range. o Did you Assess for pain or discomfort? Denies pain nor signs of pain noted. o What are the injuries and how are they being treated? No injury. o How was the resident transferred from the floor? Resident stood up , one assist back to bed. o Did you call the MD or put a note in the DEICER TESTER book? Note in DEICER TESTER book. o Enter vital signs. T-98.2 BP-123/73 P-72 RR-20 Sat 97% o Did you notify family? Will notify o What was the root cause of the fall? Why did it happen? Self transfer/standing o Create an IMMEDIATE INTERVENTION to ensure that this won't immediately happen again. (Put in temporary care plan too) Put in the recliner after lunch. o Complete Safety report and huddle (now one form) o If resident is seen in ED or fractured something, note that you started a VA Report process. Instructions are at the East nurse's desk in a red binder labeled VA report.
--- NOTE | 2022-07-09 14:15 | PC.NURSE ---
Family Update: Daughter contacted and updated of fall.
[2022-07-09] MEDS: ROPINIROLE HCL 1 MG TABLET 2 MG PO (19:01)
[2022-07-09] MEDS: DONEPEZIL 10 MG TABLET PO (19:01)
--- NOTE | 2022-07-09 22:15 | PC.NURSE ---
Fall F/U: Resident VSS and ROM WNL. Denies any pain or discomfort. No signs of injury.
[2022-07-10] VITALS (7 sets, daily range): BP systolic 101–126; BP diastolic 63–73; PULSE 78–95; RESP 16–20; TEMP 36.8–37.2; O2SAT 94–98
--- NOTE | 2022-07-10 04:41 | PC.NURSE ---
FALL FOLLOW-UP: Vital signs WNL. ROM to all extremities a baseline. No noted verbal or non-verbal s/sx of pain. Has been sleeping well throughout the night. Has not activated bed alarm this shift.
[2022-07-10] MEDS: CARBIDOPA-LEVODOPA 25-100 TABLET 0.5 TAB PO ×4 (05:00→19:59)
[2022-07-10] MEDS: OXYCODONE 5 MG TABLET 2.5 MG PO (05:00)
[2022-07-10] MEDS: polyethylene glycoL 3350 17 GM PACK PO (08:02)
[2022-07-10] MEDS: SENNOSIDES 1 TAB TABLET 2 TAB PO (13:17)
[2022-07-10] MEDS: ROPINIROLE HCL 1 MG TABLET 2 MG PO (19:59)
[2022-07-10] MEDS: DONEPEZIL 10 MG TABLET PO (19:59)
[2022-07-11 00:44] VITALS: BP 111/66; PULSE 76; RESP 16; TEMP 37.2; O2SAT 94
[2022-07-11] MEDS: OXYCODONE 5 MG TABLET 2.5 MG PO (05:04)
[2022-07-11 05:53] VITALS: BP 107/72; PULSE 68; RESP 18; TEMP 36.8; O2SAT 94
--- NOTE | 2022-07-11 08:40 | PC.NURSE ---
Appointment: Resident to Neuro Appt in wheelchair via [facility]ivan. Cards of Sinemet sent per [place]'s instruction.
[2022-07-11 11:04] VITALS: BP 90/60; PULSE 86; RESP 20; TEMP 36.8; O2SAT 97; BMI 21.9
--- NOTE | 2022-07-11 13:59 | PC.NURSE ---
Return: Back from Neuro appt with new order. Increase Sinemet 25/100 mg to 1 tablet QID 2 05,11,16,20. Start Quetapine 12.5mg QHS.
--- NOTE | 2022-07-11 14:30 | PC.NURSE ---
Family: Daughter contacted to call for consent to start Quetiapine.
[2022-07-11] MEDS: CARBIDOPA-LEVODOPA 25-100 TABLET 1 TAB PO ×2 (15:20→19:17)
[2022-07-11] MEDS: DONEPEZIL 10 MG TABLET PO (19:17)
[2022-07-11] MEDS: ROPINIROLE HCL 1 MG TABLET 2 MG PO (19:17)
[2022-07-11 21:52] VITALS: TEMP 36.6; O2SAT 9
--- NOTE | 2022-07-11 22:57 | PC.NURSE ---
New med orders from Neurology visit: Ho came back from [place] with an envelope with new medication orders. Increase Sinemet to 1 tab QID 5,11,16,20. It also included an order for Seroquel 12.5mg Po Q HS. This did not include a diagnosis for this anti psychotic. Also the pharmacy could not read the physicians name who prescribed. Called [facility] and requested to find out who prescribed the medications. They were not aware of who would have prescribed them. Sent the physicians orders to them and have not heard back. Did not receive either New Sinemet or Seroquel. Able to give two halves to equal the whole tab at this time on the cards in the cart.
[2022-07-11 23:00] VITALS: TEMP 36.6; O2SAT 96
[2022-07-12] MEDS: ACETAMINOPHEN 500 MG TABLET 1000 MG PO (03:21)
[2022-07-12] MEDS: OXYCODONE 5 MG TABLET 2.5 MG PO (05:13)
[2022-07-12] MEDS: CARBIDOPA-LEVODOPA 25-100 TABLET 1 TAB PO ×4 (05:13→19:02)
[2022-07-12 07:00] VITALS: TEMP 36.9; O2SAT 99
[2022-07-12] MEDS: polyethylene glycoL 3350 17 GM PACK PO (08:08)
[2022-07-12 16:59] VITALS: TEMP 36.7; O2SAT 98
[2022-07-12] MEDS: QUETIAPINE 25 MG TABLET 12.5 MG PO (19:15)
[2022-07-12] MEDS: DONEPEZIL 10 MG TABLET PO (19:15)
[2022-07-12] MEDS: ROPINIROLE HCL 1 MG TABLET 2 MG PO (19:15)
--- NOTE | 2022-07-12 21:55 | PC.NURSE ---
Consent for Psychotropic: Called daughter Nohemi Araya to discuss the new Seroquel order and get the consent to administer. She gave this financial writer 's name and reason for starting the Seroquel. 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
[2022-07-12 23:00] VITALS: TEMP 36.6; O2SAT 94
[2022-07-13] MEDS: CARBIDOPA-LEVODOPA 25-100 TABLET 1 TAB PO ×4 (05:02→19:16)
[2022-07-13] MEDS: OXYCODONE 5 MG TABLET 2.5 MG PO (05:02)
[2022-07-13 07:00] VITALS: TEMP 36.7; O2SAT 99
[2022-07-13] MEDS: polyethylene glycoL 3350 17 GM PACK PO (08:02)
[2022-07-13 17:05] VITALS: TEMP 37.3; O2SAT 94
[2022-07-13] MEDS: ROPINIROLE HCL 1 MG TABLET 2 MG PO (19:16)
[2022-07-13] MEDS: QUETIAPINE 25 MG TABLET 12.5 MG PO (19:16)
[2022-07-13] MEDS: DONEPEZIL 10 MG TABLET PO (19:16)
[2022-07-13 23:00] VITALS: TEMP 37.2; O2SAT 99
[2022-07-13 23:30] VITALS: BP 146/68; PULSE 78; RESP 18; TEMP 37.2; O2SAT 99
[2022-07-14] VITALS (7 sets, daily range): BP systolic 95–131; BP diastolic 60–75; PULSE 56–79; RESP 16–18; TEMP 36.5–36.9; O2SAT 96–98
--- NOTE | 2022-07-14 00:21 | LTC.FALL ---
[facility] Fall Note: o Fall Date:07/13/22 o Fall Time:2330 o What happened?Bed alarm was sounding for <1o seconds. When staff arrived in room, resident was laying on the floor next to the bed. o Who found the resident and who responded? DALLAS Quiñones o What was the resident doing? laying on the floor o How the resident was found (knees, left side, arm under them), any hazards (cords, objects, nonskid slippers) brakes on? Proper equipment? Laying on the floor on left side of body between the bed and sink with back to the bed. o Did you assess for head trauma, spinal injuries, skeletal injuries, neurological changes and status, and head and neck pain? What did you find? No noted s/sx of head/neck trauma. Resident denies hitting head. o Did you assess ROM in shoulders, elbows, hips, knees, any other affected areas, unless there is suspected spinal injury. ROM to all extremities at baseline with no noted increase in pain. o Did you Assess for pain or discomfort? No noted pain at this time. o What are the injuries and how are they being treated? None o How was the resident transferred from the floor? Two assist with full mechanical lift. o Did you call the MD or put a note in the ALODIZE MACHINE OPERATOR book? Note in ALODIZE MACHINE OPERATOR book. o Enter vital signs. 98.9-78-18-146/68-99% on RA. o Did you notify family? Will have AM nurse notify. o What was the root cause of the fall? Why did it happen? Restlessness o Create an IMMEDIATE INTERVENTION to ensure that this won't immediately happen again. (Put in temporary care plan too) Continue with current fall interventions pending IDT review. o Complete Safety report and huddle (now one form) o If resident is seen in ED or fractured something, note that you started a VA Report process. Instructions are at the East nurse's desk in a red binder labeled VA report.
--- NOTE | 2022-07-14 02:57 | PC.NURSE ---
WEEKLY CHARTING - WEEK 1: Vital signs reviewed - no concerns. Temporary and comprehensive care plan reviewed - no change. Resident occasionally reports pain. Currently receives oxycodone 2.5mg Q AM at 0500 & Q6 hours PRN and acetaminophen 1000mg TID PRN for pain management. Requires total assist of 1 for dressing, grooming, bathing, and oral cares. Total assist for meals. Meal intake adequate. Regular diet with regular texture.
[2022-07-14] MEDS: OXYCODONE 5 MG TABLET 2.5 MG PO (05:16)
[2022-07-14] MEDS: CARBIDOPA-LEVODOPA 25-100 TABLET 1 TAB PO ×4 (05:16→19:39)
--- NOTE | 2022-07-14 05:45 | PC.NURSE ---
FALL FOLLOW-UP: Vital signs stable. Neuros intact. ROM and LOC at baseline. Has remained restless throughout the remainder of the night. Denies pain when asked with no noted non-verbal s/sx of pain at this time.
--- NOTE | 2022-07-14 07:28 | PC.NURSE ---
Fall F/U: Resident in room, up in wheelchair. No signs of pain noted. Denies pain. FRANCESCA. Hand grasps fair, equal.
[2022-07-14] MEDS: polyethylene glycoL 3350 17 GM PACK PO (08:22)
--- NOTE | 2022-07-14 10:10 | PC.NURSE ---
COVID OUTBREAK TESTING Residents daughter provided verbal consent for outbreak COVID testing. Resident is currently asymptomatic.? Resident/family will be notified only if resident is positive.
--- NOTE | 2022-07-14 11:18 | PC.NURSE ---
Fall F/U: Resident up in wheelchair, in the dining room. Neuro's stable. Denies pain.
--- NOTE | 2022-07-14 13:11 | PC.NURSE ---
Family Update: Daughter contacted and updated of fall, no injury.
[2022-07-14 13:48] LABS: SARS PCR* Negative SARS-CoV-2 (Negative)
--- NOTE | 2022-07-14 15:00 | PC.NURSE ---
Fall Follow-up: Resident is unable to follow command in response to PERRLA assessment or participate in ROM due to disease. Cognition remains at baseline, and vital signs are normal at this time. Denies headache and blurry vision. No vomiting episode noted or reported.
[2022-07-14] MEDS: DONEPEZIL 10 MG TABLET PO (19:39)
[2022-07-14] MEDS: QUETIAPINE 25 MG TABLET 12.5 MG PO (19:39)
[2022-07-14] MEDS: ROPINIROLE HCL 1 MG TABLET 2 MG PO (19:39)
--- NOTE | 2022-07-14 21:18 | PC.NURSE ---
Fall Follow-up: Resident is unable to follow command in response to PERRLA assessment or participate in ROM due to disease. Vital signs are normal, denies headache and blurry vision. No vomiting episode noted or reported. Level of consciousness remains at baseline. No concerns as related to fall incident reported or noted at this time.
--- NOTE | 2022-07-14 23:57 | PC.NURSE ---
FALL FOLLOW-UP: Vital signs: 98.3-70-16-131/69-96% on RA. Neuros intact. LOC at baseline. Denies pain, headache, blurred vision, nausea.
[2022-07-15] VITALS (8 sets, daily range): BP systolic 75–138; BP diastolic 39–72; PULSE 68–91; RESP 16–18; TEMP 36.4–37; O2SAT 92–99
--- NOTE | 2022-07-15 03:33 | PC.NURSE ---
FALL FOLLOW-UP: Vital signs: 98.4-76-18-138/72-95% on RA. Neuros intact. Restless through the night. Denies pain, headache, blurred vision, nausea.
[2022-07-15] MEDS: CARBIDOPA-LEVODOPA 25-100 TABLET 1 TAB PO ×4 (05:07→18:44)
[2022-07-15] MEDS: OXYCODONE 5 MG TABLET 2.5 MG PO (05:07)
--- NOTE | 2022-07-15 07:00 | PC.NURSE ---
Post fall f/u note 0700: Patient is materials tech is equal on both sides. Pupils are the same size and reactive. Patient unable to follow commands to smile and follow finger due to his diagnosis of parkinsons. Vital signs obtained. BP is low. gender studies professor was updated and will be discussing with DIVISION MANAGER this morning. Patient denies pain and nausea at this time. Did not sleep well and is very jerky and stiff this morning.
[2022-07-15] MEDS: polyethylene glycoL 3350 17 GM PACK PO (07:54)
--- NOTE | 2022-07-15 13:24 | PC.NURSE ---
Fall F/u for 1130: Resident in the dining room. No symptoms of pain noted. Neuro's stable. TOOTH CLERK here, updated since start of Seroquel resident doesn't sleep during the night. Low BP noted.
--- NOTE | 2022-07-15 14:32 | PC.NURSE ---
Order: Rickey Jeffersone Rohit change Seroquel from HS to 1600 due to sleep disturbances.
[2022-07-15] MEDS: QUETIAPINE 25 MG TABLET 12.5 MG PO (15:14)
--- NOTE | 2022-07-15 17:00 | PC.NURSE ---
Fall f/u: resident in wheel chair eating. Denies pain, VS and neuros are okay.
[2022-07-15] MEDS: ROPINIROLE HCL 1 MG TABLET 2 MG PO (18:44)
[2022-07-15] MEDS: DONEPEZIL 10 MG TABLET PO (18:44)
--- NOTE | 2022-07-15 20:00 | PC.NURSE ---
Fall f/u: Resident is in bed sleeping. Woke for fall assessment. VS and neuros are okay, denies pain.
[2022-07-16] MEDS: OXYCODONE 5 MG TABLET 2.5 MG PO (05:17)
[2022-07-16] MEDS: CARBIDOPA-LEVODOPA 25-100 TABLET 1 TAB PO ×4 (05:17→19:09)
[2022-07-16 07:00] VITALS: TEMP 36.4; O2SAT 99
[2022-07-16] MEDS: polyethylene glycoL 3350 17 GM PACK PO (08:02)
--- NOTE | 2022-07-16 14:11 | PC.NURSE ---
Addendum entered by Consuelo Henry RN 07/17/22 14:04: After speaking with DON. Orthostatic BP will be done monthly from lying to sitting. Set up in the interventions at this time. Original Note: Orthostatic BP: unable to obtain monthly ortho BP due to Seroquel medication d/t resident unable to stand safely and use of Yomi lift for transfers. Intervention set up to monitor for s/s of dizziness.
[2022-07-16 15:00] VITALS: TEMP 36.7; O2SAT 97
[2022-07-16] MEDS: QUETIAPINE 25 MG TABLET 12.5 MG PO (15:36)
--- NOTE | 2022-07-16 16:14 | PC.SPIRITC ---
I provided visit for support and connection.
[2022-07-16] MEDS: ROPINIROLE HCL 1 MG TABLET 2 MG PO (19:09)
[2022-07-16] MEDS: DONEPEZIL 10 MG TABLET PO (19:09)
[2022-07-16 23:00] VITALS: TEMP 36.7; O2SAT 98
[2022-07-17] MEDS: OXYCODONE 5 MG TABLET 2.5 MG PO (05:01)
[2022-07-17] MEDS: CARBIDOPA-LEVODOPA 25-100 TABLET 1 TAB PO ×4 (05:01→19:32)
[2022-07-17 07:00] VITALS: TEMP 36.8; O2SAT 97
[2022-07-17] MEDS: polyethylene glycoL 3350 17 GM PACK PO (08:06)
--- NOTE | 2022-07-17 10:57 | PC.NURSE ---
AIMS completed due to initiation of antipsychotic medication Seroguel. Resident was very alert and cooperative with assessment. He was able to follow directions with sticking his tongue out and touching each finger to thumb. Did not have him stand. No abnormal tardive dyskinesia movements noted but he does have Parkinson's hand movements.
--- NOTE | 2022-07-17 14:02 | PC.NURSE ---
BRAIN STIM CHECK: monthly battery check performed--battery life indicated Full. Therapy turned on. Will continue to check monthly and update family as needed.
[2022-07-17 14:07] VITALS: BP 114/74; PULSE 85
[2022-07-17 15:00] VITALS: TEMP 36.9; O2SAT 98
[2022-07-17] MEDS: QUETIAPINE 25 MG TABLET 12.5 MG PO (15:40)
[2022-07-17] MEDS: ROPINIROLE HCL 1 MG TABLET 2 MG PO (19:32)
[2022-07-17] MEDS: DONEPEZIL 10 MG TABLET PO (19:32)
[2022-07-17 23:00] VITALS: TEMP 36.6; O2SAT 96
[2022-07-18] MEDS: CARBIDOPA-LEVODOPA 25-100 TABLET 1 TAB PO ×4 (04:21→19:39)
[2022-07-18] MEDS: OXYCODONE 5 MG TABLET 2.5 MG PO (04:22)
[2022-07-18] MEDS: polyethylene glycoL 3350 17 GM PACK PO (07:47)
[2022-07-18 10:24] VITALS: BP 102/50; PULSE 96; RESP 22; TEMP 36.3; O2SAT 98; BMI 21.8
--- NOTE | 2022-07-18 13:27 | PC.NURSE ---
Behavior: Resident did not have any significant side effect from medication except that he has been attempting to get up by himself .Currently resident is on fall watch and close monitoring.
[2022-07-18 13:45] VITALS: BP 102/50; BP 90/60
[2022-07-18] MEDS: QUETIAPINE 25 MG TABLET 12.5 MG PO (15:05)
[2022-07-18] MEDS: DONEPEZIL 10 MG TABLET PO (19:39)
[2022-07-18] MEDS: ROPINIROLE HCL 1 MG TABLET 2 MG PO (19:39)
[2022-07-18 20:57] VITALS: TEMP 37.1; O2SAT 100
--- NOTE | 2022-07-18 21:15 | PC.NURSE ---
Status: Resident sleeping and would not wake up for dinner. Dinner was saved to be offered later however, resident continued to sleep through the end of the PM shift.
[2022-07-18 23:00] VITALS: TEMP 36.6; O2SAT 95
[2022-07-19] MEDS: CARBIDOPA-LEVODOPA 25-100 TABLET 1 TAB PO ×4 (04:04→18:31)
[2022-07-19] MEDS: OXYCODONE 5 MG TABLET 2.5 MG PO (04:04)
[2022-07-19] MEDS: polyethylene glycoL 3350 17 GM PACK PO (08:22)
[2022-07-19 09:22] VITALS: TEMP 36.8; O2SAT 98
--- NOTE | 2022-07-19 12:53 | PC.NURSE ---
Behavior : Resident did not have any issue except that when staff put him on the bed or recliner to rest , resident attempts to get up after 30 min and when he is sitting at the nurses station, he is falling asleep. Appetite is good and no side effect of the medication. Behavior is at his usual baseline.
--- NOTE | 2022-07-19 13:03 | PC.NURSE ---
Behavior: Resident has a behavior issue for a short while . She came to the counter and complaint about staff taking her gold color calender. She keep on asking for the person and claiming that the person took her calender. Staff redirect resident and informed that the staff is not working and she can ask the person on Thursday. Resident agreed with the suggestion and managed to forget about the issue towards lunch. Resident claims that she is nervous and keep requesting for Xanax. She was given scheduled dose at 1245
[2022-07-19] MEDS: QUETIAPINE 25 MG TABLET 12.5 MG PO (15:05)
[2022-07-19] MEDS: DONEPEZIL 10 MG TABLET PO (18:31)
[2022-07-19] MEDS: ROPINIROLE HCL 1 MG TABLET 2 MG PO (18:31)
[2022-07-19 21:09] VITALS: TEMP 36.3; O2SAT 90
[2022-07-19 23:00] VITALS: TEMP 36.3; O2SAT 98
[2022-07-20] MEDS: OXYCODONE 5 MG TABLET 2.5 MG PO ×3 (02:20→09:03)
[2022-07-20] MEDS: CARBIDOPA-LEVODOPA 25-100 TABLET 1 TAB PO ×4 (05:05→19:39)
[2022-07-20] MEDS: polyethylene glycoL 3350 17 GM PACK PO (09:02)
[2022-07-20 10:19] VITALS: TEMP 36.7; O2SAT 99
[2022-07-20] MEDS: QUETIAPINE 25 MG TABLET 12.5 MG PO (15:04)
[2022-07-20] MEDS: ROPINIROLE HCL 1 MG TABLET 2 MG PO (19:39)
[2022-07-20] MEDS: DONEPEZIL 10 MG TABLET PO (19:39)
[2022-07-20 20:58] VITALS: TEMP 37.2; O2SAT 99
[2022-07-20 23:00] VITALS: TEMP 36.6; O2SAT 97
[2022-07-21] MEDS: CARBIDOPA-LEVODOPA 25-100 TABLET 1 TAB PO ×4 (04:41→19:12)
[2022-07-21] MEDS: OXYCODONE 5 MG TABLET 2.5 MG PO (04:42)
[2022-07-21 07:00] VITALS: TEMP 36.2; O2SAT 97
[2022-07-21] MEDS: polyethylene glycoL 3350 17 GM PACK PO (07:46)
--- NOTE | 2022-07-21 09:40 | PC.NURSE ---
COVID OUTBREAK TESTING Residents daughter gave verbal consent for outbreak COVID testing. Resident is currently asymptomatic.? Resident/family will be notified only if resident is positive.
[2022-07-21 12:24] LABS: SARS PCR* Negative SARS-CoV-2 (Negative)
[2022-07-21 15:00] VITALS: TEMP 36.6; O2SAT 97
[2022-07-21] MEDS: QUETIAPINE 25 MG TABLET 12.5 MG PO (15:36)
[2022-07-21] MEDS: ROPINIROLE HCL 1 MG TABLET 2 MG PO (19:13)
[2022-07-21] MEDS: DONEPEZIL 10 MG TABLET PO (19:13)
[2022-07-22 02:39] VITALS: TEMP 36.2; O2SAT 100
[2022-07-22] MEDS: OXYCODONE 5 MG TABLET 2.5 MG PO (05:10)
[2022-07-22] MEDS: CARBIDOPA-LEVODOPA 25-100 TABLET 1 TAB PO ×4 (05:10→19:01)
[2022-07-22 07:00] VITALS: TEMP 36.7; O2SAT 97
[2022-07-22] MEDS: polyethylene glycoL 3350 17 GM PACK PO (08:09)
--- NOTE | 2022-07-22 10:51 | PC.NURSE ---
Order: Oxycodone 2.5mg QAM discontinued by LANDSCAPE MANAGER as Neuro recommendation.
[2022-07-22] MEDS: QUETIAPINE 25 MG TABLET 12.5 MG PO (15:07)
[2022-07-22] MEDS: DONEPEZIL 10 MG TABLET PO (19:01)
[2022-07-22] MEDS: ROPINIROLE HCL 1 MG TABLET 2 MG PO (19:01)
[2022-07-22 21:23] VITALS: TEMP 36.9; O2SAT 96
[2022-07-22 23:00] VITALS: TEMP 35.7; O2SAT 94
[2022-07-23] MEDS: CARBIDOPA-LEVODOPA 25-100 TABLET 1 TAB PO ×4 (05:38→19:23)
[2022-07-23] MEDS: polyethylene glycoL 3350 17 GM PACK PO (08:32)
[2022-07-23 09:50] VITALS: TEMP 36.2; O2SAT 96
[2022-07-23 15:00] VITALS: TEMP 36.6; O2SAT 96
[2022-07-23] MEDS: QUETIAPINE 25 MG TABLET 12.5 MG PO (15:30)
--- NOTE | 2022-07-23 16:26 | PC.SOCIAL ---
Addendum entered by VALARIE Ruiz 07/23/22 16:35: Phone call to [facility] to find out if there is a time frame for when the arrival time and surgery could take place on ThursdayJuly 28 for resident. [facility] stated that arrival time could be as early as 5:30 am to anytime in the afternoon and it is unknown until Thursday. [facility]men will leave a note for Dr. Richter's nurse, Prince, to call this worker back tomorrow to discuss the timeframe. Original Note: Received an e-mail from resident's daughter, Nohemi Araya, providing details for resident's appointment on July 28 in [place]. Made a phone call to [facility] in [place] at [phone]. [facility] states that Thursday' are busy days with transportation to [facility] and they have no availability to transport resident without a concise timeframe. [facility] provided names of four other transport companies in [place]. Phone call to [employer] at [phone] to request transportation. [employer] informed that they are booked up for Thursday and stated Thursday's are very busy and they need an advance notice. Phone call to [facility] at [phone] and was informed that they do not service the [facility]. Phone call to [facility] [employer] at [phone] and was informed that they are booked for Thursday and are not able to assist. Phone call to [facility] at [phone] to request transportation. The finger grip machine operator stated that they are not sure if they have availability and requested that this worker call back at 5:30 pm or tomorrow. Consulted with production planning supervisor and discussed the option of asking [facility]. Investigator Narcotics Blanca Carreno will send an e-mail to Alon with EMS at [facility]. Social Work will continue to follow up as necessary.
[2022-07-23] MEDS: DONEPEZIL 10 MG TABLET PO (19:23)
[2022-07-23] MEDS: ROPINIROLE HCL 1 MG TABLET 2 MG PO (19:23)
[2022-07-23 21:13] VITALS: TEMP 36.6; O2SAT 96
[2022-07-24] MEDS: CARBIDOPA-LEVODOPA 25-100 TABLET 1 TAB PO ×4 (04:50→18:59)
[2022-07-24] MEDS: polyethylene glycoL 3350 17 GM PACK PO (08:37)
[2022-07-24 09:32] VITALS: TEMP 36.6; O2SAT 95
--- NOTE | 2022-07-24 10:21 | NUTR.NU ---
RDN with significant weight gain note: Resident with significant weight gain noted within 180 days (10.95% weight gain). 02/26/22 137 lbs; Current weight 152 lbs. BMI is currently normal at 21.8 kg/m2. Suspect weight gain is due to consistent adequate meal and snack intakes. Weight has been stable within 30 and 90 days. Weight gain is beneficial with BMI now higher within normal range. Current diet is Regular, No current meal intakes to assess. Per family request, resident is receiving snacks in afternoon which mainly consists of oreos and ice cream recently. RDN has had conversation with resident's family regarding snacks in the past, and they are not concerned about his nutrition due to them feeling he is getting enough nutrients at meals (noted in nutrition assessment 03/19/22). No nutrition interventions at this time. RDN will continue to monitor and follow-up prn.
--- NOTE | 2022-07-24 10:59 | PC.NURSE ---
Addendum entered by Niki Edwards RN 07/24/22 11:53: Recert Visit: Order- CBC 07/25/22. Original Note: Recert Visit: Resident seen by Rohit PRICE. Orders reviewed and renewed of 75 days without changes.
[2022-07-24] MEDS: QUETIAPINE 25 MG TABLET 12.5 MG PO (15:46)
--- NOTE | 2022-07-24 16:04 | PC.SOCIAL ---
Discussed transportation request with Alon Braga from EMS at ext. [phone] for Thursday July 28, 2022 for pt's surgery at [facility] in [place]. EMS is able to accommodate the request. Resident information was requested to serve resident. Provided e-mail outlining the information needed to call dispatch on Thursday evening to Nursing. Nohemi Araya, resident's daughter, will call [facility] nurse after 8:15 pm on Thursday to provide the arrival time for surgery after calling the [facility] line and obtaining the information. [facility] nurse will call dispatch to set the transportation with EMS. Alon provided the rate agreement form and requests that it be given to EMS when resident leaves for appointment along with pt's facesheet. Will print documents and provide to nursing staff at [facility]. Phone call with Nohemi Araya to discuss issues with locating transportation for appointment due to not knowing an arrival and pick-up time until the night before surgery. Informed Nohemi that EMS at [facility] can provide transportation. Nohemi agrees to the charges verbally of approximately $740. Informed Nohemi that if resident requires stretcher on the ride back due to procedure that there will be a $200 cost added. Nohemi is in agreement of the charges. Nohemi will call [facility] on Thursday evening with the arrival time for resident's surgery that is scheduled for Thursday. Nohemi is aware that she has to call [facility] nurse when resident is ready to go back to [facility] from [place] and is also aware that there will be a wait for EMS to travel to [place]. Family will meet resident at the surgery center outside the building at the main doors. Family that will be meeting resident is Marilyn ([phone]) and Antonia ([phone]). Provided information to EMS staff if the information is needed. Social Work will follow up as necessary.
[2022-07-24] MEDS: DONEPEZIL 10 MG TABLET PO (18:59)
[2022-07-24] MEDS: ROPINIROLE HCL 1 MG TABLET 2 MG PO (18:59)
[2022-07-24 20:45] VITALS: TEMP 37; O2SAT 98
[2022-07-24 23:00] VITALS: TEMP 36.6; O2SAT 93
[2022-07-25] MEDS: CARBIDOPA-LEVODOPA 25-100 TABLET 1 TAB PO ×4 (05:12→18:32)
[2022-07-25 07:00] VITALS: BP 102/62; PULSE 70; RESP 16; TEMP 36.6; O2SAT 96; BMI 21.9
[2022-07-25 07:18] LABS: Basophils Absolute Auto 0.04 K/uL (0.00-0.30); Basophils Percent Auto 0.4 % (0.0-3.0); Eosinophils Absolute Auto 0.31 K/uL (0.00-0.50); Eosinophils Percent Auto 3.3 % (0.0-7.0); Hematocrit 45.4 % (37.0-53.0); Hemoglobin* 14.6 gm/dL (13.5-17.5); Immature Granulocytes Abs Auto 0.02 K/uL (0.00-0.30); Immature Granulocytes Pct Auto 0.2 %; Lymphocytes Absolute Auto 2.33 K/uL (0.90-2.90); Lymphocytes Percent Auto 25.2 % (20-44); Mean Corpuscular HGB Conc 32 gm/dL (32-36); Mean Corpuscular Hemoglobin 31 pg (26-34); Mean Corpuscular Volume 98 fL (80-100); Monocytes Percent Auto 8.6 % (0.0-11.0); Neutrophils Absolute Auto 5.76 K/uL (1.7-7.0); Neutrophils Percent Auto 62.3 % (42.0-72.0); Platelet Count* 201 K/uL (140-440); RDW Coefficient of Variation % 13.4 % (11.5-15.5); Red Blood Count 4.65 m/uL (4.30-5.90); White Blood Count* 9.26 K/uL (4.50-11.00)
[2022-07-25 07:22] LABS: Slide Review Reflex No
[2022-07-25] MEDS: polyethylene glycoL 3350 17 GM PACK PO (08:08)
[2022-07-25] MEDS: QUETIAPINE 25 MG TABLET 12.5 MG PO (15:36)
[2022-07-25] MEDS: DONEPEZIL 10 MG TABLET PO (19:04)
[2022-07-25] MEDS: ROPINIROLE HCL 1 MG TABLET 2 MG PO (19:05)
[2022-07-25 21:24] VITALS: TEMP 36.6; O2SAT 100
[2022-07-25 23:00] VITALS: TEMP 36.9; O2SAT 97
[2022-07-26] MEDS: CARBIDOPA-LEVODOPA 25-100 TABLET 1 TAB PO ×4 (04:59→19:09)
[2022-07-26 07:00] VITALS: TEMP 36.2; O2SAT 97
[2022-07-26] MEDS: polyethylene glycoL 3350 17 GM PACK PO (07:47)
[2022-07-26] MEDS: QUETIAPINE 25 MG TABLET 12.5 MG PO (15:33)
[2022-07-26 18:28] VITALS: TEMP 37; O2SAT 95
[2022-07-26] MEDS: ROPINIROLE HCL 1 MG TABLET 2 MG PO (19:09)
[2022-07-26] MEDS: DONEPEZIL 10 MG TABLET PO (19:09)
[2022-07-26 23:00] VITALS: TEMP 36.5; O2SAT 96
[2022-07-27] MEDS: CARBIDOPA-LEVODOPA 25-100 TABLET 1 TAB PO ×4 (05:15→19:08)
[2022-07-27 07:00] VITALS: TEMP 36.8; O2SAT 98
[2022-07-27] MEDS: polyethylene glycoL 3350 17 GM PACK PO (07:53)
[2022-07-27] MEDS: QUETIAPINE 25 MG TABLET 12.5 MG PO (15:54)
[2022-07-27] MEDS: ROPINIROLE HCL 1 MG TABLET 2 MG PO (19:08)
[2022-07-27] MEDS: DONEPEZIL 10 MG TABLET PO (19:08)
[2022-07-27 21:22] VITALS: TEMP 36.6; O2SAT 98
--- NOTE | 2022-07-27 21:25 | PC.NURSE ---
Family call: Received call from daughter Marian that her father needs to check into [facility] at 0615. Called EMS to arrange the ride which had previously been arranged but needed a specific time. They felt that with the ride being 90 minutes long they should be here 2 hours in advance considering the time to load Ho and his wheelchair and get settled and on their way. They will arrive at 0415 and [facility] staff will have Ho up in his wheelchair and take him outside the double doors to the facility to be transferred to the stretcher. His wheelchair is to be taken with him. They called back a second time to verify information related to Ho and the transport.
[2022-07-27 23:00] VITALS: TEMP 36.9; O2SAT 95
--- NOTE | 2022-07-28 04:41 | PC.NURSE ---
Resident left facility with EMS via stretcher at 0420. Wheelchair and paperwork sent along per instructions.
--- NOTE | 2022-07-28 04:43 | PC.NURSE ---
WEEKLY CHARTING - WEEK 2: Vital signs reviewed - no concerns. Temporary and comprehensive care plan reviewed - no change. Assist of 2 with full mechanical lift for transfers. Is non-ambulatory. 1-2 assist for bed mobility. Bilateral 1/4 side rails up during cares for bed mobility. Dependent for w/c mobility. Is at high risk for falls. Fall interventions: call light in reach, bed and chair alarms, falling star magnet, gripper socks, hourly safety checks, bed in low position.
--- NOTE | 2022-07-28 10:39 | PC.NURSE ---
Week #2: Comprehensive care plan reviewed, no changes made. Nothing added to temporary care plan. Resident is non ambulatory. Is a randy lift with 2 assists for all transfers. Wheel by staff to all destinations. Needs 1-2 assist with turning and repositioning every 2 hours. Bilateral 1/4 side rails up during cares to aid with repositioning. Vital signs reviewed, no concerns. Fall: No falls the past month. Remains a high fall risk according to assessment done on 06/10/22.
--- NOTE | 2022-07-28 10:47 | PC.NURSE ---
Status: Received a call from [place] to inform resident staying overnight.
--- NOTE | 2022-07-28 13:57 | PC.SOCIAL ---
Resident is on a bed hold. Resident's daughter Marian in [place] gave consent via email.
--- NOTE | 2022-07-28 14:00 | PC.NURSE ---
Bed hold: Resident put on bed hold per daughter's consent.
--- NOTE | 2022-07-28 14:50 | PC.NURSE ---
[place] Update: Received a call from resident's daughter, Marian, around 1432, for an update on going procedure. According to Marian, DBS battery has been changed successfully; resident is being monitored for A-Fib; and, waiting to hear from heart doctor to determine when discharge will occur.
--- NOTE | 2022-07-28 21:12 | PC.NURSE ---
Return To Facility: Resident returned to LT via [facility], at approximately 2019. COVID-19 swab completed at this time, and specimen sent to lab. Resident was offered save dinner meal but refused. In bed resting/sleeping comfortably. Vital signs obtain: BP- 134/74, PUL- 79, TEMP- 98.6, RESP- 18, 02- 98, PAIN- 0. Skin assessed- no bruising, cuts, or new wound noted, and new dressing on left upper chest is intact.
[2022-07-28 21:45] LABS: SARS PCR* Negative SARS-CoV-2 (Negative)
--- NOTE | 2022-07-28 21:57 | PC.NURSE ---
Med Status: No changes made to medication during [place] visit. May resume activities after 24 hours upon arrival at LT facility.
--- NOTE | 2022-07-28 22:22 | PC.NURSE ---
Covid-19 Testing: Resident has been swabbed for his first COVID-19 test.
[2022-07-28 23:00] VITALS: TEMP 37.1; O2SAT 95
[2022-07-28] MEDS: OXYCODONE 5 MG TABLET 2.5 MG PO (23:58)
[2022-07-29] MEDS: CARBIDOPA-LEVODOPA 25-100 TABLET 1 TAB PO ×4 (05:04→19:04)
--- NOTE | 2022-07-29 05:44 | PC.NURSE ---
No noted neurological changes or seizure-like activity noted through the night. At beginning of shift resident was restless with facial grimacing. PRN oxycodone administered at 2358 which was effective. Vital signs: 98.7-76-18-147/77-95% on RA. Dressing to left chest intact.
[2022-07-29] MEDS: polyethylene glycoL 3350 17 GM PACK PO (08:35)
[2022-07-29 09:48] VITALS: TEMP 37.1; O2SAT 97
--- NOTE | 2022-07-29 13:38 | PC.NURSE ---
Resident status : Resident was very sleepy this morning. He was fed his breakfast in his room. Appetite fair and no episode of nausea, vomiting or seizure noted. He was visited by however resident was not very communicative and was sleeping. He however came out for lunch to the dining area and took 50% of his lunch.
--- NOTE | 2022-07-29 13:48 | PC.NURSE ---
Wound care: Resident dressing was removed today, very scanty discharge. it looks clean and no sign of infection. It was cleaned with soap and water and dried with gauze. It was covered with large gauze to prevent resident from scratching it.
[2022-07-29] MEDS: QUETIAPINE 25 MG TABLET 12.5 MG PO (16:02)
[2022-07-29 16:41] VITALS: TEMP 37.1; O2SAT 98
[2022-07-29] MEDS: ROPINIROLE HCL 1 MG TABLET 2 MG PO (19:04)
[2022-07-29] MEDS: DONEPEZIL 10 MG TABLET PO (19:04)
[2022-07-29 23:00] VITALS: TEMP 36.9; O2SAT 95
[2022-07-30] MEDS: CARBIDOPA-LEVODOPA 25-100 TABLET 1 TAB PO ×4 (05:04→19:17)
[2022-07-30] MEDS: polyethylene glycoL 3350 17 GM PACK PO (07:20)
[2022-07-30 09:23] VITALS: TEMP 36.4; O2SAT 99
--- NOTE | 2022-07-30 10:05 | PC.PHA ---
RESEARCH AND DEVELOPMENT DIRECTOR PHARMACIST'S MEDICATION REVIEW: MEDICATION MONITORING:Quetiapine 12.5 mg daily at 1600 started 07/15/[address] Amor , [place] Neurologist for Parkinson dementia hallucinations. IRREGULARITY OR COMMENTS:Dr. Amor also recommended stopping oxycodone and med. ordered stopped. Also recently had brain stim battery change at [place]. All monitoring in place for quetiapine by nursing, blood pressures since medication start are not specifically trending low to become concerned at time of this review. Nursing reports that patient is more awake during the day. I am aware that I will need to communicate all concerns regarding Quetiapine with Dr. Amor at [place]. No antibiotics or benzodiazepines prescribed. SUGGESTED COURSE OF ACTION TAKEN:No recommendations or concerns for MD's involved for July.
[2022-07-30] MEDS: bisacodyL 10 MG SUPP.RECT PR (13:06)
[2022-07-30 15:00] VITALS: TEMP 36.8; O2SAT 100
[2022-07-30] MEDS: QUETIAPINE 25 MG TABLET 12.5 MG PO (15:23)
--- NOTE | 2022-07-30 16:54 | PC.NURSE ---
Med concern: It has been observed that after taking scheduled Seroquel 25 mg at 1600, resident falls into deep sleep for about one to two hours, which then interferes with his ability to participant/eat dinner. Yesterday, for instance, this creative services writer witnessed when resident woke up from a deep sleep episode around 1900, he was alert and exhibited signs of hunger as he motioned his fingers and hand towards his mouth several times. Will continue to monitor.
--- NOTE | 2022-07-30 17:18 | PC.NURSE ---
Med concern: It has been observed that after taking scheduled Seroquel 12.5 mg at 1600, resident falls into deep sleep for about one to two hours, which then interferes with his ability to participant/eat dinner. Yesterday, for instance, this process description writer witnessed when resident woke up from a deep sleep episode around 1900, he was alert and exhibited signs of hunger as he motioned his fingers and hand towards his mouth several times. Will continue to monitor. ?
[2022-07-30] MEDS: DONEPEZIL 10 MG TABLET PO (19:17)
[2022-07-30] MEDS: ROPINIROLE HCL 1 MG TABLET 2 MG PO (19:17)
[2022-07-30 23:00] VITALS: TEMP 36.9; O2SAT 93
[2022-07-31] MEDS: CARBIDOPA-LEVODOPA 25-100 TABLET 1 TAB PO ×4 (04:59→19:01)
[2022-07-31] MEDS: polyethylene glycoL 3350 17 GM PACK PO (07:03)
[2022-07-31 08:58] VITALS: TEMP 36.5; O2SAT 95
--- NOTE | 2022-07-31 11:43 | PC.NURSE ---
Recert Visit: Resident seen by VP PRODUCTIONRohit. Orders reviewed and renewed of 75 days with changes. Order: Change Senna 2 tab to 1 tab BID PRN, Senna 1 tab daily.
--- NOTE | 2022-07-31 13:10 | PC.NURSE ---
Resident status after brain stimulator: Resident is more alert, responsive and feeding himself better. Visited by and he is able to communicate to her that he wants to go to the bathroom. Staff assisted X 2 using the Medistand and resident was able to stand straight and hold on to the handle. No complain of pain and any episode of seizure. Wound on his right upper chest is healing well.
--- NOTE | 2022-07-31 14:04 | PC.NURSE ---
Seroquel time changed to 1800 per REINSURANCE CLERKRohit.
[2022-07-31 16:26] VITALS: TEMP 36.8; O2SAT 96
[2022-07-31] MEDS: QUETIAPINE 25 MG TABLET 12.5 MG PO (19:01)
[2022-07-31] MEDS: DONEPEZIL 10 MG TABLET PO (19:04)
[2022-07-31] MEDS: ROPINIROLE HCL 1 MG TABLET 2 MG PO (19:04)
[2022-07-31 23:00] VITALS: TEMP 36.9; O2SAT 96
[2022-08-01] MEDS: CARBIDOPA-LEVODOPA 25-100 TABLET 1 TAB PO ×4 (05:06→19:33)
[2022-08-01] MEDS: polyethylene glycoL 3350 17 GM PACK PO (07:38)
[2022-08-01] MEDS: SENNOSIDES 1 TAB TABLET PO (07:39)
[2022-08-01 10:23] VITALS: TEMP 36.4; O2SAT 97
[2022-08-01 13:11] VITALS: BP 112/62; PULSE 54; RESP 18; TEMP 36.4; O2SAT 97; BMI 21.5
--- NOTE | 2022-08-01 14:00 | PC.NURSE ---
COVID OUTBREAK TESTING Residents daughter gave verbal consent for outbreak COVID testing. Resident is currently asymptomatic.? Resident/family will be notified only if resident is positive.
[2022-08-01] MEDS: QUETIAPINE 25 MG TABLET 12.5 MG PO (18:26)
[2022-08-01] MEDS: ROPINIROLE HCL 1 MG TABLET 2 MG PO (19:33)
[2022-08-01] MEDS: DONEPEZIL 10 MG TABLET PO (19:33)
[2022-08-01 20:11] VITALS: TEMP 36.7; O2SAT 98
[2022-08-01 23:00] VITALS: TEMP 36.6; O2SAT 96
[2022-08-02] MEDS: CARBIDOPA-LEVODOPA 25-100 TABLET 1 TAB PO ×4 (04:28→19:13)
[2022-08-02] MEDS: polyethylene glycoL 3350 17 GM PACK PO (07:55)
[2022-08-02] MEDS: SENNOSIDES 1 TAB TABLET PO (07:55)
[2022-08-02 09:21] VITALS: TEMP 36.9; O2SAT 97
--- NOTE | 2022-08-02 11:18 | PC.NURSE ---
Addendum entered by Judith Mancuso RN 08/02/22 13:07: Resident also took his lunch ( finger food) by himself with minimal assistance. He ate 100%. Original Note: Status post brain stimulator: Resident was more alert this morning. Able to eat eat his breakfast wit minimum assist ( muffin, ham and eggs). Resident had activity with [place] 1:1 looking at the bird book and resident was alert most of the time and look time reading the passage before turning to the next page. No episode of seizure or any c/o pain. Wound on his upper chest is healing well with no sign of infection. Appetite is good.
[2022-08-02 15:36] VITALS: TEMP 36.8; O2SAT 100
[2022-08-02] MEDS: QUETIAPINE 25 MG TABLET 12.5 MG PO (18:39)
[2022-08-02] MEDS: DONEPEZIL 10 MG TABLET PO (19:13)
[2022-08-02] MEDS: ROPINIROLE HCL 1 MG TABLET 2 MG PO (19:14)
[2022-08-02 23:00] VITALS: TEMP 36.6; O2SAT 98
[2022-08-03] MEDS: CARBIDOPA-LEVODOPA 25-100 TABLET 1 TAB PO ×4 (04:01→19:05)
[2022-08-03] MEDS: SENNOSIDES 1 TAB TABLET PO (07:42)
[2022-08-03] MEDS: polyethylene glycoL 3350 17 GM PACK PO (07:42)
[2022-08-03 10:19] VITALS: TEMP 36.9; O2SAT 98
[2022-08-03 16:01] VITALS: TEMP 36.7; O2SAT 99
[2022-08-03] MEDS: QUETIAPINE 25 MG TABLET 12.5 MG PO (18:30)
[2022-08-03] MEDS: ROPINIROLE HCL 1 MG TABLET 2 MG PO (19:05)
[2022-08-03] MEDS: DONEPEZIL 10 MG TABLET PO (19:05)
[2022-08-03 23:00] VITALS: TEMP 36.6; O2SAT 95
--- NOTE | 2022-08-04 03:33 | PC.NURSE ---
WEEKLY CHARTING - WEEK 3: Vital signs reviewed. Temporary and comprehensive care plan reviewed - no changes made. Skin assessments reviewed, no documented areas of concern noted or visualized. Incontinent of bowel and bladder, wears a large brief, checked and changed in bed on 1st and 3rd rounds. Total assist of 1-2 for pad management, clothing adjustment, and juancarlos-cares.
[2022-08-04] MEDS: CARBIDOPA-LEVODOPA 25-100 TABLET 1 TAB PO ×4 (04:54→19:18)
[2022-08-04] MEDS: polyethylene glycoL 3350 17 GM PACK PO (07:40)
[2022-08-04] MEDS: SENNOSIDES 1 TAB TABLET PO (07:40)
--- NOTE | 2022-08-04 07:41 | PC.NURSE ---
Week #3 - Toileting: Comprehensive care plan reviewed. No changes made. Nothing added to temporary care plan. Resident is incontinent of bowel and bladder. Is checked and changed in bed every 2 hours and PRN. Wears blue wing briefs. Pads, juancarlos cares, clothing management done by staff. Vital signs reviewed, no concerns. Skin: Has a chest incision from brain battery replacement. Incision is cleansed daily with soap and water, no s/s of infection noted. Skin is checked routinely during cares and on bath day.
[2022-08-04 09:45] VITALS: TEMP 36.4; O2SAT 98
--- NOTE | 2022-08-04 10:53 | PC.NURSE ---
COVID OUTBREAK TESTING: Resident provided verbal consent for outbreak COVID testing. Resident is currently asymptomatic. Resident/family will be notified only if resident is positive.
[2022-08-04 12:35] LABS: SARS PCR* Negative SARS-CoV-2 (Negative)
[2022-08-04 13:59] VITALS: BP 155/70; PULSE 60; RESP 20; TEMP 36.6; O2SAT 99
--- NOTE | 2022-08-04 14:05 | LTC.FALL ---
[facility] Fall Note: o Fall Date: 08/04/22 o Fall Time: 1300 o What happened? Resident found sitting on the floor next to bed, Back leaning beside the bed. o Who found the resident and who responded? RN found, 2 staffs o What was the resident doing? Resident was lying in bed/ get out of bed o How the resident was found (knees, left side, arm under them), any hazards (cords, objects, nonskid slippers) brakes on? Proper equipment? Sitting on the floor next to bed o Did you assess for head trauma, spinal injuries, skeletal injuries, neurological changes and status, and head and neck pain? What did you find? No trauma o Did you assess ROM in shoulders, elbows, hips, knees, any other affected areas, unless there is suspected spinal injury. Yes o Did you Assess for pain or discomfort? no pain o What are the injuries and how are they being treated? no injury o How was the resident transferred from the floor? Using Yomi lift o Did you call the MD or put a note in the SUPERVISOR MAINTENANCE book? No o Enter vital signs. BP 155/70, temp 97.9, RR 20, HR 60, o2 sat 99 RA o Did you notify family? Yes o What was the root cause of the fall? Why did it happen? Res trying to get out from bed o Create an IMMEDIATE INTERVENTION to ensure that this won't immediately happen again. (Put in temporary care plan too) Yes o Complete Safety report and huddle (now one form) Yes o If resident is seen in ED or fractured something, note that you started a [facility] Report process. Instructions are at the East nurse's desk in a red binder labeled VA report. No
[2022-08-04 17:04] VITALS: BP 100/55; PULSE 69; RESP 18; TEMP 36.8; O2SAT 98
[2022-08-04] MEDS: QUETIAPINE 25 MG TABLET 12.5 MG PO (17:36)
--- NOTE | 2022-08-04 18:23 | PC.NURSE ---
Fall F/u :Resident is alert and able to answer when asked questions. vitals are as follows: T98.2 P 69,B/P 100/55, O2 98 R 20. No injury noted and no sign of pain. Denies pain when asked. Hand grasp good. Ate 100%% of supper, no vomiting.
[2022-08-04] MEDS: ROPINIROLE HCL 1 MG TABLET 2 MG PO (19:18)
[2022-08-04] MEDS: DONEPEZIL 10 MG TABLET PO (19:18)
[2022-08-04 21:39] VITALS: BP 115/60; PULSE 64; RESP 18; TEMP 36.9; O2SAT 95
[2022-08-04 23:00] VITALS: TEMP 36.8; O2SAT 93
[2022-08-05] VITALS (7 sets, daily range): BP systolic 116–166; BP diastolic 70–92; PULSE 65–94; RESP 1–20; TEMP -12.4–37.2; O2SAT 93–99
[2022-08-05] MEDS: CARBIDOPA-LEVODOPA 25-100 TABLET 1 TAB PO ×4 (04:46→19:05)
--- NOTE | 2022-08-05 05:28 | PC.NURSE ---
Fall followup Resident did not try to self transfer, spent a good night . He refused the second set of blood pressure.
[2022-08-05] MEDS: polyethylene glycoL 3350 17 GM PACK PO (08:00)
[2022-08-05] MEDS: SENNOSIDES 1 TAB TABLET PO (08:00)
[2022-08-05] MEDS: QUETIAPINE 25 MG TABLET 12.5 MG PO (18:58)
[2022-08-05] MEDS: DONEPEZIL 10 MG TABLET PO (19:05)
[2022-08-05] MEDS: ROPINIROLE HCL 1 MG TABLET 2 MG PO (19:05)
[2022-08-06] VITALS (9 sets, daily range): BP systolic 103–127; BP diastolic 60–79; PULSE 60–68; RESP 16–20; TEMP 36.2–36.8; O2SAT 95–98
[2022-08-06] MEDS: CARBIDOPA-LEVODOPA 25-100 TABLET 1 TAB PO ×4 (04:16→19:38)
[2022-08-06] MEDS: SENNOSIDES 1 TAB TABLET PO (07:46)
[2022-08-06] MEDS: polyethylene glycoL 3350 17 GM PACK PO (07:46)
--- NOTE | 2022-08-06 08:46 | PC.NURSE ---
Fall F/U: Resident up in wheelchair, alert, no s/s of pain noted. FRANCESCA. Hand grasps fine.
--- NOTE | 2022-08-06 14:09 | LTC.FALL ---
[facility] Fall Note: o Fall Date: 08/06/22 o Fall Time:1345 o What happened? Resident fall from the right side of the bed. o Who found the resident and who responded? MICHELLE o What was the resident doing? Attempting to get out of bed ( self -transfer) o How the resident was found (knees, left side, arm under them), any hazards (cords, objects, nonskid slippers) brakes on? Proper equipment? Kneeling on the floor o Did you assess for head trauma, spinal injuries, skeletal injuries, neurological changes and status, and head and neck pain? What did you find? Yes . No injuries noted o Did you assess ROM in shoulders, elbows, hips, knees, any other affected areas, unless there is suspected spinal injury. Yes o Did you Assess for pain or discomfort? yes .Resident denies any pain o What are the injuries and how are they being treated? No injuries o How was the resident transferred from the floor? 2 assist o Did you call the MD or put a note in the MUNICIPAL BOND TRADER book? Yes o Enter vital signs. Temp :98.2,O2: 98 P: 60 B/p 127/72 o Did you notify family? yes o What was the root cause of the fall? Why did it happen? Status of his disease and decline on his cognitive condition. o Create an IMMEDIATE INTERVENTION to ensure that this won't immediately happen again. (Put in temporary care plan too) Yes o Complete Safety report and huddle (now one form) Yes o If resident is seen in ED or fractured something, note that you started a [facility] Report process. Instructions are at the East nurse's desk in a red binder labeled VA report. No injury.
--- NOTE | 2022-08-06 14:26 | PC.NURSE ---
Family Update: Daughter notified on resident's fall incident, at 1420.
--- NOTE | 2022-08-06 14:29 | PC.NURSE ---
Fall Incident F/U : Resident was smiling after falling. No injuries noted. Vital sign as follows: Tem: 98.2, O2 98,Pulse 60 B/P 127/72 R 20: Pupil are reactive and equal. Grasp both hand at baseline. Resident denies any pain and no injury noted on resident . ROM at baseline .Resident`s daughter informed.
[2022-08-06] MEDS: QUETIAPINE 25 MG TABLET 12.5 MG PO (17:19)
[2022-08-06] MEDS: DONEPEZIL 10 MG TABLET PO (19:38)
[2022-08-06] MEDS: ROPINIROLE HCL 1 MG TABLET 2 MG PO (19:38)
--- NOTE | 2022-08-06 22:33 | PC.NURSE ---
Fall follow-up: Unable to participate in PERRLA assessment due to disease. cognition status remains at baseline. All vital signs are within resident's normal ranges - no new concerns as related to fall incident. Will continue to monitor.
[2022-08-07] MEDS: CARBIDOPA-LEVODOPA 25-100 TABLET 1 TAB PO ×4 (04:48→19:07)
[2022-08-07 04:51] VITALS: BP 118/68; PULSE 78; RESP 20; TEMP 36.6; O2SAT 98
[2022-08-07] MEDS: polyethylene glycoL 3350 17 GM PACK PO (08:50)
[2022-08-07] MEDS: SENNOSIDES 1 TAB TABLET PO (08:50)
[2022-08-07 10:02] VITALS: BP 89/51; RESP 18; TEMP 36.8; O2SAT 96
--- NOTE | 2022-08-07 10:05 | PC.NURSE ---
Fall/F/u: Resident at the desk doing coloring. Pupil check not done , will keep eyes shut. Denies pain when ask.
[2022-08-07 13:23] VITALS: BP 98/52; PULSE 58; RESP 16; TEMP 36.7; O2SAT 96
--- NOTE | 2022-08-07 13:25 | PC.NURSE ---
Fall F/u: Resident sleeping comfortably in the recliner. No evidence of pain noted.
[2022-08-07 17:00] VITALS: BP 125/76; PULSE 76; RESP 18; TEMP 37.4; O2SAT 98
[2022-08-07] MEDS: QUETIAPINE 25 MG TABLET 12.5 MG PO (18:22)
[2022-08-07] MEDS: ROPINIROLE HCL 1 MG TABLET 2 MG PO (19:07)
[2022-08-07] MEDS: DONEPEZIL 10 MG TABLET PO (19:07)
[2022-08-07 20:54] VITALS: TEMP 37.4; O2SAT 98
[2022-08-07 21:18] VITALS: BP 106/63; PULSE 64; RESP 18; TEMP 37.2; O2SAT 99
--- NOTE | 2022-08-07 21:34 | PC.NURSE ---
Fall F/u: FRANCESCA, Hand grasps equal B/L. Denies pain when asked. VSS. Vital Signs - 8 hr 08/07/22 17:00 08/07/22 20:54 08/07/22 21:18 Temperature 99.3 F 99.3 F 99.0 F Pulse Rate [Pulse Oximeter] 76 64 Respiratory Rate 18 18 Blood Pressure [Left Arm] 125/76 106/63 Pulse Oximetry 98 98 99 Oxygen Delivery Method Room Air Room Air
--- NOTE | 2022-08-07 21:35 | PC.NURSE ---
Fall F/u: FRANCESCA-unable to open eyes s/p seroquel admin and falling asleep, Able to participate in neuros; Hand grasps equal B/L. Denies pain when asked. VSS. Last Vital Signs Temp 99.0 F 08/07/22 21:18 Pulse 64 08/07/22 21:18 Resp 18 08/07/22 21:18 BP 106/63 08/07/22 21:18 Pulse Ox 99 08/07/22 21:18 O2 Del Method 08/07/22 21:18 O2 Flow Rate 98 08/06/22 18:00
[2022-08-08 01:00] VITALS: BP 121/71; PULSE 65; RESP 18; TEMP 36.8; O2SAT 97
[2022-08-08] MEDS: CARBIDOPA-LEVODOPA 25-100 TABLET 1 TAB PO ×4 (04:29→19:32)
[2022-08-08 05:00] VITALS: BP 130/81; PULSE 96; RESP 16; TEMP 36.4
--- NOTE | 2022-08-08 05:44 | PC.NURSE ---
FALL FOLLOW UP Resident did not try to self transfer this shift , slept most of the night. Vitals stable ; resident did not cooperate for all neuro checks for instance pupil reaction. Will continue to to monitor.
[2022-08-08] MEDS: SENNOSIDES 1 TAB TABLET PO (07:05)
[2022-08-08] MEDS: polyethylene glycoL 3350 17 GM PACK PO (07:05)
[2022-08-08 09:44] VITALS: BP 111/64; PULSE 56; RESP 16; TEMP 36.6; O2SAT 98
--- NOTE | 2022-08-08 09:46 | PC.NURSE ---
Fall F/U: Up in wheelchair in the dining doing coloring. Vitals fine. Denies pain. Hand grasps within his range. Refused pupil checks, won't open eyes.
[2022-08-08 13:32] VITALS: BP 101/63; PULSE 60; RESP 60; TEMP 36.5; O2SAT 96; BMI 21.8
--- NOTE | 2022-08-08 13:35 | PC.NURSE ---
Fall F/U: Resident sleeping in recliner comfortably. Neuro checks not done. No symptoms of pain noted.
[2022-08-08] MEDS: QUETIAPINE 25 MG TABLET 12.5 MG PO (17:06)
[2022-08-08 18:24] VITALS: TEMP 37.1; O2SAT 96
[2022-08-08] MEDS: DONEPEZIL 10 MG TABLET PO (19:32)
[2022-08-08] MEDS: ROPINIROLE HCL 1 MG TABLET 2 MG PO (19:33)
[2022-08-09 00:58] VITALS: TEMP 36.9; O2SAT 95
[2022-08-09] MEDS: CARBIDOPA-LEVODOPA 25-100 TABLET 1 TAB PO ×4 (04:57→19:04)
[2022-08-09 07:00] VITALS: TEMP 37; O2SAT 100
[2022-08-09] MEDS: SENNOSIDES 1 TAB TABLET PO (08:17)
[2022-08-09] MEDS: polyethylene glycoL 3350 17 GM PACK PO (08:17)
[2022-08-09 18:17] VITALS: TEMP 37.1; O2SAT 100
[2022-08-09] MEDS: QUETIAPINE 25 MG TABLET 12.5 MG PO (19:02)
[2022-08-09] MEDS: DONEPEZIL 10 MG TABLET PO (19:05)
[2022-08-09] MEDS: ROPINIROLE HCL 1 MG TABLET 2 MG PO (19:05)
[2022-08-10 00:02] VITALS: TEMP 36.8; O2SAT 95
[2022-08-10] MEDS: CARBIDOPA-LEVODOPA 25-100 TABLET 1 TAB PO ×4 (05:10→19:06)
[2022-08-10 07:00] VITALS: TEMP 36.8; O2SAT 95
[2022-08-10] MEDS: polyethylene glycoL 3350 17 GM PACK PO (08:32)
[2022-08-10] MEDS: SENNOSIDES 1 TAB TABLET PO (08:32)
[2022-08-10 17:03] VITALS: TEMP 37.2; O2SAT 98
[2022-08-10] MEDS: QUETIAPINE 25 MG TABLET 12.5 MG PO (19:05)
[2022-08-10] MEDS: DONEPEZIL 10 MG TABLET PO (19:06)
[2022-08-10] MEDS: ROPINIROLE HCL 1 MG TABLET 2 MG PO (19:06)
[2022-08-10 23:00] VITALS: TEMP 36.8; O2SAT 96
--- NOTE | 2022-08-11 03:20 | PC.NURSE ---
WEEK 4 COMMUNICATION, HEARING /VISION/BEHAVIOR CLINICAL BEHAVIOR Care plan and Temporary care plan reviewed with no changes. Vital signs reviewed with no concerns noted at this time. No changes to hearing, vision, or orientation. Staff anticipate needs, during NOC,? as resident is unable to make needs known. Resident is not on any? psychotropic medications? at this time. Behaviors: No changes to behavior. Sleeps well between toileting/repositioning.? New fall 08/04/22 no injuries
[2022-08-11] MEDS: CARBIDOPA-LEVODOPA 25-100 TABLET 1 TAB PO ×4 (05:42→19:19)
[2022-08-11] MEDS: SENNOSIDES 1 TAB TABLET PO (07:04)
[2022-08-11] MEDS: polyethylene glycoL 3350 17 GM PACK PO (07:04)
--- NOTE | 2022-08-11 07:42 | PC.NURSE ---
Week #4: Comprehensive care plan reviewed, no changes made. Nothing added to temporary care plan. No changes noted in communication, hearing, vision or orientation. Speech is sometimes understood. Needs anticipated by staff. Hears fine. Wears reading glasses. 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 Is forgetful. Chronic health condition stable. Is not able to self administer medications. Vital signs reviewed, no concerns. Mood/Behavior: No issues the past month, mood/behavior stable. 07/31 Was started on Seroquel 12.5mg daily. with no adverse effects noted. Per Ruy RUFF, resident reported having hallucination.
[2022-08-11 10:39] VITALS: TEMP 36.7; O2SAT 99
--- NOTE | 2022-08-11 11:38 | PC.NURSE ---
COVID OUTBREAK TESTING: Resident provided verbal consent for outbreak COVID testing. Resident is currently asymptomatic. Resident/family will be notified only if resident is positive.
[2022-08-11 12:58] LABS: SARS PCR* Negative SARS-CoV-2 (Negative)
[2022-08-11 15:00] VITALS: TEMP 37; O2SAT 99
[2022-08-11] MEDS: QUETIAPINE 25 MG TABLET 12.5 MG PO (18:12)
[2022-08-11] MEDS: ROPINIROLE HCL 1 MG TABLET 2 MG PO (19:19)
[2022-08-11] MEDS: DONEPEZIL 10 MG TABLET PO (19:19)
[2022-08-11 23:00] VITALS: TEMP 36.7; O2SAT 97
[2022-08-12] MEDS: CARBIDOPA-LEVODOPA 25-100 TABLET 1 TAB PO ×4 (05:41→19:18)
[2022-08-12] MEDS: polyethylene glycoL 3350 17 GM PACK PO (07:59)
[2022-08-12] MEDS: SENNOSIDES 1 TAB TABLET PO (07:59)
[2022-08-12 10:04] VITALS: TEMP 36.4; O2SAT 94
[2022-08-12 18:25] VITALS: TEMP 37; O2SAT 98
[2022-08-12] MEDS: QUETIAPINE 25 MG TABLET 12.5 MG PO (19:18)
[2022-08-12] MEDS: ROPINIROLE HCL 1 MG TABLET 2 MG PO (19:18)
[2022-08-12] MEDS: DONEPEZIL 10 MG TABLET PO (19:18)
[2022-08-12 23:00] VITALS: TEMP 36.9; O2SAT 94
[2022-08-13] MEDS: CARBIDOPA-LEVODOPA 25-100 TABLET 1 TAB PO ×4 (05:02→19:49)
[2022-08-13] MEDS: OXYCODONE 5 MG TABLET 2.5 MG PO (06:33)
[2022-08-13] MEDS: polyethylene glycoL 3350 17 GM PACK PO (07:51)
[2022-08-13] MEDS: SENNOSIDES 1 TAB TABLET PO (07:51)
[2022-08-13 10:05] VITALS: TEMP 36.7; O2SAT 93
--- NOTE | 2022-08-13 10:35 | PC.NURSE ---
Status note: Resident was pushing/ grabbing and trying to bite staff during AM cares. PRN oxycodone was administered, effective.
[2022-08-13 15:00] VITALS: TEMP 36.6; O2SAT 100
[2022-08-13] MEDS: QUETIAPINE 25 MG TABLET 12.5 MG PO (17:43)
[2022-08-13] MEDS: ROPINIROLE HCL 1 MG TABLET 2 MG PO (19:49)
[2022-08-13] MEDS: DONEPEZIL 10 MG TABLET PO (19:49)
[2022-08-13 23:00] VITALS: TEMP 36.9; O2SAT 94
[2022-08-14] MEDS: CARBIDOPA-LEVODOPA 25-100 TABLET 1 TAB PO ×4 (05:05→19:01)
[2022-08-14 07:00] VITALS: TEMP 36.2; O2SAT 95
[2022-08-14] MEDS: SENNOSIDES 1 TAB TABLET PO (08:02)
[2022-08-14] MEDS: polyethylene glycoL 3350 17 GM PACK PO (08:02)
--- NOTE | 2022-08-14 13:40 | PC.NURSE ---
Status: CHIEF CREDIT OFFICER, Rohit updated of increase coughing at meals. Continue to monitor, update Neurology.
--- NOTE | 2022-08-14 15:00 | PC.NURSE ---
BRAIN STIM CHECK: monthly battery check performed--battery life indicated Full/Ok. Therapy turned on. Will continue to check monthly. Daughter updated via email.
[2022-08-14] MEDS: QUETIAPINE 25 MG TABLET 12.5 MG PO (18:49)
[2022-08-14] MEDS: ROPINIROLE HCL 1 MG TABLET 2 MG PO (19:01)
[2022-08-14] MEDS: DONEPEZIL 10 MG TABLET PO (19:01)
[2022-08-14 23:00] VITALS: TEMP 36.9; O2SAT 96
[2022-08-15] MEDS: CARBIDOPA-LEVODOPA 25-100 TABLET 1 TAB PO ×4 (04:51→19:13)
[2022-08-15 07:00] VITALS: BP 82/53; PULSE 74; RESP 16; TEMP 36.9; O2SAT 97; BMI 21.8
[2022-08-15] MEDS: SENNOSIDES 1 TAB TABLET PO (07:32)
[2022-08-15] MEDS: polyethylene glycoL 3350 17 GM PACK PO (07:32)
[2022-08-15] MEDS: QUETIAPINE 25 MG TABLET 12.5 MG PO (18:36)
[2022-08-15] MEDS: ROPINIROLE HCL 1 MG TABLET 2 MG PO (19:13)
[2022-08-15] MEDS: DONEPEZIL 10 MG TABLET PO (19:13)
[2022-08-15 21:01] VITALS: TEMP 37; O2SAT 99
[2022-08-15 23:00] VITALS: TEMP 37.1; O2SAT 95
[2022-08-16] MEDS: CARBIDOPA-LEVODOPA 25-100 TABLET 1 TAB PO ×4 (04:06→19:22)
[2022-08-16] MEDS: polyethylene glycoL 3350 17 GM PACK PO (08:51)
[2022-08-16] MEDS: SENNOSIDES 1 TAB TABLET PO (08:51)
[2022-08-16 11:08] LABS: SARS PCR* Negative SARS-CoV-2 (Negative)
[2022-08-16 11:13] VITALS: TEMP 37.7; O2SAT 96
--- NOTE | 2022-08-16 11:14 | PC.NURSE ---
Resident status: Resident had Temp 99.9 with mild congestion and running nose, O2 96 ,B/P 106/60 Res: 20.Covid test was conducted and awaiting results.
--- NOTE | 2022-08-16 11:17 | PC.NURSE ---
Covid Test : Neg
[2022-08-16 16:46] VITALS: TEMP 37.1; O2SAT 96
[2022-08-16] MEDS: QUETIAPINE 25 MG TABLET 12.5 MG PO (18:36)
[2022-08-16] MEDS: DONEPEZIL 10 MG TABLET PO (19:22)
[2022-08-16] MEDS: ROPINIROLE HCL 1 MG TABLET 2 MG PO (19:22)
[2022-08-16 23:00] VITALS: TEMP 36.5; O2SAT 92
[2022-08-17] MEDS: CARBIDOPA-LEVODOPA 25-100 TABLET 1 TAB PO ×4 (04:46→19:15)
[2022-08-17] MEDS: polyethylene glycoL 3350 17 GM PACK PO (07:34)
[2022-08-17] MEDS: SENNOSIDES 1 TAB TABLET PO (07:34)
[2022-08-17 09:40] VITALS: TEMP 37.1; O2SAT 98
--- NOTE | 2022-08-17 12:41 | PC.NURSE ---
Cold symptoms: Resident has been having running nose and sneezing during this shift. Appetite poor and sneezing a lot during lunch. Temp 98.7, O2 98
[2022-08-17 16:32] VITALS: TEMP 37.4; O2SAT 98
[2022-08-17] MEDS: QUETIAPINE 25 MG TABLET 12.5 MG PO (18:29)
[2022-08-17] MEDS: DONEPEZIL 10 MG TABLET PO (19:15)
[2022-08-17] MEDS: ROPINIROLE HCL 1 MG TABLET 2 MG PO (19:16)
[2022-08-17 21:27] VITALS: TEMP 36.9; O2SAT 99
--- NOTE | 2022-08-18 03:10 | PC.NURSE ---
WEEKLY CHARTING - WEEK 1?( Pain & ADL's):? Vital signs reviewed - no new concerns at this time. Comprehensive/Temporary care plans reviewed - no changes made at this time. Resident is total assist of one for all ADLs. Limited assist with eating as resident attempts to feed self when in alert state. No choking episode, difficultly swallowing, nor decrease in appetite reported or noted. But coughing when eating has worsen after his Brain Stimulation procedure was last done at [facility]. On regular diet. Pain: Receiving the following medications for pain regimen: PRN - Oxycodone 2.5 mg Q6H and Acetaminophen 1000 mg TID.
[2022-08-18] MEDS: CARBIDOPA-LEVODOPA 25-100 TABLET 1 TAB PO ×4 (05:01→19:24)
[2022-08-18 07:00] VITALS: TEMP 37.1; O2SAT 97
[2022-08-18] MEDS: SENNOSIDES 1 TAB TABLET PO (08:01)
[2022-08-18] MEDS: polyethylene glycoL 3350 17 GM PACK PO (08:01)
--- NOTE | 2022-08-18 10:00 | PC.NURSE ---
COVID OUTBREAK TESTING Residents daughter gave verbal consent for outbreak COVID testing. Resident is currently asymptomatic.? Resident/family will be notified only if resident is positive.
[2022-08-18 10:44] LABS: SARS PCR* Negative SARS-CoV-2 (Negative)
--- NOTE | 2022-08-18 13:51 | PC.NURSE ---
Resident placed on isolation precautions due to MICHELLE reporting runny nose and nonproductive cough. Temp 98.8. O2 sat 97% on RA. CIRCUIT COURT CLERK aware. Nursing to continue to observe and will update staff on oncoming shift.
[2022-08-18 15:00] VITALS: TEMP 36.6; O2SAT 96
--- NOTE | 2022-08-18 17:00 | PC.NURSE ---
Isolation Status: Resident is removed from isolation at this time. After thorough nursing assessment and 2 hours of one-on-one physical observation, it appears resident is no longer exhibiting signs and symptoms which were the deciding factors for isolation. Vitals are all within resident's normal ranges: BP-118/74, P -73, Temp- 98, O2- 97, Resp-18. Denies pain. No running nose or coughing except when when eating; in other words, chronic cough with meals continues. Drooling a lot which is expected due to disease. Will continue to monitor.
[2022-08-18] MEDS: QUETIAPINE 25 MG TABLET 12.5 MG PO (18:16)
[2022-08-18] MEDS: ROPINIROLE HCL 1 MG TABLET 2 MG PO (19:24)
[2022-08-18] MEDS: DONEPEZIL 10 MG TABLET PO (19:24)
[2022-08-18 23:00] VITALS: TEMP 36.4; O2SAT 94
[2022-08-19] MEDS: CARBIDOPA-LEVODOPA 25-100 TABLET 1 TAB PO ×4 (04:51→19:48)
[2022-08-19 07:00] VITALS: TEMP 36.9; O2SAT 98
[2022-08-19] MEDS: polyethylene glycoL 3350 17 GM PACK PO (07:37)
[2022-08-19] MEDS: SENNOSIDES 1 TAB TABLET PO (07:38)
[2022-08-19] MEDS: QUETIAPINE 25 MG TABLET 12.5 MG PO (18:54)
[2022-08-19] MEDS: ROPINIROLE HCL 1 MG TABLET 2 MG PO (19:48)
[2022-08-19] MEDS: DONEPEZIL 10 MG TABLET PO (19:48)
[2022-08-19 21:22] VITALS: TEMP 37.3; O2SAT 97
[2022-08-19 23:50] VITALS: TEMP 36.7; O2SAT 92
[2022-08-20] MEDS: CARBIDOPA-LEVODOPA 25-100 TABLET 1 TAB PO ×4 (05:36→19:20)
[2022-08-20 07:00] VITALS: TEMP 36.7; O2SAT 92
[2022-08-20] MEDS: polyethylene glycoL 3350 17 GM PACK PO (07:44)
[2022-08-20] MEDS: SENNOSIDES 1 TAB TABLET PO (07:44)
[2022-08-20 15:00] VITALS: TEMP 36.6; O2SAT 97
[2022-08-20] MEDS: DONEPEZIL 10 MG TABLET PO (19:20)
[2022-08-20] MEDS: QUETIAPINE 25 MG TABLET 12.5 MG PO (19:20)
[2022-08-20] MEDS: ROPINIROLE HCL 1 MG TABLET 2 MG PO (19:20)
[2022-08-20 23:00] VITALS: TEMP 36.8; O2SAT 96
[2022-08-21] MEDS: CARBIDOPA-LEVODOPA 25-100 TABLET 1 TAB PO ×4 (04:57→20:13)
[2022-08-21 07:00] VITALS: TEMP 36.4; O2SAT 95
[2022-08-21] MEDS: polyethylene glycoL 3350 17 GM PACK PO (07:15)
[2022-08-21] MEDS: SENNOSIDES 1 TAB TABLET PO (07:15)
--- NOTE | 2022-08-21 12:35 | PC.NURSE ---
Resident Status: Resident has been sneezing during feeding. Appetite fair, just took a few pieces of chicken and keep sneezing during each feed and drinking, other times he is not sneezing. Lung clear and vitals WNL. To continue to monitor resident .
--- NOTE | 2022-08-21 13:11 | PC.SOCIAL ---
Received an e-mail from resident's daughter, Marian Araya, requesting that the care conference for resident that is scheduled for August 26 at 1:00pm be changed to 2:30 pm on the same day. Responded and informed that this worker will make the schedule change. Informed [facility] team and updated the webex calendar invite.
[2022-08-21] MEDS: QUETIAPINE 25 MG TABLET 12.5 MG PO (18:08)
[2022-08-21] MEDS: ROPINIROLE HCL 1 MG TABLET 2 MG PO (20:13)
[2022-08-21] MEDS: DONEPEZIL 10 MG TABLET PO (20:13)
[2022-08-22] MEDS: CARBIDOPA-LEVODOPA 25-100 TABLET 1 TAB PO ×4 (04:55→19:04)
[2022-08-22 07:00] VITALS: BP 100/70; PULSE 85; RESP 18; TEMP 36.9; O2SAT 98; BMI 21.7
[2022-08-22] MEDS: polyethylene glycoL 3350 17 GM PACK PO (07:35)
[2022-08-22] MEDS: SENNOSIDES 1 TAB TABLET PO (07:35)
[2022-08-22] MEDS: QUETIAPINE 25 MG TABLET 12.5 MG PO (19:03)
[2022-08-22] MEDS: ROPINIROLE HCL 1 MG TABLET 2 MG PO (19:04)
[2022-08-22] MEDS: DONEPEZIL 10 MG TABLET PO (19:04)
[2022-08-23] MEDS: CARBIDOPA-LEVODOPA 25-100 TABLET 1 TAB PO ×4 (05:23→19:42)
[2022-08-23] MEDS: polyethylene glycoL 3350 17 GM PACK PO (08:36)
[2022-08-23] MEDS: SENNOSIDES 1 TAB TABLET PO (08:36)
[2022-08-23 10:19] VITALS: TEMP 36.7; O2SAT 98
[2022-08-23] MEDS: QUETIAPINE 25 MG TABLET 12.5 MG PO (19:42)
[2022-08-23] MEDS: DONEPEZIL 10 MG TABLET PO (19:42)
[2022-08-23] MEDS: ROPINIROLE HCL 1 MG TABLET 2 MG PO (19:42)
--- NOTE | 2022-08-23 21:49 | PC.NURSE ---
Coughing: Resident continues to cough at dinner time when a bite of food just enters his mouth. He fed himself his entire meal.
[2022-08-24] MEDS: CARBIDOPA-LEVODOPA 25-100 TABLET 1 TAB PO ×4 (05:20→19:44)
[2022-08-24 07:00] VITALS: TEMP 36.6; O2SAT 96
[2022-08-24] MEDS: SENNOSIDES 1 TAB TABLET PO (07:56)
[2022-08-24] MEDS: polyethylene glycoL 3350 17 GM PACK PO (07:56)
[2022-08-24] MEDS: DONEPEZIL 10 MG TABLET PO (19:44)
[2022-08-24] MEDS: ROPINIROLE HCL 1 MG TABLET 2 MG PO (19:44)
[2022-08-24] MEDS: QUETIAPINE 25 MG TABLET 12.5 MG PO (19:44)
--- NOTE | 2022-08-25 02:38 | PC.NURSE ---
WEEKLY CHARTING - WEEK 2: Vital signs reviewed - no concerns. Temporary and comprehensive care plan reviewed - no change. Full mechanical lift with 2 assist for all transfers. Is non-ambulatory. 1-2 assist for bed mobility. Bilateral 1/4 side rails up during cares for bed mobility. Total dependence for w/c mobility. Is at high risk for falls. Fall interventions: call light in reach, bed and chair alarms, falling star magnet, gripper socks, hourly safety checks, bed in low position. On ROM program BID. Per documentation, refuses at times. Started TID standing program on 08/15/12.
[2022-08-25] MEDS: CARBIDOPA-LEVODOPA 25-100 TABLET 1 TAB PO ×4 (05:04→19:43)
[2022-08-25] MEDS: OXYCODONE 5 MG TABLET 2.5 MG PO (08:22)
[2022-08-25] MEDS: SENNOSIDES 1 TAB TABLET PO (08:22)
[2022-08-25] MEDS: polyethylene glycoL 3350 17 GM PACK PO (08:22)
[2022-08-25 10:12] VITALS: TEMP 36.4; O2SAT 95
--- NOTE | 2022-08-25 13:46 | PC.NURSE ---
Week #2-Mobility: Comprehensive and temporary care plan reviewed. No changes made, nothing added to temporary care plan. Resident is non ambulatory. Is transferred with 2 assists using the randy lift at all times. Staff wheel to all destinations. Needs 2 assists with repositioning. Bilateral 1/4 side rails up only during cares. Is on a standing program 3x/day.Has a bed and chair alarm. Vital signs reviewed, no concerns. Continue weekly monitoring. Fall: Last fall on 08/04/22. Remains a high fall risk according to assessment done on 06/10/23. Fall interventions: In recliner after lunch, star magnet in door, chair/bed alarms, call light within reach, bed in low position locked, gripper socks, frequent visual checks.
[2022-08-25] MEDS: QUETIAPINE 25 MG TABLET 12.5 MG PO (17:22)
[2022-08-25] MEDS: ROPINIROLE HCL 1 MG TABLET 2 MG PO (19:43)
[2022-08-25] MEDS: DONEPEZIL 10 MG TABLET PO (19:43)
[2022-08-25 21:31] VITALS: BP 113/71; BP 114/70; PULSE 61
[2022-08-26] MEDS: CARBIDOPA-LEVODOPA 25-100 TABLET 1 TAB PO ×4 (04:50→19:45)
[2022-08-26] MEDS: polyethylene glycoL 3350 17 GM PACK PO (08:07)
[2022-08-26] MEDS: SENNOSIDES 1 TAB TABLET PO (08:07)
[2022-08-26 09:45] VITALS: TEMP 36.4; O2SAT 94
--- NOTE | 2022-08-26 14:42 | PC.NURSE ---
ADL CORRECTION: Incorrect charting during FRANCIA period. Staff were interviewed regarding ADLs. Resident was dependent on staff for all ADLs except eating. Resident was not able to assist at all and staff provide total support. Resident dependent on two staff with Yomi lift for all transfers. Did not ambulate and did not propel self in w/c during lookback. Resident was able to help feed himself at times with staff assist.
--- NOTE | 2022-08-26 15:00 | PC.SOCIAL ---
Addendum entered by VALARIE Ruiz 08/26/22 16:58: Received a voicemail from resident's , Mildred, stating she was unable to get into the webex call for the care conference and was requesting an update on the care conference. Called resident's and provided her with an update. Resident's requested to speak with nursing regarding medication. Provided information to Na NOLAND to follow up. Original Note: Resident care conference was held today at 2:30 pm. Resident's daughter, Marian Araya, attended via phone. Updates were provided by Carie Elena in Nursing, Margo Lantigua in Nutrition, Adeline Ramírez in Life Enrichment, and this worker from Social Work. Resident's care plan was reviewed during care conference. Resident has been doing well since last procedure at [facility]. Resident was able to participate in mood assessment with social work and completed the assessment. Resident's mood is stable at this time and there are no concerns. Social work will follow up as necessary.
[2022-08-26 15:16] VITALS: BMI 21.7
[2022-08-26] MEDS: ROPINIROLE HCL 1 MG TABLET 2 MG PO (19:45)
[2022-08-26] MEDS: DONEPEZIL 10 MG TABLET PO (19:45)
[2022-08-26] MEDS: QUETIAPINE 25 MG TABLET 12.5 MG PO (19:45)
[2022-08-27] MEDS: CARBIDOPA-LEVODOPA 25-100 TABLET 1 TAB PO ×4 (05:09→19:07)
[2022-08-27 07:00] VITALS: TEMP 36.2; O2SAT 97
[2022-08-27] MEDS: polyethylene glycoL 3350 17 GM PACK PO (07:27)
[2022-08-27] MEDS: SENNOSIDES 1 TAB TABLET PO (07:27)
--- NOTE | 2022-08-27 14:38 | PC.PHA1 ---
REHABILITATOR PHARMACIST'S MEDICATION REVIEW: MEDICATION MONITORING: Quetiapine 12.5 mg daily at 1600 started 07/15/[address] Amor , [place] Neurologist for Parkinson dementia hallucinations. IRREGULARITY OR COMMENTS:Patient has now been on quetiapine for 30 days, nursing notes reviewed, no side effects notes on today's note. Patient was becoming scared of his hallucinations and therefore quetiapine trial started. Sinemet dose also increased at 07/15/22 visit form tid to qid. Patient continues to struggle with Parkinson/Lewy Body signs and symptoms that warrants need for medications prescribed. Oxycodone was stopped per neurologist recommendation, but prn order continues. Patient has needed 5 prn doses and patient does have falls reported. SUGGESTED COURSE OF ACTION TAKEN:Consider stopping prn oxycodone and starting prn acetaminophen caplet.
--- NOTE | 2022-08-27 15:52 | PC.SPIRITC ---
Late entry from August 26, 2022. I provided visit for support and connection.
[2022-08-27] MEDS: QUETIAPINE 25 MG TABLET 12.5 MG PO (19:03)
[2022-08-27] MEDS: ROPINIROLE HCL 1 MG TABLET 2 MG PO (19:07)
[2022-08-27] MEDS: DONEPEZIL 10 MG TABLET PO (19:07)
--- NOTE | 2022-08-27 22:09 | PC.NURSE ---
? Aspiration: Resident was drinking his water fast and started coughing. He continued to cough throughout the rest of the evening. Listened to lung sounds not hearing any adverse sounds. Temp. 98.6. Will monitor.
--- NOTE | 2022-08-28 04:10 | PC.NURSE ---
No cough noted over night. Afebrile at 98.3. SpO2 96% on RA. Lung sounds clear throughout on auscultation.
[2022-08-28] MEDS: CARBIDOPA-LEVODOPA 25-100 TABLET 1 TAB PO ×4 (04:59→19:20)
[2022-08-28 07:00] VITALS: TEMP 36.4; O2SAT 98
[2022-08-28] MEDS: polyethylene glycoL 3350 17 GM PACK PO (07:10)
[2022-08-28] MEDS: SENNOSIDES 1 TAB TABLET PO (07:14)
--- NOTE | 2022-08-28 14:44 | PC.NURSE ---
New Order: Resident seen by SUPERVISOR PRODUCTION DEPARTMENT today and she ordered ST evaluate and treat due to increasing Parkinsons symptoms and she also ordered Saline Nasal [place] to be given 1 spray twice daily.
--- NOTE | 2022-08-28 16:27 | PC.NURSE ---
Antipsychotropic medication review: spoke with HEALTH AND SOCIAL CARE TEACHER Renetta Bee on Seroquel use. HEALTH AND SOCIAL CARE TEACHER requested that neurology be called for review as they are the providers who started patient on medication. Call made out to neurology clinic at [phone]. Will await call back.
[2022-08-28] MEDS: QUETIAPINE 25 MG TABLET 12.5 MG PO (19:16)
[2022-08-28] MEDS: DONEPEZIL 10 MG TABLET PO (19:20)
[2022-08-28] MEDS: ROPINIROLE HCL 1 MG TABLET 2 MG PO (19:20)
[2022-08-28 21:28] VITALS: TEMP 36.7; O2SAT 98
[2022-08-28 21:29] VITALS: TEMP 36.7
[2022-08-28 23:00] VITALS: TEMP 36.8
[2022-08-28 23:41] VITALS: TEMP 36.8; O2SAT 94
[2022-08-29] MEDS: CARBIDOPA-LEVODOPA 25-100 TABLET 1 TAB PO ×4 (05:05→19:26)
[2022-08-29 06:35] VITALS: BP 100/64; PULSE 68; RESP 20; TEMP 36.5; O2SAT 95
[2022-08-29 06:36] VITALS: TEMP 36.5; O2SAT 95
[2022-08-29 07:00] VITALS: BMI 21.7
[2022-08-29] MEDS: SENNOSIDES 1 TAB TABLET PO (07:02)
[2022-08-29] MEDS: SODIUM CHLORIDE NASAL SPRAY 1 SPRAY NOSTRIL-B ×2 (07:02→16:13)
[2022-08-29] MEDS: polyethylene glycoL 3350 17 GM PACK PO (07:02)
--- NOTE | 2022-08-29 12:57 | PC.NURSE ---
Resident status: Resident was sneezing less during feeding after the order of nasal spray. Vital are WNL T :97.7, O2: 95, R: 20 B/P: 100/64 P 68. Appetite good
[2022-08-29 15:00] VITALS: TEMP 36.9; O2SAT 99
[2022-08-29] MEDS: QUETIAPINE 25 MG TABLET 12.5 MG PO (18:36)
[2022-08-29] MEDS: DONEPEZIL 10 MG TABLET PO (19:26)
[2022-08-29] MEDS: ROPINIROLE HCL 1 MG TABLET 2 MG PO (19:26)
[2022-08-30 00:13] VITALS: TEMP 36.3; O2SAT 94
[2022-08-30 00:14] VITALS: TEMP 36.3
[2022-08-30] MEDS: CARBIDOPA-LEVODOPA 25-100 TABLET 1 TAB PO ×4 (04:39→19:39)
[2022-08-30] MEDS: polyethylene glycoL 3350 17 GM PACK PO (07:22)
[2022-08-30] MEDS: SENNOSIDES 1 TAB TABLET PO (07:22)
[2022-08-30] MEDS: SODIUM CHLORIDE NASAL SPRAY 1 SPRAY NOSTRIL-B ×2 (07:22→15:42)
[2022-08-30 09:43] VITALS: TEMP 36.8; O2SAT 97
[2022-08-30 15:00] VITALS: TEMP 36.8; O2SAT 99
[2022-08-30] MEDS: QUETIAPINE 25 MG TABLET 12.5 MG PO (18:51)
[2022-08-30] MEDS: ROPINIROLE HCL 1 MG TABLET 2 MG PO (19:39)
[2022-08-30] MEDS: DONEPEZIL 10 MG TABLET PO (19:39)
[2022-08-30 23:55] VITALS: TEMP 36.6; O2SAT 95
[2022-08-31] MEDS: CARBIDOPA-LEVODOPA 25-100 TABLET 1 TAB PO ×4 (05:36→19:24)
[2022-08-31] MEDS: SENNOSIDES 1 TAB TABLET PO (07:34)
[2022-08-31] MEDS: polyethylene glycoL 3350 17 GM PACK PO (07:34)
[2022-08-31] MEDS: SODIUM CHLORIDE NASAL SPRAY 1 SPRAY NOSTRIL-B ×2 (07:34→15:30)
[2022-08-31 10:00] VITALS: TEMP 36.6; O2SAT 96
[2022-08-31 15:00] VITALS: TEMP 36.6; O2SAT 100
[2022-08-31] MEDS: QUETIAPINE 25 MG TABLET 12.5 MG PO (19:24)
[2022-08-31] MEDS: DONEPEZIL 10 MG TABLET PO (19:24)
[2022-08-31] MEDS: ROPINIROLE HCL 1 MG TABLET 2 MG PO (19:25)
[2022-08-31 23:43] VITALS: TEMP 36.8; O2SAT 98
--- NOTE | 2022-09-01 01:45 | PC.NURSE ---
Weekly charting Week 3. Vital signs reviewed. Temporary and comprehensive care plan reviewed. No changes made. Res has no skin concern. Res is incontinent both bowel and bladder. Checked and changed on first round and 3rd round NOC. wear white brief, Requires 1 assist of pad management, clothing adjustment and juancarlos-cares.
[2022-09-01] MEDS: CARBIDOPA-LEVODOPA 25-100 TABLET 1 TAB PO ×4 (05:03→20:20)
[2022-09-01 07:00] VITALS: TEMP 36.3; O2SAT 96
[2022-09-01] MEDS: SODIUM CHLORIDE NASAL SPRAY 1 SPRAY NOSTRIL-B ×2 (07:01→15:57)
[2022-09-01] MEDS: SENNOSIDES 1 TAB TABLET PO (07:01)
[2022-09-01] MEDS: polyethylene glycoL 3350 17 GM PACK PO (07:01)
--- NOTE | 2022-09-01 10:00 | PC.NURSE ---
COVID OUTBREAK TESTING: Residents daughter gave verbal consent for outbreak COVID testing. Resident is currently asymptomatic. Resident/family will be notified only if resident is positive.
[2022-09-01 11:27] LABS: SARS PCR* Negative SARS-CoV-2 (Negative)
[2022-09-01 15:00] VITALS: TEMP 36.8; O2SAT 98
[2022-09-01] MEDS: QUETIAPINE 25 MG TABLET 12.5 MG PO (17:50)
[2022-09-01] MEDS: DONEPEZIL 10 MG TABLET PO (20:20)
[2022-09-01] MEDS: ROPINIROLE HCL 1 MG TABLET 2 MG PO (20:20)
[2022-09-01 23:00] VITALS: TEMP 36.6
[2022-09-01 23:50] VITALS: TEMP 36.6; O2SAT 94
[2022-09-02] MEDS: CARBIDOPA-LEVODOPA 25-100 TABLET 1 TAB PO ×4 (05:08→19:37)
[2022-09-02 06:45] VITALS: TEMP 36.8; O2SAT 95
[2022-09-02 06:46] VITALS: TEMP 36.8
[2022-09-02] MEDS: SENNOSIDES 1 TAB TABLET PO (07:11)
[2022-09-02] MEDS: polyethylene glycoL 3350 17 GM PACK PO (07:11)
[2022-09-02] MEDS: SODIUM CHLORIDE NASAL SPRAY 1 SPRAY NOSTRIL-B ×2 (07:11→15:15)
--- NOTE | 2022-09-02 09:06 | PC.NURSE ---
Speech eval done: See eval for details. Resident does not appear to be aspirating during meals. ST advised that if resident is coughing/sneezing that staff stop feeding him for 15 minutes. Food to be bite size smaller than quarter size. CP updated.
[2022-09-02] MEDS: QUETIAPINE 25 MG TABLET 12.5 MG PO (19:37)
[2022-09-02] MEDS: ROPINIROLE HCL 1 MG TABLET 2 MG PO (19:37)
[2022-09-02] MEDS: DONEPEZIL 10 MG TABLET PO (19:37)
[2022-09-02 22:31] VITALS: TEMP 37.1; O2SAT 96
[2022-09-02 22:32] VITALS: TEMP 37.1
[2022-09-02 23:00] VITALS: TEMP 36.8; O2SAT 96
[2022-09-03] MEDS: CARBIDOPA-LEVODOPA 25-100 TABLET 1 TAB PO ×4 (04:59→20:16)
[2022-09-03 06:54] VITALS: TEMP 36.8; O2SAT 95
[2022-09-03] MEDS: polyethylene glycoL 3350 17 GM PACK PO (07:00)
[2022-09-03] MEDS: SODIUM CHLORIDE NASAL SPRAY 1 SPRAY NOSTRIL-B ×2 (07:00→15:58)
[2022-09-03] MEDS: SENNOSIDES 1 TAB TABLET PO (07:00)
--- NOTE | 2022-09-03 12:49 | PC.NURSE ---
IDT: Asked therapy team if resident would be appropriate candidate for a tilt and space w/c due fatigue with sitting upright in w/c. Will await response back.
--- NOTE | 2022-09-03 12:55 | PC.NURSE ---
2nd call made out to [place] [facility] to discuss Seroquel use and update them on increase salvia and fatigue that resident is experiencing.
[2022-09-03 15:00] VITALS: TEMP 36.7; O2SAT 98
[2022-09-03] MEDS: QUETIAPINE 25 MG TABLET 12.5 MG PO (18:33)
[2022-09-03] MEDS: DONEPEZIL 10 MG TABLET PO (20:16)
[2022-09-03] MEDS: ROPINIROLE HCL 1 MG TABLET 2 MG PO (20:16)
[2022-09-03 23:00] VITALS: TEMP 37.1; O2SAT 95
[2022-09-04] MEDS: CARBIDOPA-LEVODOPA 25-100 TABLET 1 TAB PO ×4 (05:42→19:16)
[2022-09-04] MEDS: polyethylene glycoL 3350 17 GM PACK PO (08:35)
[2022-09-04] MEDS: SENNOSIDES 1 TAB TABLET PO (08:35)
[2022-09-04] MEDS: SODIUM CHLORIDE NASAL SPRAY 1 SPRAY NOSTRIL-B ×2 (08:35→15:35)
[2022-09-04 10:08] VITALS: TEMP 36.8; O2SAT 97
[2022-09-04 15:03] VITALS: TEMP 36.3; O2SAT 95
--- NOTE | 2022-09-04 15:30 | PC.NURSE ---
Spoke to [facility] nurse Wandy [phone]. She stated that resident is only seen in clinic for his brain stimulator and not medication or Parkinson management. Wandy is going to talk with the provider to see if he is willing to speak to facility about medication use such as Seroquel, as well as drooling and lethargy at times. Wandy stated that if provider is unwilling to speak of medications with facility that a recommendation will be made that facility find a neurologist outside of [facility] to discuss his medications and symptoms of Parkinson's as the appointments at the [facility] are for the brain stimulator only. -Will await for call back later next week.
[2022-09-04] MEDS: QUETIAPINE 25 MG TABLET 12.5 MG PO (17:16)
[2022-09-04] MEDS: DONEPEZIL 10 MG TABLET PO (19:16)
[2022-09-04] MEDS: ROPINIROLE HCL 1 MG TABLET 2 MG PO (19:16)
[2022-09-04 23:00] VITALS: TEMP 36.6; O2SAT 97
[2022-09-05] MEDS: CARBIDOPA-LEVODOPA 25-100 TABLET 1 TAB PO ×4 (05:05→19:14)
[2022-09-05 07:00] VITALS: BP 87/56; PULSE 73; RESP 16; TEMP 36.7; O2SAT 100; BMI 21.7
[2022-09-05] MEDS: polyethylene glycoL 3350 17 GM PACK PO (07:20)
[2022-09-05] MEDS: SODIUM CHLORIDE NASAL SPRAY 1 SPRAY NOSTRIL-B ×2 (07:20→15:16)
[2022-09-05] MEDS: SENNOSIDES 1 TAB TABLET PO (07:20)
--- NOTE | 2022-09-05 11:28 | PC.NURSE ---
Addendum entered by Consuelo Henry RN 09/05/22 11:33: Adaptive equipment used d/t weakness in hands/arms caused by Parkinsonism. Original Note: Adaptive equipment: Resident uses divided plate, built up foam utensils with curved spoon to the left. Covered sippy cup with all liquids. Discussed with OT, IDT, PLASTIC PRINTER. CP updated.
[2022-09-05 17:06] VITALS: TEMP 37.3; O2SAT 98
[2022-09-05] MEDS: QUETIAPINE 25 MG TABLET 12.5 MG PO (18:48)
[2022-09-05] MEDS: ROPINIROLE HCL 1 MG TABLET 2 MG PO (19:14)
[2022-09-05] MEDS: DONEPEZIL 10 MG TABLET PO (19:14)
[2022-09-05 23:00] VITALS: TEMP 36.9; O2SAT 95
[2022-09-06] MEDS: CARBIDOPA-LEVODOPA 25-100 TABLET 1 TAB PO ×4 (04:50→19:02)
[2022-09-06 07:00] VITALS: TEMP 36.8; O2SAT 96
[2022-09-06] MEDS: SODIUM CHLORIDE NASAL SPRAY 1 SPRAY NOSTRIL-B ×2 (08:29→15:02)
[2022-09-06] MEDS: SENNOSIDES 1 TAB TABLET PO (08:29)
[2022-09-06] MEDS: polyethylene glycoL 3350 17 GM PACK PO (08:29)
[2022-09-06 16:47] VITALS: TEMP 36.9; O2SAT 95
[2022-09-06] MEDS: QUETIAPINE 25 MG TABLET 12.5 MG PO (17:03)
[2022-09-06] MEDS: DONEPEZIL 10 MG TABLET PO (19:02)
[2022-09-06] MEDS: ROPINIROLE HCL 1 MG TABLET 2 MG PO (19:02)
[2022-09-06 23:00] VITALS: TEMP 37; O2SAT 94
[2022-09-07] MEDS: CARBIDOPA-LEVODOPA 25-100 TABLET 1 TAB PO ×4 (04:52→19:00)
[2022-09-07 07:00] VITALS: TEMP 36.6; O2SAT 99
[2022-09-07] MEDS: SODIUM CHLORIDE NASAL SPRAY 1 SPRAY NOSTRIL-B ×2 (07:15→15:38)
[2022-09-07] MEDS: SENNOSIDES 1 TAB TABLET PO (07:15)
[2022-09-07] MEDS: polyethylene glycoL 3350 17 GM PACK PO (07:15)
[2022-09-07 16:39] VITALS: TEMP 36.8; O2SAT 98
[2022-09-07] MEDS: DONEPEZIL 10 MG TABLET PO (19:00)
[2022-09-07] MEDS: ROPINIROLE HCL 1 MG TABLET 2 MG PO (19:00)
[2022-09-07] MEDS: QUETIAPINE 25 MG TABLET 12.5 MG PO (19:00)
[2022-09-07 23:00] VITALS: TEMP 36.9; O2SAT 97
--- NOTE | 2022-09-08 04:26 | PC.NURSE ---
WEEKLY CHARTING - WEEK 4: Vital signs reviewed - low BP values noted. Temporary and comprehensive care plan reviewed - no change. Documented behaviors x9 of being combative/resistive with cares in the last month.Currently receives quetiapine 12.5mg daily at 1800 with no noted adverse effects. Able to communicate simple needs. Staff anticipate needs. Hears adequately. Wears glasses for reading only. No change in orientation. Started [place] nasal spray 08/28. All medications administered by licensed nurse. Health condition stable at this time.
[2022-09-08] MEDS: CARBIDOPA-LEVODOPA 25-100 TABLET 1 TAB PO ×4 (04:50→20:11)
[2022-09-08 06:45] VITALS: TEMP 36.1; O2SAT 99
[2022-09-08] MEDS: polyethylene glycoL 3350 17 GM PACK PO (07:03)
[2022-09-08] MEDS: SENNOSIDES 1 TAB TABLET PO (07:03)
[2022-09-08] MEDS: SODIUM CHLORIDE NASAL SPRAY 1 SPRAY NOSTRIL-B ×2 (07:03→15:14)
--- NOTE | 2022-09-08 07:20 | PC.NURSE ---
Week #4: Comprehensive and temporary care plan reviewed. No changes made and nothing added to temporary care plan. No changes noted in communication, hearing,vision or orientation. Will use the call light, speech is sometimes understood/clear, able to communicate simple sentences. Needs also anticipated by staff. Uses reading glasses, hears fine. Cognition impaired d/t lewy body dementia. Is forgetful. 07/28/22 brain stimulator battery replaced. Chronic health condition stable. Is not able to self administer medications. Vital signs reviewed, has few low BP values. Continue weekly monitoring and refer to provider as needed. Mood/Behavior: Has occasional episodes of resisting to cares probably related to pain.PRN pain medications seems to help with re approach. Is on Seroquel 12.5 mg daily @ 1800 with no adverse effects noted. And no recent change in medication.
--- NOTE | 2022-09-08 11:47 | PC.NURSE ---
COVID OUTBREAK TESTING: Residents daughter gave verbal consent for outbreak COVID testing. Resident is currently asymptomatic. Resident/family will be notified only if resident is positive.
[2022-09-08 12:51] LABS: SARS PCR* Negative SARS-CoV-2 (Negative)
[2022-09-08 15:00] VITALS: TEMP 37.1; O2SAT 98
[2022-09-08] MEDS: QUETIAPINE 25 MG TABLET 12.5 MG PO (17:25)
[2022-09-08] MEDS: ROPINIROLE HCL 1 MG TABLET 2 MG PO (20:11)
[2022-09-08] MEDS: DONEPEZIL 10 MG TABLET PO (20:11)
[2022-09-08 23:00] VITALS: TEMP 37; O2SAT 96
[2022-09-09] MEDS: CARBIDOPA-LEVODOPA 25-100 TABLET 1 TAB PO ×4 (05:20→19:18)
[2022-09-09] MEDS: SODIUM CHLORIDE NASAL SPRAY 1 SPRAY NOSTRIL-B ×2 (07:53→15:28)
[2022-09-09] MEDS: polyethylene glycoL 3350 17 GM PACK PO (07:54)
[2022-09-09] MEDS: SENNOSIDES 1 TAB TABLET PO (07:54)
[2022-09-09 09:54] VITALS: TEMP 36.3; O2SAT 98
--- NOTE | 2022-09-09 12:07 | PC.SPIRITC ---
I provided visit for support and to walk Ho to a large window to look at the see and windmill.
[2022-09-09 17:30] VITALS: TEMP 36.6; O2SAT 98
[2022-09-09] MEDS: QUETIAPINE 25 MG TABLET 12.5 MG PO (19:18)
[2022-09-09] MEDS: DONEPEZIL 10 MG TABLET PO (19:18)
[2022-09-09] MEDS: ROPINIROLE HCL 1 MG TABLET 2 MG PO (19:18)
[2022-09-09 23:00] VITALS: TEMP 37; O2SAT 97
[2022-09-10] MEDS: CARBIDOPA-LEVODOPA 25-100 TABLET 1 TAB PO ×4 (05:03→19:02)
[2022-09-10 07:00] VITALS: TEMP 36.3; O2SAT 99
[2022-09-10] MEDS: SODIUM CHLORIDE NASAL SPRAY 1 SPRAY NOSTRIL-B ×2 (08:13→15:25)
[2022-09-10] MEDS: SENNOSIDES 1 TAB TABLET PO (08:13)
[2022-09-10] MEDS: polyethylene glycoL 3350 17 GM PACK PO (08:13)
--- NOTE | 2022-09-10 09:55 | PC.NURSE ---
Received call back from Dr. Amor's nurse at [facility]. Dr. Amor does not want to manage residents medications such as Seroquel or discuss the lethargy that resident is having at this time as his primary job is to manage the brain stim. Dr. Amor's office recommends that resident be seen at a private neurology clinic for medication and Parkinson's symptom management at this time as [facility] is now geared towards speciality needs. Email sent to daughter Marian with update and what plan of care should be moving forward with medication management and symptoms for Parkinson's such as making an appointment to be see at [facility] in [place]. Will await follow up from daughter.
[2022-09-10 15:00] VITALS: TEMP 36.8; O2SAT 99
[2022-09-10] MEDS: QUETIAPINE 25 MG TABLET 12.5 MG PO (19:02)
[2022-09-10] MEDS: DONEPEZIL 10 MG TABLET PO (19:02)
[2022-09-10] MEDS: ROPINIROLE HCL 1 MG TABLET 2 MG PO (19:02)
[2022-09-10 23:00] VITALS: TEMP 36.9; O2SAT 93
[2022-09-11] MEDS: CARBIDOPA-LEVODOPA 25-100 TABLET 1 TAB PO ×4 (05:08→19:23)
[2022-09-11 07:00] VITALS: TEMP 36.7; O2SAT 99
[2022-09-11] MEDS: SODIUM CHLORIDE NASAL SPRAY 1 SPRAY NOSTRIL-B ×2 (08:04→15:05)
[2022-09-11] MEDS: polyethylene glycoL 3350 17 GM PACK PO (08:05)
[2022-09-11] MEDS: SENNOSIDES 1 TAB TABLET PO (08:05)
--- NOTE | 2022-09-11 12:58 | PC.NURSE ---
Resident attempted to get up after lunch in dinning room. Staff was there to intervene, no injury or fall noted. Will continues to monitor.
[2022-09-11 16:09] VITALS: TEMP 36.8; O2SAT 99
[2022-09-11] MEDS: QUETIAPINE 25 MG TABLET 12.5 MG PO (19:22)
[2022-09-11] MEDS: ROPINIROLE HCL 1 MG TABLET 2 MG PO (19:23)
[2022-09-11] MEDS: DONEPEZIL 10 MG TABLET PO (19:23)
[2022-09-11 23:00] VITALS: TEMP 37; O2SAT 94
[2022-09-12] MEDS: CARBIDOPA-LEVODOPA 25-100 TABLET 1 TAB PO ×4 (04:57→20:12)
[2022-09-12] MEDS: polyethylene glycoL 3350 17 GM PACK PO (07:46)
[2022-09-12] MEDS: SODIUM CHLORIDE NASAL SPRAY 1 SPRAY NOSTRIL-B ×2 (07:46→15:42)
[2022-09-12] MEDS: SENNOSIDES 1 TAB TABLET PO (07:49)
[2022-09-12 09:54] VITALS: BP 100/58; PULSE 64; RESP 18; TEMP 36.3; O2SAT 100; O2SAT 64; BMI 21.9
[2022-09-12 15:00] VITALS: TEMP 36.6; O2SAT 99
[2022-09-12] MEDS: QUETIAPINE 25 MG TABLET 12.5 MG PO (17:24)
[2022-09-12] MEDS: DONEPEZIL 10 MG TABLET PO (20:12)
[2022-09-12] MEDS: ROPINIROLE HCL 1 MG TABLET 2 MG PO (20:12)
[2022-09-12 23:36] VITALS: TEMP 36.4; O2SAT 93
[2022-09-13] MEDS: CARBIDOPA-LEVODOPA 25-100 TABLET 1 TAB PO ×4 (06:28→20:11)
[2022-09-13] MEDS: SENNOSIDES 1 TAB TABLET PO (07:00)
[2022-09-13] MEDS: SODIUM CHLORIDE NASAL SPRAY 1 SPRAY NOSTRIL-B ×2 (07:21→15:10)
[2022-09-13] MEDS: polyethylene glycoL 3350 17 GM PACK PO (08:26)
[2022-09-13 10:10] VITALS: TEMP 36.9; O2SAT 95
[2022-09-13 15:00] VITALS: TEMP 36.9; O2SAT 95
[2022-09-13] MEDS: QUETIAPINE 25 MG TABLET 12.5 MG PO (17:04)
[2022-09-13] MEDS: ROPINIROLE HCL 1 MG TABLET 2 MG PO (20:11)
[2022-09-13] MEDS: DONEPEZIL 10 MG TABLET PO (20:11)
[2022-09-13 23:52] VITALS: TEMP 36.4; O2SAT 94
[2022-09-14] MEDS: CARBIDOPA-LEVODOPA 25-100 TABLET 1 TAB PO ×4 (05:08→19:41)
[2022-09-14] MEDS: polyethylene glycoL 3350 17 GM PACK PO (07:49)
[2022-09-14] MEDS: SENNOSIDES 1 TAB TABLET PO (07:49)
[2022-09-14] MEDS: SODIUM CHLORIDE NASAL SPRAY 1 SPRAY NOSTRIL-B ×2 (07:49→15:33)
[2022-09-14 09:42] VITALS: TEMP 36.8; O2SAT 98
[2022-09-14 15:00] VITALS: TEMP 36.1; O2SAT 100
[2022-09-14] MEDS: QUETIAPINE 25 MG TABLET 12.5 MG PO (17:09)
[2022-09-14] MEDS: DONEPEZIL 10 MG TABLET PO (19:41)
[2022-09-14] MEDS: ROPINIROLE HCL 1 MG TABLET 2 MG PO (19:42)
[2022-09-14 23:36] VITALS: TEMP 36.8; O2SAT 96
--- NOTE | 2022-09-15 01:57 | PC.NURSE ---
Weekly Charting Week 1: Vital signs reviewed. no concern. Comprehensive and temporary care plan reviewed. No changes made. Receives Acetaminophen 1000 mg TID scheduled and PRN Oxycodone 2.5mg Q6H for pain management. Requires total 1 staff assist of bathing, dressing and oral care. Limited assist of 1 at meal time. Able to feed himself if alert state. on regular diet and Thin liquids. Has history of coughing episode on eating and drinking. Staff monitor closely. staff offered snacks at 1500 as per family request.
[2022-09-15] MEDS: CARBIDOPA-LEVODOPA 25-100 TABLET 1 TAB PO ×4 (04:53→19:24)
[2022-09-15 07:00] VITALS: TEMP 36.4; O2SAT 99
[2022-09-15] MEDS: SODIUM CHLORIDE NASAL SPRAY 1 SPRAY NOSTRIL-B (07:12)
[2022-09-15] MEDS: SENNOSIDES 1 TAB TABLET PO (07:12)
[2022-09-15] MEDS: polyethylene glycoL 3350 17 GM PACK PO (08:08)
--- NOTE | 2022-09-15 11:04 | PC.NURSE ---
COVID OUTBREAK TESTING Resident and residents family gave verbal consent for outbreak COVID testing. Resident is currently asymptomatic.? Resident/family will be notified only if resident is positive.
[2022-09-15 11:15] LABS: SARS PCR* Negative SARS-CoV-2 (Negative)
--- NOTE | 2022-09-15 12:11 | PC.NURSE ---
WEEKLY CHARTING - WEEK 1?( Pain & ADL's):? Vital signs reviewed and they are WNL. Comprehensive and Temporary care plans reviewed - no changes made at this time. Resident is total assist of one for all ADLs except during transfer using Yomi lift. Resident need assistance in feeding especially if the food are not finger food. Resident was referred for speech evaluation due to frequent sneezing and coughing during food intake and it was done on September 05. The results noted no choking and to continue his regular diet.Resident is also recommended to stop eating for 15 min during episode of coughing and to continue when the coughing stops. Pain: Receiving the following medications for pain regimen: PRN - Oxycodone 2.5 mg Q6H and Acetaminophen 1000 mg TID.
--- NOTE | 2022-09-15 13:50 | PC.NURSE ---
Called [facility] [phone] per daughters request while searching for a neurology clinic that can manage medications and Parkinson's symptoms. Center stated to get referral, face sheet and last MD notes and fax over to [phone]. Have put note in GLASS SANDER BELT binder and will continue to get information needed. Daughter updated via email.
[2022-09-15 15:00] VITALS: TEMP 37.2; O2SAT 99
--- NOTE | 2022-09-15 16:01 | PC.NURSE ---
BRAIN STIM CHECK: monthly battery check performed--battery life indicated: Full battery more than 1 year. Communication 100%. Therapy turned on. Will continue to check monthly and update family.
[2022-09-15] MEDS: QUETIAPINE 25 MG TABLET 12.5 MG PO (18:46)
[2022-09-15] MEDS: ROPINIROLE HCL 1 MG TABLET 2 MG PO (19:24)
[2022-09-15] MEDS: DONEPEZIL 10 MG TABLET PO (19:24)
--- NOTE | 2022-09-15 23:57 | LTC.FALL ---
[facility] Fall Note: o Fall Date:09/15/2022 o Fall Time: 2300 o What happened? Patient found sitting on the the floor in between bed and recliner, bilateral knees flex, back leaning the bed, both hands holding the recliner. o Who found the resident and who responded? MICHELLE responded the bed alarm o What was the resident doing? Patient unable to verbalized what happened. He just smile with travel writer when tries to asked what happened. o How the resident was found (knees, left side, arm under them), any hazards (cords, objects, nonskid slippers) brakes on? Proper equipment? Patient found sitting on the the floor with bilateral knees flex o Did you assess for head trauma, spinal injuries, skeletal injuries, neurological changes and status, and head and neck pain? What did you find? Yes no injury noted o Did you assess ROM in shoulders, elbows, hips, knees, any other affected areas, unless there is suspected spinal injury. ROM is within normal o Did you Assess for pain or discomfort? No non verbal signs of pain. Denied pain when asked. o What are the injuries and how are they being treated? none o How was the resident transferred from the floor? using Yomi lift o Did you call the MD or put a note in the GLOBAL UPSTREAM MARKETING MANAGER book? yes o Enter vital signs. BP 137/74, Temp 98.1, RR 16, HR 74, O2 sat 95 RA o Did you notify family? will notify in the morning o What was the root cause of the fall? Why did it happen? Fish Dressing Machine Feeder awoken patient when covid monitoring vitals checked. o Create an IMMEDIATE INTERVENTION to ensure that this won't immediately happen again. (Put in temporary care plan too) Yes o Complete Safety report and huddle (now one form) Yes o If resident is seen in ED or fractured something, note that you started a [facility] Report process. Instructions are at the [facility] nurse's desk in a red binder labeled [facility] report. NO
[2022-09-16] VITALS (8 sets, daily range): BP systolic 102–163; BP diastolic 65–87; PULSE 58–74; RESP 16–18; TEMP 36.6–37.1; O2SAT 94–99
--- NOTE | 2022-09-16 01:10 | PC.NURSE ---
Fall Status F/U 23:00, Patient is alert and oriented to self and place. He is awake smiled to tech writer when asked if he has pain. Neuro ROM and VSS within normal. No verbal/ non verbal signs of pain.
--- NOTE | 2022-09-16 03:51 | PC.NURSE ---
FALL f/u 03:00, Res slept most of the night. Awoken when junior technical writer checked Vital signs. VSS and ROM within normal. Unable to assess Pupillary reaction due to refusal of opening the eyes. No signs of pain noted.
[2022-09-16] MEDS: CARBIDOPA-LEVODOPA 25-100 TABLET 1 TAB PO ×4 (05:21→19:28)
[2022-09-16] MEDS: polyethylene glycoL 3350 17 GM PACK PO (07:03)
[2022-09-16] MEDS: SODIUM CHLORIDE NASAL SPRAY 1 SPRAY NOSTRIL-B ×2 (07:03→15:16)
[2022-09-16] MEDS: SENNOSIDES 1 TAB TABLET PO (07:03)
--- NOTE | 2022-09-16 07:16 | PC.NURSE ---
Fall followup vital signs completed: B/P 131/65, P 63, R 18, T 98.1, O2 sat 97% on RA. Resident denies pain when asked. Hand grasps noted to be equal bilaterally. Unable to assess pupillary response at this time as resident has his eyes shut and will not open his eyes upon command or with staff assistance. marine tower operator updated. Resident resting in wheelchair at this time before breakfast. He is alert when spoken to and is moving all four extremities.
--- NOTE | 2022-09-16 09:02 | PC.NURSE ---
Resident noted to have eyes open during breakfast. Pupils noted to be round, reactive to light & equal bilaterally upon assessment.
--- NOTE | 2022-09-16 09:36 | PC.NURSE ---
Aircraft Instrument Engineer updated daughter Nohemi Araya of resident's fall overnight. Staff had left voicemail for daughter this morning requesting she call back for update.
[2022-09-16] MEDS: ACETAMINOPHEN 500 MG TABLET 1000 MG PO (11:17)
--- NOTE | 2022-09-16 11:24 | PC.NURSE ---
Fall followup note: VS completed B/P 102/67, P 66, R 16, T 98.6, O2 sat 99% on RA. Hand grasps remain equal bilaterally. Resident noted to be alert at this time. Unable to assess correct cognition as resident is not verbally responding to questions when asked at this time. Pupils remain round, reactive to light & equal bilaterally. Resident was given PRN Tylenol to treat possible pain. Medication was crushed and given in applesauce though resident noted to have spit drink of water out that was given afterward, would not swallow when prompted.
[2022-09-16] MEDS: QUETIAPINE 25 MG TABLET 12.5 MG PO (18:46)
[2022-09-16] MEDS: DONEPEZIL 10 MG TABLET PO (19:28)
[2022-09-16] MEDS: ROPINIROLE HCL 1 MG TABLET 2 MG PO (19:28)
[2022-09-17] VITALS (9 sets, daily range): BP systolic 100–136; BP diastolic 62–77; PULSE 54–72; RESP 16–18; TEMP 36.6–37.1; O2SAT 95–100
--- NOTE | 2022-09-17 02:01 | PC.NURSE ---
FALL FOLLOW-UP: Vital signs obtained - 98.3-64-18-136/71-95% on RA. Resident denies pain when asked. No noted non-verbal s/sx of pain at this time. Hand grasps equal bilaterally. PERRL. Denies any nausea, headache, or blurred vision. Alert and responding verbally to conversation. Orientation at baseline.
[2022-09-17] MEDS: OXYCODONE 5 MG TABLET 2.5 MG PO (05:00)
[2022-09-17] MEDS: CARBIDOPA-LEVODOPA 25-100 TABLET 1 TAB PO ×4 (05:00→20:28)
[2022-09-17] MEDS: polyethylene glycoL 3350 17 GM PACK PO (07:30)
[2022-09-17] MEDS: SENNOSIDES 1 TAB TABLET PO (07:30)
[2022-09-17] MEDS: SODIUM CHLORIDE NASAL SPRAY 1 SPRAY NOSTRIL-B ×2 (07:30→15:47)
--- NOTE | 2022-09-17 09:04 | PC.NURSE ---
Fall followup 0900: VS completed B/P 124/77, P 63, R 16, T 98.7, O2 sat 97% on RA. Hand grasps noted to be equal bilaterally. No verbal or nonverbal indications of pain noted with rest encouraged and repositioning performed. Resident noted to be alert. Unable to assess accurate cognition as resident not verbally responding to questions when asked which is common for this resident. Pupils remain round, reactive to light & equal bilaterally upon assessment.
--- NOTE | 2022-09-17 13:05 | PC.NURSE ---
Fall followup note: Fall followup vital signs completed with B/P of 117/69, P 72, R 16, T 98.6, O2 sat 96% on RA. Resident has had no verbal or nonverbal indications of pain noted with rest encouraged and repositioning performed. Resident remains able to move all four extremities and hand grasps remain equal when compared bilaterally. Resident remains alert & oriented per baseline. Pupils remain round, reactive to light & equal bilaterally upon assessment.
[2022-09-17] MEDS: QUETIAPINE 25 MG TABLET 12.5 MG PO (18:34)
--- NOTE | 2022-09-17 18:50 | PC.NURSE ---
Neuro/Fall follow up: VS obtained/entered - see worklist. Equal strength in bilateral hand formulator. ROM - Unable to participate d/t disease. Perrla - unable to participate d/t disease. Able to move lower extremities equally. Resident up in w/c currently. No new concerns r/t fall.
[2022-09-17] MEDS: DONEPEZIL 10 MG TABLET PO (20:28)
[2022-09-17] MEDS: ROPINIROLE HCL 1 MG TABLET 2 MG PO (20:28)
--- NOTE | 2022-09-17 21:26 | PC.NURSE ---
Neuro/fall follow up: See Current VS under work list. Equal strength in bilateral hand resistance brazer. ROM/Perrla - unable to assess d/t disease. Resident sleeping in bed at this time. Will continue to monitor.
[2022-09-18 01:00] VITALS: BP 122/69; PULSE 66; RESP 16; TEMP 36.9; O2SAT 95
[2022-09-18 05:00] VITALS: BP 133/72; PULSE 70; RESP 18; TEMP 36.9; O2SAT 96
[2022-09-18] MEDS: CARBIDOPA-LEVODOPA 25-100 TABLET 1 TAB PO ×4 (05:03→19:02)
[2022-09-18] MEDS: polyethylene glycoL 3350 17 GM PACK PO (07:53)
[2022-09-18] MEDS: SENNOSIDES 1 TAB TABLET PO (07:53)
[2022-09-18] MEDS: SODIUM CHLORIDE NASAL SPRAY 1 SPRAY NOSTRIL-B ×2 (07:53→15:31)
[2022-09-18 12:53] VITALS: TEMP 36.9; O2SAT 98
[2022-09-18 15:06] VITALS: TEMP 36.7; O2SAT 98
[2022-09-18] MEDS: QUETIAPINE 25 MG TABLET 12.5 MG PO (17:48)
[2022-09-18] MEDS: DONEPEZIL 10 MG TABLET PO (19:02)
[2022-09-18] MEDS: ROPINIROLE HCL 1 MG TABLET 2 MG PO (19:02)
[2022-09-18 23:00] VITALS: TEMP 36.7; O2SAT 94
[2022-09-19] MEDS: CARBIDOPA-LEVODOPA 25-100 TABLET 1 TAB PO ×4 (04:55→19:14)
[2022-09-19 07:00] VITALS: BP 102/67; PULSE 68; RESP 17; TEMP 36.7; O2SAT 99; BMI 21.9
[2022-09-19] MEDS: polyethylene glycoL 3350 17 GM PACK PO (08:28)
[2022-09-19] MEDS: SENNOSIDES 1 TAB TABLET PO (08:28)
[2022-09-19] MEDS: SODIUM CHLORIDE NASAL SPRAY 1 SPRAY NOSTRIL-B ×2 (09:01→16:23)
--- NOTE | 2022-09-19 11:11 | PC.NURSE ---
Glasses: Fell and got ran over with his wheelchair. (R) frame broken. Message left to daughter.
--- NOTE | 2022-09-19 11:57 | PC.NURSE ---
Recert Visit: Resident seen by Dr. Calhuon. Orders reviewed and renewed of 75 days with changes. If okay with daughter discontinue Seroquel. Awaiting daughter's call.
[2022-09-19 15:00] VITALS: TEMP 36; O2SAT 100
[2022-09-19] MEDS: QUETIAPINE 25 MG TABLET 12.5 MG PO (17:01)
[2022-09-19] MEDS: ROPINIROLE HCL 1 MG TABLET 2 MG PO (19:15)
[2022-09-19] MEDS: DONEPEZIL 10 MG TABLET PO (19:15)
--- NOTE | 2022-09-19 21:28 | PC.NURSE ---
Med management Staff did not get any call from resident daughter regarding no administrating his Seroquel so, he got a dose this evening.
[2022-09-19 23:00] VITALS: TEMP 36.8; O2SAT 92
[2022-09-20] MEDS: CARBIDOPA-LEVODOPA 25-100 TABLET 1 TAB PO ×4 (05:07→19:13)
[2022-09-20 07:00] VITALS: TEMP 36.6; O2SAT 98
[2022-09-20] MEDS: polyethylene glycoL 3350 17 GM PACK PO (07:45)
[2022-09-20] MEDS: SENNOSIDES 1 TAB TABLET PO (07:45)
[2022-09-20] MEDS: SODIUM CHLORIDE NASAL SPRAY 1 SPRAY NOSTRIL-B ×2 (07:45→15:14)
[2022-09-20 16:57] VITALS: TEMP 37.1; O2SAT 97
[2022-09-20] MEDS: QUETIAPINE 25 MG TABLET 12.5 MG PO (19:09)
[2022-09-20] MEDS: ROPINIROLE HCL 1 MG TABLET 2 MG PO (19:13)
[2022-09-20] MEDS: DONEPEZIL 10 MG TABLET PO (19:13)
[2022-09-20 23:00] VITALS: TEMP 36.9; O2SAT 96
[2022-09-21] MEDS: CARBIDOPA-LEVODOPA 25-100 TABLET 1 TAB PO ×4 (05:07→19:20)
[2022-09-21 07:00] VITALS: TEMP 36.6; O2SAT 97
[2022-09-21] MEDS: SENNOSIDES 1 TAB TABLET PO (07:35)
[2022-09-21] MEDS: SODIUM CHLORIDE NASAL SPRAY 1 SPRAY NOSTRIL-B ×2 (07:35→15:34)
[2022-09-21] MEDS: polyethylene glycoL 3350 17 GM PACK PO (07:35)
[2022-09-21 15:00] VITALS: TEMP 37.1; O2SAT 100
[2022-09-21] MEDS: QUETIAPINE 25 MG TABLET 12.5 MG PO (18:27)
[2022-09-21] MEDS: ROPINIROLE HCL 1 MG TABLET 2 MG PO (19:20)
[2022-09-21] MEDS: DONEPEZIL 10 MG TABLET PO (19:20)
[2022-09-21 23:00] VITALS: TEMP 36.8; O2SAT 95
--- NOTE | 2022-09-22 02:59 | PC.NURSE ---
WEEKLY CHARTING - WEEK 2: Vital signs reviewed - no concerns. Temporary and comprehensive care plan reviewed - no change. Requires assist fo 2 with full mechanical lift for all transfers. Is non-ambulatory. 1-2 assist for bed mobility. Bilateral 1/4 side rails up during cares only for bed mobility. Total staff dependence for w/c mobility. At high risk for falls per last fall risk assessment. Fall interventions: bed and chair alarms in place and active, call light in reach, gripper socks, falling star magnet, hourly safety checks, bed in low position with brakes locked. On ROM program BID and standing program TID.
[2022-09-22] MEDS: CARBIDOPA-LEVODOPA 25-100 TABLET 1 TAB PO ×4 (04:59→20:00)
[2022-09-22 07:00] VITALS: TEMP 36.5; O2SAT 98
[2022-09-22] MEDS: polyethylene glycoL 3350 17 GM PACK PO (07:39)
[2022-09-22] MEDS: SODIUM CHLORIDE NASAL SPRAY 1 SPRAY NOSTRIL-B ×2 (07:39→15:48)
[2022-09-22] MEDS: SENNOSIDES 1 TAB TABLET PO (07:39)
--- NOTE | 2022-09-22 07:45 | PC.NURSE ---
Weekly Charting Week 2-Mobility: Comprehensive and temporary care plan reviewed. No changes made, nothing added to temporary care plan. Resident is non ambulatory. Is transferred with 2 assists using the randy lift at all times. Staff wheel to all destinations. Needs 2 assists with repositioning. Bilateral 1/4 side rails up only during cares.? Is on a standing program 3x/day. Has a bed and chair alarm. Vital signs reviewed, no concerns. Continue weekly monitoring. Fall: No falls the past month. Had a fall on 09/16/22 from bed, no injury. Remains a high fall risk according to assessment done on 08/26/22. Fall interventions: In recliner after lunch, star magnet in door, chair/bed alarms, call light within reach, bed in low position locked, gripper socks, frequent visual checks.
[2022-09-22 13:42] LABS: SARS PCR* Negative SARS-CoV-2 (Negative)
[2022-09-22 15:00] VITALS: TEMP 37.1; O2SAT 98
[2022-09-22] MEDS: QUETIAPINE 25 MG TABLET 12.5 MG PO (18:13)
[2022-09-22] MEDS: DONEPEZIL 10 MG TABLET PO (20:00)
[2022-09-22] MEDS: ROPINIROLE HCL 1 MG TABLET 2 MG PO (20:00)
[2022-09-22 23:00] VITALS: TEMP 36.9; O2SAT 97
[2022-09-23] MEDS: CARBIDOPA-LEVODOPA 25-100 TABLET 1 TAB PO ×4 (05:04→19:04)
[2022-09-23 06:41] VITALS: TEMP 36.9; O2SAT 98
[2022-09-23] MEDS: SENNOSIDES 1 TAB TABLET PO (07:24)
[2022-09-23] MEDS: polyethylene glycoL 3350 17 GM PACK PO (07:24)
[2022-09-23] MEDS: SODIUM CHLORIDE NASAL SPRAY 1 SPRAY NOSTRIL-B ×2 (07:24→15:36)
[2022-09-23 15:00] VITALS: TEMP 36.9; O2SAT 100
[2022-09-23] MEDS: QUETIAPINE 25 MG TABLET 12.5 MG PO (17:10)
[2022-09-23] MEDS: ROPINIROLE HCL 1 MG TABLET 2 MG PO (19:04)
[2022-09-23] MEDS: DONEPEZIL 10 MG TABLET PO (19:04)
[2022-09-23 23:00] VITALS: TEMP 37.1; O2SAT 96
[2022-09-24] MEDS: CARBIDOPA-LEVODOPA 25-100 TABLET 1 TAB PO ×4 (05:09→19:04)
[2022-09-24 07:00] VITALS: TEMP 36.6; O2SAT 98
[2022-09-24] MEDS: SODIUM CHLORIDE NASAL SPRAY 1 SPRAY NOSTRIL-B ×2 (07:10→15:32)
[2022-09-24] MEDS: polyethylene glycoL 3350 17 GM PACK PO (07:10)
[2022-09-24] MEDS: SENNOSIDES 1 TAB TABLET PO (07:10)
--- NOTE | 2022-09-24 09:25 | PC.PHA1 ---
WHISKEY PROOF READER PHARMACIST'S MEDICATION REVIEW: MEDICATION MONITORING:Quetiapine 12.5 mg hs continues for hallucinations IRREGULARITY OR COMMENTS:Patient did have a fall since last review. Family has been contacted regarding continuation of quetiapine as prescribing MD no longer wants to follow medication regimen only neuro device. This situation in process at time of note. SUGGESTED COURSE OF ACTION TAKEN: Agree with stopping quetiapine with family approval. Sinemet has been known to cause hallucinations with advancing Parkinson/Lewy Body disease, dose adjustment may be warrented.
--- NOTE | 2022-09-24 09:57 | PC.NURSE ---
Daughter Marian updated on residents glasses being broken and use of Seroquel medication. Staff had questions regarding Ho?s glasses. Late last week they fell off his face and then were run over by the wheelchair and the right frame is broken. How would you like to proceed with getting him a new pair? Also were you able to discuss the Seroquel medication with Dr. Calhoun last week. Are you still wanting Ho to proceed with this medication? Please let me know if you have any questions/concerns.
--- NOTE | 2022-09-24 11:19 | NUTR.NU ---
RDN with significant weight gain note: Resident with significant weight gain noted within 180 days (11.68% weight gain). 03/28/22 137 lbs; Current weight 151 lbs. BMI is currently normal at 22.0 kg/m2. Suspect weight gain is due to consistent adequate meal and snack intakes. Weight has been stable within 30 and 90 days. Weight gain is beneficial with BMI now higher within normal range. Current diet is Regular, No current meal intakes to assess. Per family request, resident is receiving snacks in afternoon which mainly consists of oreos and ice cream recently. RDN has had conversation with resident's family regarding snacks in the past, and they are not concerned about his nutrition due to them feeling he is getting enough nutrients at meals (noted in nutrition assessment 03/19/22). No nutrition interventions at this time. RDN will continue to monitor and follow-up prn.
[2022-09-24 15:00] VITALS: TEMP 36.8; O2SAT 99
[2022-09-24] MEDS: QUETIAPINE 25 MG TABLET 12.5 MG PO (18:00)
[2022-09-24] MEDS: DONEPEZIL 10 MG TABLET PO (19:04)
[2022-09-24] MEDS: ROPINIROLE HCL 1 MG TABLET 2 MG PO (19:04)
[2022-09-24 19:05] VITALS: BP 104/69; BP 110/71; PULSE 58
[2022-09-24 23:00] VITALS: TEMP 37.2; O2SAT 96
[2022-09-25] MEDS: CARBIDOPA-LEVODOPA 25-100 TABLET 1 TAB PO ×4 (05:03→19:06)
[2022-09-25] MEDS: polyethylene glycoL 3350 17 GM PACK PO (07:02)
[2022-09-25] MEDS: SENNOSIDES 1 TAB TABLET PO (07:02)
[2022-09-25] MEDS: SODIUM CHLORIDE NASAL SPRAY 1 SPRAY NOSTRIL-B ×2 (07:02→15:49)
[2022-09-25 10:13] VITALS: TEMP 36.7; O2SAT 97
--- NOTE | 2022-09-25 10:45 | PC.NURSE ---
Daughter responded to email sent earlier in the week. Daughter will bring in new glasses for resident. At the moment she doesn't want to discontinue the Seroquel and would like to wait to discuss medications until an appointment is made with [facility]. Called [facility] to follow up when appointment will me made as all information was sent to them on 09/17/2022.
[2022-09-25 15:00] VITALS: TEMP 36.9; O2SAT 100
[2022-09-25] MEDS: QUETIAPINE 25 MG TABLET 12.5 MG PO (17:05)
[2022-09-25] MEDS: DONEPEZIL 10 MG TABLET PO (19:06)
[2022-09-25] MEDS: ROPINIROLE HCL 1 MG TABLET 2 MG PO (19:06)
[2022-09-25 23:00] VITALS: TEMP 36.9; O2SAT 96
[2022-09-26] MEDS: CARBIDOPA-LEVODOPA 25-100 TABLET 1 TAB PO ×4 (05:06→19:02)
[2022-09-26 07:00] VITALS: BP 117/73; PULSE 75; RESP 17; TEMP 36.5; TEMP 36.6; O2SAT 100; BMI 22.1
[2022-09-26] MEDS: SODIUM CHLORIDE NASAL SPRAY 1 SPRAY NOSTRIL-B ×2 (07:07→15:03)
[2022-09-26] MEDS: SENNOSIDES 1 TAB TABLET PO (07:08)
[2022-09-26] MEDS: polyethylene glycoL 3350 17 GM PACK PO (07:08)
[2022-09-26 12:11] VITALS: BMI 22.1
[2022-09-26] MEDS: QUETIAPINE 25 MG TABLET 12.5 MG PO (18:56)
[2022-09-26] MEDS: DONEPEZIL 10 MG TABLET PO (19:02)
[2022-09-26] MEDS: ROPINIROLE HCL 1 MG TABLET 2 MG PO (19:02)
[2022-09-26 23:54] VITALS: TEMP 36.3; O2SAT 96
[2022-09-27] MEDS: CARBIDOPA-LEVODOPA 25-100 TABLET 1 TAB PO ×4 (05:26→19:13)
[2022-09-27] MEDS: SODIUM CHLORIDE NASAL SPRAY 1 SPRAY NOSTRIL-B ×2 (08:01→15:38)
[2022-09-27] MEDS: polyethylene glycoL 3350 17 GM PACK PO (08:01)
[2022-09-27] MEDS: SENNOSIDES 1 TAB TABLET PO (08:01)
[2022-09-27 10:46] VITALS: TEMP 36.9; O2SAT 97
[2022-09-27 14:49] VITALS: TEMP 36.6; O2SAT 99
[2022-09-27] MEDS: QUETIAPINE 25 MG TABLET 12.5 MG PO (17:01)
[2022-09-27] MEDS: DONEPEZIL 10 MG TABLET PO (19:13)
[2022-09-27] MEDS: ROPINIROLE HCL 1 MG TABLET 2 MG PO (19:13)
[2022-09-27 23:45] VITALS: TEMP 36.6; O2SAT 94
[2022-09-28] MEDS: CARBIDOPA-LEVODOPA 25-100 TABLET 1 TAB PO ×4 (04:45→19:04)
[2022-09-28] MEDS: SODIUM CHLORIDE NASAL SPRAY 1 SPRAY NOSTRIL-B ×2 (07:38→15:51)
[2022-09-28] MEDS: polyethylene glycoL 3350 17 GM PACK PO (07:39)
[2022-09-28] MEDS: SENNOSIDES 1 TAB TABLET PO (07:39)
[2022-09-28 10:42] VITALS: TEMP 36.9; O2SAT 97
[2022-09-28 16:59] VITALS: TEMP 36.6; O2SAT 98
[2022-09-28] MEDS: QUETIAPINE 25 MG TABLET 12.5 MG PO (17:05)
[2022-09-28] MEDS: ROPINIROLE HCL 1 MG TABLET 2 MG PO (19:04)
[2022-09-28] MEDS: DONEPEZIL 10 MG TABLET PO (19:04)
[2022-09-28 23:43] VITALS: TEMP 36.6; O2SAT 96
--- NOTE | 2022-09-29 03:15 | PC.NURSE ---
WEEKLY CHARTING WEEK 3 Vital sings reviewed, No concern. Temporary care plan and temporary care plan reviewed. No changes made. Skin. Skin is clear and intact, No concern. Skin check during bath days and during cares. Toileting: Incontinent both bowel and bladder. Staff check and change on first round and 3rd round NOC. Portia cares, incontinent pad and clothing manage by staff.
[2022-09-29] MEDS: CARBIDOPA-LEVODOPA 25-100 TABLET 1 TAB PO ×4 (06:58→19:29)
[2022-09-29 07:00] VITALS: TEMP 37.2; O2SAT 95
[2022-09-29] MEDS: polyethylene glycoL 3350 17 GM PACK PO (07:03)
[2022-09-29] MEDS: SODIUM CHLORIDE NASAL SPRAY 1 SPRAY NOSTRIL-B ×2 (07:03→15:19)
[2022-09-29] MEDS: SENNOSIDES 1 TAB TABLET PO (07:03)
--- NOTE | 2022-09-29 10:57 | PC.NURSE ---
FYI note: Daughter brought in new pair of glasses. Oceanologist labeled glasses with resident's initials and resident is wearing new glasses at this time.
--- NOTE | 2022-09-29 11:30 | PC.NURSE ---
COVID OUTBREAK TESTING Residents daughter gave verbal consent for outbreak COVID testing. Resident is currently asymptomatic.? Resident/family will be notified only if resident is positive.
--- NOTE | 2022-09-29 12:42 | PC.NURSE ---
Addendum entered by Consuelo Henry RN 09/29/22 12:47: Appt is with Dr. Bartolo Wagoner Original Note: Appt scheduled at [facility] 10/22/22 @ 0950am. Daughter updated via email for family member to go with to appt. SS updated and will find transport closer to date. Calendar updated at desk. Fax with information for nurse to fill out will be sent by [facility].
[2022-09-29 14:00] LABS: SARS PCR* Negative SARS-CoV-2 (Negative)
[2022-09-29 15:00] VITALS: TEMP 36.9; O2SAT 98
[2022-09-29] MEDS: QUETIAPINE 25 MG TABLET 12.5 MG PO (18:34)
[2022-09-29] MEDS: DONEPEZIL 10 MG TABLET PO (19:29)
[2022-09-29] MEDS: ROPINIROLE HCL 1 MG TABLET 2 MG PO (19:29)
--- NOTE | 2022-09-29 21:07 | PC.NURSE ---
Weekly Charting - Week 3: Temporary/Comprehensive Care Plan - no changes made. Vital signs reviewed with no new concerns at this time. No skin concerns noted or reported at this time. Toileting: Resident is incontinent of bladder and bowel. Wears medium Quilted Adult Brief which is managed by staff. Is checked and changed in bed every 2 hours, and PRN. Skin: No skin integrity issues noted at this time. Skin is checked routinely during cares and on bath day.
[2022-09-29 23:00] VITALS: TEMP 36.9; O2SAT 97
[2022-09-30] MEDS: CARBIDOPA-LEVODOPA 25-100 TABLET 1 TAB PO ×4 (04:06→19:28)
[2022-09-30 07:00] VITALS: TEMP 36.4; O2SAT 99
[2022-09-30] MEDS: SODIUM CHLORIDE NASAL SPRAY 1 SPRAY NOSTRIL-B ×2 (07:43→15:11)
[2022-09-30] MEDS: polyethylene glycoL 3350 17 GM PACK PO (07:44)
[2022-09-30] MEDS: SENNOSIDES 1 TAB TABLET PO (07:44)
[2022-09-30 16:49] VITALS: TEMP 37.2; O2SAT 96
[2022-09-30] MEDS: QUETIAPINE 25 MG TABLET 12.5 MG PO (19:26)
[2022-09-30] MEDS: ROPINIROLE HCL 1 MG TABLET 2 MG PO (19:28)
[2022-09-30] MEDS: DONEPEZIL 10 MG TABLET PO (19:28)
[2022-09-30 23:58] VITALS: TEMP 36.8; O2SAT 94
[2022-10-01] MEDS: CARBIDOPA-LEVODOPA 25-100 TABLET 1 TAB PO ×4 (05:04→19:47)
[2022-10-01 07:00] VITALS: TEMP 36.8; O2SAT 97
[2022-10-01] MEDS: SODIUM CHLORIDE NASAL SPRAY 1 SPRAY NOSTRIL-B ×2 (07:00→15:40)
[2022-10-01] MEDS: SENNOSIDES 1 TAB TABLET PO (07:01)
[2022-10-01] MEDS: polyethylene glycoL 3350 17 GM PACK PO (07:01)
[2022-10-01] MEDS: QUETIAPINE 25 MG TABLET 12.5 MG PO (17:10)
[2022-10-01] MEDS: DONEPEZIL 10 MG TABLET PO (19:47)
[2022-10-01] MEDS: ROPINIROLE HCL 1 MG TABLET 2 MG PO (19:47)
[2022-10-02] MEDS: CARBIDOPA-LEVODOPA 25-100 TABLET 1 TAB PO ×4 (04:37→19:13)
[2022-10-02] MEDS: SENNOSIDES 1 TAB TABLET PO (07:25)
[2022-10-02] MEDS: polyethylene glycoL 3350 17 GM PACK PO (07:25)
[2022-10-02] MEDS: SODIUM CHLORIDE NASAL SPRAY 1 SPRAY NOSTRIL-B ×2 (07:25→15:13)
[2022-10-02] MEDS: QUETIAPINE 25 MG TABLET 12.5 MG PO (18:12)
[2022-10-02] MEDS: DONEPEZIL 10 MG TABLET PO (19:13)
[2022-10-02] MEDS: ROPINIROLE HCL 1 MG TABLET 2 MG PO (19:13)
[2022-10-03] MEDS: CARBIDOPA-LEVODOPA 25-100 TABLET 1 TAB PO ×4 (05:19→19:04)
[2022-10-03 07:00] VITALS: BP 110/68; PULSE 76; RESP 18; TEMP 36.9; O2SAT 98
[2022-10-03] MEDS: SODIUM CHLORIDE NASAL SPRAY 1 SPRAY NOSTRIL-B ×2 (07:59→15:14)
[2022-10-03] MEDS: polyethylene glycoL 3350 17 GM PACK PO (07:59)
[2022-10-03] MEDS: SENNOSIDES 1 TAB TABLET PO (07:59)
[2022-10-03] MEDS: QUETIAPINE 25 MG TABLET 12.5 MG PO (18:57)
[2022-10-03] MEDS: ROPINIROLE HCL 1 MG TABLET 2 MG PO (19:04)
[2022-10-03] MEDS: DONEPEZIL 10 MG TABLET PO (19:04)
[2022-10-04] MEDS: CARBIDOPA-LEVODOPA 25-100 TABLET 1 TAB PO ×4 (04:57→19:28)
[2022-10-04] MEDS: SODIUM CHLORIDE NASAL SPRAY 1 SPRAY NOSTRIL-B ×2 (07:58→15:17)
[2022-10-04] MEDS: polyethylene glycoL 3350 17 GM PACK PO (07:58)
[2022-10-04] MEDS: SENNOSIDES 1 TAB TABLET PO (07:58)
[2022-10-04 13:27] VITALS: BMI 21.9
[2022-10-04] MEDS: QUETIAPINE 25 MG TABLET 12.5 MG PO (18:36)
[2022-10-04] MEDS: ROPINIROLE HCL 1 MG TABLET 2 MG PO (19:28)
[2022-10-04] MEDS: DONEPEZIL 10 MG TABLET PO (19:28)
[2022-10-05] MEDS: CARBIDOPA-LEVODOPA 25-100 TABLET 1 TAB PO ×4 (04:57→19:18)
[2022-10-05] MEDS: SODIUM CHLORIDE NASAL SPRAY 1 SPRAY NOSTRIL-B ×2 (08:37→15:06)
[2022-10-05] MEDS: SENNOSIDES 1 TAB TABLET PO (08:37)
[2022-10-05] MEDS: polyethylene glycoL 3350 17 GM PACK PO (08:37)
[2022-10-05] MEDS: QUETIAPINE 25 MG TABLET 12.5 MG PO (19:17)
[2022-10-05] MEDS: DONEPEZIL 10 MG TABLET PO (19:18)
[2022-10-05] MEDS: ROPINIROLE HCL 1 MG TABLET 2 MG PO (19:18)
--- NOTE | 2022-10-06 02:33 | PC.NURSE ---
WEEKLY CHARTING - WEEK 4: Vital signs reviewed - no concerns. Temporary and comprehensive care plan reviewed - no change. Documented behavioral episodes of being combative/resistive with cares in the last month. Receives quetiapine 12.5mg at 1800 daily. No noted adverse drug effects. Able to communicate simple needs at times. Staff also anticipate needs. No noted hearing impairment. Glasses for reading only. Orientation is unchanged. All medications administered by licensed nurse. Health condition stable at this time.?
[2022-10-06] MEDS: CARBIDOPA-LEVODOPA 25-100 TABLET 1 TAB PO ×4 (04:48→19:21)
[2022-10-06] MEDS: SENNOSIDES 1 TAB TABLET PO (07:01)
[2022-10-06] MEDS: SODIUM CHLORIDE NASAL SPRAY 1 SPRAY NOSTRIL-B ×2 (07:01→15:36)
[2022-10-06] MEDS: polyethylene glycoL 3350 17 GM PACK PO (07:01)
--- NOTE | 2022-10-06 10:18 | PC.NURSE ---
Weekly Charting - Week 4: Comprehensive and temporary care plan reviewed. No changes made and nothing added to temporary care plan. No changes noted in communication, hearing,vision or orientation. Will use the call light, speech is sometimes understood/clear, able to communicate simple sentences. Needs also anticipated by staff. Uses reading glasses, hears fine. Cognition impaired d/t lewy body dementia. Is forgetful. Chronic health condition stable. Is not able to self administer medications. Vital signs reviewed, has few low BP values. Continue weekly monitoring and refer to provider as needed. Mood/Behavior: No issues the past month. Is on Seroquel 12.5 mg daily @ 1800 with no adverse effects noted. And no recent change in medication. MD recommended discontinue Seroquel if daughter is okay. But daughter wants to continue.
[2022-10-06] MEDS: QUETIAPINE 25 MG TABLET 12.5 MG PO (18:16)
[2022-10-06] MEDS: ROPINIROLE HCL 1 MG TABLET 2 MG PO (19:21)
[2022-10-06] MEDS: DONEPEZIL 10 MG TABLET PO (19:21)
[2022-10-07] MEDS: CARBIDOPA-LEVODOPA 25-100 TABLET 1 TAB PO ×4 (05:23→19:11)
[2022-10-07] MEDS: SODIUM CHLORIDE NASAL SPRAY 1 SPRAY NOSTRIL-B ×2 (07:00→15:17)
[2022-10-07] MEDS: SENNOSIDES 1 TAB TABLET PO (07:01)
[2022-10-07] MEDS: polyethylene glycoL 3350 17 GM PACK PO (07:01)
--- NOTE | 2022-10-07 10:52 | PC.NURSE ---
Order: Discontinue Maalox Q2H PRN by FIRE ENGINEER, Rohit for non usage.
[2022-10-07] MEDS: QUETIAPINE 25 MG TABLET 12.5 MG PO (19:10)
[2022-10-07] MEDS: DONEPEZIL 10 MG TABLET PO (19:11)
[2022-10-07] MEDS: ROPINIROLE HCL 1 MG TABLET 2 MG PO (19:11)
[2022-10-08] MEDS: CARBIDOPA-LEVODOPA 25-100 TABLET 1 TAB PO ×4 (05:01→19:37)
[2022-10-08] MEDS: SODIUM CHLORIDE NASAL SPRAY 1 SPRAY NOSTRIL-B ×2 (07:13→15:12)
[2022-10-08] MEDS: polyethylene glycoL 3350 17 GM PACK PO (07:14)
[2022-10-08] MEDS: SENNOSIDES 1 TAB TABLET PO (07:14)
[2022-10-08] MEDS: QUETIAPINE 25 MG TABLET 12.5 MG PO (18:40)
[2022-10-08] MEDS: ROPINIROLE HCL 1 MG TABLET 2 MG PO (19:37)
[2022-10-08] MEDS: DONEPEZIL 10 MG TABLET PO (19:37)
[2022-10-09] MEDS: CARBIDOPA-LEVODOPA 25-100 TABLET 1 TAB PO ×4 (05:02→19:05)
[2022-10-09] MEDS: SENNOSIDES 1 TAB TABLET PO (07:11)
[2022-10-09] MEDS: SODIUM CHLORIDE NASAL SPRAY 1 SPRAY NOSTRIL-B ×2 (07:11→15:25)
[2022-10-09] MEDS: polyethylene glycoL 3350 17 GM PACK PO (07:11)
[2022-10-09] MEDS: QUETIAPINE 25 MG TABLET 12.5 MG PO (18:52)
[2022-10-09] MEDS: ROPINIROLE HCL 1 MG TABLET 2 MG PO (19:05)
[2022-10-09] MEDS: DONEPEZIL 10 MG TABLET PO (19:05)
[2022-10-10] MEDS: CARBIDOPA-LEVODOPA 25-100 TABLET 1 TAB PO ×4 (05:04→19:29)
[2022-10-10] MEDS: SODIUM CHLORIDE NASAL SPRAY 1 SPRAY NOSTRIL-B ×2 (07:48→15:41)
[2022-10-10] MEDS: SENNOSIDES 1 TAB TABLET PO (07:51)
[2022-10-10] MEDS: polyethylene glycoL 3350 17 GM PACK PO (07:51)
[2022-10-10 09:40] VITALS: BP 118/69; PULSE 74; RESP 18; TEMP 36.9; O2SAT 100; BMI 22.9
--- NOTE | 2022-10-10 16:21 | PC.SOCIAL ---
Phone call to ? at [phone]. Discussed transportation request for resident's appointment at [facility] ([address] [place], [place]. [id number]) on October 22 at 9:50 am. Discussed that resident has a larger wheelchair and ? stated they have the medical transportation to fulfill the request. ? requested that this worker send the demographics of the appointment via e-mail and they will review, get pricing, and verify that they can fulfill the request. Transportation request was e-mailed to [email or web address]. Sent an e-mail to resident's daughter, Nohemi Araya, providing her with an update if she is contacted by ?. Social work will follow up as necessary.
[2022-10-10] MEDS: QUETIAPINE 25 MG TABLET 12.5 MG PO (19:29)
[2022-10-10] MEDS: ROPINIROLE HCL 1 MG TABLET 2 MG PO (19:29)
[2022-10-10] MEDS: DONEPEZIL 10 MG TABLET PO (19:29)
[2022-10-11] MEDS: CARBIDOPA-LEVODOPA 25-100 TABLET 1 TAB PO ×4 (05:06→19:00)
[2022-10-11] MEDS: SODIUM CHLORIDE NASAL SPRAY 1 SPRAY NOSTRIL-B ×2 (07:32→15:27)
[2022-10-11] MEDS: SENNOSIDES 1 TAB TABLET PO (07:32)
[2022-10-11] MEDS: polyethylene glycoL 3350 17 GM PACK PO (07:32)
[2022-10-11 09:10] VITALS: BP 113/76; PULSE 56; RESP 18; TEMP 36.5; O2SAT 98
--- NOTE | 2022-10-11 09:21 | LTC.FALL ---
[facility] Fall Note: o Fall Date: 10/11/22 o Fall Time:0720 o What happened? Resident stood up from his wheel chair up rapidly and fell on his buttocks. The wheel chair moved . o Who found the resident and who responded? MICHELLE Jenkins witness the fall o What was the resident doing? Sitting on his wheel chair and waiting for breakfast to be served o How the resident was found (knees, left side, arm under them), any hazards (cords, objects, nonskid slippers) brakes on? Proper equipment? Found sitting on his buttock on the floor. Wheel chair moved from his back. o Did you assess for head trauma, spinal injuries, skeletal injuries, neurological changes and status, and head and neck pain? What did you find? No head injury. Small scab measuring 1X1cm on left ankle o Did you assess ROM in shoulders, elbows, hips, knees, any other affected areas, unless there is suspected spinal injury. ROM was at baseline. Noted no other injury or bruise to the back o Did you Assess for pain or discomfort? Pain was assess. Resident did not complain of any pain and took a short nap after breakfast. o What are the injuries and how are they being treated? Monitoring and applied a bandaid on the scab 1x 1cm (left ankle) o How was the resident transferred from the floor? 2 assist to the wheel chair o Did you call the MD or put a note in the BRIDGE ATTACHER book? Noted in the BRIDGE ATTACHER book o Enter vital signs. Temp : 97.7, P : 56, B/P 113/76, R: 18, O2 98%(RA) o Did you notify family? Yes o What was the root cause of the fall? Why did it happen? Resident has been self-transferring himself and standing up often. o Create an IMMEDIATE INTERVENTION to ensure that this won't immediately happen again. (Put in temporary care plan too) o Complete Safety report and huddle (now one form) o If resident is seen in ED or fractured something, note that you started a [facility] Report process. Instructions are at the East nurse's desk in a red binder labeled VA report.
--- NOTE | 2022-10-11 10:18 | PC.NURSE ---
Fall Incident: [place] [id number] at the dining area. He attempted to get up and stand from the wheel chair and fall backwards on his buttocks. Noted a small scab measuring 1X1cm on his left ankle, denies any pain on his back. Vital and neuro are done every 4 hours for 48 hours. ROM baseline and vitals areas follows: Temp: 97.7, P: 56, B/P 113/76, R 18 and O2: 98%(RA). Daughter Nohemi was informed at 10am about the fall and assured her that we will continue to monitor his vitals and neuro.
[2022-10-11 13:18] VITALS: BP 101/64; PULSE 80; RESP 18; TEMP 37; O2SAT 97
--- NOTE | 2022-10-11 13:19 | PC.NURSE ---
Fall F/U : Resident was alert, pupils equal and reactive bilateral, hand grasp is baseline and same both hands. Appetite good ,no c/o nausea or vomiting. Resident was able to stand up by holding the wall pole and do his exercise without any pain. Vitals as follows: T: 98.6, P 80, R 18, B/P 101/64 and O2 97. Resident is currently on his recliner taking a nap.
[2022-10-11 17:00] VITALS: BP 133/81; PULSE 60; RESP 16; TEMP 37.1; O2SAT 98
[2022-10-11] MEDS: QUETIAPINE 25 MG TABLET 12.5 MG PO (18:28)
[2022-10-11] MEDS: DONEPEZIL 10 MG TABLET PO (19:00)
[2022-10-11] MEDS: ROPINIROLE HCL 1 MG TABLET 2 MG PO (19:00)
--- NOTE | 2022-10-11 20:48 | PC.NURSE ---
Fall F/U: VSS, denies pain, ROM WNL, Neuros WNL, FRANCESCA. Last Vital Signs Temp 98.8 F 10/11/22 17:00 Pulse 60 10/11/22 17:00 Resp 16 10/11/22 17:00 BP 133/81 10/11/22 17:00 Pulse Ox 98 10/11/22 17:00 O2 Del Method Room Air 10/11/22 17:00
[2022-10-11 21:31] VITALS: BP 109/66; PULSE 60; RESP 18; TEMP 36.9; O2SAT 98
[2022-10-12 01:00] VITALS: BP 108/56; PULSE 82; RESP 18; TEMP 36.6; O2SAT 95
--- NOTE | 2022-10-12 01:26 | PC.NURSE ---
Fall F/U : Resident easily awaken when staff check the vitals and Neuro. Un able to check pupil due to resident refusal to open his eyes. Denies any Pain, Comfortable sleeping on bed. Bed alarm is working.VSS as follows: BP 108/56, Temp 98.0, RR 17, HR 82, 02 sat 95% at RA.
[2022-10-12] MEDS: CARBIDOPA-LEVODOPA 25-100 TABLET 1 TAB PO ×4 (04:30→19:12)
[2022-10-12 05:00] VITALS: BP 133/80; PULSE 63; RESP 16; TEMP 36.7; O2SAT 96
--- NOTE | 2022-10-12 05:41 | PC.NURSE ---
Fall F/U 05:00. Res is awaken when staff check. He is talking to procedure writer, grabbing procedure writer hands when trying to check BP, un cooperative to do Neuro assessment. BP 133/80, temp 98.3, RR 18, HR 63, O2 sat 96% at RA.
[2022-10-12] MEDS: SENNOSIDES 1 TAB TABLET PO (07:15)
[2022-10-12] MEDS: polyethylene glycoL 3350 17 GM PACK PO (07:15)
[2022-10-12] MEDS: SODIUM CHLORIDE NASAL SPRAY 1 SPRAY NOSTRIL-B ×2 (07:15→15:19)
[2022-10-12 10:22] VITALS: BP 100/60; PULSE 66; RESP 18; TEMP 36.4; O2SAT 99
--- NOTE | 2022-10-12 10:22 | PC.NURSE ---
Fall F/U : Resident was alert, took 100% of his breakfast, no nausea and vomiting. Denies pain and small abrasion on his left ankle healing well. Neuro check and Vitals are WNL : T 97.6, P66, R18, B/P 100/60 and O2 99.
[2022-10-12 13:05] VITALS: BP 110/58; PULSE 62; RESP 18; TEMP 36.8; O2SAT 98
--- NOTE | 2022-10-12 13:20 | PC.NURSE ---
Fall F/U : Resident is alert and responsive .Denies pain. Bandaid came out from the ankle wound. to let air dry. wound is dry , no discharge. Vital and Neuro are WNL > T. 98.2, P68, R: 18 O2 98, B/P 110/58 .Resident took 80% lunch.
[2022-10-12 17:00] VITALS: BP 127/83; PULSE 72; RESP 16; TEMP 37.2; O2SAT 97
--- NOTE | 2022-10-12 17:23 | PC.NURSE ---
Fall F/U: Resident sitting up in wheelchair. VSS and neuro at residents baseline. Denies pain. Participated in ice cream social and ate 100% of ice cream.
[2022-10-12] MEDS: QUETIAPINE 25 MG TABLET 12.5 MG PO (18:08)
[2022-10-12] MEDS: DONEPEZIL 10 MG TABLET PO (19:12)
[2022-10-12] MEDS: ROPINIROLE HCL 1 MG TABLET 2 MG PO (19:12)
[2022-10-12 21:00] VITALS: BP 131/75; PULSE 82; RESP 16; TEMP 37.5; O2SAT 97
--- NOTE | 2022-10-12 21:16 | PC.NURSE ---
Fall F/U: Resident resting in bed. VSS and neuro at baseline. Continues to deny pain.
[2022-10-13 01:00] VITALS: BP 108/63; PULSE 67; RESP 16; TEMP 36.8; O2SAT 95
--- NOTE | 2022-10-13 01:33 | PC.NURSE ---
Fall F/U 01:00, Resident is sleeping upon approach. He is in good sleep, refused to open his eyes to check Pupil reaction. ROM within Res baseline. Res is comfortable to signs of pain. VSS as follows; BP 108/63, Temp 98.3, RR 16, HR 67, O2 sat 95% at Room air.
--- NOTE | 2022-10-13 03:48 | PC.NURSE ---
WEEKLY CHARTING WEEK 1 Vital signs reviewed with no concerns. Comprehensive care plan and temporary care plan reviewed. Temporary care plan added, 10/11/22 fall stand up from wheelchair and fell down when wheelchair move back. Pain regimen. Receives scheduled Acetaminophen 1000mg TID scheduled and PRN oxycodone 2.5mg Q6H. ADLs. Requires 1 staff assist with bathing, dressing, grooming and oral care. No changes of appetite noted. On regular diet and thin liquids. Limited assist of 1 staff feeding. Has history of coughing during meals. Staff continue to monitor.
[2022-10-13 05:00] VITALS: BP 138/79; PULSE 61; RESP 17; TEMP 36.7; O2SAT 97
[2022-10-13] MEDS: CARBIDOPA-LEVODOPA 25-100 TABLET 1 TAB PO ×4 (05:08→19:24)
--- NOTE | 2022-10-13 05:15 | PC.NURSE ---
Fall F/U 05:00, Resident is sleeping able to awaken when Nuero, ROM and vitals check. Unable to check pupillary reaction due to resident refused to open his eyes. Res denies any pain. VSS BP 138/79, Temp 98.0, RR 17, HR 61, O2 sat 97% RA.
[2022-10-13] MEDS: polyethylene glycoL 3350 17 GM PACK PO (07:01)
[2022-10-13] MEDS: SODIUM CHLORIDE NASAL SPRAY 1 SPRAY NOSTRIL-B ×2 (07:01→15:25)
[2022-10-13] MEDS: SENNOSIDES 1 TAB TABLET PO (07:01)
[2022-10-13 09:00] VITALS: BP 117/69; PULSE 64; RESP 16; TEMP 36.7; O2SAT 99
--- NOTE | 2022-10-13 09:08 | PC.NURSE ---
Fall f/u note: Resident has no verbal or nonverbal indications of pain noted at this time. He was assisted into recliner to rest after breakfast. Resident did open eyes at breakfast though is now refusing to open eyes to have pupil assessment completed. Hand grasps noted to be equal when compared bilaterally. VS: 117/69, P 64, R 16, T 98.0, O2 sat 99% on RA. Resident has been able to move all four extremities this shift.
--- NOTE | 2022-10-13 10:40 | PC.NURSE ---
WEEKLY CHARTING - WEEK 1( Pain & ADL`S) Vital signs reviewed with no concerns. Comprehensive care plan and temporary care plan reviewed with added to 2 fall incident which happen on 09/16 when resident fall off from the bed and on the 10/11 which he stood up from the wheelchair and fell down when wheelchair move back. Continue with current comprehensive counter measures. Resident is on Tab Acetaminophen 1000mg TID scheduled and PRN oxycodone 2.5mg Q6H for pain management. He is on 1 assist with his most of his ADLs except during Yomi transfer. He is able to eat independently with finger food with staff set up and cue. No changes is diet and appetite is good. Has history of sneezing and coughing during meals but does not have any choking episode. Staff continue to monitor.
--- NOTE | 2022-10-13 12:33 | PC.NURSE ---
Resident allowed va underwriter to complete pupil assessment at this time. Pupils noted to be round, reactive to light & equal bilaterally. Resident alert & oriented to self per baseline.
[2022-10-13] MEDS: QUETIAPINE 25 MG TABLET 12.5 MG PO (19:24)
[2022-10-13] MEDS: ROPINIROLE HCL 1 MG TABLET 2 MG PO (19:24)
[2022-10-13] MEDS: DONEPEZIL 10 MG TABLET PO (19:24)
[2022-10-14] MEDS: CARBIDOPA-LEVODOPA 25-100 TABLET 1 TAB PO ×4 (05:34→19:07)
[2022-10-14] MEDS: polyethylene glycoL 3350 17 GM PACK PO (07:24)
[2022-10-14] MEDS: SODIUM CHLORIDE NASAL SPRAY 1 SPRAY NOSTRIL-B ×2 (07:24→15:35)
[2022-10-14] MEDS: SENNOSIDES 1 TAB TABLET PO (07:24)
--- NOTE | 2022-10-14 09:45 | PC.NURSE ---
Status: CLINICAL EDUCATION MANAGER, Rohit updated resident is having a lot of pain upon rising in the morning, making cares difficult for patient (hitting/striking at staff). Possible give Oxycodone QAM before cares.
--- NOTE | 2022-10-14 11:33 | PC.NURSE ---
Order: Rohit PRICE here. Oxycodone 2.5mg Q6H PRN changed to BID PRN.
[2022-10-14] MEDS: QUETIAPINE 25 MG TABLET 12.5 MG PO (17:06)
[2022-10-14] MEDS: ROPINIROLE HCL 1 MG TABLET 2 MG PO (19:07)
[2022-10-14] MEDS: DONEPEZIL 10 MG TABLET PO (19:07)
[2022-10-15] MEDS: OXYCODONE 5 MG TABLET 2.5 MG PO (05:01)
[2022-10-15] MEDS: CARBIDOPA-LEVODOPA 25-100 TABLET 1 TAB PO ×4 (05:01→19:35)
[2022-10-15] MEDS: SODIUM CHLORIDE NASAL SPRAY 1 SPRAY NOSTRIL-B ×2 (07:20→15:54)
[2022-10-15] MEDS: SENNOSIDES 1 TAB TABLET PO (07:20)
[2022-10-15] MEDS: polyethylene glycoL 3350 17 GM PACK PO (07:20)
--- NOTE | 2022-10-15 10:51 | PC.NURSE ---
[facility] appt rescheduled for 12/03/22@ 0301 per daughters request. library services coordinator updated. Daughter updated.
--- NOTE | 2022-10-15 13:31 | PC.NURSE ---
IDT discussion: Resident is to be a Yomi lift and bed bath at all times due to the inconsistency of residents strength and alertness. Care plan and care sheets reflect this.
[2022-10-15] MEDS: QUETIAPINE 25 MG TABLET 12.5 MG PO (18:06)
[2022-10-15] MEDS: DONEPEZIL 10 MG TABLET PO (19:36)
[2022-10-15] MEDS: ROPINIROLE HCL 1 MG TABLET 2 MG PO (19:36)
[2022-10-16] MEDS: CARBIDOPA-LEVODOPA 25-100 TABLET 1 TAB PO ×4 (05:13→19:05)
[2022-10-16] MEDS: OXYCODONE 5 MG TABLET 2.5 MG PO (05:14)
[2022-10-16] MEDS: SENNOSIDES 1 TAB TABLET PO (07:42)
[2022-10-16] MEDS: SODIUM CHLORIDE NASAL SPRAY 1 SPRAY NOSTRIL-B ×2 (07:42→15:34)
[2022-10-16] MEDS: polyethylene glycoL 3350 17 GM PACK PO (07:42)
--- NOTE | 2022-10-16 15:00 | PC.NURSE ---
Email sent to daughter Marian to discuss if she is in agreement to going back to having resident having scheduled Oxycodone as he has been showing increased s/s of pain in the morning and began to strike out at staff in what appears due to pain and stiffness in the morning. Will await response.
[2022-10-16] MEDS: QUETIAPINE 25 MG TABLET 12.5 MG PO (18:58)
[2022-10-16] MEDS: ROPINIROLE HCL 1 MG TABLET 2 MG PO (19:05)
[2022-10-16] MEDS: DONEPEZIL 10 MG TABLET PO (19:05)
[2022-10-17] VITALS (7 sets, daily range): BP systolic 103–152; BP diastolic 62–77; PULSE 66–77; RESP 16–18; TEMP 36.6–37; O2SAT 95–100; BMI 22.1
--- NOTE | 2022-10-17 00:07 | LTC.FALL ---
[facility] Fall Note: o Fall Date:10/16/2022 o Fall Time:2345 o What happened? Bed alarm sounded and procedure writer rushed to room. When entering, procedure writer witnessed resident slide to floor from sitting on the edge of the bed. o Who found the resident and who responded? Central Office Trouble Shooter arrived first followed a MANAGER FORMS. o What was the resident doing? Sitting on the floor smiling getting ready for taxes. o How the resident was found (knees, left side, arm under them), any hazards (cords, objects, nonskid slippers) brakes on? Proper equipment? Sitting on floor with legs folded underneath body. Was wearing non-skid socks. Bed in lowest position with brakes locked. Side rails down. Call light within reach. o Did you assess for head trauma, spinal injuries, skeletal injuries, neurological changes and status, and head and neck pain? What did you find? Fall witnessed. Did not hit head. o Did you assess ROM in shoulders, elbows, hips, knees, any other affected areas, unless there is suspected spinal injury. ROM completed with no concerns. o Did you Assess for pain or discomfort? No noted non-verbal s/sx of pain. Denies pain when asked. o What are the injuries and how are they being treated? No injuries. o How was the resident transferred from the floor? Assist of 2 with full mechanical lift. o Did you call the MD or put a note in the COMMUNITY SERVICE OFFICER book? Note placed in COMMUNITY SERVICE OFFICER book. o Enter vital signs. 98.6-72-16-152/73-96% on RA o Did you notify family? Will have AM shift complete. o What was the root cause of the fall? Why did it happen? Confusion a/e/b statement of getting ready for taxes. o Create an IMMEDIATE INTERVENTION to ensure that this won't immediately happen again. (Put in temporary care plan too) Vital signs Q4 hours x24 hours and continue current fall interventions. o Complete Safety report and huddle (now one form) yes o If resident is seen in ED or fractured something, note that you started a [facility] Report process. Instructions are at the East nurse's desk in a red binder labeled VA report. N/A
[2022-10-17] MEDS: OXYCODONE 5 MG TABLET 2.5 MG PO ×2 (04:58→19:47)
[2022-10-17] MEDS: CARBIDOPA-LEVODOPA 25-100 TABLET 1 TAB PO ×4 (04:58→19:46)
--- NOTE | 2022-10-17 05:32 | PC.NURSE ---
FALL FOLLOW UP: Resident has activated bed alarm x2 after fall. Both times sports writer entered room to find resident standing with poor balance and this nurse caught resident and prevented fall. ROM remains at baseline for resident. Continues to deny pain when asked. 0400 vital signs: 98.4-66-18-135/72-95% on RA.
[2022-10-17] MEDS: polyethylene glycoL 3350 17 GM PACK PO (07:16)
[2022-10-17] MEDS: SODIUM CHLORIDE NASAL SPRAY 1 SPRAY NOSTRIL-B ×2 (07:16→15:15)
[2022-10-17] MEDS: SENNOSIDES 1 TAB TABLET PO (07:16)
--- NOTE | 2022-10-17 10:17 | PC.NURSE ---
FALL FOLLOW UP Vitals at 0800: BP 103/69, T 98.6, R16, O2 sat 99% on RA, P 69. No verbal or nonverbal indication of pain noted. Resident was relaxed with am cares due to received prn oxycodone at 0448. ROM remains at baseline for resident and appears to be per usual self, Will continues to monitor..
--- NOTE | 2022-10-17 12:33 | PC.NURSE ---
Family Update: Message left to daughter of resident fall, no injury.
--- NOTE | 2022-10-17 13:22 | PC.NURSE ---
FALL f/u's: Vitals at 1200: BP 105/62, T 98. R18, O2 sat 100% on RA, P 73. No verbal or nonverbal indication of pain noted. Resident has been watched closely by staff after lunch due to repeatedly moving which was usual due to his diagnosis with Parkinson. Resident able to move all 4 extremity per baseline. Will continues to monitor..
[2022-10-17] MEDS: QUETIAPINE 25 MG TABLET 12.5 MG PO (19:46)
[2022-10-17] MEDS: ROPINIROLE HCL 1 MG TABLET 2 MG PO (19:46)
[2022-10-17] MEDS: DONEPEZIL 10 MG TABLET PO (19:46)
--- NOTE | 2022-10-18 00:02 | PC.NURSE ---
FALL FOLLOW UP: Vital signs: 98.5-74-18-138/77-97% on RA. ROM to all extremities per baseline. Denies pain when asked with no noted non-verbal s/sx of pain. No latent injuries noted from fall. Vital signs monitored for 24 hours and have been stable. Will complete monitoring per protocol.
[2022-10-18] MEDS: CARBIDOPA-LEVODOPA 25-100 TABLET 1 TAB PO ×4 (04:53→19:34)
[2022-10-18] MEDS: OXYCODONE 5 MG TABLET 2.5 MG PO (04:53)
[2022-10-18] MEDS: SODIUM CHLORIDE NASAL SPRAY 1 SPRAY NOSTRIL-B ×2 (08:10→15:33)
[2022-10-18] MEDS: SENNOSIDES 1 TAB TABLET PO (08:10)
[2022-10-18] MEDS: polyethylene glycoL 3350 17 GM PACK PO (08:10)
[2022-10-18] MEDS: QUETIAPINE 25 MG TABLET 12.5 MG PO (19:34)
[2022-10-18] MEDS: DONEPEZIL 10 MG TABLET PO (19:34)
[2022-10-18] MEDS: ROPINIROLE HCL 1 MG TABLET 2 MG PO (19:34)
[2022-10-19] MEDS: CARBIDOPA-LEVODOPA 25-100 TABLET 1 TAB PO ×4 (04:52→20:31)
[2022-10-19] MEDS: OXYCODONE 5 MG TABLET 2.5 MG PO ×2 (04:53→21:08)
[2022-10-19] MEDS: SODIUM CHLORIDE NASAL SPRAY 1 SPRAY NOSTRIL-B ×2 (07:02→15:44)
[2022-10-19] MEDS: polyethylene glycoL 3350 17 GM PACK PO (07:02)
[2022-10-19] MEDS: SENNOSIDES 1 TAB TABLET PO (07:02)
[2022-10-19] MEDS: QUETIAPINE 25 MG TABLET 12.5 MG PO (18:52)
[2022-10-19] MEDS: DONEPEZIL 10 MG TABLET PO (20:31)
[2022-10-19] MEDS: ROPINIROLE HCL 1 MG TABLET 2 MG PO (20:31)
--- NOTE | 2022-10-20 02:55 | PC.NURSE ---
WEEKLY CHARTING - WEEK 2: Vital signs reviewed - no concerns. Temporary and comprehensive care plan reviewed - no change. Assist fo 2 with full mechanical lift for all transfers. Non-ambulatory. Assist of 1-2 for bed mobility. Bilateral 1/4 side rails up during cares only. Total assist for w/c mobility. Per fall risk assessment, is at high risk for falls. Fall interventions: anticipate needs, bed and chair alarms in place and active, call light in reach, gripper socks, falling star magnet, hourly safety checks, bed in low position with brakes locked. On standing program TID and ROM program BID.
[2022-10-20] MEDS: CARBIDOPA-LEVODOPA 25-100 TABLET 1 TAB PO ×4 (04:51→20:14)
[2022-10-20] MEDS: OXYCODONE 5 MG TABLET 2.5 MG PO (04:52)
[2022-10-20] MEDS: SODIUM CHLORIDE NASAL SPRAY 1 SPRAY NOSTRIL-B ×2 (07:13→15:26)
[2022-10-20] MEDS: polyethylene glycoL 3350 17 GM PACK PO (07:18)
[2022-10-20] MEDS: SENNOSIDES 1 TAB TABLET PO (07:18)
--- NOTE | 2022-10-20 09:05 | PC.NURSE ---
Weekly Charting, Week 2-Mobility: Comprehensive and temporary care plan reviewed. No changes made, nothing added to temporary care plan. Resident is non ambulatory. Is transferred with 2 assists using the mechanical lift at all times. Staff wheel to all destinations. Needs 2 assists with repositioning. Bilateral 1/4 side rails up only during cares.? Is on a standing program 3x/day. Has a bed and chair alarm. Vital signs reviewed, no concerns. Continue weekly monitoring. Fall: Had a fall on 09/16/22 from bed no injury, & on 10/11 attempted to get up & stand from his wheelchair with no injury. Remains a high fall risk according to assessment done on 08/26/22. Fall interventions: In recliner after lunch, falling star magnet in place, chair/bed alarms, call light within reach, bed in low position locked, non slip foot wear, frequent visual checks.
[2022-10-20] MEDS: QUETIAPINE 25 MG TABLET 12.5 MG PO (18:03)
[2022-10-20] MEDS: DONEPEZIL 10 MG TABLET PO (20:14)
[2022-10-20] MEDS: ROPINIROLE HCL 1 MG TABLET 2 MG PO (20:14)
[2022-10-21] MEDS: OXYCODONE 5 MG TABLET 2.5 MG PO (04:50)
[2022-10-21] MEDS: CARBIDOPA-LEVODOPA 25-100 TABLET 1 TAB PO ×4 (04:50→19:04)
[2022-10-21] MEDS: SODIUM CHLORIDE NASAL SPRAY 1 SPRAY NOSTRIL-B ×2 (07:12→15:46)
[2022-10-21] MEDS: polyethylene glycoL 3350 17 GM PACK PO (07:12)
[2022-10-21] MEDS: SENNOSIDES 1 TAB TABLET PO (07:12)
--- NOTE | 2022-10-21 11:48 | PC.NURSE ---
Status/Order: Daughter updated of resident increased pain in the morning, striking out during cares. PRN Oxycodone has been given and is helping. Give consent to give Oxycodone scheduled. Oxycodone 2.5 mg @ 0500 by Rohit PRICE.
[2022-10-21] MEDS: QUETIAPINE 25 MG TABLET 12.5 MG PO (17:04)
[2022-10-21] MEDS: ROPINIROLE HCL 1 MG TABLET 2 MG PO (19:04)
[2022-10-21] MEDS: DONEPEZIL 10 MG TABLET PO (19:04)
[2022-10-22] MEDS: CARBIDOPA-LEVODOPA 25-100 TABLET 1 TAB PO ×4 (05:04→19:28)
[2022-10-22] MEDS: OXYCODONE 5 MG TABLET 2.5 MG PO ×2 (05:04→20:17)
[2022-10-22] MEDS: polyethylene glycoL 3350 17 GM PACK PO (07:07)
[2022-10-22] MEDS: SENNOSIDES 1 TAB TABLET PO (07:07)
[2022-10-22] MEDS: SODIUM CHLORIDE NASAL SPRAY 1 SPRAY NOSTRIL-B ×2 (07:07→15:47)
--- NOTE | 2022-10-22 16:02 | PC.SPIRITC ---
provided visit for support and connection, along with looking at bird book with Ho.
[2022-10-22] MEDS: QUETIAPINE 25 MG TABLET 12.5 MG PO (18:38)
[2022-10-22] MEDS: ROPINIROLE HCL 1 MG TABLET 2 MG PO (19:28)
[2022-10-22] MEDS: DONEPEZIL 10 MG TABLET PO (19:28)
[2022-10-23] MEDS: CARBIDOPA-LEVODOPA 25-100 TABLET 1 TAB PO ×4 (04:21→20:29)
[2022-10-23] MEDS: OXYCODONE 5 MG TABLET 2.5 MG PO (04:21)
[2022-10-23] MEDS: SENNOSIDES 1 TAB TABLET PO (07:20)
[2022-10-23] MEDS: polyethylene glycoL 3350 17 GM PACK PO (07:20)
[2022-10-23] MEDS: SODIUM CHLORIDE NASAL SPRAY 1 SPRAY NOSTRIL-B ×2 (07:20→15:25)
--- NOTE | 2022-10-23 09:51 | PC.SPIRITC ---
I provided visit for support and connection.
[2022-10-23] MEDS: QUETIAPINE 25 MG TABLET 12.5 MG PO (18:50)
[2022-10-23] MEDS: DONEPEZIL 10 MG TABLET PO (20:29)
[2022-10-23] MEDS: ROPINIROLE HCL 1 MG TABLET 2 MG PO (20:29)
[2022-10-24] MEDS: CARBIDOPA-LEVODOPA 25-100 TABLET 1 TAB PO ×4 (04:45→19:03)
[2022-10-24] MEDS: OXYCODONE 5 MG TABLET 2.5 MG PO (04:46)
[2022-10-24] MEDS: SODIUM CHLORIDE NASAL SPRAY 1 SPRAY NOSTRIL-B ×2 (07:29→15:10)
[2022-10-24] MEDS: polyethylene glycoL 3350 17 GM PACK PO (07:30)
[2022-10-24] MEDS: SENNOSIDES 1 TAB TABLET PO (07:30)
[2022-10-24 13:06] VITALS: BP 109/59; PULSE 62; RESP 20; TEMP 36.6; O2SAT 98; BMI 22.8
[2022-10-24] MEDS: QUETIAPINE 25 MG TABLET 12.5 MG PO (17:01)
[2022-10-24] MEDS: DONEPEZIL 10 MG TABLET PO (19:03)
[2022-10-24] MEDS: ROPINIROLE HCL 1 MG TABLET 2 MG PO (19:03)
[2022-10-25] MEDS: OXYCODONE 5 MG TABLET 2.5 MG PO (04:49)
[2022-10-25] MEDS: CARBIDOPA-LEVODOPA 25-100 TABLET 1 TAB PO ×4 (04:49→19:02)
[2022-10-25] MEDS: SODIUM CHLORIDE NASAL SPRAY 1 SPRAY NOSTRIL-B ×2 (07:25→15:09)
[2022-10-25] MEDS: SENNOSIDES 1 TAB TABLET PO (07:25)
[2022-10-25] MEDS: polyethylene glycoL 3350 17 GM PACK PO (07:25)
[2022-10-25] MEDS: QUETIAPINE 25 MG TABLET 12.5 MG PO (17:23)
[2022-10-25] MEDS: ROPINIROLE HCL 1 MG TABLET 2 MG PO (19:02)
[2022-10-25] MEDS: DONEPEZIL 10 MG TABLET PO (19:02)
[2022-10-25 21:32] VITALS: BP 106/64; BP 97/59; PULSE 92
[2022-10-26] MEDS: CARBIDOPA-LEVODOPA 25-100 TABLET 1 TAB PO ×4 (05:03→19:11)
[2022-10-26] MEDS: OXYCODONE 5 MG TABLET 2.5 MG PO ×2 (05:03→13:34)
[2022-10-26] MEDS: polyethylene glycoL 3350 17 GM PACK PO (07:26)
[2022-10-26] MEDS: SODIUM CHLORIDE NASAL SPRAY 1 SPRAY NOSTRIL-B ×2 (07:26→15:20)
[2022-10-26] MEDS: SENNOSIDES 1 TAB TABLET PO (07:26)
[2022-10-26] MEDS: QUETIAPINE 25 MG TABLET 12.5 MG PO (17:19)
[2022-10-26] MEDS: DONEPEZIL 10 MG TABLET PO (19:11)
[2022-10-26] MEDS: ROPINIROLE HCL 1 MG TABLET 2 MG PO (19:11)
[2022-10-27] MEDS: OXYCODONE 5 MG TABLET 2.5 MG PO ×2 (00:25→05:02)
--- NOTE | 2022-10-27 01:59 | PC.NURSE ---
WEEKLY CHARTING WEEK 3 Vital signs reviewed with variable numbers, continue to monitor, notify MD if needed. Comprehensive and temporary care care reviewed with no changes made. Skin is clear and intact. Skin check every bath day and during cares. Staff 1 assist with incontinent pad, clothing management and Portia cares.Staff anticipated needs. Check and changed during first round and 3rd round at night. Wear blue brief.
[2022-10-27] MEDS: CARBIDOPA-LEVODOPA 25-100 TABLET 1 TAB PO ×4 (05:02→19:09)
[2022-10-27] MEDS: polyethylene glycoL 3350 17 GM PACK PO (07:04)
[2022-10-27] MEDS: SODIUM CHLORIDE NASAL SPRAY 1 SPRAY NOSTRIL-B ×2 (07:04→16:05)
[2022-10-27] MEDS: SENNOSIDES 1 TAB TABLET PO (07:04)
[2022-10-27] MEDS: QUETIAPINE 25 MG TABLET 12.5 MG PO (19:02)
[2022-10-27] MEDS: ROPINIROLE HCL 1 MG TABLET 2 MG PO (19:09)
[2022-10-27] MEDS: DONEPEZIL 10 MG TABLET PO (19:09)
[2022-10-28] MEDS: OXYCODONE 5 MG TABLET 2.5 MG PO (04:18)
[2022-10-28] MEDS: CARBIDOPA-LEVODOPA 25-100 TABLET 1 TAB PO ×4 (04:18→19:42)
[2022-10-28] MEDS: SODIUM CHLORIDE NASAL SPRAY 1 SPRAY NOSTRIL-B ×2 (07:10→15:25)
[2022-10-28] MEDS: SENNOSIDES 1 TAB TABLET PO (07:11)
[2022-10-28] MEDS: polyethylene glycoL 3350 17 GM PACK PO (07:11)
[2022-10-28] MEDS: QUETIAPINE 25 MG TABLET 12.5 MG PO (18:12)
[2022-10-28] MEDS: DONEPEZIL 10 MG TABLET PO (19:42)
[2022-10-28] MEDS: ROPINIROLE HCL 1 MG TABLET 2 MG PO (19:42)
[2022-10-29] MEDS: OXYCODONE 5 MG TABLET 2.5 MG PO (04:34)
[2022-10-29] MEDS: CARBIDOPA-LEVODOPA 25-100 TABLET 1 TAB PO ×4 (04:34→20:30)
[2022-10-29] MEDS: SENNOSIDES 1 TAB TABLET PO (08:17)
[2022-10-29] MEDS: SODIUM CHLORIDE NASAL SPRAY 1 SPRAY NOSTRIL-B ×2 (08:17→15:30)
[2022-10-29] MEDS: polyethylene glycoL 3350 17 GM PACK PO (08:17)
[2022-10-29] MEDS: QUETIAPINE 25 MG TABLET 12.5 MG PO (18:54)
[2022-10-29] MEDS: DONEPEZIL 10 MG TABLET PO (20:30)
[2022-10-29] MEDS: ROPINIROLE HCL 1 MG TABLET 2 MG PO (20:30)
[2022-10-30] MEDS: CARBIDOPA-LEVODOPA 25-100 TABLET 1 TAB PO ×4 (04:56→19:17)
[2022-10-30] MEDS: OXYCODONE 5 MG TABLET 2.5 MG PO (04:56)
[2022-10-30] MEDS: SENNOSIDES 1 TAB TABLET PO (07:41)
[2022-10-30] MEDS: SODIUM CHLORIDE NASAL SPRAY 1 SPRAY NOSTRIL-B ×2 (07:41→15:24)
[2022-10-30] MEDS: polyethylene glycoL 3350 17 GM PACK PO (07:41)
[2022-10-30] MEDS: QUETIAPINE 25 MG TABLET 12.5 MG PO (17:14)
[2022-10-30] MEDS: ROPINIROLE HCL 1 MG TABLET 2 MG PO (19:17)
[2022-10-30] MEDS: DONEPEZIL 10 MG TABLET PO (19:17)
[2022-10-31] MEDS: CARBIDOPA-LEVODOPA 25-100 TABLET 1 TAB PO ×4 (05:23→18:59)
[2022-10-31] MEDS: OXYCODONE 5 MG TABLET 2.5 MG PO (05:23)
[2022-10-31] MEDS: SODIUM CHLORIDE NASAL SPRAY 1 SPRAY NOSTRIL-B ×2 (06:59→15:31)
[2022-10-31] MEDS: polyethylene glycoL 3350 17 GM PACK PO (06:59)
[2022-10-31] MEDS: SENNOSIDES 1 TAB TABLET PO (06:59)
[2022-10-31 07:00] VITALS: BP 95/56; PULSE 60; RESP 16; TEMP 36.5; O2SAT 99; BMI 22.5
[2022-10-31] MEDS: QUETIAPINE 25 MG TABLET 12.5 MG PO (18:59)
[2022-10-31] MEDS: DONEPEZIL 10 MG TABLET PO (19:00)
[2022-10-31] MEDS: ROPINIROLE HCL 1 MG TABLET 2 MG PO (19:00)
[2022-11-01] MEDS: CARBIDOPA-LEVODOPA 25-100 TABLET 1 TAB PO ×4 (04:18→19:07)
[2022-11-01] MEDS: OXYCODONE 5 MG TABLET 2.5 MG PO (04:19)
[2022-11-01] MEDS: polyethylene glycoL 3350 17 GM PACK PO (07:11)
[2022-11-01] MEDS: SENNOSIDES 1 TAB TABLET PO (07:11)
[2022-11-01] MEDS: SODIUM CHLORIDE NASAL SPRAY 1 SPRAY NOSTRIL-B ×2 (07:11→15:17)
[2022-11-01] MEDS: QUETIAPINE 25 MG TABLET 12.5 MG PO (18:49)
[2022-11-01] MEDS: DONEPEZIL 10 MG TABLET PO (19:07)
[2022-11-01] MEDS: ROPINIROLE HCL 1 MG TABLET 2 MG PO (19:07)
[2022-11-02] MEDS: OXYCODONE 5 MG TABLET 2.5 MG PO (04:56)
[2022-11-02] MEDS: CARBIDOPA-LEVODOPA 25-100 TABLET 1 TAB PO ×4 (04:56→20:45)
[2022-11-02] MEDS: SODIUM CHLORIDE NASAL SPRAY 1 SPRAY NOSTRIL-B ×2 (08:34→15:30)
[2022-11-02] MEDS: polyethylene glycoL 3350 17 GM PACK PO (08:34)
[2022-11-02] MEDS: SENNOSIDES 1 TAB TABLET PO (08:35)
[2022-11-02] MEDS: QUETIAPINE 25 MG TABLET 12.5 MG PO (18:43)
[2022-11-02] MEDS: ROPINIROLE HCL 1 MG TABLET 2 MG PO (20:45)
[2022-11-02] MEDS: DONEPEZIL 10 MG TABLET PO (20:45)
--- NOTE | 2022-11-03 03:31 | PC.NURSE ---
WEEKLY CHARTING WEEK 4 COMMUNICATION, HEARING/VISION, COGNITION/BEHAVIOR CLINICAL MONITORING. Vital signs reviewed, no concerns. Temporary and comprehensive care plan reviewed, no changes. Behavioral episodes of being combative or resistive with cares sometimes ; he is receiving Quetiapine 12.5mg at 1800 daily. Resident does not need hearing aids, wears glasses for reading only. Resident has problem finding the correct words to communicate ; his ability to make concrete request is limited, so Staff anticipate his needs. He is in bed at night, he tends to get out sometimes but does not have that strength and ended up falling. He is on hourly frequent checks. No side effect for meds he is taking. All medications administered by licensed nurse. Health condition stable at this time.?
[2022-11-03] MEDS: CARBIDOPA-LEVODOPA 25-100 TABLET 1 TAB PO ×4 (04:40→19:07)
[2022-11-03] MEDS: OXYCODONE 5 MG TABLET 2.5 MG PO (04:40)
[2022-11-03] MEDS: polyethylene glycoL 3350 17 GM PACK PO (07:28)
[2022-11-03] MEDS: SENNOSIDES 1 TAB TABLET PO (07:28)
--- NOTE | 2022-11-03 10:34 | PC.NURSE ---
Weekly Charting - Week 4: Comprehensive and temporary care plan reviewed. No changes made and nothing added to temporary care plan. No changes noted in communication, hearing,vision or orientation. Will use the call light, speech is sometimes understood/clear, able to communicate simple sentences. Needs also anticipated by staff. Uses reading glasses, hears fine. Cognition impaired d/t lewy body dementia. Is forgetful.? Chronic health condition stable. Is not able to self administer medications. Vital signs reviewed, has few low BP values. Continue weekly monitoring and refer to provider as needed. Mood/Behavior: No issues the past month. Is on Seroquel 12.5 mg daily @ 1800 with no adverse effects noted. And no recent change in medication.
[2022-11-03] MEDS: QUETIAPINE 25 MG TABLET 12.5 MG PO (18:31)
[2022-11-03] MEDS: ROPINIROLE HCL 1 MG TABLET 2 MG PO (19:07)
[2022-11-03] MEDS: DONEPEZIL 10 MG TABLET PO (19:07)
--- NOTE | 2022-11-04 01:12 | LTC.FALL ---
[facility] Fall Note: o Fall Date: 11/04/2022 o Fall Time: 01:00AM o What happened? Resident crawl out from bed. o Who found the resident and who responded? bed alarm on, MICHELLE answered the light. o What was the resident doing? Res was sitting on the floor. o How the resident was found (knees, left side, arm under them), any hazards (cords, objects, nonskid slippers) brakes on? Proper equipment? Resident found sitting on floor both legs flex, in between bed and sink. Res opening the drawer looking for incontinent pad. Wears nonskid gripper socks, bed in low position with brakes on. o Did you assess for head trauma, spinal injuries, skeletal injuries, neurological changes and status, and head and neck pain? What did you find? Yes, Neuro within normal. o Did you assess ROM in shoulders, elbows, hips, knees, any other affected areas, unless there is suspected spinal injury. ROM strong as per resident baseline. o Did you Assess for pain or discomfort? No complain of pain. o What are the injuries and how are they being treated? No injury noted. o How was the resident transferred from the floor? Yomi lift with 2 staff assist. o Did you call the MD or put a note in the FOIL SPINNER book? yes o Enter vital signs. Temp 97.6, BP 142/84, RR 16, HR 64, O2 sat 97% RA o Did you notify family? Will notify in the morning. o What was the root cause of the fall? Why did it happen? Res was awaken to changed incontinent pad during first round. unable to fall back to asleep. o Create an IMMEDIATE INTERVENTION to ensure that this won't immediately happen again. (Put in temporary care plan too), continues to use bed alarm and do safety check o Complete Safety report and huddle (now one form) No o If resident is seen in ED or fractured something, note that you started a [facility] Report process. Instructions are at the East nurse's desk in a red binder labeled VA report. No
[2022-11-04 01:25] VITALS: BP 142/84; PULSE 64; RESP 18; TEMP 36.4; O2SAT 97
[2022-11-04] MEDS: OXYCODONE 5 MG TABLET 2.5 MG PO (05:15)
[2022-11-04] MEDS: CARBIDOPA-LEVODOPA 25-100 TABLET 1 TAB PO ×4 (05:15→19:09)
[2022-11-04 05:20] VITALS: BP 151/88; PULSE 62; RESP 17; TEMP 36.6; O2SAT 98
--- NOTE | 2022-11-04 05:26 | PC.NURSE ---
FALL F/U. Resident easily awaken during assessment. Alert and oriented to self, pleasant and cooperative. Pupil equal reactive to light. Bilateral hands strong grasp. ROM within normal. No verbal and non verbal signs of pain. VSS Temp 97.9, BP 151/88, RR 18, HR 62, O2 sat 98%.
[2022-11-04] MEDS: polyethylene glycoL 3350 17 GM PACK PO (07:01)
[2022-11-04] MEDS: SENNOSIDES 1 TAB TABLET PO (07:01)
[2022-11-04] MEDS: SODIUM CHLORIDE NASAL SPRAY 1 SPRAY NOSTRIL-B ×2 (07:01→15:22)
--- NOTE | 2022-11-04 08:48 | PC.PHA1 ---
NATURAL GAS INSPECTOR PHARMACIST'S MEDICATION REVIEW: MEDICATION MONITORING:Oxycodone 2.5 mg po bid prn started 10/14/22 Seroquel 12.5 mg po 1800 IRREGULARITY OR COMMENTS:Per nursing and provider notes, patient has been falling more often in past month attempting to stand up from wheel chair. Based on specific times of falls, I cannot link falls to a specific medication that patient is taking. Patient also having pain symptoms in the AM of striking at caregivers. Oxycodone prn order charted on near regular basis with prn acetaminophen also ordered. Patient has December 03, 2022 appointment with Parkinson specialist. SUGGESTED COURSE OF ACTION TAKEN: No changes recommended to Parkinson related medications given patients pending appointment with specialist. Acetaminophen could be scheduled.
[2022-11-04 09:00] VITALS: BP 97/56; PULSE 63; RESP 16; TEMP 36.8; O2SAT 98
--- NOTE | 2022-11-04 09:24 | PC.NURSE ---
Neuro followup note: Neuro checks completed per fall followup protocol. Resident noted to be alert & oriented to self this morning. Hand grasps equal bilaterally. Pupils noted to be round, reactive to light & equal bilaterally. No verbal or nonverbal indications of pain have been noted so far this shift.
[2022-11-04 12:48] VITALS: BP 107/70; PULSE 58; RESP 16; TEMP 36.8; O2SAT 93
--- NOTE | 2022-11-04 12:49 | PC.NURSE ---
Neuro followup note: Resident is unwilling to open eyes to have pupils assessed when approached though this is not uncommon for him when he is tired. Staff assisting resident to recliner to rest this afternoon. VS: B/P 107/70, P 58, R 16, T 98.2, O2 sat 93% on RA. Hand grasps remain equal bilaterally. Resident noted to be alert & oriented to self though becomes sleepy at times per baseline. No verbal or nonverbal indications of pain noted this shift.
[2022-11-04 16:17] VITALS: BP 133/65; PULSE 73; RESP 16; TEMP 37.2; O2SAT 97
[2022-11-04] MEDS: QUETIAPINE 25 MG TABLET 12.5 MG PO (17:13)
[2022-11-04] MEDS: DONEPEZIL 10 MG TABLET PO (19:09)
[2022-11-04] MEDS: ROPINIROLE HCL 1 MG TABLET 2 MG PO (19:09)
[2022-11-04 21:00] VITALS: BP 133/65; PULSE 73; RESP 18; TEMP 36.9; O2SAT 97
[2022-11-05 01:00] VITALS: BP 146/80; PULSE 65; RESP 17; TEMP 37; O2SAT 98
[2022-11-05] MEDS: ACETAMINOPHEN 500 MG TABLET 1000 MG PO (01:10)
--- NOTE | 2022-11-05 01:15 | PC.NURSE ---
FALL F/U: Resident is not cooperative with pupil check. Unable to check ROM due fixated position grabbing Nurse hands. Alert to self as per baseline. Noted to be restless unable to stayed asleep. Check ad change incontinent pad, reposition and PRN Tylenol given for pain. VSS Temp 98.6, BP 146/80, RR 18, HR 65, O2 sat 98% RA.
[2022-11-05 05:00] VITALS: BP 136/77; PULSE 61; RESP 18; TEMP 36.6; O2SAT 96
[2022-11-05] MEDS: CARBIDOPA-LEVODOPA 25-100 TABLET 1 TAB PO ×4 (05:02→19:08)
[2022-11-05] MEDS: OXYCODONE 5 MG TABLET 2.5 MG PO (05:02)
--- NOTE | 2022-11-05 05:29 | PC.NURSE ---
FALL F/U: Res is awake, Pupil is equal round reactive to light. Hands grasp strong, No verbal and non verbal signs of pain. VSS Temp 97.9, BP 136/77, RR 18, HR 61, O2 sat 96% at RA.
[2022-11-05] MEDS: SENNOSIDES 1 TAB TABLET PO (07:18)
[2022-11-05] MEDS: polyethylene glycoL 3350 17 GM PACK PO (07:18)
[2022-11-05] MEDS: SODIUM CHLORIDE NASAL SPRAY 1 SPRAY NOSTRIL-B ×2 (07:18→15:01)
[2022-11-05 09:00] VITALS: BP 100/61; PULSE 58; RESP 17; TEMP 36.8; O2SAT 98
--- NOTE | 2022-11-05 09:19 | PC.NURSE ---
Fall F/U 's note: VS: B/P 100/ 61, R 17, T 98.2, O2 sat 98% on RA, P 58. Resident refused to open his eyes to complete neuro assessment. Staff assisting resident to recliner to rest after breakfast. Hand grasps remain equal bilaterally. Alert & oriented to self becomes sleepy at times per baseline. No verbal or nonverbal indications of pain noted this shift so far. Will continues to monitor.
[2022-11-05 13:00] VITALS: BP 110/58; RESP 18; TEMP 37; O2SAT 97
--- NOTE | 2022-11-05 13:04 | PC.NURSE ---
COVID TESTING for exposure. Residents daughter gave verbal consent. Resident is currently asymptomatic. Resident/family will be notified only if resident is positive.
--- NOTE | 2022-11-05 13:12 | PC.NURSE ---
Fall F/U 's note: VS: T98.6, R 18, B/P 110/ 58, R 18, O2 sat 97% on RA, P 58. No nonverbal indication of pain/discomfort noted or reported this this shift. Hand grasps remain equal bilaterally.?Alert & oriented to self? becomes sleepy at times per usual self. Resident a sleep at this time to complete the neuro assessment. Staff assisting resident to recliner to rest after lunch. Will continues to monitor.
[2022-11-05 13:16] LABS: SARS PCR* Negative SARS-CoV-2 (Negative)
[2022-11-05 17:00] VITALS: BP 148/81; PULSE 65; RESP 18; TEMP 36.7; O2SAT 99
[2022-11-05] MEDS: DONEPEZIL 10 MG TABLET PO (19:08)
[2022-11-05] MEDS: ROPINIROLE HCL 1 MG TABLET 2 MG PO (19:08)
[2022-11-05] MEDS: QUETIAPINE 25 MG TABLET 12.5 MG PO (19:08)
[2022-11-05 21:00] VITALS: BP 148/82; PULSE 72; RESP 18; TEMP 36.8; O2SAT 98
[2022-11-06 01:00] VITALS: BP 138/72; PULSE 82; RESP 16; TEMP 36.4
[2022-11-06] MEDS: CARBIDOPA-LEVODOPA 25-100 TABLET 1 TAB PO ×4 (04:15→20:59)
[2022-11-06] MEDS: OXYCODONE 5 MG TABLET 2.5 MG PO (04:15)
[2022-11-06 05:00] VITALS: BP 162/75; PULSE 65; RESP 16; TEMP 36.6; O2SAT 97
--- NOTE | 2022-11-06 05:19 | PC.NURSE ---
Fall follow up Resident slept on and off during night, tried to get out the bed when the alarm sounded. He said, he was hot ; staff took the blanket off and covered him with the bed sheet. Neuro intact : hands graps strong, refused to open eyes pour pupils checked, can easily respond to pain. will continue to monitor.
[2022-11-06] MEDS: SENNOSIDES 1 TAB TABLET PO (07:02)
[2022-11-06] MEDS: SODIUM CHLORIDE NASAL SPRAY 1 SPRAY NOSTRIL-B ×2 (07:02→15:21)
[2022-11-06] MEDS: polyethylene glycoL 3350 17 GM PACK PO (07:02)
[2022-11-06] MEDS: QUETIAPINE 25 MG TABLET 12.5 MG PO (18:48)
[2022-11-06] MEDS: DONEPEZIL 10 MG TABLET PO (20:59)
[2022-11-06] MEDS: ROPINIROLE HCL 1 MG TABLET 2 MG PO (21:00)
[2022-11-07] MEDS: OXYCODONE 5 MG TABLET 2.5 MG PO (05:26)
[2022-11-07] MEDS: CARBIDOPA-LEVODOPA 25-100 TABLET 1 TAB PO ×4 (05:26→19:12)
--- NOTE | 2022-11-07 05:54 | PC.NURSE ---
Air Control/Anti Air Warfare Officer found Res wrap his head with blanket. Air Control/Anti Air Warfare Officer provided education the risk of wrapping his head. He spit the medication. He was very resistive fighting with cares.
[2022-11-07 06:55] VITALS: BP 99/66; PULSE 68; RESP 16; TEMP 36.8; O2SAT 98
[2022-11-07] MEDS: SENNOSIDES 1 TAB TABLET PO (07:46)
[2022-11-07] MEDS: polyethylene glycoL 3350 17 GM PACK PO (07:46)
[2022-11-07] MEDS: SODIUM CHLORIDE NASAL SPRAY 1 SPRAY NOSTRIL-B ×2 (07:46→15:38)
[2022-11-07 09:30] VITALS: BMI 24.0
[2022-11-07 13:03] VITALS: BP 100/60; PULSE 72; RESP 18; TEMP 36.6; O2SAT 100
[2022-11-07] MEDS: DONEPEZIL 10 MG TABLET PO (19:12)
[2022-11-07] MEDS: QUETIAPINE 25 MG TABLET 12.5 MG PO (19:12)
[2022-11-07] MEDS: ROPINIROLE HCL 1 MG TABLET 2 MG PO (19:12)
[2022-11-08] MEDS: CARBIDOPA-LEVODOPA 25-100 TABLET 1 TAB PO ×4 (05:02→19:04)
[2022-11-08] MEDS: OXYCODONE 5 MG TABLET 2.5 MG PO (05:02)
[2022-11-08] MEDS: SENNOSIDES 1 TAB TABLET PO (07:28)
[2022-11-08] MEDS: SODIUM CHLORIDE NASAL SPRAY 1 SPRAY NOSTRIL-B ×2 (07:28→15:08)
[2022-11-08] MEDS: polyethylene glycoL 3350 17 GM PACK PO (07:28)
[2022-11-08] MEDS: QUETIAPINE 25 MG TABLET 12.5 MG PO (18:15)
[2022-11-08] MEDS: DONEPEZIL 10 MG TABLET PO (19:04)
[2022-11-08] MEDS: ROPINIROLE HCL 1 MG TABLET 2 MG PO (19:04)
[2022-11-09] MEDS: CARBIDOPA-LEVODOPA 25-100 TABLET 1 TAB PO ×4 (04:58→19:10)
[2022-11-09] MEDS: OXYCODONE 5 MG TABLET 2.5 MG PO (04:58)
[2022-11-09] MEDS: polyethylene glycoL 3350 17 GM PACK PO (07:52)
[2022-11-09] MEDS: SODIUM CHLORIDE NASAL SPRAY 1 SPRAY NOSTRIL-B ×2 (07:52→15:18)
[2022-11-09] MEDS: SENNOSIDES 1 TAB TABLET PO (07:52)
[2022-11-09] MEDS: QUETIAPINE 25 MG TABLET 12.5 MG PO (18:37)
[2022-11-09] MEDS: ROPINIROLE HCL 1 MG TABLET 2 MG PO (19:10)
[2022-11-09] MEDS: DONEPEZIL 10 MG TABLET PO (19:10)
[2022-11-10] MEDS: CARBIDOPA-LEVODOPA 25-100 TABLET 1 TAB PO ×4 (05:10→20:42)
[2022-11-10] MEDS: OXYCODONE 5 MG TABLET 2.5 MG PO (05:10)
[2022-11-10] MEDS: SENNOSIDES 1 TAB TABLET PO (07:10)
[2022-11-10] MEDS: polyethylene glycoL 3350 17 GM PACK PO (07:10)
[2022-11-10] MEDS: SODIUM CHLORIDE NASAL SPRAY 1 SPRAY NOSTRIL-B ×2 (07:10→15:15)
[2022-11-10] MEDS: QUETIAPINE 25 MG TABLET 12.5 MG PO (18:34)
[2022-11-10] MEDS: ROPINIROLE HCL 1 MG TABLET 2 MG PO (20:42)
[2022-11-10] MEDS: DONEPEZIL 10 MG TABLET PO (20:42)
[2022-11-11] MEDS: OXYCODONE 5 MG TABLET 2.5 MG PO (04:20)
[2022-11-11] MEDS: CARBIDOPA-LEVODOPA 25-100 TABLET 1 TAB PO ×4 (04:20→19:35)
[2022-11-11] MEDS: SODIUM CHLORIDE NASAL SPRAY 1 SPRAY NOSTRIL-B ×2 (07:04→16:16)
[2022-11-11] MEDS: SENNOSIDES 1 TAB TABLET PO (07:04)
[2022-11-11] MEDS: polyethylene glycoL 3350 17 GM PACK PO (07:04)
[2022-11-11] MEDS: ROPINIROLE HCL 1 MG TABLET 2 MG PO (19:35)
[2022-11-11] MEDS: DONEPEZIL 10 MG TABLET PO (19:35)
[2022-11-11] MEDS: QUETIAPINE 25 MG TABLET 12.5 MG PO (19:35)
--- NOTE | 2022-11-12 02:03 | PC.NURSE ---
Skin Concern: Small blister noted on the right 3rd finger. Will continue to monitor.
[2022-11-12] MEDS: CARBIDOPA-LEVODOPA 25-100 TABLET 1 TAB PO ×4 (04:48→20:05)
[2022-11-12] MEDS: OXYCODONE 5 MG TABLET 2.5 MG PO (04:48)
[2022-11-12] MEDS: SODIUM CHLORIDE NASAL SPRAY 1 SPRAY NOSTRIL-B ×2 (08:38→15:23)
[2022-11-12] MEDS: SENNOSIDES 1 TAB TABLET PO (08:39)
[2022-11-12] MEDS: polyethylene glycoL 3350 17 GM PACK PO (08:39)
[2022-11-12] MEDS: QUETIAPINE 25 MG TABLET 12.5 MG PO (18:23)
[2022-11-12] MEDS: DONEPEZIL 10 MG TABLET PO (20:05)
[2022-11-12] MEDS: ROPINIROLE HCL 1 MG TABLET 2 MG PO (20:05)
[2022-11-13] MEDS: OXYCODONE 5 MG TABLET 2.5 MG PO (05:10)
[2022-11-13] MEDS: CARBIDOPA-LEVODOPA 25-100 TABLET 1 TAB PO ×4 (05:10→19:13)
[2022-11-13] MEDS: SODIUM CHLORIDE NASAL SPRAY 1 SPRAY NOSTRIL-B ×2 (08:14→15:11)
[2022-11-13] MEDS: SENNOSIDES 1 TAB TABLET PO (08:14)
[2022-11-13] MEDS: polyethylene glycoL 3350 17 GM PACK PO (08:14)
--- NOTE | 2022-11-13 13:38 | PC.NURSE ---
BRAIN STIM CHECK: monthly battery check performed. Battery life indicated: Full battery more than 1 year. Communication 100%. Therapy turned on. Will continue to check monthly. Family updated.
[2022-11-13] MEDS: MAGNESIUM HYDROXIDE 30 ML ORAL.SUSP PO (16:00)
[2022-11-13] MEDS: QUETIAPINE 25 MG TABLET 12.5 MG PO (18:07)
[2022-11-13] MEDS: ROPINIROLE HCL 1 MG TABLET 2 MG PO (19:13)
[2022-11-13] MEDS: DONEPEZIL 10 MG TABLET PO (19:13)
[2022-11-14] MEDS: OXYCODONE 5 MG TABLET 2.5 MG PO (04:33)
[2022-11-14] MEDS: CARBIDOPA-LEVODOPA 25-100 TABLET 1 TAB PO ×4 (04:33→20:41)
[2022-11-14] MEDS: SODIUM CHLORIDE NASAL SPRAY 1 SPRAY NOSTRIL-B ×2 (07:18→15:45)
[2022-11-14] MEDS: SENNOSIDES 1 TAB TABLET PO (07:19)
[2022-11-14] MEDS: polyethylene glycoL 3350 17 GM PACK PO (07:19)
[2022-11-14 12:42] VITALS: BP 125/71; PULSE 69; RESP 18; TEMP 36.4; O2SAT 99; BMI 22.7
[2022-11-14] MEDS: QUETIAPINE 25 MG TABLET 12.5 MG PO (18:46)
[2022-11-14] MEDS: DONEPEZIL 10 MG TABLET PO (20:41)
[2022-11-14] MEDS: ROPINIROLE HCL 1 MG TABLET 2 MG PO (20:41)
[2022-11-15] MEDS: OXYCODONE 5 MG TABLET 2.5 MG PO (04:45)
[2022-11-15] MEDS: CARBIDOPA-LEVODOPA 25-100 TABLET 1 TAB PO ×4 (04:45→19:50)
[2022-11-15] MEDS: SODIUM CHLORIDE NASAL SPRAY 1 SPRAY NOSTRIL-B ×2 (07:17→15:15)
[2022-11-15] MEDS: polyethylene glycoL 3350 17 GM PACK PO (07:17)
[2022-11-15] MEDS: SENNOSIDES 1 TAB TABLET PO (07:17)
[2022-11-15] MEDS: QUETIAPINE 25 MG TABLET 12.5 MG PO (18:51)
[2022-11-15] MEDS: DONEPEZIL 10 MG TABLET PO (19:50)
[2022-11-15] MEDS: ROPINIROLE HCL 1 MG TABLET 2 MG PO (19:50)
[2022-11-16] MEDS: CARBIDOPA-LEVODOPA 25-100 TABLET 1 TAB PO ×4 (04:27→19:50)
[2022-11-16] MEDS: OXYCODONE 5 MG TABLET 2.5 MG PO (04:27)
[2022-11-16] MEDS: SODIUM CHLORIDE NASAL SPRAY 1 SPRAY NOSTRIL-B ×2 (07:24→15:49)
[2022-11-16] MEDS: SENNOSIDES 1 TAB TABLET PO (07:25)
[2022-11-16] MEDS: polyethylene glycoL 3350 17 GM PACK PO (07:26)
[2022-11-16] MEDS: DONEPEZIL 10 MG TABLET PO (19:50)
[2022-11-16] MEDS: QUETIAPINE 25 MG TABLET 12.5 MG PO (19:50)
[2022-11-16] MEDS: ROPINIROLE HCL 1 MG TABLET 2 MG PO (19:51)
--- NOTE | 2022-11-17 03:29 | PC.NURSE ---
WEEKLY CHARTING WEEK 1 PAIN AND ADL`S Vital signs reviewed with no concerns. Comprehensive care plan and temporary care plan reviewed with added? after two falls 09/16 and 10/11 ; will continue with current comprehensive measures. Pain : Resident is on Acetaminophen 1000mg TID scheduled, Oxycodone 2.5 mg bad credit collector and PRN oxycodone 2.5mg Q6H for pain management. Extensive assist of 1 with his? ADLs except during Yomi transfer. Regular diet ,thin liquid ; He is able to eat independently finger foods with staff cues. He is assisted at meal table. Resident has history of sneezing? and coughing during meals but does not have any choking episode. Staff will continue to monitor.
[2022-11-17] MEDS: CARBIDOPA-LEVODOPA 25-100 TABLET 1 TAB PO ×4 (05:14→20:26)
[2022-11-17] MEDS: OXYCODONE 5 MG TABLET 2.5 MG PO (05:15)
[2022-11-17] MEDS: SODIUM CHLORIDE NASAL SPRAY 1 SPRAY NOSTRIL-B ×2 (08:21→15:16)
[2022-11-17] MEDS: polyethylene glycoL 3350 17 GM PACK PO (08:21)
[2022-11-17] MEDS: SENNOSIDES 1 TAB TABLET PO (08:22)
--- NOTE | 2022-11-17 10:13 | PC.NURSE ---
Weekly Charting, Week 1 - ADL's: Comprehensive and temporary care plan reviewed. No changes made, nothing added to temporary care plan. Needs extensive assists of 2 with dressing, grooming, oral cares and bathing. Bed bath only for safety.. Vital signs reviewed with BP occasional low values. Is on regular diet, thin liquids. Is able to feed finger foods and staff partially assist at times. Has history of coughing with eating or when food is introduced to the mouth. Continue weekly monitoring and refer to provider as needed. Pain: Resident is usually stiff causing pain in the morning. 5/10 Oxycodone 2.5 mg @ 0500 ordered. Also has an order for Tylenol 1000 mg TID PRN & Oxycodone 2.5 mg BID PRN. Need for pain is anticipated by staff.
[2022-11-17] MEDS: QUETIAPINE 25 MG TABLET 12.5 MG PO (20:26)
[2022-11-17] MEDS: DONEPEZIL 10 MG TABLET PO (20:26)
[2022-11-17] MEDS: ROPINIROLE HCL 1 MG TABLET 2 MG PO (20:26)
[2022-11-18] MEDS: CARBIDOPA-LEVODOPA 25-100 TABLET 1 TAB PO ×4 (04:57→19:33)
[2022-11-18] MEDS: OXYCODONE 5 MG TABLET 2.5 MG PO (04:57)
[2022-11-18] MEDS: SODIUM CHLORIDE NASAL SPRAY 1 SPRAY NOSTRIL-B ×2 (07:23→15:35)
[2022-11-18] MEDS: SENNOSIDES 1 TAB TABLET PO (07:24)
[2022-11-18] MEDS: polyethylene glycoL 3350 17 GM PACK PO (07:24)
--- NOTE | 2022-11-18 12:22 | PC.NURSE ---
Recert Visit: Resident seen by ARROW POINT ATTACHERRohit. Orders reviewed and renewed of 75 days with changes. Order: D/C Senna BID PRN, Dulcolax daily PRN, Systane eye drop BID PRN.
--- NOTE | 2022-11-18 15:02 | PC.NURSE ---
Eye care: Resident's ask show card writer whether eye drops was applied to her this morning, show card writer informed that it was discontinued . informed that she wants it to be continued since he had a lot of eye discharge yesterday. Roll Builder informed that it will be communicated to the UPHOLSTERY BUNDLER .
[2022-11-18] MEDS: QUETIAPINE 25 MG TABLET 12.5 MG PO (18:37)
[2022-11-18] MEDS: DONEPEZIL 10 MG TABLET PO (19:33)
[2022-11-18] MEDS: ROPINIROLE HCL 1 MG TABLET 2 MG PO (19:33)
[2022-11-19] MEDS: CARBIDOPA-LEVODOPA 25-100 TABLET 1 TAB PO ×4 (05:08→20:03)
[2022-11-19] MEDS: OXYCODONE 5 MG TABLET 2.5 MG PO (05:08)
[2022-11-19] MEDS: SODIUM CHLORIDE NASAL SPRAY 1 SPRAY NOSTRIL-B ×2 (08:54→15:37)
[2022-11-19] MEDS: polyethylene glycoL 3350 17 GM PACK PO (08:55)
[2022-11-19] MEDS: SENNOSIDES 1 TAB TABLET PO (08:55)
[2022-11-19] MEDS: QUETIAPINE 25 MG TABLET 12.5 MG PO (17:58)
[2022-11-19] MEDS: ROPINIROLE HCL 1 MG TABLET 2 MG PO (20:03)
[2022-11-19] MEDS: DONEPEZIL 10 MG TABLET PO (20:03)
[2022-11-20] MEDS: OXYCODONE 5 MG TABLET 2.5 MG PO (04:13)
[2022-11-20] MEDS: CARBIDOPA-LEVODOPA 25-100 TABLET 1 TAB PO ×4 (04:13→20:58)
[2022-11-20] MEDS: SODIUM CHLORIDE NASAL SPRAY 1 SPRAY NOSTRIL-B ×2 (08:16→15:23)
[2022-11-20] MEDS: polyethylene glycoL 3350 17 GM PACK PO (08:17)
[2022-11-20] MEDS: SENNOSIDES 1 TAB TABLET PO (08:17)
[2022-11-20] MEDS: QUETIAPINE 25 MG TABLET 12.5 MG PO (18:31)
[2022-11-20] MEDS: DONEPEZIL 10 MG TABLET PO (20:58)
[2022-11-20] MEDS: ROPINIROLE HCL 1 MG TABLET 2 MG PO (20:58)
[2022-11-21] MEDS: CARBIDOPA-LEVODOPA 25-100 TABLET 1 TAB PO ×4 (05:01→19:10)
[2022-11-21] MEDS: OXYCODONE 5 MG TABLET 2.5 MG PO (05:01)
[2022-11-21] MEDS: polyethylene glycoL 3350 17 GM PACK PO (07:14)
[2022-11-21] MEDS: SENNOSIDES 1 TAB TABLET PO (07:14)
[2022-11-21] MEDS: SODIUM CHLORIDE NASAL SPRAY 1 SPRAY NOSTRIL-B ×2 (07:14→15:07)
[2022-11-21 13:32] VITALS: BP 100/60; PULSE 79; RESP 18; TEMP 36.4; O2SAT 99; BMI 23.1
[2022-11-21] MEDS: QUETIAPINE 25 MG TABLET 12.5 MG PO (18:06)
[2022-11-21] MEDS: DONEPEZIL 10 MG TABLET PO (19:10)
[2022-11-21] MEDS: ROPINIROLE HCL 1 MG TABLET 2 MG PO (19:10)
[2022-11-22] MEDS: OXYCODONE 5 MG TABLET 2.5 MG PO (05:19)
[2022-11-22] MEDS: CARBIDOPA-LEVODOPA 25-100 TABLET 1 TAB PO ×4 (05:19→19:08)
[2022-11-22] MEDS: polyethylene glycoL 3350 17 GM PACK PO (07:15)
[2022-11-22] MEDS: SENNOSIDES 1 TAB TABLET PO (07:15)
[2022-11-22] MEDS: SODIUM CHLORIDE NASAL SPRAY 1 SPRAY NOSTRIL-B ×2 (07:15→15:20)
[2022-11-22] MEDS: QUETIAPINE 25 MG TABLET 12.5 MG PO (17:10)
[2022-11-22] MEDS: ROPINIROLE HCL 1 MG TABLET 2 MG PO (19:08)
[2022-11-22] MEDS: DONEPEZIL 10 MG TABLET PO (19:08)
[2022-11-23] MEDS: OXYCODONE 5 MG TABLET 2.5 MG PO ×2 (00:46→05:20)
[2022-11-23] MEDS: CARBIDOPA-LEVODOPA 25-100 TABLET 1 TAB PO ×4 (05:20→19:23)
--- NOTE | 2022-11-23 06:22 | PC.NURSE ---
Around midnight, during first rounds, resident was combative with staff during cares. Staff were unable to change the incontinent pad at that time. Resident was hitting his legs. Intervention was to reapproach x2, which was ineffective. Offered snack and drink and pain medicine, which was effective. Resident fell asleep and was cooperative with cares at a later time.
[2022-11-23] MEDS: SODIUM CHLORIDE NASAL SPRAY 1 SPRAY NOSTRIL-B ×2 (08:15→15:08)
[2022-11-23] MEDS: SENNOSIDES 1 TAB TABLET PO (08:15)
[2022-11-23] MEDS: polyethylene glycoL 3350 17 GM PACK PO (08:15)
[2022-11-23] MEDS: QUETIAPINE 25 MG TABLET 12.5 MG PO (17:13)
[2022-11-23] MEDS: ROPINIROLE HCL 1 MG TABLET 2 MG PO (19:24)
[2022-11-23] MEDS: DONEPEZIL 10 MG TABLET PO (19:24)
--- NOTE | 2022-11-24 01:04 | PC.NURSE ---
Weekly Charting Week 2 MOBILITY: Vital signs reviewed with no concerns. Comprehensive and temporary care plan reviewed with no changes made. Assist fo 2 with full mechanical lift for all transfers. Non-ambulatory. Assist of 1-2 for bed mobility. Bilateral 1/4 side rails up during cares only. Total assist for w/c mobility. Fall risk assessment, is at high risk for falls. Fall interventions: anticipate needs, bed and chair alarms in place and active, call light in reach, gripper socks, falling star magnet, hourly safety checks, bed in low position with brakes locked. On standing program TID and ROM program BID.
[2022-11-24] MEDS: CARBIDOPA-LEVODOPA 25-100 TABLET 1 TAB PO ×4 (04:38→19:18)
[2022-11-24] MEDS: OXYCODONE 5 MG TABLET 2.5 MG PO (04:38)
[2022-11-24] MEDS: polyethylene glycoL 3350 17 GM PACK PO (07:28)
[2022-11-24] MEDS: SODIUM CHLORIDE NASAL SPRAY 1 SPRAY NOSTRIL-B ×2 (07:28→15:46)
[2022-11-24] MEDS: SENNOSIDES 1 TAB TABLET PO (07:28)
--- NOTE | 2022-11-24 07:47 | PC.NURSE ---
Weekly Charting: Week 2 Reviewed resident's vital signs. No concerns noted. Reviewed temporary and comprehensive care plans, no changes were made/ noted. Resident is assist of 1-2 with bed mobility. 1/4 bilateral side rails up during cares only. Resident is non- ambulatory. Resident requires assist of 2 for total mechanical lift for transfers. Resident is total assist with wheelchair to activities/ meals. Fall risk assessment reviewed, resident is at high risk for falls. Interventions in place to prevent falls include: bed and chair alarms in place, hourly visual checks, gripper socks or non skid shoes on at all times, call light within reach, bed in lowest position with brakes locked, falling star program, and staff anticipation of needs. Resident has standing program in place. Intervention documentation reviewed, resident complies with standing 1 minute, three times daily using railing and staff assistance. Resident has ROM in place to extremities, resident complies and tolerates ROM program well.
[2022-11-24 13:56] VITALS: BMI 23.1
[2022-11-24] MEDS: QUETIAPINE 25 MG TABLET 12.5 MG PO (18:16)
[2022-11-24] MEDS: ROPINIROLE HCL 1 MG TABLET 2 MG PO (19:18)
[2022-11-24] MEDS: DONEPEZIL 10 MG TABLET PO (19:18)
[2022-11-24 21:00] VITALS: BP 101/66; BP 118/65; PULSE 66
[2022-11-25] MEDS: CARBIDOPA-LEVODOPA 25-100 TABLET 1 TAB PO ×4 (04:53→20:51)
[2022-11-25] MEDS: OXYCODONE 5 MG TABLET 2.5 MG PO (04:53)
[2022-11-25] MEDS: SODIUM CHLORIDE NASAL SPRAY 1 SPRAY NOSTRIL-B ×2 (07:14→15:11)
[2022-11-25] MEDS: polyethylene glycoL 3350 17 GM PACK PO (07:15)
[2022-11-25] MEDS: SENNOSIDES 1 TAB TABLET PO (07:16)
[2022-11-25] MEDS: QUETIAPINE 25 MG TABLET 12.5 MG PO (18:15)
[2022-11-25] MEDS: DONEPEZIL 10 MG TABLET PO (20:51)
[2022-11-25] MEDS: ROPINIROLE HCL 1 MG TABLET 2 MG PO (20:51)
[2022-11-26] MEDS: CARBIDOPA-LEVODOPA 25-100 TABLET 1 TAB PO ×4 (04:21→19:43)
[2022-11-26] MEDS: OXYCODONE 5 MG TABLET 2.5 MG PO (04:21)
[2022-11-26] MEDS: polyethylene glycoL 3350 17 GM PACK PO (07:04)
[2022-11-26] MEDS: SENNOSIDES 1 TAB TABLET PO (07:04)
[2022-11-26] MEDS: SODIUM CHLORIDE NASAL SPRAY 1 SPRAY NOSTRIL-B ×2 (07:04→16:14)
[2022-11-26] MEDS: QUETIAPINE 25 MG TABLET 12.5 MG PO (18:38)
[2022-11-26] MEDS: DONEPEZIL 10 MG TABLET PO (19:43)
[2022-11-26] MEDS: ROPINIROLE HCL 1 MG TABLET 2 MG PO (19:43)
[2022-11-27] MEDS: CARBIDOPA-LEVODOPA 25-100 TABLET 1 TAB PO ×4 (05:14→19:53)
[2022-11-27] MEDS: OXYCODONE 5 MG TABLET 2.5 MG PO (05:14)
[2022-11-27] MEDS: SODIUM CHLORIDE NASAL SPRAY 1 SPRAY NOSTRIL-B ×2 (07:08→16:05)
[2022-11-27] MEDS: SENNOSIDES 1 TAB TABLET PO (07:08)
[2022-11-27] MEDS: polyethylene glycoL 3350 17 GM PACK PO (07:08)
[2022-11-27] MEDS: QUETIAPINE 25 MG TABLET 12.5 MG PO (17:06)
[2022-11-27] MEDS: DONEPEZIL 10 MG TABLET PO (19:53)
[2022-11-27] MEDS: ROPINIROLE HCL 1 MG TABLET 2 MG PO (19:53)
[2022-11-28] MEDS: CARBIDOPA-LEVODOPA 25-100 TABLET 1 TAB PO ×4 (05:03→19:12)
[2022-11-28] MEDS: OXYCODONE 5 MG TABLET 2.5 MG PO (05:03)
[2022-11-28 07:00] VITALS: BP 124/83; PULSE 61; RESP 18; TEMP -7.7; TEMP 18; O2SAT 97; BMI 22.5
[2022-11-28] MEDS: SODIUM CHLORIDE NASAL SPRAY 1 SPRAY NOSTRIL-B ×2 (07:21→15:54)
[2022-11-28] MEDS: SENNOSIDES 1 TAB TABLET PO (07:21)
[2022-11-28] MEDS: polyethylene glycoL 3350 17 GM PACK PO (07:21)
--- NOTE | 2022-11-28 16:50 | PC.NURSE ---
ALERT! During his participation in [employer], this author noted that, this resident had two of the [employer] [place] wooden chips in his mouth. With the help of other staff members, tongue compressor was used to eliminate the threat, thus the chips were removed successfully without any injury. Will continue to monitor.
[2022-11-28] MEDS: QUETIAPINE 25 MG TABLET 12.5 MG PO (18:17)
[2022-11-28] MEDS: DONEPEZIL 10 MG TABLET PO (19:12)
[2022-11-28] MEDS: ROPINIROLE HCL 1 MG TABLET 2 MG PO (19:12)
[2022-11-29] MEDS: CARBIDOPA-LEVODOPA 25-100 TABLET 1 TAB PO ×4 (04:31→19:43)
[2022-11-29] MEDS: OXYCODONE 5 MG TABLET 2.5 MG PO (04:31)
[2022-11-29] MEDS: SENNOSIDES 1 TAB TABLET PO (07:04)
[2022-11-29] MEDS: polyethylene glycoL 3350 17 GM PACK PO (07:04)
[2022-11-29] MEDS: SODIUM CHLORIDE NASAL SPRAY 1 SPRAY NOSTRIL-B ×2 (07:04→15:14)
[2022-11-29] MEDS: QUETIAPINE 25 MG TABLET 12.5 MG PO (18:38)
[2022-11-29] MEDS: DONEPEZIL 10 MG TABLET PO (19:43)
[2022-11-29] MEDS: ROPINIROLE HCL 1 MG TABLET 2 MG PO (19:43)
[2022-11-30] MEDS: CARBIDOPA-LEVODOPA 25-100 TABLET 1 TAB PO ×4 (05:14→19:16)
[2022-11-30] MEDS: OXYCODONE 5 MG TABLET 2.5 MG PO (05:14)
[2022-11-30] MEDS: SODIUM CHLORIDE NASAL SPRAY 1 SPRAY NOSTRIL-B ×2 (07:39→16:28)
[2022-11-30] MEDS: polyethylene glycoL 3350 17 GM PACK PO (07:45)
[2022-11-30] MEDS: SENNOSIDES 1 TAB TABLET PO (07:45)
[2022-11-30] MEDS: ROPINIROLE HCL 1 MG TABLET 2 MG PO (19:16)
[2022-11-30] MEDS: DONEPEZIL 10 MG TABLET PO (19:16)
[2022-11-30] MEDS: QUETIAPINE 25 MG TABLET 12.5 MG PO (19:16)
[2022-12-01 01:45] VITALS: BP 143/77; PULSE 72; RESP 18; TEMP 36.6; O2SAT 96
[2022-12-01] MEDS: OXYCODONE 5 MG TABLET 2.5 MG PO (04:31)
[2022-12-01] MEDS: CARBIDOPA-LEVODOPA 25-100 TABLET 1 TAB PO ×4 (04:31→20:02)
--- NOTE | 2022-12-01 05:09 | LTC.FALL ---
[facility] Fall Note: o Fall Date:12/01/2022 o Fall Time:0145 o What happened? alarm sounded , staff went in , resident found holding to his bedsheet and in sitting position- not on the floor o Who found the resident and who responded? MICHELLE when the alarm sounded o How the resident was found (knees, left side, arm under them), any hazards (cords, objects, nonskid slippers) brakes on? Proper equipment? holding bed sheet , sitting position o Did you assess for head trauma, spinal injuries, skeletal injuries, neurological changes and status, and head and neck pain? What did you find? yes, assessment done, no injuries o Did you assess ROM in shoulders, elbows, hips, knees, any other affected areas, unless there is suspected spinal injury. no injury o What are the injuries and how are they being treated? N/A o How was the resident transferred from the floor? assist of two o Did you call the MD or put a note in the JAVA SECURITY ENGINEER book? JAVA SECURITY ENGINEER book o Enter vital signs. yes, done o Did you notify family? will be done in the morning o What was the root cause of the fall? Why did it happen? insomnia o Create an IMMEDIATE INTERVENTION to ensure that this won't immediately happen again. (Put in temporary care plan too) o Complete Safety report and huddle (now one form) o If resident is seen in ED or fractured something, note that you started a [facility] Report process. Instructions are at the East nurse's desk in a red binder labeled [facility] report.
[2022-12-01 05:17] VITALS: BP 135/81; PULSE 69; RESP 18; TEMP 36.8; O2SAT 96
[2022-12-01] MEDS: polyethylene glycoL 3350 17 GM PACK PO (07:00)
[2022-12-01] MEDS: SENNOSIDES 1 TAB TABLET PO (07:00)
[2022-12-01] MEDS: SODIUM CHLORIDE NASAL SPRAY 1 SPRAY NOSTRIL-B ×2 (07:00→16:44)
--- NOTE | 2022-12-01 07:26 | PC.NURSE ---
WEEKLY CHARTING WEEK 3 TOILETING AND SKIN Vital signs continue to monitor, notify MD if significant changes. Comprehensive and temporary care care reviewed with added new intervention for recent fall. (12/01/22) Skin is clear and intact. Skin check every bath day and during cares. Assist of one with incontinent pad, clothing management and Portia cares.Staff anticipated needs.? Resident is incontinent, checked and changed during first round and 3rd round at night. He wears large brief.
--- NOTE | 2022-12-01 09:25 | PC.NURSE ---
Fall followup note: Resident remains alert per baseline. Resident unable to answer questions to assess cognition. PERRLA. Hand grasps equal bilaterally and ROM intact. Resident has had no verbal or nonverbal indications of pain. He is resting in recliner at this time with chair alarm in place.
[2022-12-01 09:27] VITALS: BP 119/70; PULSE 69; RESP 16; TEMP 36.2; O2SAT 98
--- NOTE | 2022-12-01 10:35 | PC.NURSE ---
Weekly Charting: #3 - Toileting: Comprehensive care plan reviewed. No changes made. Nothing added to temporary care plan. Resident is incontinent of bowel and bladder. Is checked and changed in bed every 2 hours and PRN. Wears blue wing briefs. Pads, juancarlos cares, clothing management done by staff. Vital signs reviewed, BP variable. Continue weekly monitoring and refer to provider as needed. Skin: No skin issues at this time. Skin is checked routinely during cares and on bath day.
--- NOTE | 2022-12-01 12:25 | PC.NURSE ---
Message left to daughter to call back to update of fall.
[2022-12-01 13:35] VITALS: BP 131/71; PULSE 74; RESP 16; TEMP 36.6; O2SAT 98
--- NOTE | 2022-12-01 13:36 | PC.NURSE ---
Fall followup note: Resident remains alert and responsive per baseline. Hand grasps remain equal bilaterally and ROM remains intact. Resident has had no verbal or nonverbal signs of pain noted throughout the shift today. Vital signs completed: B/P 131/71, P 74, R 16, T 97.8, O2 sat 98% on RA. PERRLA. Resident noted to be smiling when interacting with staff and is having snack near nurses station at this time. Staff did reposition resident into recliner though resident would not nap when encouraged.
--- NOTE | 2022-12-01 13:53 | PC.NURSE ---
Family Update: DaughterMarian called back & updated of fall. No injury.
[2022-12-01] MEDS: QUETIAPINE 25 MG TABLET 12.5 MG PO (17:34)
[2022-12-01 18:00] VITALS: BP 101/68; PULSE 77; RESP 18; TEMP 37.2; O2SAT 99
--- NOTE | 2022-12-01 18:00 | PC.NURSE ---
Fall Follow-up: Resident is unable to participate nor respond to PERRLA and ROM assessments due to disease. Resident denies pain, and no non-verbal signs often indicating pain symptoms noted at this time. Alert, and cognition is unchanged from baseline. Hand grasps strength equal and strong?bilaterally. No signs and symptoms of intracranial pressure including headache, blurred vision, confusion, or high blood pressure noted so far. Resident napping in his recliner at this time. Vital signs are normal within residents ranges - refer to 'WORKLIST' for documented values. Will continue to monitor.
[2022-12-01] MEDS: DONEPEZIL 10 MG TABLET PO (20:02)
[2022-12-01] MEDS: ROPINIROLE HCL 1 MG TABLET 2 MG PO (20:02)
[2022-12-01 21:14] VITALS: BP 101/68; BP 106/66; PULSE 68; RESP 18; TEMP 37.2; O2SAT 100
--- NOTE | 2022-12-01 22:47 | PC.NURSE ---
Fall Follow-up:?Unable to assess ROM and PERRLA due to disease. No non-verbal signs often indicating pain symptoms noted or reported at this time. Hand grasps strength equal and strong?bilaterally. No signs and symptoms of intracranial pressure including headache, confusion, or high blood pressure noted at this time. Vital signs are normal within residents ranges - see 'WORKLIST' for documented values.
--- NOTE | 2022-12-02 00:51 | PC.NURSE ---
o Fall Date: 12/01/22 o Fall Time: 2129 o What happened? Rolled out of w/c to the floor. o Who found the resident and who responded? Assigned MICHELLE was present at the time of incident. Floor nurse responded o What was the resident doing? Unknown. o How the resident was found (knees, left side, arm under them), any hazards (cords, objects, nonskid slippers) brakes on? Proper equipment? Found lying on his right lateral side. o Did you assess for head trauma, spinal injuries, skeletal injuries, neurological changes and status, and head and neck pain? What did you find? No injuries at this time. Witnessed MICHELLE confirms that resident did not hit his head. Cognition is unchanged from baseline. o Did you assess ROM in shoulders, elbows, hips, knees, any other affected areas, unless there is suspected spinal injury. Unable to perform ROM effectively, as expected, due to disease, but able to joint areas as tolerated. o Did you Assess for pain or discomfort? Yes. Resident denies pain, and no non-verbal signs often indicating pain symptoms noted at this time. o What are the injuries and how are they being treated? N/A o How was the resident transferred from the floor? 3 assist with Yomi lift. o Did you call the MD or put a note in the SCHEDULE ANNOUNCER book? Yes o Enter vital signs. BP- 106/68, Temp- 99, Pul- 79, O2- 99%, Resp- 20, Pain- 0 o Did you notify family? Yes o What was the root cause of the fall? Why did it happen? Unattended for few seconds. o Create an IMMEDIATE INTERVENTION to ensure that this won't immediately happen again. (Put in temporary care plan too) o Complete Safety report and huddle (now one form) o If resident is seen in ED or fractured something, note that you started a [facility] Report process. Instructions are at the East nurse's desk in a red binder labeled [facility] report.
[2022-12-02 02:00] VITALS: BP 126/75; PULSE 70; RESP 18; TEMP 36.6; O2SAT 94
--- NOTE | 2022-12-02 02:34 | PC.NURSE ---
0200 FALL F/U Resident asleep, unable to participate Neuro assessment. Res is comfortable, No non verbal signs of pain. VSS BP 126/75, temp 97.8, RR 18, HR 70, O2 sat 94% at RA.
[2022-12-02] MEDS: OXYCODONE 5 MG TABLET 2.5 MG PO (05:11)
[2022-12-02] MEDS: CARBIDOPA-LEVODOPA 25-100 TABLET 1 TAB PO ×4 (05:11→19:12)
[2022-12-02 06:00] VITALS: BP 117/65; PULSE 75; RESP 18; TEMP 36.4; O2SAT 95
--- NOTE | 2022-12-02 06:28 | PC.NURSE ---
FALL F/U at 0600, Resident is awake the whole process of assessment. Unable to assess pupillary reaction d/r not opening his eye. Hand grasp is strong. No verbal and non verbal sign of pain. VSS BP 117/65, Temp 97.6, RR 18, HR 75, O2 sat 95% at RA.
[2022-12-02] MEDS: SENNOSIDES 1 TAB TABLET PO (07:20)
[2022-12-02] MEDS: polyethylene glycoL 3350 17 GM PACK PO (07:20)
[2022-12-02] MEDS: SODIUM CHLORIDE NASAL SPRAY 1 SPRAY NOSTRIL-B ×2 (07:20→15:07)
--- NOTE | 2022-12-02 09:33 | PC.SOCIAL ---
Phone call to resident's daughter Marian Araya to confirm appointment at [place] for tomorrow. Informed Marian that [facility] will transport resident to appointment. Marian will meet resident at his appointment. Phone call to Obdulio at [facility] to confirm transportation to resident's appointment tomorrow. Obdulio confirms transportation and will pickling grader at 12:50 pm. Provided contact information for 's daughter for payment. Informed Obdulio that Marian will meet resident at his appointment. [facility]
[2022-12-02 10:00] VITALS: BP 93/60; PULSE 60; RESP 18; TEMP 36.6; O2SAT 98
--- NOTE | 2022-12-02 10:54 | PC.NURSE ---
Fall followup note: Vital signs: B/P 93/60, P 74, R 17, T 98., O2 sat 98% on RA. No nonverbal indication/discomfort noted or reported this morning. Hand grasps remain equal bilaterally when compared. Resident remains alert & oriented per baseline. Resident encouraged rest and repositioning performed along with providing ROM remains intact, No injury noted r/t recent fall. PERRLA. Will continues to monitor.
--- NOTE | 2022-12-02 11:34 | PC.NURSE ---
Family Update: Daughter contacted and updated of 12/01/22 fall @2130. No injury.
--- NOTE | 2022-12-02 12:08 | PC.SPIRITC ---
I provided visit and walk around patio for support and connection.
--- NOTE | 2022-12-02 13:15 | PC.NURSE ---
Fall followup note: Vital signs: B/P 104/66,? P 62, R 16, T 98.1., O2 sat 93% on RA. No nonverbal indication/discomfort noted or reported at this time. Resident sleeping comfortably in his recliner at this time. Encouraged rest? and repositioning performed along with providing ROM remains intact, No injury noted r/t recent fall. Will continues to monitor.
[2022-12-02 13:31] VITALS: BP 104/66; PULSE 62; RESP 16; TEMP 36.7; O2SAT 96
--- NOTE | 2022-12-02 15:09 | PC.SOCIAL ---
Resident care conference held today at 1:15 pm. Resident's daughter, Marian Araya, attended via phone. Updates provided by Carie Elena from Nursing, Milla Chaudhary from Nutrition, Adeline Ramírez from [facility], and this worker from Social Work. Resident's care plan was reviewed. Nursing discussed resident's frequent falls. Discussed resident will have appointment at [place] tomorrow. Marian will attend in person. Marian informed that she moved back to [place] and now lives in [place]. Resident's mood is stable and social work has no concerns.
--- NOTE | 2022-12-02 15:59 | PC.NURSE ---
CARE CONFERENCE: Care conference meeting held with all members of care team present. Daughter Marian over the phone. Nursing reviewed that resident continues to needing 2 assist with ADLs,? transfers, and mobility. Resident uses randy for transfers. Resident is able to participate in ROM and seated exercises with staff assistance and goes to exercise regularly. Daughter wonders if he could use floor pedal bike for exercise as resident previously loved to use stationary bike - will discuss with IDT. Activities notes there is one available to try. Resident has great participation in activities, no concerns. He is a high fall risk and uses a bed alarm. Frequent falls, all prevention measures are in place. Has been using call light appropriately during the day per staff report. Has episodes of intermittent confusion and hyperactivity. Has Neuro appt coming up, transport is scheduled and daughter notes she will meet them there. Is very soft spoken. Care plan reviewed and updated. POLST reviewed. DNR/DNI. Uses no restraints. Resident is given medications by staff. Vulnerable due to mobility limitations and ability to be understood/understand. Resident needs total staff assistance with meals, is shaky and weak at times. Nurse to perform brain stim check on the 1st of each month. Resident is senior living care.?His mood is stable. Resident is currently doing daily standing program, is going well, daughter is happy about this. Gradual increase in weight noted, no concerns, is stable. Mood is stable. Did discuss having daughter obtain more dignified cover ups due to drooling as well as larger shirts. She will do so and bring them in. No further questions/concerns. Daughter notes she recently moved back to [place] and would like to attend care conference in person in the future so that she can attend with her mom who wants to be more involved in his care. Will facilitate this.
[2022-12-02 16:13] VITALS: BP 105/53; PULSE 70; RESP 18; TEMP 37.1; O2SAT 96
[2022-12-02] MEDS: QUETIAPINE 25 MG TABLET 12.5 MG PO (17:14)
[2022-12-02] MEDS: ROPINIROLE HCL 1 MG TABLET 2 MG PO (19:12)
[2022-12-02] MEDS: DONEPEZIL 10 MG TABLET PO (19:12)
[2022-12-02 21:21] VITALS: BP 148/86; PULSE 85; RESP 16; TEMP 36.8; O2SAT 98
--- NOTE | 2022-12-02 21:42 | PC.NURSE ---
Post Fall note: VSS. Ambulation/cognition baseline. No new bumps/bruises/contusions noted. Neuro assessment baseline. No concerns r/t fall this shift.
[2022-12-03 02:00] VITALS: BP 128/75; PULSE 78; RESP 18; TEMP 36.7; O2SAT 95
--- NOTE | 2022-12-03 03:00 | PC.NURSE ---
FALL F/U Resident sleeping comfortably at this time. Unable to assess Neuro and ROM due to Resident sleeping. VSS BP 128/75, Temp 98.0, RR 18, HR 78, O2 sat 95% RA.
[2022-12-03] MEDS: CARBIDOPA-LEVODOPA 25-100 TABLET 1 TAB PO ×4 (04:47→21:14)
[2022-12-03] MEDS: OXYCODONE 5 MG TABLET 2.5 MG PO (04:47)
[2022-12-03] MEDS: SODIUM CHLORIDE NASAL SPRAY 1 SPRAY NOSTRIL-B ×2 (07:09→16:14)
[2022-12-03] MEDS: SENNOSIDES 1 TAB TABLET PO (07:09)
[2022-12-03] MEDS: polyethylene glycoL 3350 17 GM PACK PO (07:09)
[2022-12-03 09:18] VITALS: BP 124/79; PULSE 68; RESP 17; TEMP 36.5; O2SAT 99
--- NOTE | 2022-12-03 10:51 | PC.NURSE ---
Fall follow up note: No verbal or nonverbal indication of pain/discomfort noted r/t to recent fall.? VSS.?transferring/cognition per baseline.? No new injury's /bruises noted r/t to recent fall. ?Neuro assessment baseline.?Staff encouraging resident to rest and repositioning. Resident resting comfortably in his recliner at this time. Will continues to monitor.
--- NOTE | 2022-12-03 13:18 | PC.NURSE ---
Resident out of facility at 12:30 for his appointment with Neurology.
[2022-12-03 18:00] VITALS: BP 118/68; PULSE 68; RESP 17; TEMP 36.5; O2SAT 99
[2022-12-03] MEDS: QUETIAPINE 25 MG TABLET 12.5 MG PO (18:38)
--- NOTE | 2022-12-03 21:00 | PC.NURSE ---
Fall Follow-up: No new concerns as related to fall incident. Alert and oriented. ROM normal, and equal strength in bilateral hand grasp.
[2022-12-03] MEDS: DONEPEZIL 10 MG TABLET PO (21:15)
--- NOTE | 2022-12-03 21:48 | PC.NURSE ---
CHIKIS: Resident returned from medical appointment at 1730.
--- NOTE | 2022-12-03 21:49 | PC.NURSE ---
New Med Order: Written med order prescribed by MD. Tutu Wagoner: *Ropinirole 0.5 MG tablet - Take 3 tabs nightly. After two weeks decrease to 2 tabs nightly. After two more weeks decrease to 1 tab nightly. After two more weeks stop.
[2022-12-03 22:00] VITALS: BP 118/71; PULSE 68; RESP 17; TEMP 36.5; O2SAT 99
[2022-12-03] MEDS: ROPINIROLE HCL 0.25 MG TABLET 0.5 MG PO (22:34)
[2022-12-04 02:00] VITALS: BP 118/68; PULSE 76; RESP 18; TEMP 36.3; O2SAT 95
--- NOTE | 2022-12-04 03:17 | PC.NURSE ---
Fall Follow up Resident was awake when vitals sign are done, no concerns. Neuro is partially done , can`t cooperate for pupils reaction checks. Will continue to monitor for safety and comfort.
[2022-12-04] MEDS: CARBIDOPA-LEVODOPA 25-100 TABLET 1 TAB PO ×4 (04:15→20:38)
[2022-12-04] MEDS: OXYCODONE 5 MG TABLET 2.5 MG PO (04:16)
[2022-12-04] MEDS: SODIUM CHLORIDE NASAL SPRAY 1 SPRAY NOSTRIL-B ×2 (07:25→16:34)
[2022-12-04] MEDS: polyethylene glycoL 3350 17 GM PACK PO (07:25)
[2022-12-04] MEDS: SENNOSIDES 1 TAB TABLET PO (07:25)
[2022-12-04 10:43] VITALS: BP 112/72; PULSE 67; RESP 18; TEMP 36.4; O2SAT 98
--- NOTE | 2022-12-04 11:29 | PC.NURSE ---
Status: SNOW REMOVAL SUPERVISOR, Rohit here. Updated of med changes from Neurologist order. Keep Oxycodone 2.5mg scheduled & PRN.
[2022-12-04] MEDS: QUETIAPINE 25 MG TABLET 12.5 MG PO (18:40)
[2022-12-04] MEDS: ROPINIROLE HCL 0.25 MG TABLET 0.5 MG PO (20:38)
[2022-12-04] MEDS: DONEPEZIL 10 MG TABLET PO (20:38)
[2022-12-05] MEDS: CARBIDOPA-LEVODOPA 25-100 TABLET 1 TAB PO ×4 (05:02→19:29)
[2022-12-05] MEDS: OXYCODONE 5 MG TABLET 2.5 MG PO (05:02)
[2022-12-05] MEDS: SODIUM CHLORIDE NASAL SPRAY 1 SPRAY NOSTRIL-B ×2 (07:42→15:12)
[2022-12-05] MEDS: SENNOSIDES 1 TAB TABLET PO (07:42)
[2022-12-05] MEDS: polyethylene glycoL 3350 17 GM PACK PO (07:42)
[2022-12-05 10:22] VITALS: BP 109/71; PULSE 72; RESP 18; TEMP 36.4; O2SAT 98; BMI 23.3
[2022-12-05] MEDS: QUETIAPINE 25 MG TABLET 12.5 MG PO (18:19)
[2022-12-05] MEDS: DONEPEZIL 10 MG TABLET PO (19:29)
[2022-12-05] MEDS: ROPINIROLE HCL 0.25 MG TABLET 0.5 MG PO (19:30)
--- NOTE | 2022-12-05 22:00 | PC.NURSE ---
MDS CLARIFICATION: Discrepancy suspected in MICHELLE ADL charting. Staff were interviewed. Resident was totally dependent on staff for all instances of toileting. Coded dependent w/two staff assist.
[2022-12-06] MEDS: CARBIDOPA-LEVODOPA 25-100 TABLET 1 TAB PO ×4 (05:03→19:42)
[2022-12-06] MEDS: OXYCODONE 5 MG TABLET 2.5 MG PO (05:03)
[2022-12-06] MEDS: SENNOSIDES 1 TAB TABLET PO (07:17)
[2022-12-06] MEDS: polyethylene glycoL 3350 17 GM PACK PO (07:17)
[2022-12-06] MEDS: SODIUM CHLORIDE NASAL SPRAY 1 SPRAY NOSTRIL-B ×2 (07:17→15:23)
[2022-12-06] MEDS: QUETIAPINE 25 MG TABLET 12.5 MG PO (17:06)
[2022-12-06] MEDS: ROPINIROLE HCL 0.25 MG TABLET 0.5 MG PO (19:42)
[2022-12-06] MEDS: DONEPEZIL 10 MG TABLET PO (19:42)
[2022-12-07] MEDS: OXYCODONE 5 MG TABLET 2.5 MG PO (04:49)
[2022-12-07] MEDS: CARBIDOPA-LEVODOPA 25-100 TABLET 1 TAB PO ×4 (04:49→19:13)
[2022-12-07] MEDS: SODIUM CHLORIDE NASAL SPRAY 1 SPRAY NOSTRIL-B ×2 (07:38→15:28)
[2022-12-07] MEDS: SENNOSIDES 1 TAB TABLET PO (07:38)
[2022-12-07] MEDS: polyethylene glycoL 3350 17 GM PACK PO (07:38)
[2022-12-07] MEDS: QUETIAPINE 25 MG TABLET 12.5 MG PO (17:05)
[2022-12-07] MEDS: ROPINIROLE HCL 0.25 MG TABLET 0.5 MG PO (19:13)
[2022-12-07] MEDS: DONEPEZIL 10 MG TABLET PO (19:13)
--- NOTE | 2022-12-08 01:22 | PC.NURSE ---
Weekly Charting week 4: Vitals signs reviewed with no concerns. Comprehensive and temporary care plan reviewed with no changes made. Documented behavioral episodes of being combative/resistive with cares, Was trying to get up from bed, had fall in the last month. Receives quetiapine 12.5mg at 1800 daily. Recent Visit to Neurologist started Ropinirole 0.5mg take 3 tablet HS. No noted adverse drug effects. Able to communicate simple needs at times. Staff also anticipate needs. No noted hearing impairment. Glasses for reading only. No changes orientation. All medications administered by licensed nurse. Health condition stable at this time.?
[2022-12-08] MEDS: OXYCODONE 5 MG TABLET 2.5 MG PO (05:05)
[2022-12-08] MEDS: CARBIDOPA-LEVODOPA 25-100 TABLET 1 TAB PO ×4 (05:05→19:21)
[2022-12-08] MEDS: SODIUM CHLORIDE NASAL SPRAY 1 SPRAY NOSTRIL-B ×2 (08:09→15:30)
[2022-12-08] MEDS: polyethylene glycoL 3350 17 GM PACK PO (08:09)
[2022-12-08] MEDS: SENNOSIDES 1 TAB TABLET PO (08:09)
--- NOTE | 2022-12-08 09:58 | PC.NURSE ---
Weekly Charting- Week 4: Vital signs have been reviewed with two lower B/P values of 93/60 and 105/53 noted on 12/02/22. Blood pressure has since improved. Nursing to continue to observe and update provider PRN. Temporary and comprehensive care plans reviewed. Two problem/needs added to temporary care plan over the last week on 12/01/22: Problem: Fall from bed, no injuries. Goal: No fall- res will be safe. Approaches: Vitals and neuros Q4H x 48 hours Incentive to go back to sleep Problem: Fall incident- No injury. Goal: Prevent falls. Approaches: Ensure to stay with resident when getting him ready for cares. For instance, have all supplies and equipment ready before bringing resident to his room. Resident had one documented behavior of trying to hit out at staff during transfer over the last week. Staff continue to redirect as needed and focus on pain control when resident having behavior. Resident started on Ropinirole over the last week- 3 tabs have been ordered to start and order also given to taper medication per neurologist. No adverse reactions have been noted. Resident wears glasses for reading only. No hearing impairment noted. Resident able to communicate simple words at times otherwise staff need to anticipate needs. Resident does have periods of intermittent confusion and hyperactivity with staff providing redirection and 1:1 as needed. All medications are administered by licensed nurse. Resident takes Seroquel 12.5 mg at 1800 and Donepezil 10 mg at HS with no adverse reactions noted. No changes noted to chronic health conditions.
[2022-12-08] MEDS: QUETIAPINE 25 MG TABLET 12.5 MG PO (18:24)
[2022-12-08] MEDS: DONEPEZIL 10 MG TABLET PO (19:21)
[2022-12-08] MEDS: ROPINIROLE HCL 0.25 MG TABLET 0.5 MG PO (19:21)
[2022-12-09] MEDS: OXYCODONE 5 MG TABLET 2.5 MG PO (04:56)
[2022-12-09] MEDS: CARBIDOPA-LEVODOPA 25-100 TABLET 1 TAB PO ×4 (04:56→20:36)
[2022-12-09] MEDS: SODIUM CHLORIDE NASAL SPRAY 1 SPRAY NOSTRIL-B ×2 (07:18→15:49)
[2022-12-09] MEDS: SENNOSIDES 1 TAB TABLET PO (07:18)
[2022-12-09] MEDS: polyethylene glycoL 3350 17 GM PACK PO (07:18)
[2022-12-09] MEDS: QUETIAPINE 25 MG TABLET 12.5 MG PO (19:22)
[2022-12-09] MEDS: DONEPEZIL 10 MG TABLET PO (20:36)
[2022-12-09] MEDS: ROPINIROLE HCL 0.25 MG TABLET 0.5 MG PO (20:36)
[2022-12-10] MEDS: OXYCODONE 5 MG TABLET 2.5 MG PO (04:47)
[2022-12-10] MEDS: CARBIDOPA-LEVODOPA 25-100 TABLET 1 TAB PO ×4 (04:47→20:26)
[2022-12-10] MEDS: SENNOSIDES 1 TAB TABLET PO (07:09)
[2022-12-10] MEDS: polyethylene glycoL 3350 17 GM PACK PO (07:09)
[2022-12-10] MEDS: SODIUM CHLORIDE NASAL SPRAY 1 SPRAY NOSTRIL-B ×2 (07:09→15:56)
--- NOTE | 2022-12-10 11:05 | PC.SOCIAL ---
Received a phone call from [facility] medical transport and they informed that resident's daughter paid for transport with a credit card and the credit card did not go through for payment. [facility] has reached out to Marian several times with no response. Phone call to Marian Araya and e-mail to follow up on 12-09-22 asking her to reach out to [facility]. Follow up phone call placed today and spoke with Marian. Marain informs that she hasn't gotten a chance to call [facility], but she will call them today. Social work will follow up as needed.
--- NOTE | 2022-12-10 13:28 | PC.PHA1 ---
BASEBOARD HEATING INSTALLER PHARMACIST'S MEDICATION REVIEW: MEDICATION MONITORING:Quetiapine 12.5 mg po hs IRREGULARITY OR COMMENTS:Patient taking quetiapine for hallucinations and is being followed by neurologist. Neurology visit in next month scheduled. Ropinirole dose currently being tapered. SUGGESTED COURSE OF ACTION TAKEN:No medication recommendations this review.
--- NOTE | 2022-12-10 14:23 | PC.NURSE ---
Resident status: Resident has been very sleepy throughout this shift,not very alert .Vitals are WNL T97.6, P 70, B/P 106/68 and O2 97%. Breakfast , just a few bites and lunch about 75% .Staff was informed to monitor
[2022-12-10] MEDS: QUETIAPINE 25 MG TABLET 12.5 MG PO (18:48)
[2022-12-10] MEDS: DONEPEZIL 10 MG TABLET PO (20:26)
[2022-12-10] MEDS: ROPINIROLE HCL 0.25 MG TABLET 0.5 MG PO (20:27)
[2022-12-11] MEDS: CARBIDOPA-LEVODOPA 25-100 TABLET 1 TAB PO ×4 (05:07→19:11)
[2022-12-11] MEDS: OXYCODONE 5 MG TABLET 2.5 MG PO (05:07)
[2022-12-11] MEDS: SENNOSIDES 1 TAB TABLET PO (07:21)
[2022-12-11] MEDS: SODIUM CHLORIDE NASAL SPRAY 1 SPRAY NOSTRIL-B ×2 (07:21→15:22)
[2022-12-11] MEDS: polyethylene glycoL 3350 17 GM PACK PO (07:21)
--- NOTE | 2022-12-11 10:03 | PC.SPIRITC ---
Visit provided for support and connection, walked and talked outside on the patio for outdoor time as well.
[2022-12-11] MEDS: QUETIAPINE 25 MG TABLET 12.5 MG PO (17:02)
[2022-12-11] MEDS: DONEPEZIL 10 MG TABLET PO (19:11)
[2022-12-11] MEDS: ROPINIROLE HCL 0.25 MG TABLET 0.5 MG PO (19:11)
[2022-12-12] MEDS: OXYCODONE 5 MG TABLET 2.5 MG PO (04:56)
[2022-12-12] MEDS: CARBIDOPA-LEVODOPA 25-100 TABLET 1 TAB PO ×4 (04:56→19:26)
[2022-12-12 07:00] VITALS: BP 105/67; PULSE 84; RESP 17; TEMP 36.8; O2SAT 99; BMI 22.8
[2022-12-12] MEDS: SODIUM CHLORIDE NASAL SPRAY 1 SPRAY NOSTRIL-B ×2 (07:18→15:46)
[2022-12-12] MEDS: SENNOSIDES 1 TAB TABLET PO (07:19)
[2022-12-12] MEDS: polyethylene glycoL 3350 17 GM PACK PO (07:19)
[2022-12-12] MEDS: QUETIAPINE 25 MG TABLET 12.5 MG PO (18:26)
[2022-12-12] MEDS: ROPINIROLE HCL 0.25 MG TABLET 0.5 MG PO (19:26)
[2022-12-12] MEDS: DONEPEZIL 10 MG TABLET PO (19:26)
[2022-12-13] MEDS: CARBIDOPA-LEVODOPA 25-100 TABLET 1 TAB PO ×4 (04:20→19:46)
[2022-12-13] MEDS: OXYCODONE 5 MG TABLET 2.5 MG PO (04:21)
[2022-12-13] MEDS: SODIUM CHLORIDE NASAL SPRAY 1 SPRAY NOSTRIL-B ×2 (07:06→15:56)
[2022-12-13] MEDS: SENNOSIDES 1 TAB TABLET PO (07:06)
[2022-12-13] MEDS: polyethylene glycoL 3350 17 GM PACK PO (07:06)
[2022-12-13] MEDS: QUETIAPINE 25 MG TABLET 12.5 MG PO (18:01)
[2022-12-13] MEDS: DONEPEZIL 10 MG TABLET PO (19:46)
[2022-12-13] MEDS: ROPINIROLE HCL 0.25 MG TABLET 0.5 MG PO (19:47)
[2022-12-14] MEDS: OXYCODONE 5 MG TABLET 2.5 MG PO ×2 (00:15→04:30)
[2022-12-14] MEDS: CARBIDOPA-LEVODOPA 25-100 TABLET 1 TAB PO ×4 (04:30→19:49)
--- NOTE | 2022-12-14 05:43 | PC.NURSE ---
WEEKLY CHARTING WEEK 1 PAIN AND ADL`S Vital signs reviewed with no concerns. Comprehensive care plan remains the same and temporary care plan reviewed with the latest falls will continue with current care plan measures. Pain : Resident is on Acetaminophen 1000mg TID scheduled, Oxycodone 2.5 mg radiation protection technician? and PRN oxycodone 2.5mg Q6H for pain management. Extensive assist of 1 with his? ADLs except during Yomi transfer.? Regular diet ,thin liquid ; He is able to eat independently? finger foods with staff cues. He is assisted at meal table. Resident? has history of sneezing? and coughing during meals but does not have any choking episode. Staff will continue to monitor.
--- NOTE | 2022-12-14 05:53 | PC.NURSE ---
Health Resident was awake around midnight , took off his blanket , set the bed alarm couple times. He received Oxycodone 2.5 mg for pain and comfort.
[2022-12-14] MEDS: polyethylene glycoL 3350 17 GM PACK PO (07:55)
[2022-12-14] MEDS: SODIUM CHLORIDE NASAL SPRAY 1 SPRAY NOSTRIL-B ×2 (07:55→15:31)
[2022-12-14] MEDS: SENNOSIDES 1 TAB TABLET PO (07:55)
[2022-12-14] MEDS: QUETIAPINE 25 MG TABLET 12.5 MG PO (18:33)
[2022-12-14] MEDS: ROPINIROLE HCL 0.25 MG TABLET 0.5 MG PO (19:49)
[2022-12-14] MEDS: DONEPEZIL 10 MG TABLET PO (19:49)
[2022-12-15] MEDS: CARBIDOPA-LEVODOPA 25-100 TABLET 1 TAB PO ×4 (04:38→19:21)
[2022-12-15] MEDS: OXYCODONE 5 MG TABLET 2.5 MG PO (04:38)
[2022-12-15] MEDS: SODIUM CHLORIDE NASAL SPRAY 1 SPRAY NOSTRIL-B ×2 (07:20→15:22)
[2022-12-15] MEDS: SENNOSIDES 1 TAB TABLET PO (07:21)
[2022-12-15] MEDS: polyethylene glycoL 3350 17 GM PACK PO (07:21)
--- NOTE | 2022-12-15 11:17 | PC.NURSE ---
Weekly Charting, Week 1 - ADL's: Comprehensive and temporary care plan reviewed. No changes made, nothing added to temporary care plan. Needs extensive assists of 2 with dressing, grooming, oral cares and bathing. Bed bath only for safety.. Vital signs reviewed, no concerns. Is on regular diet, thin liquids. Is able to feed finger foods and staff partially assist at times. Cough at times with eating but no choking noted. Continue to monitor. Pain: Resident is usually stiff causing pain in the morning. Has an order for Oxycodone 2.5mg @ 0500 and is helpful. Also has an order for Tylenol 1000 mg TID PRN & Oxycodone 2.5 mg BID PRN and has used sparingly. Need for pain is anticipated by staff.
[2022-12-15] MEDS: DONEPEZIL 10 MG TABLET PO (19:21)
[2022-12-15] MEDS: QUETIAPINE 25 MG TABLET 12.5 MG PO (19:21)
[2022-12-15] MEDS: ROPINIROLE HCL 0.25 MG TABLET 0.5 MG PO (19:21)
[2022-12-16] MEDS: CARBIDOPA-LEVODOPA 25-100 TABLET 1 TAB PO ×4 (04:10→19:09)
[2022-12-16] MEDS: OXYCODONE 5 MG TABLET 2.5 MG PO (04:10)
[2022-12-16] MEDS: polyethylene glycoL 3350 17 GM PACK PO (07:10)
[2022-12-16] MEDS: SENNOSIDES 1 TAB TABLET PO (07:10)
[2022-12-16] MEDS: SODIUM CHLORIDE NASAL SPRAY 1 SPRAY NOSTRIL-B ×2 (07:10→15:03)
[2022-12-16] MEDS: QUETIAPINE 25 MG TABLET 12.5 MG PO (17:21)
[2022-12-16] MEDS: ROPINIROLE HCL 0.25 MG TABLET 0.5 MG PO (19:09)
[2022-12-16] MEDS: DONEPEZIL 10 MG TABLET PO (19:09)
[2022-12-17] MEDS: OXYCODONE 5 MG TABLET 2.5 MG PO (04:52)
[2022-12-17] MEDS: CARBIDOPA-LEVODOPA 25-100 TABLET 1 TAB PO ×4 (04:52→19:18)
[2022-12-17] MEDS: SODIUM CHLORIDE NASAL SPRAY 1 SPRAY NOSTRIL-B ×2 (07:16→15:24)
[2022-12-17] MEDS: polyethylene glycoL 3350 17 GM PACK PO (07:17)
[2022-12-17] MEDS: SENNOSIDES 1 TAB TABLET PO (07:37)
[2022-12-17] MEDS: QUETIAPINE 25 MG TABLET 12.5 MG PO (18:20)
[2022-12-17] MEDS: DONEPEZIL 10 MG TABLET PO (19:18)
[2022-12-17] MEDS: ROPINIROLE HCL 0.25 MG TABLET 0.5 MG PO (19:18)
[2022-12-18] MEDS: OXYCODONE 5 MG TABLET 2.5 MG PO (04:42)
[2022-12-18] MEDS: CARBIDOPA-LEVODOPA 25-100 TABLET 1 TAB PO ×4 (04:42→19:13)
[2022-12-18] MEDS: SODIUM CHLORIDE NASAL SPRAY 1 SPRAY NOSTRIL-B ×2 (07:36→16:15)
[2022-12-18] MEDS: SENNOSIDES 1 TAB TABLET PO (07:36)
[2022-12-18] MEDS: polyethylene glycoL 3350 17 GM PACK PO (07:36)
--- NOTE | 2022-12-18 13:13 | PC.NURSE ---
BRAIN STIM CHECK: Monthly battery check performed. Battery life indicated: Full battery more than 1 year. Communication 100%. Therapy turned on. Will continue to check monthly. Family updated.
[2022-12-18] MEDS: QUETIAPINE 25 MG TABLET 12.5 MG PO (19:13)
[2022-12-18] MEDS: DONEPEZIL 10 MG TABLET PO (19:13)
[2022-12-18] MEDS: ROPINIROLE HCL 0.25 MG TABLET 0.5 MG PO (19:14)
[2022-12-19] MEDS: CARBIDOPA-LEVODOPA 25-100 TABLET 1 TAB PO ×4 (05:50→19:22)
[2022-12-19] MEDS: OXYCODONE 5 MG TABLET 2.5 MG PO (05:50)
[2022-12-19] MEDS: SODIUM CHLORIDE NASAL SPRAY 1 SPRAY NOSTRIL-B ×2 (07:59→15:11)
[2022-12-19] MEDS: SENNOSIDES 1 TAB TABLET PO (08:00)
[2022-12-19] MEDS: polyethylene glycoL 3350 17 GM PACK PO (08:00)
[2022-12-19 09:34] VITALS: BP 104/57; PULSE 64; RESP 18; TEMP 36.2; O2SAT 99; BMI 22.5
[2022-12-19] MEDS: QUETIAPINE 25 MG TABLET 12.5 MG PO (17:09)
[2022-12-19] MEDS: DONEPEZIL 10 MG TABLET PO (19:22)
[2022-12-19] MEDS: ROPINIROLE HCL 0.25 MG TABLET 0.5 MG PO (19:22)
[2022-12-20] MEDS: OXYCODONE 5 MG TABLET 2.5 MG PO (05:10)
[2022-12-20] MEDS: CARBIDOPA-LEVODOPA 25-100 TABLET 1 TAB PO ×4 (05:10→19:24)
[2022-12-20] MEDS: SODIUM CHLORIDE NASAL SPRAY 1 SPRAY NOSTRIL-B ×2 (08:01→15:25)
[2022-12-20] MEDS: polyethylene glycoL 3350 17 GM PACK PO (08:01)
[2022-12-20] MEDS: SENNOSIDES 1 TAB TABLET PO (08:01)
[2022-12-20] MEDS: QUETIAPINE 25 MG TABLET 12.5 MG PO (18:10)
[2022-12-20] MEDS: ROPINIROLE HCL 0.25 MG TABLET 0.5 MG PO (19:24)
[2022-12-20] MEDS: DONEPEZIL 10 MG TABLET PO (19:24)
[2022-12-21] MEDS: CARBIDOPA-LEVODOPA 25-100 TABLET 1 TAB PO ×4 (05:10→19:31)
[2022-12-21] MEDS: OXYCODONE 5 MG TABLET 2.5 MG PO (05:11)
[2022-12-21] MEDS: SENNOSIDES 1 TAB TABLET PO (07:23)
[2022-12-21] MEDS: polyethylene glycoL 3350 17 GM PACK PO (07:23)
[2022-12-21] MEDS: SODIUM CHLORIDE NASAL SPRAY 1 SPRAY NOSTRIL-B ×2 (07:23→15:20)
[2022-12-21] MEDS: QUETIAPINE 25 MG TABLET 12.5 MG PO (17:02)
[2022-12-21] MEDS: DONEPEZIL 10 MG TABLET PO (19:32)
[2022-12-21] MEDS: ROPINIROLE HCL 0.25 MG TABLET 0.5 MG PO (19:32)
--- NOTE | 2022-12-22 01:04 | PC.NURSE ---
Weekly Charting Week 2: Vital signs reviewed with no concerns. Comprehensive and temporary care plan reviewed with no changes made. Assist fo 2 with full mechanical lift for all transfers. Non-ambulatory. Assist of 1-2 for bed mobility. Bilateral 1/4 side rails up during cares only. Total assist of 1 for w/c mobility. Last Fall risk assessment, Res is at high risk for falls. Fall interventions: anticipate needs, bed and chair alarms in place and active, call light in reach, gripper socks, falling star magnet, hourly safety checks, bed in low position with brakes locked. On standing program TID and ROM program BID.
[2022-12-22] MEDS: OXYCODONE 5 MG TABLET 2.5 MG PO (04:59)
[2022-12-22] MEDS: CARBIDOPA-LEVODOPA 25-100 TABLET 1 TAB PO ×4 (04:59→20:24)
--- NOTE | 2022-12-22 07:43 | PC.NURSE ---
Weekly Charting Week 2: Vital signs reviewed. DBP noted to be slightly low at 57 with staff encouraging fluids as tolerated. Temporary and comprehensive care plans have been reviewed with no changes made. Resident requires assist of 1-2 with bed mobility and total assist of 1 with wheelchair locomotion. He does not ambulate and requires total assist of 2 using EZ lift for transferring. Bilateral 1/4 side rails used only for repositioning. Resident remains high risk for falls with multiple interventions in place: non-slip footwear worn, bed and chair alarms in place, staff anticipating needs, call light within reach, hourly visual checks for safety, falling star magnet in place and ensuring staff stay with resident when getting him ready for cares. Standing program in place TID and ROM in place BID with no documented refusals noted over the last week.
[2022-12-22] MEDS: SODIUM CHLORIDE NASAL SPRAY 1 SPRAY NOSTRIL-B ×2 (07:58→15:11)
[2022-12-22] MEDS: polyethylene glycoL 3350 17 GM PACK PO (07:59)
[2022-12-22] MEDS: SENNOSIDES 1 TAB TABLET PO (07:59)
--- NOTE | 2022-12-22 11:45 | PC.SPIRITC ---
Provided visit for connection and support.
[2022-12-22] MEDS: QUETIAPINE 25 MG TABLET 12.5 MG PO (18:15)
[2022-12-22] MEDS: ROPINIROLE HCL 0.25 MG TABLET 0.5 MG PO (20:24)
[2022-12-22] MEDS: DONEPEZIL 10 MG TABLET PO (20:24)
[2022-12-23] MEDS: CARBIDOPA-LEVODOPA 25-100 TABLET 1 TAB PO ×4 (04:34→19:32)
[2022-12-23] MEDS: OXYCODONE 5 MG TABLET 2.5 MG PO (04:34)
[2022-12-23] MEDS: LOPERAMIDE HCL 2 MG CAPSULE PO (06:27)
[2022-12-23] MEDS: SODIUM CHLORIDE NASAL SPRAY 1 SPRAY NOSTRIL-B ×2 (07:41→15:09)
[2022-12-23 18:36] LABS: PCR FLU A Negative PCR FLU A (Negative); PCR FLU B Negative PCR FLU B (Negative)
[2022-12-23 18:49] LABS: SARS PCR* Negative SARS-CoV-2 (Negative)
[2022-12-23] MEDS: QUETIAPINE 25 MG TABLET 12.5 MG PO (18:52)
[2022-12-23] MEDS: ROPINIROLE HCL 0.25 MG TABLET 0.5 MG PO (19:32)
[2022-12-23] MEDS: DONEPEZIL 10 MG TABLET PO (19:32)
--- NOTE | 2022-12-23 21:44 | PC.NURSE ---
Health Status: At approximately 1630, resident had series of sneezing, running nose, and increase drooling. Resident was tested for COVID /INFLUENZIA/ SARS - test results are negative at this time. Vital signs obtained as follows: Temp - 97.7, BP- 137/81, PUL- 61, O2- 97, Resp- 18, Pain- 0. Will continue to monitor.
[2022-12-24] MEDS: CARBIDOPA-LEVODOPA 25-100 TABLET 1 TAB PO ×4 (04:27→19:45)
[2022-12-24] MEDS: OXYCODONE 5 MG TABLET 2.5 MG PO (04:27)
[2022-12-24 06:48] VITALS: BP 81/50; PULSE 69; RESP 18; TEMP 36.5; O2SAT 97
[2022-12-24] MEDS: SODIUM CHLORIDE NASAL SPRAY 1 SPRAY NOSTRIL-B ×2 (07:57→15:08)
--- NOTE | 2022-12-24 08:57 | PC.NURSE ---
Health status: Recruiter Manager called daughter Nohemi at this time to provide update regarding resident's health status including loose stools, B/P trending lower at 81/50 this morning and resident not wanting to take many po fluids this morning despite staff encouragement. Recruiter Manager has also left voicemail with social security assessor requesting copy of POLST as no POLST is currently located for resident. Recruiter Manager also calling [facility] to provide update and to let [facility] team know that staff are waiting on return phone call from daughter.
--- NOTE | 2022-12-24 09:13 | PC.NURSE ---
Pigs Feet Finisher called [facility] Triage at this time and spoke with KEN Croft regarding resident's health status including resident's ongoing loose stools sine 12/22/22, resident unwilling to take much for po fluids despite staff encouragement, sneezing, runny nose and drooling noted on 12/23/22 PM and previous Covid and Influenza labs done on 12/23/22 PM. Pigs Feet Finisher requested orders to complete stool sample to rule out Norovirus and C. difficile infection. Pigs Feet Finisher also informed harp regulator that we are waiting on daughter Marian to return call and that sports writer has left message with social welfare clerk to see if resident has a POLST completed. Resident is DNR/DNI. Staff will continue to encourage fluids po as tolerated. KEN Croft is going to update provider and will send any new orders to [facility] Care Teams within 2 hours. If no response after 2 hours, nursing staff are to call [facility] Triage to follow up. Resident resting in recliner at this time. Floor staff updated.
--- NOTE | 2022-12-24 10:09 | PC.NURSE ---
Staff currently have resident in room on contact precautions as well due to having multiple loose stools since 12/22/22. Resident is eating food and drinking fluids at this time with MICHELLE assistance in room.
--- NOTE | 2022-12-24 10:40 | PC.NURSE ---
Creative Intern left note in FUNCTIONAL SUPPORT ANALYST binder requesting FUNCTIONAL SUPPORT ANALYST complete POLST for resident with family as high school social studies teacher informed global technical writer resident does not have a POLST at this time.
--- NOTE | 2022-12-24 12:08 | PC.NURSE ---
New orders per IMPORT EXPORT MANAGER Renetta Bee: Okay to collect stool sample to test for C Diff and norovirus. Orders entered.
[2022-12-24] MEDS: QUETIAPINE 25 MG TABLET 12.5 MG PO (18:43)
[2022-12-24] MEDS: DONEPEZIL 10 MG TABLET PO (19:45)
[2022-12-24] MEDS: ROPINIROLE HCL 0.25 MG TABLET 0.5 MG PO (19:45)
[2022-12-25] MEDS: OXYCODONE 5 MG TABLET 2.5 MG PO (04:54)
[2022-12-25] MEDS: CARBIDOPA-LEVODOPA 25-100 TABLET 1 TAB PO ×4 (04:54→21:04)
--- NOTE | 2022-12-25 04:56 | PC.NURSE ---
Health Status: Resident slept most of the night. Refused to take Po fluids. Incontinent pad dry the whole shift. Scheduled Carbidopa and Oxycodone at 0500 administered with no problem. No bowel movement this shift. Will pass on to incoming nurse to collect stool specimen to r/o c-diff/norovirus. VSS BP 107/69, Temp 97.6, RR 17, HR 77. O2 sat 93% at RA.
[2022-12-25] MEDS: SENNOSIDES 1 TAB TABLET PO (08:03)
[2022-12-25] MEDS: polyethylene glycoL 3350 17 GM PACK PO (08:03)
[2022-12-25] MEDS: SODIUM CHLORIDE NASAL SPRAY 1 SPRAY NOSTRIL-B ×2 (08:03→15:17)
--- NOTE | 2022-12-25 11:50 | PC.NURSE ---
Seen by Tarun Bee regarding resident's poor appetite and c/o stomach pain. Ordered Mag Hydrox/Aluminum Hyd/Simeth 15-30mls PO QID PRN.Staff continue to monitor
--- NOTE | 2022-12-25 13:01 | PC.NURSE ---
Seen by ALBERT Bee .Ordered to apply shampoo and warm wash cloth to affected eye(s) daily due to chronic redness/drainage.
[2022-12-25] MEDS: QUETIAPINE 25 MG TABLET 12.5 MG PO (17:11)
[2022-12-25] MEDS: ROPINIROLE HCL 0.25 MG TABLET 0.5 MG PO (21:05)
[2022-12-25] MEDS: DONEPEZIL 10 MG TABLET PO (21:05)
[2022-12-26] MEDS: CARBIDOPA-LEVODOPA 25-100 TABLET 1 TAB PO ×4 (04:25→20:03)
[2022-12-26] MEDS: OXYCODONE 5 MG TABLET 2.5 MG PO ×2 (04:25→09:51)
[2022-12-26 07:00] VITALS: BP 87/60; PULSE 47; RESP 16; TEMP 36.7; O2SAT 98
[2022-12-26] MEDS: SENNOSIDES 1 TAB TABLET PO (07:01)
[2022-12-26] MEDS: polyethylene glycoL 3350 17 GM PACK PO (07:01)
[2022-12-26] MEDS: SODIUM CHLORIDE NASAL SPRAY 1 SPRAY NOSTRIL-B ×2 (07:01→15:16)
[2022-12-26 10:09] VITALS: BMI 22.5
--- NOTE | 2022-12-26 11:29 | PC.NURSE ---
Resident Update: Resident is having trouble swallowing medications and is spitting some out after holding pudding in mouth. Medications were documented as given however it is unknown how much resident actually got. Nurses are pushing fluid, resident is drinking some but spitting majority out. It has been reported by MICHELLE's that there has been no void for two days when being changed. Nursing to do bladder scan. Resident did not consume anything for breakfast as they were not swallowing food. Resident did not go to dining room for lunch due to risk of choking due to not swallowing food. Resident is very out of it and is difficult to make alert.
--- NOTE | 2022-12-26 12:54 | PC.NURSE ---
Nurse did bladder scan at 1200, 163mL in bladder. Resident voided after lunch.
[2022-12-26] MEDS: QUETIAPINE 25 MG TABLET 12.5 MG PO (19:04)
[2022-12-26] MEDS: DONEPEZIL 10 MG TABLET PO (20:03)
[2022-12-26] MEDS: ROPINIROLE HCL 0.25 MG TABLET 0.5 MG PO (20:04)
[2022-12-27] MEDS: OXYCODONE 5 MG TABLET 2.5 MG PO (04:40)
[2022-12-27] MEDS: CARBIDOPA-LEVODOPA 25-100 TABLET 1 TAB PO ×3 (04:40→15:43)
[2022-12-27] MEDS: bisacodyL 10 MG SUPP.RECT PR (06:21)
[2022-12-27] MEDS: SODIUM CHLORIDE NASAL SPRAY 1 SPRAY NOSTRIL-B ×2 (07:49→15:43)
[2022-12-27] MEDS: SENNOSIDES 1 TAB TABLET PO (07:49)
[2022-12-27] MEDS: polyethylene glycoL 3350 17 GM PACK PO (07:49)
--- NOTE | 2022-12-27 10:11 | PC.NURSE ---
Update: Daughter updated via email of resident's condition.
--- NOTE | 2022-12-27 13:52 | PC.NURSE ---
Status: Resident did not eat a lot of food on the AM shift less than 25%. Was wet twice. When asked how he was feeling he stated not to bad. Resident denies pain.
[2022-12-28] MEDS: CARBIDOPA-LEVODOPA 25-100 TABLET 1 TAB PO ×4 (05:18→20:12)
[2022-12-28] MEDS: OXYCODONE 5 MG TABLET 2.5 MG PO (05:18)
[2022-12-28] MEDS: SENNOSIDES 1 TAB TABLET PO (07:37)
[2022-12-28] MEDS: SODIUM CHLORIDE NASAL SPRAY 1 SPRAY NOSTRIL-B ×2 (07:37→15:54)
[2022-12-28] MEDS: polyethylene glycoL 3350 17 GM PACK PO (07:37)
[2022-12-28] MEDS: QUETIAPINE 25 MG TABLET 12.5 MG PO (18:45)
[2022-12-28] MEDS: ROPINIROLE HCL 0.25 MG TABLET 0.5 MG PO (20:12)
[2022-12-28] MEDS: DONEPEZIL 10 MG TABLET PO (20:12)
--- NOTE | 2022-12-29 03:37 | PC.NURSE ---
WEEKLY CHARTING WEEK 3 : TOILETING AND SKIN Vital signs reviewed, BP variable. Continue weekly monitoring and refer to provider as needed. Comprehensive and temporary care plan reviewed , no change made regarding toileting and skin. Resident is incontinent of bowel and bladder ; he is check and change in bed every 2 hours and PRN. He wears blue wing briefs , Pads, juancarlos cares, clothing management done by staff. . Skin: No skin issues at this time. Skin is checked routinely during cares and on bath day.
[2022-12-29] MEDS: OXYCODONE 5 MG TABLET 2.5 MG PO (05:08)
[2022-12-29] MEDS: CARBIDOPA-LEVODOPA 25-100 TABLET 1 TAB PO ×4 (05:08→20:06)
[2022-12-29 07:00] VITALS: BMI 21.0
--- NOTE | 2022-12-29 07:04 | PC.NURSE ---
Weekly Charting- Week 3: Toileting & Skin Vital signs reviewed over the last week. Blood pressures noted to be trending lower last week with B/P of 81/50 on 12/24 and B/P of 87/60 on 12/26. Provider was updated regarding lower B/P of 81/50 on 12/24/22. Staff are to continue to encourage fluids as tolerated. Resident has had poor po intake noted over the last week including not accepting of oral fluids and spitting food out during meals and snacks. Temporary and comprehensive care plans reviewed with no changes noted. No skin concerns noted per last weekly skin assessment. Eye care of cleansing with shampoo and applying warm washcloth in place to be performed daily due to chronic eye redness/drainage. Skin assessment continues weekly and with cares. Resident requires total assist of 2 with all toileting needs including the providing of juancarlos cares, rolling in bed and changing of brief. Resident is incontinent of bowel and bladder and is to be repositioned Q3H per care plan. Staff check and change brief as needed when performing repositioning.
[2022-12-29] MEDS: polyethylene glycoL 3350 17 GM PACK PO (07:12)
[2022-12-29] MEDS: SODIUM CHLORIDE NASAL SPRAY 1 SPRAY NOSTRIL-B ×2 (07:12→16:00)
[2022-12-29] MEDS: SENNOSIDES 1 TAB TABLET PO (07:12)
--- NOTE | 2022-12-29 10:44 | PC.NURSE ---
Resident is difficult to make alert. Resident is not swallowing medications when given. When given crushed medications in pudding, they get spit out. Nursing will continue to monitor resident's status. Resident consumed only bites for breakfast. Resident consumed roughly 50% of a chocolate ensure.
--- NOTE | 2022-12-29 11:17 | PC.NURSE ---
Status update: Secondary School Principal left note for ARTIFICIAL BREAST FABRICATOR regarding resident's weight loss noted this morning. Resident's weight noted to be 157 on 12/26/22 and weight today is noted to be 146.9. Resident having poor po intake including chewing bites of food though spitting food out at times and is also spitting medication out at times. Staff do crush medications that can be crushed though unable to crush Sinemet. Resident noted to be alert for morning exercise activity this morning though will often sleep through meals despite staff effort to wake to encourage food and fluids.
[2022-12-29] MEDS: QUETIAPINE 25 MG TABLET 12.5 MG PO (18:48)
[2022-12-29] MEDS: ROPINIROLE HCL 0.25 MG TABLET 0.5 MG PO (20:06)
[2022-12-29] MEDS: DONEPEZIL 10 MG TABLET PO (20:06)
[2022-12-30] MEDS: OXYCODONE 5 MG TABLET 2.5 MG PO (04:35)
[2022-12-30] MEDS: CARBIDOPA-LEVODOPA 25-100 TABLET 1 TAB PO ×4 (04:35→19:19)
[2022-12-30] MEDS: SODIUM CHLORIDE NASAL SPRAY 1 SPRAY NOSTRIL-B ×2 (08:19→15:14)
[2022-12-30] MEDS: polyethylene glycoL 3350 17 GM PACK PO (08:19)
[2022-12-30] MEDS: SENNOSIDES 1 TAB TABLET PO (08:20)
--- NOTE | 2022-12-30 12:36 | PC.NURSE ---
Status/order: Seen by INFANTRY UNIT LEADER Renetta Bee, instructed to reweigh patient on 12/31 + 01/02 due to significant weight loss update. to update MP on weight on 01/02
[2022-12-30] MEDS: QUETIAPINE 25 MG TABLET 12.5 MG PO (18:46)
[2022-12-30] MEDS: ROPINIROLE HCL 0.25 MG TABLET 0.5 MG PO (19:20)
[2022-12-30] MEDS: DONEPEZIL 10 MG TABLET PO (19:20)
--- NOTE | 2022-12-30 20:51 | PC.NURSE ---
Resident awake/up in chair entire shift. Resident pocketed food/liquids. Resident spit out medications.
[2022-12-31] MEDS: CARBIDOPA-LEVODOPA 25-100 TABLET 1 TAB PO ×4 (04:21→20:44)
[2022-12-31] MEDS: OXYCODONE 5 MG TABLET 2.5 MG PO (04:21)
[2022-12-31] MEDS: SODIUM CHLORIDE NASAL SPRAY 1 SPRAY NOSTRIL-B ×2 (08:37→16:47)
[2022-12-31] MEDS: SENNOSIDES 1 TAB TABLET PO (08:39)
[2022-12-31] MEDS: polyethylene glycoL 3350 17 GM PACK PO (08:39)
[2022-12-31] MEDS: bisacodyL 10 MG SUPP.RECT PR (12:40)
--- NOTE | 2022-12-31 13:38 | PC.NURSE ---
Health Decline: Resident is sleeping more. He took nothing in orally for breakfast. The Senna and Miralax was not taken and swollowed. Was a little more alert before lunch. Was fed an ice cream bar. Attempted to give him his Sinemet at 1100 and all came back out of his mouth. Staff attempted to feed him and he took some bites but very little. He had not had a bowel movement for 3 days so received a suppository and when inserting it found very little stool.
[2022-12-31] MEDS: QUETIAPINE 25 MG TABLET 12.5 MG PO (18:28)
[2022-12-31] MEDS: DONEPEZIL 10 MG TABLET PO (20:44)
[2022-12-31] MEDS: ROPINIROLE HCL 0.25 MG TABLET 0.5 MG PO (20:44)
[2023-01-01] MEDS: OXYCODONE 5 MG TABLET 2.5 MG PO (05:25)
[2023-01-01] MEDS: CARBIDOPA-LEVODOPA 25-100 TABLET 1 TAB PO (05:25)
[2023-01-01] MEDS: SENNOSIDES 1 TAB TABLET PO (08:48)
[2023-01-01] MEDS: polyethylene glycoL 3350 17 GM PACK PO (08:48)
[2023-01-01] MEDS: SODIUM CHLORIDE NASAL SPRAY 1 SPRAY NOSTRIL-B (08:48)
--- NOTE | 2023-01-01 13:21 | PC.NURSE ---
Hospice: This continuity writer placed a call to residents daughter Nohemi to update her on her fathers decline and needing to know how the family would like to handle his end of life. Nohemi will be making decision to which Hospice should be choosen. EXTRUDING PRESS OPERATOR sent orders to admit to Hospice due to end stage Parkinsons Disease. Orders to discontinue all meds and start Roxanol prn for pain. The came and this continuity writer had a conversation with her to make sure she was aware of all that was going on.
--- NOTE | 2023-01-01 14:37 | PC.NURSE ---
Oral intake: Resident manage to take 1 bottle of ensure drink with 's encouragement.
--- NOTE | 2023-01-01 15:37 | PC.SOCIAL ---
Received information that resident's family would like resident to go on hospice. Phone call to resident's daughter (Marian Araya) to discuss which Hospice provider she would like to use. [facility] will reach out to Marian to complete informational meeting. Informed daughter that [facility] has contracts with [facility] and [facility], but there are several other hospice agencies. Marian will discuss with her mother and provide an answer to this worker. Received e-mail from Marian Araya stating that she would like to move forward with [facility]. Marian informs that herself and her mother will be at [facility] tomorrow in the late morning if anything needs to be signed. Phone call to Ellie Trivedi ([phone]) at [facility]. Completed verbal referral and faxed referral to [phone]. Provided information that family will be at [facility] tomorrow late morning. Ellie will check with scheduling and see when they can accommodate to start services and will call this worker back. Social work will follow up as necessary.
--- NOTE | 2023-01-01 15:41 | NUTR.NU ---
RDN notes that resident is now of hospice/palliative care status. Anticipate resident's oral intakes and weight may fluctuate d/t change in health status. Recommend foods/fluids as desires/tolerates. RDN will continue to follow.
--- NOTE | 2023-01-02 02:16 | PC.NURSE ---
New Med Oder: Order sent via fax delivery by Renetta PRICE is as follow: * Morphine concentrate 100 mg/5 mL (20 mg/mL) oral solution - 0.25 mL (1/4 ml) by mouth every hour as needed.
--- NOTE | 2023-01-02 02:29 | PC.NURSE ---
New Med Order: Order sent via fax delivery by CHANGE MANAGEMENT ANALYST, Renetta Bee, is as follow: * Morphine concentrate 100 mg/5 mL (20 mg/mL) oral solution - 0.25 mL (1/4 ml) by mouth every hour as needed.
[2023-01-02 07:00] VITALS: BP 144/89; BMI 20.7
--- NOTE | 2023-01-02 20:33 | PC.NURSE ---
Progress note: Resident bedridden, non-alert this shift. Resident repositioned Q2hrs. Resident appears comfortable, no PRN morphine administered. Resident had zero intake/output this shift.
[2023-01-03] MEDS: MORPHINE 20 MG/ML **CONCENTRATE** ORAL PO (04:42)
--- NOTE | 2023-01-03 13:44 | PC.NURSE ---
Admission to Hospice: Resident was admitted to hospice [facility] today. Family was here today ( and daughter) Explanation was given by KEN Harris and papers were signed. Staff continue to give comfort cares.
--- NOTE | 2023-01-03 13:48 | PC.NURSE ---
Resident status : Resident has been sleeping most of the time during this shift. He only took 200mls of ensure and refused lunch. No verbal and non-verbal complain of pain. Staff continue to provide comfort cares.
--- NOTE | 2023-01-03 20:59 | PC.NURSE ---
Progress Note: Resident alert, up in chair/recliner half the shift. Resident appeared comfortable entire shift, no prn morphine administered. Resident repositioned Q3H. One wet brief this shift. Resident did report he was hungry, did sip water/juice from straw and swallow some, spit out some. Resident did swallow a few bites of pudding and spit out rest. VSS.
[2023-01-04] MEDS: MORPHINE 20 MG/ML **CONCENTRATE** ORAL PO ×3 (06:39→20:44)
--- NOTE | 2023-01-04 13:23 | PC.NURSE ---
Resident Status: Resident c/o backache at 0630 and PRN morphine 0.25ml was given with good results. Resident was offered ensure and he finished 1 bottle, refuse any solid food. He had some visitors family and friends. Seen by hospice nurse - ordered for [facility] chair and will get Dr Jaxson Carreno ( hospice DR) to sign the prescription for Lorazepam and other comfort medications tomorrow. Vital are stable Temp 98.4, P70, BP 140/60 and O2 97% (RA).Another dose of PRN morphine was given at 1230 as he c/o pain.
--- NOTE | 2023-01-04 21:19 | PC.NURSE ---
Progress note: Resident alert 1/2 the shift. Resident bedridden entire shift. Resident offered sips of water, resident would swallow some, spit rest out. No other oral intake this shift. Resident given oral care/swabs Q2H. Resident Repositioned Q2H. One wet brief this shift. Resident temperature 99.0 @ 21:00. 21:00 Resident grimacing and reporting to be in pain. PRN 0.25ml morphine administered @ 21:00.
--- NOTE | 2023-01-04 21:27 | PC.NURSE ---
Residents family visiting from out of town. Residents sister in law approached database report writer/nurse somewhat upset that resident wasn't provided the option of NG tube feeding like her brother, whom also has Parkinson's has. Finishing Tunnel Operator/nurse apologized and informed sister in law that because she is not the POA, database report writer/nurse cannot discuss resident's care with her. Resident's family was given update per request. Family was informed we are no longer offering food, just sips of water and he is comfort focused. wanted him to have his ice cream bars and snacks. Finishing Tunnel Operator/nurse discussed his current inability to swallow solids, so we cannot offer ice cream bars or solid snacks. Daughter Marian phoned after family left to be given same update. Daughter upset that she wasn't informed of his change in condition. Daughter want's to be notified when Hospice will be here 01/05, so she can attend hospice meeting. Daughter is also requesting a care conference re: hospice.
--- NOTE | 2023-01-05 00:56 | PC.NURSE ---
Weekly charting Week 4: Vital signs reviewed, BP values variable, On Hospice care. Comprehensive and temporary care plan reviewed. Temporary care plan added; Resident admitted to [facility] on 01/03/23. Ordered Lorazepam 0.25ml every 4 hours as needed. Res is declining unable to determined orientation, has difficulty communicating needs. Staff anticipate needs. Has glasses for reading only. No noted hearing impairment All comfort medications administered by licensed nurse.
--- NOTE | 2023-01-05 06:21 | PC.NURSE ---
Health Status: Resident slept most of the night comfortably. Tolerated repositioning every 2 hours without any verbal and non verbal signs of pain. Incontinent pad dry during first round, 3rd round and moderate urine on second round. Oral care done x2. Temp 98.9
--- NOTE | 2023-01-05 07:56 | PC.NURSE ---
Weekly Charting- Week 4: Vital signs reviewed with no concerns noted. Temporary and comprehensive care plans have been reviewed. Addition to temporary care plan on 01/03/23: Resident admitted to Hospice. Goal to provide comfort and will provide end of life needs. Approaches include comfort care and administering comfort meds as ordered. Resident has had four documented episodes of hitting/kicking with AM cares noted over the last month. Resident generally unable to verbalize needs at this time due to Parkinson's Disease. He can nod head 'yes' or whisper 'yes' at times when alert. Resident wears glasses for reading. No hearing impairment noted. He does have cognitive impairment due to Parkinson's Disease and Lewy Body Dementia. Staff have to anticipate needs and provide repositioning. All previous scheduled medications have been discontinued. SULFONATION EQUIPMENT OPERATOR gave order to begin Morphine po Q1H PRN pain, dyspnea, agitation on 01/01/23. All medications are administered by licensed nurse.
--- NOTE | 2023-01-05 10:31 | PC.NURSE ---
[facility] aquatic physiotherapist is here visiting resident at this time and also visiting with resident's as she just arrived. Costume Director informed aquatic physiotherapist that signed order for Lorazepam is needed which aquatic physiotherapist will be providing. aquatic physiotherapist also states she will contact resident's daughter regarding setting up a care conference per family request.
--- NOTE | 2023-01-05 11:58 | PC.NURSE ---
New orders per [facility] signed by Dr. Puri: Acetaminophen 650 mg suppository Q6H PRN for mild pain or fever, Hyoscyamine 0.125 mg sublingual tablet Q4H PRN secretions, Morphine 20 mg/mL Take 0.25 mL (5 mg) po or under tongue Q2H PRN for moderate to severe pain or shortness of breath, Bisacodyl 10 mg suppository daily PRN and Lorazepam 2 mg/mL oral concentrate Take 0.25 mL (0.5 mg) po or under tongue Q4H PRN anxiety or agitation. Family here during Hospice visit and aware of order changes. Orders have been sent to [facility] as provider is sending Escript for Lorazepam.
--- NOTE | 2023-01-05 13:35 | PC.NURSE ---
Status: Resident was given a whirl pool bath by hospice staff. After bath when getting dressed resident seemed to be in pain so junior technical writer mentioned that morphine can be given, Hospice staff mentioned that Ativan can be given and residents family stated that they wanted to see if he would calm down first and that she would ask for medication when it was needed. After half an hour junior technical writer checked in and resident was comfortable. Hospice staff also told junior technical writer that staff should look out for family force feeding resident and that they want him to be fully dressed.
--- NOTE | 2023-01-05 16:09 | PC.SOCIAL ---
Social work attempted PHQ-9 assessment x3. Resident is unable to provide answers due to recent decline in health status. Resident went on hospice on 01/03/23. Staff interview will be completed.
--- NOTE | 2023-01-05 16:20 | PC.SOCIAL ---
Significant change in status. Hospice began on 01/03/23 with [facility]. Care Conference set for 01/06/23 at 1:15 pm. Verified with resident's daughter (Marian Araya) that this works for her. Invited [facility] to care conference. Social work will follow up as needed.
[2023-01-06] MEDS: MORPHINE 20 MG/ML **CONCENTRATE** ORAL 5 MG BUCCAL ×3 (06:20→19:16)
--- NOTE | 2023-01-06 06:22 | PC.NURSE ---
Hospice - comfort cares note. Resident was repositioned and kept comfortable during night, no verbal or non verbal indications of pain, incontinent of bladder x 1 cares provided.
--- NOTE | 2023-01-06 10:41 | PC.NURSE ---
Resident status: Resident was in so much pain this morning, staff was unable to do cares and get him up to the Broda chair. He was given morphine 0.25mls at 0620 and he eventually began to relax and be more comfortable. He was offered water, however he refused to swallow. Staff continue to do oral cares.
--- NOTE | 2023-01-06 15:12 | NUTR.NU ---
During resident's care conference today, resident's family requests that a magic cup be offered once daily as resident tolerates/desires for comfort. RDN will order per family request. RDN will continue to follow.
--- NOTE | 2023-01-06 15:46 | PC.NURSE ---
CARE CONFERENCE (HOSPICE): Care conference meeting held with all members of care team present. Spouse, Pat, daughter, Marian, and and son-in law, Glenroy, were in attendance. Hospice ([facility] RN coordinator, Zo was available by phone. Nursing reviewed that resident continues to needing 2 assist with ADLs,? transfers, and mobility. Resident uses randy for transfers. He is a high fall risk and uses a bed alarm. Frequent falls, all prevention measures are in place. Since last care conference, resident has had significant decline in health and is now enrolled is Hospice through [facility] (enrollment date 01/03/23). Reveiwed goals of hospice care with resident's family and answered all questions. Resident condition is currently stable, although he is eating and drinking minimally. He is still continuing to make urine, although in limited amounts. Resident was noted to have a bath in the tub with [facility] hosp[facility] yesterday, however, care team reviewed with resident family and hospice that PT/OT has deemed patient unsafe to bathe in tub. Family has requested that he receive two bed baths a week - one with the [facility] hosp[facility] and the other likely with the LTC staff. Family also requests that eyes get washed to get ride of crusts that build up. Family would like resident's nails trimmed after next bath Discussed family preference for patient to wear clothing, but also informed them that if it causes patient discomfort to get clothing on (due to contractures) we will default to hospital gown. Discussed resident's new hospice medications and answered any concerns regarding administration of opiates/anxiolytic medications. They confirm understanding that RN/REAL ESTATE ACQUISITION ANALYST team is trained in non-verbal cues that resident may be experiencing pain and use nursing judgement for administration. Resident's daughter, Marian, notes that a POLST was filled out with the Hospice team yesterday. Life enrichment coordinator will continue to encourage exercise with Ho in the Broda chair as he has found enjoyment in this in the past. Rib Builder will add Magic Cup as additional nourishment for resident to receive calories and protein as he feels hungry. Nurse is to continue to perform brain stim check on the beginning of the month as device will remain in place. Family requests that they be notified of any change in condition that resident may be dying soon so they can support him (changes in breathing, urinating, increased temp, skin changes/mottling, etc). RN/LPNs will update family and hospice team with any noticeable changes.
--- NOTE | 2023-01-06 15:53 | PC.SOCIAL ---
Resident's care conference held today at 1:15 pm. Updates from Nursing, Social work, Nutrition, and Life Enrichment. Mobile Disc Jockey (Bessy Singleton [phone]) attended by phone. Hospice services began this past Thursday. Resident's medication was discharged. Hospice will work on keeping resident comfortable and keep family updated. Resident will be bed bath only and not take tub baths due to safety concerns. Resident's PHQ-9 score is elevated due to health status change. Resident is sleeping more and not eating. Family was provided with end of life care books as requested.
[2023-01-07] MEDS: MORPHINE 20 MG/ML **CONCENTRATE** ORAL 5 MG BUCCAL (03:39)
--- NOTE | 2023-01-07 06:14 | PC.NURSE ---
Hospice - Comfort cares Resident night went fine, got repositioned several times during night ; He received one dose of Ativan 0.25 ml and Morphine 0.25ml.
--- NOTE | 2023-01-07 10:04 | PC.NURSE ---
Bowel note: Floor nurse administering PRN Bisacodyl suppository per [facility] as resident has had no BM since 01/02/23.
[2023-01-07] MEDS: bisacodyL 10 MG SUPP.RECT PR (10:05)
--- NOTE | 2023-01-07 10:39 | PC.NURSE ---
Resident status : Resident has been comfortable since beginning of the shift. No sign of distress or in pain. Staff continue positioning every 2 hours with oral care. Temp 98.5 and O2 sat 96% (RA)
--- NOTE | 2023-01-07 13:21 | PC.NURSE ---
BM : Bisacodyl supp was given at 1010 and resident had M/A loose stool.
--- NOTE | 2023-01-07 13:29 | PC.NURSE ---
Resident status : Resident has been comfortable during this shift. No PRN morphine or Lorazepam was administered.Visited by family members and spoke to hospice nurse . They will be visiting daily.
--- NOTE | 2023-01-07 16:00 | PC.SPIRITC ---
I attempted visit but Ho was sleeping and his family was not present.
--- NOTE | 2023-01-08 10:46 | PC.NURSE ---
Comfort Care: Ho was cleaned and repositioned by staff right away at beginning of shift with no signs of pain or response. Later the hospital aide came and he was thoroughly cleaned with hair shampooed and repositioned again. No response from him at this time at all. His Mildred along with some friends are here visiting at this time. The Hospice nurse Cindy was updated on his condition and she said she would begin the daily visits. She will be over to see him soon.
--- NOTE | 2023-01-08 13:26 | PC.NURSE ---
Comfort care : Resident was seen by hospice nurse, no changes.Resident is very comfortable, unresponsive and no sign of pain or distress. No PRN morphine and lorazepam was given during this shift. Vitals as follows Temp 99, P 76 and O2 96.Visited by family . Staff continue to give comfort care with 2 hours position and oral care.
[2023-01-08 13:36] VITALS: BMI 20.6
--- NOTE | 2023-01-08 20:53 | PC.NURSE ---
Progress note: Resident appeared comfortable entire shift. Resident bed-ridden, non-responsive entire shift. No oral intake this shift. One wet brief. No PRN's administered this shift. Resident Temp 98.8. VSS. Oral cares & repositioning Q2H. No signs mottling evident. No change in condition this shift.
[2023-01-09] MEDS: MORPHINE 20 MG/ML **CONCENTRATE** ORAL 5 MG BUCCAL ×2 (05:28→07:41)
--- NOTE | 2023-01-09 05:51 | PC.NURSE ---
Health Status: Resident experienced pain noted after changing incontinent pad and repositioning. Noted jerking and facial grimacing. Has shallow breathing/ mouth breather approximately ranging 12-18 BPM. Temp 97.6. Morphine 0.25ml utilized and given for comfort. Res is stable and comfortable at this time.
[2023-01-09 06:44] VITALS: PULSE 82; RESP 17; TEMP 36.5; O2SAT 92
--- NOTE | 2023-01-09 11:35 | PC.NURSE ---
Hospice benefit: Provider's Certification for Medicare Hospice Benefit form was filled and signed by Dr Calhoun. It was fax to [facility] and file in the resident's notes
--- NOTE | 2023-01-09 13:53 | PC.NURSE ---
Comfort cares-Hospice- Resident continues to be bed bound but stable. He has slept through all his repositioning periods. He received MS 5mg at 0740 for noted grimacing. T-97.7, P-82, R-17, B/P-not taken due to condition. O2 sats 92% on RA. Multiple family members have been visiting. Hospice nurse visited and will be back tomorrow.
--- NOTE | 2023-01-09 13:59 | PC.NURSE ---
Intervention dc's- Discontinues the bed and chair alarms per DON orders. Discontinues monitoring behaviors due to medication use because no longer using meds.
[2023-01-10] MEDS: MORPHINE 20 MG/ML **CONCENTRATE** ORAL 5 MG BUCCAL ×2 (02:52→05:10)
--- NOTE | 2023-01-10 06:17 | PC.NURSE ---
Hospice - comfort cares Resident is still declining ; got repositioned and oral cares done several times this shift. He received Morphine 0.25 ml twice this shift, was comfortable.
--- NOTE | 2023-01-10 13:08 | PC.NURSE ---
Status: Resident unresponsive and in bed for the whole AM shift. Was turned and repositioned every two hours. Incontinent of straw colored urine once this shift. No PRN medication was given. Resident was comfortable for the duration of the shift. Respirations staying between 16-20. Hospice nurse and Aide were here to see resident. Nurse noted a small amount of mottling on the bottoms of the feet. Aide gave resident a bed bath.
--- NOTE | 2023-01-10 21:26 | PC.NURSE ---
Health Status update: Staff continues with hospice/comfort cares protocol. Thus, repositioning every two hours as tolerated. PeriCare and oral hygiene performed as needed.
--- NOTE | 2023-01-11 05:38 | PC.NURSE ---
Hospice - Comfort cares Resident was comfortable during night , calm and rested. He was repositioned several times during this shift , oral care done also. will continue to keep comfortable.
--- NOTE | 2023-01-11 12:39 | PC.NURSE ---
Hospice/Comfort cares note: Staff continue to reposition resident Q2H and provide oral cares as he continues on Hospice/comfort care services. Staff report resident was noted to have small amount of urinary incontinence this morning. Both [facility] LEASING CONSULTANT and RN have been here to see resident today. LEASING CONSULTANT assisted resident with bed bath. Resident has had no verbal or indications of pain or agitation noted so far this shift. He has been kept comfortable with soft music in room being played. Resident's is here visiting at this time. Respirations have been 20 per minute throughout the shift when assessed. Nursing to continue to provide end of life/comfort cares and monitor.
--- NOTE | 2023-01-11 14:15 | PC.NURSE ---
Bowel information note: Superintendent Seed Mill updated [facility] director cardiovascular this morning regarding resident having no BM since 01/07/23. director cardiovascular advised no intervention at this time as resident continues to near end of life. and daughter Marian present at beside this afternoon.
[2023-01-11] MEDS: MORPHINE 20 MG/ML **CONCENTRATE** ORAL 5 MG BUCCAL (21:27)
--- NOTE | 2023-01-11 21:30 | PC.NURSE ---
Jesús Status update: Resident is being repositioned, as tolerated, every two hours. PeriCare and oral hygiene performed as needed - has had two soiled (wet) incontinent product so far. More visitors, than usual, seen in the facility as family members/relatives, and friends have been in and out throughout this shift. Finally, resident has lapsed into unconsciousness and has become completely unresponsive. Approximately at 1900, breathing pattern changed from normal rate, of 20 min/breath, and rhythm to increasingly shallow respirations. Ativan 0.25 mL administered at 1925 when resident exhibited agitation during repositioning, and Morphine 0.25 mL given at 2126. Apparently, it appears resident is going through process peacefully. Will continue to monitor.
[2023-01-12] MEDS: MORPHINE 20 MG/ML **CONCENTRATE** ORAL 5 MG BUCCAL (04:30)
--- NOTE | 2023-01-12 05:38 | PC.NURSE ---
Hospice - Comfort cares Resident was kept comfortable during night , was repositioned several times . Morphine 0.25 ml and Ativan were administrated once this shift for comfort.
--- NOTE | 2023-01-12 10:09 | PC.PHA1 ---
POST ANESTHESIA CARE UNIT NURSE PHARMACIST'S MEDICATION REVIEW: MEDICATION MONITORING:Lorazepam 0.5 mg q4h prn IRREGULARITY OR COMMENTS:Appropriate hospice order in place and being utilized by nursing. SUGGESTED COURSE OF ACTION TAKEN:No recommendations
--- NOTE | 2023-01-12 21:10 | PC.NURSE ---
Health Status: Hospice/comfort cares implemented as ordered. As he continues to decline, resident is going though the dying process peacefully this shift. No fever, agitation, restlessness, and no non-verbal signs often indicating symptoms of pain, or distress noted or reported so far. Since the goal is keeping resident comfortable, Morphine and Ativan would be administered as needed as ordered. Will continue to monitor, and update family in case of any significant change occurs.
--- NOTE | 2023-01-12 21:46 | PC.NURSE ---
Health Status: Hospice/comfort cares implemented as ordered. As he continues to decline, resident is going though the dying process peacefully this shift. No fever, agitation, restlessness, and no non-verbal signs often indicating symptoms of pain, or distress noted or reported so far. Since the goal is keeping resident comfortable, Morphine and Ativan would be administered, and as needed as ordered. Will continue to monitor, and update family in case of any significant change occurs.
[2023-01-13] MEDS: MORPHINE 20 MG/ML **CONCENTRATE** ORAL 5 MG BUCCAL (08:19)
--- NOTE | 2023-01-13 12:00 | PC.NURSE ---
Recert Visit : Resident was seen by ALBERT Jackson .Orders renewed and reviewed for 75 days with no changes.
--- NOTE | 2023-01-13 12:29 | PC.SPIRITC ---
I provided visit for support and to facilitate story telling with family.
--- NOTE | 2023-01-13 13:42 | PC.NURSE ---
Comfort Cares: Resident has been showing signs of further decline with labored breathing and some Apnea noted. Was given dose of Morphine at 1010 with observable relaxation. Continue to monitor for signs of distress. Family has been in and out throughout the day.
--- NOTE | 2023-01-13 21:10 | PC.NURSE ---
Progress note: Resident non-responsive entire shift. Resident appeared comfortable-no restlessness, rapid breathing, or facial cues of anxiety or pain exhibited this shift. No prn morphine or ativan administered this shift. No apneic episodes this shift. No evidence of mottling this shift. No oral intake this shift. Oral swabs and repositioning occurred Q3H. Temp 98.3, 02-85%, p. 82. Scant wetness on brief. Family in/out majority of shift.
[2023-01-14] MEDS: MORPHINE 20 MG/ML **CONCENTRATE** ORAL 5 MG BUCCAL ×3 (05:08→14:25)
--- NOTE | 2023-01-14 05:36 | PC.NURSE ---
Comfort Care Note: Resident continues declining, non verbal, experiencing shallow rapid labored breathing, Morphine 0.25ml was utilized and administered for comfort. Temp 99.6, O2 sat 83% RA.
--- NOTE | 2023-01-14 06:30 | PC.NURSE ---
Health Status note: Pie Cutter has assessed resident this morning and noted respirations to be at 20 per minute with no apnea or gasping noted. Resident appears comfortable at this time with no verbal or nonverbal indications of pain noted. Nursing staff will continue to provide comfort cares and continue to monitor.
[2023-01-14] MEDS: ACETAMINOPHEN 650 MG SUPP PR ×4 (07:25→19:04)
--- NOTE | 2023-01-14 07:35 | PC.NURSE ---
Family update: News Analyst called daughter Marian at this time to update daughter on resident's fever of 102.3 noted this morning as he continues to decline. PRN Morphine has been given and daughter states family will be coming to visit this morning.
--- NOTE | 2023-01-14 07:41 | PC.NURSE ---
Hospice update: Wet Inspector Optical Glass called [facility] at this time to update Hospice nurse regarding resident's fever as he continues to decline and resident is getting closer to end of life. [facility] nurse has been updated. She states nurse, LEARNING DESIGN SPECIALIST and social media executive will all be coming to see resident this morning and will provide facility with ETA when known.
--- NOTE | 2023-01-14 11:30 | PC.NURSE ---
Resident's and daughter have been here visiting this morning along with [facility] nurse Kaylyn.
--- NOTE | 2023-01-14 11:35 | PC.NURSE ---
Order note: [facility] hull grinder wrote order to change Morphine Sulfate oral concentrate 20 mg/ml order to Give 0.25 ml (5 mg) Q8H along with current PRN dosing. Awaiting signed order from provider at this time.
--- NOTE | 2023-01-14 13:20 | PC.NURSE ---
Status: Resident has a temp of 102.3 was given Tylenol Supp 650mg at 0725 when rechecked resident was 99.3. Respirations were 28 was given morphine 5mg at 0728 when rechecked respirations were 20. Resident is comfortable. Hospice nurse noted mottling from the feet to the shins.
[2023-01-14] MEDS: MORPHINE 10 MG/0.5 ML ORAL SOLN 5 MG BUCCAL ×2 (15:17→23:38)
--- NOTE | 2023-01-14 16:51 | PC.NURSE ---
Comfort Cares: Hospice was here till 1600 and family has also been in attendance until now. Checked vital signs with temp.-99.7 with washcloth on his forehead. P-87 BPM and 02sat was 81% on RA.
--- NOTE | 2023-01-14 16:53 | PC.NURSE ---
Comfort Cares: Ho received prn Morphine at 1420 and then began the scheduled dose at 1515.
--- NOTE | 2023-01-14 21:31 | PC.NURSE ---
Vitals: At 1835 his temp was 101.5,p-90, R-20 and o2sats 83% on RA. Given Morphine prn at 1420 and then started his scheduled dose [id number]. At 1900 He received a Tylenol Supp. at 1900 for elevated temp. and Morphine also at 1900 for comfort.
--- NOTE | 2023-01-15 04:35 | PC.NURSE ---
S Resident at 0345. B Resident is a 72 years old male with a history of Parkinson`s with use of electrical brain stimulation, Lewy body dementia without behavior disturbance. He was having a significant decline and got admitted to hospice on 01/03/2023. A Nurse listened for apical pulse and observed for respiration, none at that time ; second Nurse on the floor confirmed the of the resident. R Call was made to daughter at 0355 to inform. Call was made to [facility] right after ; the Triage Nurse called back and will send a Nurse in about an hour and plus.
--- NOTE | 2023-01-15 04:52 | PC.NURSE ---
Nurse note A hospice Nurse called at 0427 and said that , she is coming from [place] and will be at the facility as soon as possible.
--- NOTE | 2023-01-15 07:01 | PC.NURSE ---
Resident's family (, daughter and son-in law) arrived at 0700 and are being comfort by hospice nurse.
--- NOTE | 2023-01-15 07:28 | PC.NURSE ---
Family left for home after meeting with hospice nurse and Bicycle Fitter Billie at 0730. Arrangement made to [facility] to come at 0800.
--- NOTE | 2023-01-15 07:33 | PC.SPIRITC ---
Family was present and tearful. I provided visit for prayer, to facilitate story telling, and to begin processing grief.
--- NOTE | 2023-01-15 08:18 | PC.NURSE ---
home : Ho's body was release to [facility] [place] at 0820. Family was not present .
--- NOTE | 2023-01-15 11:49 | PC.NURSE ---
Recapitulation: Resident admitted to [facility]CC on 02/24/22 from [facility] following L hip hemiarthroplasty. Received PT/OT until resident was back to baseline. Family decided to keep resident admitted at facility for medical terminologist care. D/t resident's cognitive status and parkinsons dx resident was a high fall risk and fell multiple times without injury attempting to self transfer. Resident was also followed by neurologist at [facility]. After a 2 week period of poor oral intake resident was admitted to [facility] on 01/03/23. Resident's status continued to decline and became unresponsive. Resident at 0345 on 01/15/23.
--- NOTE | 2023-01-16 22:57 | PC.NURSE ---
CAAs: were not completed, resident . Care planning is no longer needed.
--- NOTE | 2023-01-26 11:10 | PC.NURSE ---
Telephone call to resident's daughter, Nohemi, to see if she or her mother would like to come and cherry picker operator Ho's brain stimulator check device (includes phone and remote). Nohemi states she is not interested in obtaining the device and gives permission to dispose of it. This racebook writer informed Janis CHAVEZ of family decision.
== END 2023-01-15 12:03 | disposition expired | DRG 57 ==
PROVIDERS: Family Medicine; Admitting Provider Family Medicine; Family Provider Nurse Practitioner Gerontology; PCP Family Medicine; Visit Provider Family Medicine
DX: G20 Parkinson's disease (principal); G31.83 Neurocognitive disorder with Lewy bodies; F02.80 Dementia in other diseases classified elsewhere, unspecified severity, without behavioral disturbance, psychotic disturbance, mood disturbance, and anxiety; M85.80 Other specified disorders of bone density and structure, unspecified site; E55.9 Vitamin D deficiency, unspecified; M19.90 Unspecified osteoarthritis, unspecified site; S72.002D Fracture of unspecified part of neck of left femur, subsequent encounter for closed fracture with routine healing; F03.90 Unspecified dementia, unspecified severity, without behavioral disturbance, psychotic disturbance, mood disturbance, and anxiety; R12 Heartburn; H04.123 Dry eye syndrome of bilateral lacrimal glands; K59.00 Constipation, unspecified; J30.89 Other allergic rhinitis
CPT/HCPCS: 36415; 73130; 73502; 85025; 87493; 87631; 87635; 87798; 90471; 90662; 92610; 97110; 97112; 97161; 97165; 97530; 97535

== ENCOUNTER 2022-07-28 04:17 | Outpatient (CLI) | payer MEDICARE, BC, SELFPAY | END 2022-07-28 04:18 | disposition home or self-care (01) | LOC: AMB 07-29 09:20 | PROVIDERS: PCP Family Medicine; Visit Provider Family Medicine | DX: Z46.89 Encounter for fitting and adjustment of other specified devices (principal) | CPT/HCPCS: A0425; A0428 ==

== ENCOUNTER 2022-07-28 18:51 | Outpatient (CLI) | payer MEDICARE, BC, SELFPAY | END 2022-07-28 18:52 | disposition home or self-care (01) | LOC: AMB 07-29 10:39 | PROVIDERS: PCP Family Medicine; Visit Provider Emergency Medicine Emergency Medical Services | DX: Z46.89 Encounter for fitting and adjustment of other specified devices (principal) | CPT/HCPCS: A0425; A0428 ==